=== PATIENT | male | born 1950 | race Caucasian/White ===

== ENCOUNTER 2017-11-19 17:21 | Inpatient (IN) | payer BC, MEDICARE ==
[~2017-11-19] VITALS: Ht 177.8 cm; Wt 129.5 kg
[~2017-11-19 17:21] MED LIST: ALIS150T PO; AMOX500 PO; BUME1 PO; CLIN300 PO; CLOP75 PO; Coreg12.5 MG PO; EDARBI40 MG PO; HYDACE5 PO; LISI20 PO; METF500 PO; PANT40 PO; SPIR25 PO
[2017-11-19 17:45] LABS: BASOPHILS ABSOLUTE AUTO 0.01 K/mm3 (0.00-0.23); BASOPHILS PERCENT AUTO 0 % (0-2); EOSINOPHILS ABSOLUTE AUTO 0.14 K/mm3 (0.00-0.68); EOSINOPHILS PERCENT AUTO 2 % (0-6); Hematocrit 38.7 % (37.0-53.0); Hemoglobin 12.8 g/dL (13.5-17.5); IMMATURE GRAN ABSOLUTE AUTO 0.02 K/mm3 (0.00-0.10); IMMATURE GRAN PERCENT AUTO 0 % (0-1); LYMPHOCYTES PERCENT AUTO 23 % (21-46); MONOCYTES ABSOLUTE AUTO 0.62 K/mm3 (0.16-1.47); MONOCYTES PERCENT AUTO 8 % (4-13); Mean Corpuscular HGB 28.6 pg (26.0-34.0); Mean Corpuscular HGB Conc 33.1 g/dL (31.5-36.5); Mean Corpuscular Volume 86 fL (80-100); Mean Platelet Volume 9.2 fL (9.1-12.4); NEUTROPHILS ABSOLUTE AUTO 5.04 K/mm3 (1.96-9.15); NEUTROPHILS PERCENT AUTO 67 % (41-73); Platelet Count 202 K/mm3 (150-400); RDW Coefficient Variation 14.3 % (11.7-14.2); RDW Standard Deviation 44.5 fL (35.1-46.3); Red Blood Cell Count 4.48 M/mm3 (4.30-5.90); White Blood Cell Count 7.53 K/mm3 (4.00-11.30)
[2017-11-19 18:08] LABS: Alanine Aminotransfer (ALT/SGP 43 U/L (12-78); Albumin, Blood 3.6 g/dL (3.4-5.0); Alk Phos 66 U/L (50-136); Anion Gap 6 mmol/L (6-16); Aspartate Aminotrans (AST/SGOT 29 U/L (12-37); Bilirubin, Total 0.4 mg/dL (0.1-1.0); Blood Urea Nitrogen 23 mg/dL (8-24); Bun/Creatinine Ratio 18.5 (12.0-20.0); CO2, Blood 29 mmol/L (21-32); Calcium, Blood 8.9 mg/dL (8.5-10.1); Chloride, Blood 105 mmol/L (98-108); Creatinine, Blood 1.24 mg/dL (0.60-1.20); Globulin, Blood 3.7 g/dL (2.2-4.0); Glomerular Filtration Rate >60 (60-); Glucose, Blood 89 mg/dL (70-99); Potassium, Blood 3.8 mmol/L (3.5-5.5); Sodium, Blood 140 mmol/L (136-145); Total Protein, Blood 7.3 g/dL (6.4-8.2)
[2017-11-19 18:38] LABS: Troponin I 0.729 ng/mL (0.000-0.040)
[2017-11-19] MEDS ORDERED: BUME1 PO (20:13)
[2017-11-19] MEDS ORDERED: VITAMIN D31000 UNIT PO (20:14)
[2017-11-19 20:30] LABS: Source, Urine Clean Catch
[2017-11-19 20:34] LABS: Appearance, Urine Clear (Clear); Bilirubin, Urine Neg (Neg); Blood, Urine Neg (Neg); Color, Urine Yellow (P-Yellow); Glucose Qualitative, Urine Neg (Neg); Ketones, Urine Neg (Neg); Leukocyte Esterase, Urine Neg (Neg); Nitrite, Urine Neg (Neg); Protein, Urine Neg (Neg); Urobilinogen, Urine NORM (Normal)
[2017-11-20 02:41] LABS: BASOPHILS ABSOLUTE AUTO 0.01 K/mm3 (0.00-0.23); BASOPHILS PERCENT AUTO 0 % (0-2); EOSINOPHILS ABSOLUTE AUTO 0.13 K/mm3 (0.00-0.68); EOSINOPHILS PERCENT AUTO 2 % (0-6); Hematocrit 38.7 % (37.0-53.0); Hemoglobin 12.7 g/dL (13.5-17.5); IMMATURE GRAN ABSOLUTE AUTO 0.01 K/mm3 (0.00-0.10); IMMATURE GRAN PERCENT AUTO 0 % (0-1); LYMPHOCYTES ABSOLUTE AUTO 1.33 K/mm3 (0.84-5.20); LYMPHOCYTES PERCENT AUTO 22 % (21-46); MONOCYTES ABSOLUTE AUTO 0.58 K/mm3 (0.16-1.47); MONOCYTES PERCENT AUTO 10 % (4-13); Mean Corpuscular HGB 28.9 pg (26.0-34.0); Mean Corpuscular HGB Conc 32.8 g/dL (31.5-36.5); Mean Corpuscular Volume 88 fL (80-100); Mean Platelet Volume 9.5 fL (9.1-12.4); NEUTROPHILS ABSOLUTE AUTO 4.04 K/mm3 (1.96-9.15); NEUTROPHILS PERCENT AUTO 66 % (41-73); Platelet Count 185 K/mm3 (150-400); RDW Coefficient Variation 14.4 % (11.7-14.2); RDW Standard Deviation 46.6 fL (35.1-46.3); Red Blood Cell Count 4.39 M/mm3 (4.30-5.90)
[2017-11-20 03:02] LABS: Alanine Aminotransfer (ALT/SGP 41 U/L (12-78); Albumin, Blood 3.5 g/dL (3.4-5.0); Albumin/Globulin Ratio 1.1 (0.8-1.8); Alk Phos 61 U/L (50-136); Anion Gap 8 mmol/L (6-16); Aspartate Aminotrans (AST/SGOT 27 U/L (12-37); Bilirubin, Total 0.4 mg/dL (0.1-1.0); Blood Urea Nitrogen 22 mg/dL (8-24); CO2, Blood 28 mmol/L (21-32); Calcium, Blood 8.8 mg/dL (8.5-10.1); Chloride, Blood 106 mmol/L (98-108); Globulin, Blood 3.3 g/dL (2.2-4.0); Glomerular Filtration Rate >60 (60-); Glucose, Blood 107 mg/dL (70-99); Potassium, Blood 3.9 mmol/L (3.5-5.5); Sodium, Blood 142 mmol/L (136-145); Total Protein, Blood 6.8 g/dL (6.4-8.2)
[2017-11-20 03:09] LABS: Troponin I 0.779 ng/mL (0.000-0.040)
[2017-11-20 11:26] LABS: Troponin I 0.628 ng/mL (0.000-0.040)
[2017-11-20 23:38] LABS: Source, Urine Clean Catch
[2017-11-20 23:41] LABS: Bilirubin, Urine Neg (Neg); Blood, Urine Neg (Neg); Glucose Qualitative, Urine Neg (Neg); Ketones, Urine Neg (Neg); Leukocyte Esterase, Urine Neg (Neg); Nitrite, Urine Neg (Neg); Protein, Urine Neg (Neg); Specific Gravity, Urine 1.015 (1.003-1.022); Urobilinogen, Urine NORM (Normal)
[2017-11-20 23:51] LABS: Appearance, Urine Clear (Clear); Color, Urine Yellow (P-Yellow)
[2017-11-22 03:35] LABS: BASOPHILS ABSOLUTE AUTO 0.01 K/mm3 (0.00-0.23); BASOPHILS PERCENT AUTO 0 % (0-2); EOSINOPHILS ABSOLUTE AUTO 0.12 K/mm3 (0.00-0.68); EOSINOPHILS PERCENT AUTO 2 % (0-6); Hematocrit 37.8 % (37.0-53.0); Hemoglobin 12.2 g/dL (13.5-17.5); IMMATURE GRAN ABSOLUTE AUTO 0.01 K/mm3 (0.00-0.10); IMMATURE GRAN PERCENT AUTO 0 % (0-1); LYMPHOCYTES ABSOLUTE AUTO 0.89 K/mm3 (0.84-5.20); LYMPHOCYTES PERCENT AUTO 14 % (21-46); MONOCYTES PERCENT AUTO 8 % (4-13); Mean Corpuscular HGB 28.4 pg (26.0-34.0); Mean Corpuscular HGB Conc 32.3 g/dL (31.5-36.5); Mean Corpuscular Volume 88 fL (80-100); Mean Platelet Volume 9.6 fL (9.1-12.4); NEUTROPHILS ABSOLUTE AUTO 4.97 K/mm3 (1.96-9.15); NEUTROPHILS PERCENT AUTO 76 % (41-73); Platelet Count 222 K/mm3 (150-400); RDW Coefficient Variation 14.9 % (11.7-14.2); RDW Standard Deviation 47.7 fL (35.1-46.3); Red Blood Cell Count 4.29 M/mm3 (4.30-5.90)
[2017-11-22 04:20] LABS: Anion Gap 8 mmol/L (6-16); Blood Urea Nitrogen 25 mg/dL (8-24); Bun/Creatinine Ratio 20.7 (12.0-20.0); CO2, Blood 24 mmol/L (21-32); Calcium, Blood 8.5 mg/dL (8.5-10.1); Chloride, Blood 108 mmol/L (98-108); Creatinine, Blood 1.21 mg/dL (0.60-1.20); Glomerular Filtration Rate >60 (60-); Glucose, Blood 93 mg/dL (70-99); Potassium, Blood 4.2 mmol/L (3.5-5.5); Sodium, Blood 140 mmol/L (136-145)
[2017-11-22] MEDS ORDERED: CLOP75 PO (09:44)
[2017-11-22] MEDS ORDERED: ASPI81CH PO (09:49)
[2017-11-22] MEDS ORDERED: ATOR80 PO (09:50)
[2017-11-22] MEDS ORDERED: EDARBI40 MG PO (09:51)
[2017-11-22] MEDS ORDERED: ASPI325 PO (10:14)
== END 2017-11-22 10:47 | disposition home or self-care (01) | DRG 246 ==
LOC: ER 17:21 → ERHOLD 17:22 → PCU 11-20 13:14
PROVIDERS: Emergency Medicine; Internal Medicine; Internal Medicine Interventional Cardiology
PROC: 027237Z Dilation of Coronary Artery, Three Arteries with Four or More Drug-eluting Intraluminal Devices, Percutaneous Approach (ICD-10-PCS; principal; 2017-11-21)
PROC: 4A023N7 Measurement of Cardiac Sampling and Pressure, Left Heart, Percutaneous Approach (ICD-10-PCS; 2017-11-21)
PROC: B2101ZZ Fluoroscopy of Single Coronary Artery using Low Osmolar Contrast (ICD-10-PCS; 2017-11-21)
PROC: B2151ZZ Fluoroscopy of Left Heart using Low Osmolar Contrast (ICD-10-PCS; 2017-11-21)
DX: I21.4 Non-ST elevation (NSTEMI) myocardial infarction (principal); E88.81 Metabolic syndrome and other insulin resistance; I13.0 Hypertensive heart and chronic kidney disease with heart failure and stage 1 through stage 4 chronic kidney disease, or unspecified chronic kidney disease; I50.32 Chronic diastolic (congestive) heart failure; E66.9 Obesity, unspecified; N18.1 Chronic kidney disease, stage 1; G47.33 Obstructive sleep apnea (adult) (pediatric); I35.0 Nonrheumatic aortic (valve) stenosis; I25.10 Atherosclerotic heart disease of native coronary artery without angina pectoris; Z88.5 Allergy status to narcotic agent; Z79.02 Long term (current) use of antithrombotics/antiplatelets; Z79.899 Other long term (current) drug therapy; Z86.73 Personal history of transient ischemic attack (TIA), and cerebral infarction without residual deficits; Z87.891 Personal history of nicotine dependence; Z68.36 Body mass index [BMI] 36.0-36.9, adult
CPT/HCPCS: 36415; 37253; 71046; 80048; 80053; 81003; 82550; 84484; 85025; 85347; 85730; 92978; 93005; 93010; 93458; 94660; 94762; 96372; 96374; 96375; 96376; 99152; 99153; 99285; C1725; C1753; C1769; C1874; C1894; C9600; C9601; G0378; J0360; J1644; J2250; J2270; J3010; J3246; J7030; J7060; Q9967

== ENCOUNTER → 2018-02-18 | Outpatient (CLI) | payer BC, OTHER ==
[~2018-02-18] MED LIST changes: +ASPI325 PO; +ASPI81CH PO; +ATOR80 PO; +VITAMIN D31000 UNIT PO
== END ==
LOC: PLD 10:54 → LAB SHORT 10:54
DX: D48.5 Neoplasm of uncertain behavior of skin (principal)
CPT/HCPCS: 88305

== ENCOUNTER 2018-12-17 09:38 | Emergency (ER) | payer OTHER, BC ==
[~2018-12-17] VITALS: Ht 177.8 cm; Wt 136.1 kg
[~2018-12-17 09:38] MED LIST changes: +BUME2 PO
[2018-12-17] MEDS ORDERED: ONDA4ODT MM (14:07)
[2018-12-17] MEDS ORDERED: Crutch1 EACH UD (14:07)
[2018-12-17] MEDS ORDERED: Percocet 10-321 EACH PO (14:07)
[2018-12-17] MEDS ORDERED: CARV25 PO (21:50)
[2018-12-17] MEDS ORDERED: POTA10T PO (21:54)
[2018-12-17] MEDS ORDERED: K-Dur10 MEQ PO (21:55)
[2018-12-17] MEDS ORDERED: LOSA50 PO (21:57)
[2018-12-17] MEDS ORDERED: AMLO5 PO (21:58)
[2018-12-17] MEDS ORDERED: Nystatin15 GM TOP (22:00)
== END 2018-12-17 15:17 | disposition home or self-care (01) ==
LOC: ER 09:38
DX: S83.231A Complex tear of medial meniscus, current injury, right knee, initial encounter (principal); S83.271A Complex tear of lateral meniscus, current injury, right knee, initial encounter; S76.111A Strain of right quadriceps muscle, fascia and tendon, initial encounter; S46.211A Strain of muscle, fascia and tendon of other parts of biceps, right arm, initial encounter; I10 Essential (primary) hypertension; E11.9 Type 2 diabetes mellitus without complications; Z88.5 Allergy status to narcotic agent; Z79.899 Other long term (current) drug therapy; Z79.01 Long term (current) use of anticoagulants; Z79.82 Long term (current) use of aspirin; Z87.891 Personal history of nicotine dependence; W00.0XXA Fall on same level due to ice and snow, initial encounter
CPT/HCPCS: 29505; 73552; 73562-RT; 73721; 99284-25

== ENCOUNTER 2018-12-17 18:09 | Inpatient (IN) | payer OTHER, BC ==
[~2018-12-17] VITALS: Ht 177.8 cm; Wt 62.5 kg
[~2018-12-17 18:09] MED LIST changes: +Crutch1 EACH UD; +ONDA4ODT MM; +Percocet 10-321 EACH PO
[2018-12-17] MEDS ORDERED: CARV25 PO (21:50)
[2018-12-17] MEDS ORDERED: POTA10T PO (21:54)
[2018-12-17] MEDS ORDERED: K-Dur10 MEQ PO (21:55)
[2018-12-17] MEDS ORDERED: LOSA50 PO (21:57)
[2018-12-17] MEDS ORDERED: AMLO5 PO (21:58)
[2018-12-17] MEDS ORDERED: Nystatin15 GM TOP (22:00)
--- NOTE | 2018-12-17 23:30 | NUR ---
PT ADMITTED FROM ED FOR RUPTURE OF R QUAD TENDON. POTENTIAL L QUAD TENDON RUPTURE; MRI SCHED TOMORROW MORNING. IMMOBILIZER PLACED TO BLE. A&0 X4. VS WNL. BEDFAST AND NPO AT THIS TIME. AT BEDSIDE.
[2018-12-17 23:47] LABS: BASOPHILS ABSOLUTE AUTO 0.03 K/mm3 (0.00-0.23); BASOPHILS PERCENT AUTO 0 % (0-2); EOSINOPHILS ABSOLUTE AUTO 0.04 K/mm3 (0.00-0.68); EOSINOPHILS PERCENT AUTO 0 % (0-6); Hematocrit 36.4 % (37.0-53.0); Hemoglobin 11.7 g/dL (13.5-17.5); IMMATURE GRAN ABSOLUTE AUTO 0.02 K/mm3 (0.00-0.10); IMMATURE GRAN PERCENT AUTO 0 % (0-1); LYMPHOCYTES ABSOLUTE AUTO 0.82 K/mm3 (0.84-5.20); LYMPHOCYTES PERCENT AUTO 8 % (21-46); MONOCYTES ABSOLUTE AUTO 0.68 K/mm3 (0.16-1.47); MONOCYTES PERCENT AUTO 7 % (4-13); Mean Corpuscular HGB 29.5 pg (26.0-34.0); Mean Corpuscular HGB Conc 32.1 g/dL (31.5-36.5); Mean Corpuscular Volume 92 fL (80-100); Mean Platelet Volume 9.6 fL (9.1-12.4); NEUTROPHILS ABSOLUTE AUTO 8.66 K/mm3 (1.96-9.15); NEUTROPHILS PERCENT AUTO 85 % (41-73); Platelet Count 236 K/mm3 (150-400); RDW Coefficient Variation 14.3 % (11.7-14.2); RDW Standard Deviation 47.7 fL (35.1-46.3); Red Blood Cell Count 3.97 M/mm3 (4.30-5.90); White Blood Cell Count 10.25 K/mm3 (4.00-11.30)
[2018-12-18 00:08] LABS: Alanine Aminotransfer (ALT/SGP 38 U/L (12-78); Albumin, Blood 3.8 g/dL (3.4-5.0); Albumin/Globulin Ratio 1.1 (0.8-1.8); Alk Phos 64 U/L (50-136); Anion Gap 8 mmol/L (6-16); Aspartate Aminotrans (AST/SGOT 21 U/L (12-37); Bilirubin, Total 0.4 mg/dL (0.1-1.0); Blood Urea Nitrogen 27 mg/dL (8-24); Bun/Creatinine Ratio 18.1 (12.0-20.0); CO2, Blood 33 mmol/L (21-32); Calcium, Blood 8.5 mg/dL (8.5-10.1); Chloride, Blood 102 mmol/L (98-108); Creatinine, Blood 1.49 mg/dL (0.60-1.20); Globulin, Blood 3.5 g/dL (2.2-4.0); Glomerular Filtration Rate 50 (60-); Glucose, Blood 137 mg/dL (70-99); Magnesium, Blood 2.5 mg/dL (1.6-2.4); Potassium, Blood 3.9 mmol/L (3.5-5.5); Sodium, Blood 143 mmol/L (136-145); Total Protein, Blood 7.3 g/dL (6.4-8.2); Troponin I <0.015 ng/mL (0.000-0.040)
[2018-12-18 06:45] LABS: BASOPHILS ABSOLUTE AUTO 0.01 K/mm3 (0.00-0.23); BASOPHILS PERCENT AUTO 0 % (0-2); EOSINOPHILS ABSOLUTE AUTO 0.05 K/mm3 (0.00-0.68); EOSINOPHILS PERCENT AUTO 1 % (0-6); Hemoglobin 10.9 g/dL (13.5-17.5); IMMATURE GRAN ABSOLUTE AUTO 0.02 K/mm3 (0.00-0.10); IMMATURE GRAN PERCENT AUTO 0 % (0-1); LYMPHOCYTES ABSOLUTE AUTO 0.87 K/mm3 (0.84-5.20); LYMPHOCYTES PERCENT AUTO 11 % (21-46); MONOCYTES ABSOLUTE AUTO 0.57 K/mm3 (0.16-1.47); MONOCYTES PERCENT AUTO 7 % (4-13); Mean Corpuscular HGB 29.4 pg (26.0-34.0); Mean Corpuscular HGB Conc 32.1 g/dL (31.5-36.5); Mean Corpuscular Volume 92 fL (80-100); Mean Platelet Volume 9.3 fL (9.1-12.4); NEUTROPHILS ABSOLUTE AUTO 6.19 K/mm3 (1.96-9.15); NEUTROPHILS PERCENT AUTO 80 % (41-73); Platelet Count 219 K/mm3 (150-400); RDW Coefficient Variation 14.4 % (11.7-14.2); RDW Standard Deviation 47.8 fL (35.1-46.3); Red Blood Cell Count 3.71 M/mm3 (4.30-5.90); White Blood Cell Count 7.71 K/mm3 (4.00-11.30)
[2018-12-18 07:05] LABS: Anion Gap 6 mmol/L (6-16); Blood Urea Nitrogen 29 mg/dL (8-24); CO2, Blood 34 mmol/L (21-32); Calcium, Blood 8.5 mg/dL (8.5-10.1); Chloride, Blood 103 mmol/L (98-108); Creatinine, Blood 1.53 mg/dL (0.60-1.20); Glomerular Filtration Rate 48 (60-); Glucose, Blood 116 mg/dL (70-99); Potassium, Blood 3.8 mmol/L (3.5-5.5); Sodium, Blood 143 mmol/L (136-145); Troponin I <0.015 ng/mL (0.000-0.040)
--- NOTE | 2018-12-18 08:10 | NUR ---
PT SENT TO MRI. PLAN FOR SURGERY THIS AFTERNOON. PT HAS BEEN NPO T/O NIGHT.
--- NOTE | 2018-12-18 12:12 | NUR ---
PT INTO SDS VIA GURN FROM 216. History, Chart, Medications and Allergies reviewed before start of procedure.Patient confirms NPO status and agrees with scheduled surgery. PT REPORTS SOME NAUSEA, MEDICATED JUST PROIR TO ARRIVAOL IN DAY SURGERY
--- NOTE | 2018-12-18 12:38 | NUR ---
pt in or.
[2018-12-18 16:32] LABS: PCO2 Arterial 62.6 mmHg (35-45); PO2 Arterial 99.6 mmHg (80-100)
[2018-12-18 16:33] LABS: pH Blood Arterial 7.21 (7.35-7.45)
--- NOTE | 2018-12-18 17:19 | NUR ---
1550- PT ARRIVED IN PACU. UNABLE TO PUT O2 OR MONITORS ON PT DUE TO PT PT AGITATION. KNEE IMMOBILIZERS BILAT. 1605- AGITATION CONTINUES. MED FOR C/O PAIN BY DR. GIPSON. 1610- PT APNEIC,NO PULSE. CPR STARTED AND CODE CALLED. 1620-ROSC.RESP SUPPORT CONTINUED WITH BAG MASK. PT INTUBATED. 1636-TRANSFERRED TO ICU
[2018-12-18 17:35] LABS: Hematocrit 33.1 % (37.0-53.0); Hemoglobin 10.3 g/dL (13.5-17.5); Mean Corpuscular HGB 28.9 pg (26.0-34.0); Mean Corpuscular HGB Conc 31.1 g/dL (31.5-36.5); Mean Corpuscular Volume 93 fL (80-100); Mean Platelet Volume 10.4 fL (9.1-12.4); Platelet Count 274 K/mm3 (150-400); RDW Coefficient Variation 14.5 % (11.7-14.2); RDW Standard Deviation 48.9 fL (35.1-46.3); Red Blood Cell Count 3.56 M/mm3 (4.30-5.90); White Blood Cell Count 16.04 K/mm3 (4.00-11.30)
[2018-12-18 17:48] LABS: PCO2 Arterial 52.2 mmHg (35-45); PO2 Arterial 81.9 mmHg (80-100); pH Blood Arterial 7.36 (7.35-7.45)
[2018-12-18 17:54] LABS: Albumin, Blood 3.3 g/dL (3.4-5.0); Albumin/Globulin Ratio 1.1 (0.8-1.8); Bilirubin, Total 0.4 mg/dL (0.1-1.0); Bun/Creatinine Ratio 17.5 (12.0-20.0); Calcium, Blood 7.8 mg/dL (8.5-10.1); Creatinine, Blood 1.54 mg/dL (0.60-1.20); Globulin, Blood 3.1 g/dL (2.2-4.0); Potassium, Blood 3.9 mmol/L (3.5-5.5); Total Protein, Blood 6.4 g/dL (6.4-8.2)
[2018-12-18 18:00] LABS: Creatine Kinase MB 2.1 ng/mL (0.0-3.6); Creatine Kinase MB Index 0.8 (0.0-4.0)
--- NOTE | 2018-12-18 18:11 | NUR ---
PT ARRIVED TO UNIT AFTER CODE IN PACU. PT IS INTUBATED AND SEDATED, PROPOFOL RUNNING AT 25 MCG/KG/MIN TO START. BLOOD PRESSURE INITIALLY DROPPED AND DR VELEZ ORDERED 500 BOLUS OF LR TO BE ADMINISTERED. DR RABAGO DID A RT FEMORAL NERVE BLOCK AT BEDSIDE. BP INCREASED TO 200'S SYSTOLICALLY.
--- NOTE | 2018-12-18 19:15 | NUR ---
ASSUMING CARE OF PT AT THIS TIME. PT REPORT RECEIVED AT BEDSIDE WITH OFFGOING NURSES, APOORVA RN AND EVELINE RN. PT LAYING IN BED, SEDATED, INTUBATED UPON ENTERING THE ROOM. VS STABLE -SEE VS FS. PT DOES NOT APPEAR TO BE IN DISTRESS AT THIS TIME. WILL REVIEW PLAN OF CARE. PT'S FAMILY AT BEDSIDE. PT'S PLANNING TO SPEND NIGHT IN ICU. MAYI LR FROM [facility] PLACING BILAT POST OP KNEE BRACES AT THIS TIME.
--- NOTE | 2018-12-18 19:30 | NUR ---
ASSESSMENT PT UNRESPONSIVE, DOES NOT OPEN EYES, DOES NOT RESPOND TO PAIN, DOES NOT NOD HEAD Y/N TO QUESTIONS, DOES NOT FOLLOW COMMANDS, NO TRACKING WITH EYES. PROPOFOL 25 MCG/KG/MIN - WILL TITRATE TO EFFECT. DILAN SENSATION. NO MOVEMENT OF EXTREMETIES NOTED. NO S/SX OF PAIN/DISCOMFORT NOTED. JERKING MOVEMENT X1. REPORT REPORT - PT MIGHT BE EXPERIENCING POSSIBLE SEIZURE ACTIVITY. PENDING CT RESULTS. PT IN BILAT WRIST RESTARINTS TO PROTECT VITAL LINES/CORDS/TUBES AND TO PROTECT FROM SELF-EXTUBATION. LUNGS COARSE, DIMINISHED LOWER LOBES. VENT SETTINGS: AC 14, TV 550, PEEP 5, FIO2 70%. OXY SAT >90%. RR 14. SUCTION VIA ETT: NO OUTPUT. AFEBRILE. ST. HR 100'S. BP STABLE - SEE VS FS. STRONG PULSES. EDEMA NOTED. WARM, PALE BUE'S. COOL, PALE BLE'S. HYPOACTIVE BT X4 QUADRANTS. ABD SOFT, NONTENDER, MOD DIST. NO BM. OG IN PLACE TO LIS: GREEN SECRETIONS NOTED. WILL PLACE OG ON STANDBY POST ADMINISTERING PER TUBE MEDICATOINS. F/C - DARK YELLOW URINE. PIV X2. POWERLIGDE MICHAEL. LR AT 75 ML/HR.
--- NOTE | 2018-12-18 19:34 | NUR ---
PT CONTINUES TO BE INTUBATED AND SEDATED AT THIS TIME. PROPOFOL IS RUNNING AT 25 MCG/KG/MIN. VENT SETTINGS ARE AC: 14/550/5/70% O2 SAT IS ABOVE 92%. PT IS RESTRAINED WITH B/L WRIST RESTRAINTS. POWERGLIDE PLACED IN UPPER LEFT ARM. CALDERON CATH IN PLACE DRAINING TO GRAVITY AT THIS TIME. [employer] FROM [facility] IS STILL AT BEDSIDE WORKING TO APPLY B/L KNEE STABALIZERS. GAVE REPORT TO SHERYL AYALA.
--- NOTE | 2018-12-18 20:13 | NUR ---
[facility]: MAYI LR FROM [facility] PLACED BILAT ORTHO BRACES.
--- NOTE | 2018-12-18 20:26 | NUR ---
DR. VELEZ PT HYPERTENSIVE WITH SBP IN 200'S, HR 80'S. CALLED DR. VELEZ REGARDING HYPERTENSION. DR. VELEZ ORDER COREG 6.25 Q12 SCHEDULED TO START NOW (HOLD FOR HR <60 AND SBP <90). DR. VELEZ ALSO ORDERED PRN HYDRALAZINE. WAITING FOR VERIFICATION OF MEDICATIONS FROM PHARMACY AT THIS TIME.
--- NOTE | 2018-12-19 01:30 | NUR ---
DR. HASSAN SBP REMAINS 160'S TO 180'S AFTER ADMINISTERING SCHEDULED COREG, PRN HYDRALAZINE, AND PRN LABETOLOL. DR. HASSAN D/C HYDRALAZINE D/T "REBOUND TACHYCARDIA". HR 100'S TO 120'S. DR. HASSAN ORDERED LABETOLOL 10 MG Q4P FOR SBP >180.
[2018-12-19 01:39] LABS: Creatine Kinase MB 4.8 ng/mL (0.0-3.6); Creatine Kinase MB Index 1.5 (0.0-4.0); Troponin I 0.22 ng/mL (0.000-0.040)
--- NOTE | 2018-12-19 02:19 | NUR ---
DR. HASSAN LABETOLOL 10 MG PRN ADMINSITERED. PT REMAINS HYPERTENSIVE (SEE VS FS). HR REMAINS 110'S. TROPONIN ELEVATED. ST CHANGES NOTED ON TELE. EKG COMPLETED. CALLED DR. HASSAN AT THIS TIME. DR. HASSAN ORDERED ECHO ROUTINE, AM MAGNESIUM, AM PHOS. DR. HASSAN ALSO ORDERED LABETOLOL DRIP TO BE TITRATED TO MAINTAIN SBP 180 AND GREATER.
[2018-12-19 02:20] LABS: Source, Urine Catheter
--- NOTE | 2018-12-19 02:36 | NUR ---
DR. HASSAN PT REMAINS HYPERTENSIVE (SEE VS FS). DAVID, PHARMACIST IS UNABLE TO MAKE LABETOLOL DRIP. CALLED DR. HASSAN D/T INABILITY TO MAKE LABETOLOL DRIP. DR. HASSAN ORDERED NICARDIPINE DRIP TO MAINTAIN SBP 180 AND TYLENOL IV X1. WAITING FOR MEDICATION FROM PHARMACY AT THIS TIME. WAITING FOR NICARDIPINE DRIP FROM PHARMACY AT THIS TIME. DAVID, PHARMICIST VERIFYING TYLENOL IV ORDER WITH DR. HASSAN AT THIS TIME.
[2018-12-19 02:42] LABS: Bilirubin, Urine Neg (Neg); Blood, Urine 2+ (Neg); Glucose Qualitative, Urine 3+ (Neg); Ketones, Urine Neg (Neg); Leukocyte Esterase, Urine Neg (Neg); Nitrite, Urine Neg (Neg); Protein, Urine 2+ (Neg); Urobilinogen, Urine NORM (Normal)
[2018-12-19 02:48] LABS: Appearance, Urine Clear (Clear); Color, Urine Yellow (P-Yellow)
[2018-12-19 02:49] LABS: Bacteria Rare /hpf; Squamous Epithelial Cells Few /hpf (Few); White Blood Cells, Urine Not Seen /hpf (0-5)
--- NOTE | 2018-12-19 02:50 | NUR ---
DAVID, PHARMACIST DAVID CALLED DR. HASSAN REGARDING LABETOLOL DRIP, NICARDIPINE DRIP, AND TYLENOL IV. PER DAVID, "THERE ARE ENOUGH LABETOLOL SYNRINGES TO MAKE A LABETOLOL DRIP". PER DAVID, DR. HASSAN D/C NICARDIPINE DRIP AND ORDERED LABETOLOL DRIP. PER DR. MO HERNANDEZ ORDERED TYLENOL SUPPOSITORY D/T TYLENOL UNAVAILABILITY VIA IV. WAITING FOR VERIFICATION OF MEDICATION FROM PHARMACY. WAITING FOR LABETOLOL DRIP FROM PHARMACYAT THIS TIME.
--- NOTE | 2018-12-19 03:17 | NUR ---
DR. MO HASSAN AT BEDSIDE AT THIS TIME. NO NEW ORDERS AT THIS TIME.
[2018-12-19 03:56] LABS: BASOPHILS ABSOLUTE AUTO 0.01 K/mm3 (0.00-0.23); BASOPHILS PERCENT AUTO 0 % (0-2); EOSINOPHILS PERCENT AUTO 0 % (0-6); Hemoglobin 10.1 g/dL (13.5-17.5); IMMATURE GRAN ABSOLUTE AUTO 0.04 K/mm3 (0.00-0.10); IMMATURE GRAN PERCENT AUTO 0 % (0-1); LYMPHOCYTES ABSOLUTE AUTO 0.66 K/mm3 (0.84-5.20); LYMPHOCYTES PERCENT AUTO 5 % (21-46); MONOCYTES ABSOLUTE AUTO 0.99 K/mm3 (0.16-1.47); MONOCYTES PERCENT AUTO 8 % (4-13); Mean Corpuscular HGB 29.4 pg (26.0-34.0); Mean Corpuscular HGB Conc 32.6 g/dL (31.5-36.5); Mean Platelet Volume 9.7 fL (9.1-12.4); NEUTROPHILS ABSOLUTE AUTO 11.09 K/mm3 (1.96-9.15); NEUTROPHILS PERCENT AUTO 87 % (41-73); Platelet Count 216 K/mm3 (150-400); RDW Coefficient Variation 14.4 % (11.7-14.2); RDW Standard Deviation 46.5 fL (35.1-46.3); Red Blood Cell Count 3.43 M/mm3 (4.30-5.90); White Blood Cell Count 12.79 K/mm3 (4.00-11.30)
[2018-12-19 03:58] LABS: Mean Corpuscular Volume 90 fL (80-100)
[2018-12-19 04:16] LABS: Bun/Creatinine Ratio 16.7 (12.0-20.0); Calcium, Blood 8.3 mg/dL (8.5-10.1); Creatinine, Blood 1.38 mg/dL (0.60-1.20); Phosphorus, Blood 2.3 mg/dL (2.5-4.9); Potassium, Blood 4.1 mmol/L (3.5-5.5)
--- NOTE | 2018-12-19 05:00 | NUR ---
DR. HASSAN CALLED DR. HASSAN AT THIS TIME. UPDATE DR. HASSAN OF PT'S STATUS AND AM LABS. DR. HASSAN DOES NOT WANT PHOS REPLACEMENT THIS AM D/T SODIUM AND POTASSIUM LABS. NO NEW ORDERS AT THIS TIME.
--- NOTE | 2018-12-19 05:15 | NUR ---
SHIFT ASSESSMENT PT RESPONDS TO PAINFUL STIMULI WITH DECREASED PROPOFOL, OPENS EYES SPONTANEOUSLY WITH DECREASED PROPOFOL, OTHERWISE OPENS EYES TO VERBAL & PAINFUL STIMULI, DOES NOT NOD HEAD Y/N TO QUESTIOSN, DOES NOT FOLLOW COMMANDS, NO TRACKIGN WITH EYES. PROPOFOL 10 MCG/KG/MIN - CONT TO TITRATE TO EFFECT. DILAN SENSATION. NO MOVEMENT BLE'S. NORMAL STRENGH BUE'S WITH DECREASED SEDATION. PT PULLING ON BILAT WRIST RESTRAINTS AND ATTEMPTING TO EXTUBATE SELF WITH DECREASED SEDATION. BILAT POST OP KNEE BRACES REMAINED IN PLACE. S/SX OF PAIN/DISCOMFORT NOTED THIS AM WITH DECREASED SEDATION (FACIAL GRIMACING AND BRACING NOTED). DR HASSAN INSTRUCTED TO ADMINSITER TYLENOL INSTEAD OF NARCOTICS D/T ALLERGIES. NO S/SX OF PAIN/DISCOMFORT NOTED POST TYLENOL. NERVE BLOCK ADMINISTERED YESTERDAY. NO JERKING MOVEMENT NOTED SINCE BEGINNING OF THE SHIFT. PT IN BILAT WRIST RESTRAINTS TO PROTECT VITAL LINES/CORDS/TUBES AND TO PROTECT FROM SELF-EXTUBATION. LUNGS COARSE, DIMINISHED LOWER LOBES. VENT SETTINGS: AC 14, TV 550, PEEP5, FIO2 50%. OXY SAT REMAINED >90%. RR 14 TO 20'S. SBT COMPLETED THIS AM: PS 5, PEEP 5, FIO2 50% - SEE GORDO RT NOTE. SUCTION VIA ETT: NO OUTPUT. ORAL CARE: SMALL AMOUNTS OF SEROSANGEOUS FLUID NOTED. TMAX: 99.4 - BLANKETS OFF, ROOM TEMP TURNED DOWN, FAN ON, TYLENOL ADMINISTERED. NSR TO ST. HR 70'S TO 120'S. PT HYPERTENSIVE T/O SHIFT (SEE PREVIOUS NOTES). CURRENTLY, BP STABLE (SEE VS FS). LABETOLOL DRIP ON STANDBY. STRONG PULSES. EDEMA NOTED. WARM, PALE SKIN. DECREASED HR AND BP NOTED WITH INCREASED PROPOFOL. HYPOACTIVE BT X4 QUADRANTS. ABD SOFT, NONTENDER, MOD DIST. NO BM. OG IN PLACE TO LIS: YELLOW/GREEN SECRETIONS NOTED. F/C - DARK YELLOW URINE. PIV X2. POWERLGIDE MICHAEL. LR AT 75 ML/HR. WILL CONT TO MONITOR PT AND WILL PROVIDE BEDSIDE REPORT TO ONCOMING NURSE THIS AM.
--- NOTE | 2018-12-19 08:45 | NUR ---
RECEIVED REPORT AND ASSUMED CARE OF PATIENT. HE IS INTUBATED AND SEDATED AT THIS TIME. PROPOFOL IS RUNNING AT 20 MCG/KG/MIN AT THIS TIME. VENT SETTINGS ARE 14/550/5/50% O2 SAT >90%. CALDERON CAT IS DRAINING TO GRAVITY. B/L KNEE STABILIZERS IN PLACE AND LOCKED AT EXTENDED. WILL CONTINUE TO MONITOR.
[2018-12-19 09:15] LABS: Creatine Kinase MB 51.4 ng/mL (0.0-3.6)
[2018-12-19 09:26] LABS: Troponin I 8.35 ng/mL (0.000-0.040)
--- NOTE | 2018-12-19 11:41 | NUR ---
GIN: PROPOFOL OFF AROUND 1100. PT BEGINS WAKING, BUT IS CONFUSED AT THIS TIME. B/P HAS INCREASED SEE FLOWSHEET. WILL CONTINUE TO MONITOR B/P. FAMILY AT BEDSIDE TALKING TO PATIENT TO TRY TO ORIENT.
--- NOTE | 2018-12-19 11:49 | NUR ---
ECHOCARDIOGRAM COMPLETED
--- NOTE | 2018-12-19 12:31 | NUR ---
Initial Visit: Consult for goals of care and psych/social/moral distress. Pt sustained injury on the job, per family. He injured himself further on his other leg and is bedbound. Pt suffered cardiac arrest post surgical intervention. He remains intubated and failed his wean this morning. He is having a CT scan at this time. Introduced myself to family and described my job in the hospital. is pacing the room and appears anxious and upset. She reports that she doesn't know what's going to happen to him. Sister, brother, and a friend are also present. Instructed that I could assist with develping a plan once we know more information. states that he is compliant with his CPAP machine at home. Provided card, encouraged to call if family has further questions. Advised that Palliative Care will be following patient during his hospital stay. Will remain available.
--- NOTE | 2018-12-19 13:09 | NUR ---
DR VELEZ ORDERED PATIENT TO GO FOR A CT OF THE HEAD FOR ALTERED MENTAL STATUS. PT OFF PROPFOL BETWEEN 1050 AND 1240. STARTED PROPOFOL AND TOOK PT FOR CT SCAN.
--- NOTE | 2018-12-19 14:26 | NUR ---
HEAD CT RESULTS/FAMILY DR. VELEZ TO BEDSIDE TO DISCUSS HEAD CT RESULTS WITH FAMILY. PER RADIOLOGY, HEAD CT DOES SHOW A VERY SMALL INFARCT WITH AGE UNDETERMINED. DR. VELEZ PLANS TO CONSULT [facility] STROKE TEAM FOR FURTHER INTERVENTION RECOMMENDATIONS, IF ANY. ALL FAMILY QUESTIONS ANSWERED AT THIS TIME BY DR. VELEZ.
[2018-12-19 16:55] LABS: Creatine Kinase MB 47.1 ng/mL (0.0-3.6)
[2018-12-19 16:57] LABS: Troponin I 12.8 ng/mL (0.000-0.040)
--- NOTE | 2018-12-19 17:04 | NUR ---
CALLED DR. VELEZ TO REPORT CRITICAL HIGH TROPONIN, SHE IS GOING TO CONSULT CARDIOLOGY.
--- NOTE | 2018-12-19 17:30 | NUR ---
DR FERNÁNDEZ TO SEE PATIENT FOR CONSULT. HE MET WITH FAMILY TO EXPLAIN CONCERN ABOUT INCREASED TROPONIN LEVELS. DR PLANNING TO USE ANTI-COAGULANTS STARTING 2/10 AM. DISCUSSION WITH NEURO AND ORTHO IN REGARDS TO STARTING HEPARIN THERAPY. ORDERS FOR PLAVIX AND ASP. WILL CONTINUE TO FOLLOW CASE.
--- NOTE | 2018-12-19 18:10 | NUR ---
NEURO CONSULT/PROPOFOL OFF: DR GARCIA TO BEDSIDE TO SEE PATIENT. PROPOFOL OFF FOR ASSESSMENT. PT WORK OF BREATHING INCREASED, HR INCREASING UP TO 146, BP INCREASED TO 210'S SYSTOLIC, GAVE MEDICATIONS PER EMAR TO TREAT HYPERTENSION. PT MOVES BOTH ARMS TO PULL AGAINST RESTRAINTS; HOWEVER HE DOES NOT FOLLOW DIRECTIONS AT THIS TIME. POSITIVE BABINSKI TO LEFT FOOT AND NEGATIVE TO RIGHT. DISCUSSED HIS EVALUATION AND ASSESSMENT OF CASE AND STATED HE WILL RETURN TO SEE PATIENT TOMORROW MORNING AROUND 1000, HE WANTS PROPOFOL OFF AT 0800 FOR 2-HOUR PERIOD BEFORE ASSESSMENT.
--- NOTE | 2018-12-19 18:53 | NUR ---
PT CONTINUES TO BE INTUBATED AND SEDATED AT THIS TIME. PROPOFOL RUNNING AT 30 MCG/KG/MIN AND VENT SETTINGS CONTINUE AT AC 14/550/5/50%. O2 SAT >90%. CALDERON DRAINING TO GRAVITY. KNEE BRACES LOCKED IN EXTENSION PER DR. SORTO. POLAR ICE PADS CONTINUOUSLY PROVIDING THERAPY TO B/L KNEES. WILL CONTINUE TO MONITOR AND GIVE REPORT TO DEWAYNE SAUCEDO.
--- NOTE | 2018-12-19 19:15 | NUR ---
ASSUMING CARE OF PT AT THIS TIME. PT REPORT RECEIVED AT BEDSIDE WITH OFFGOING NURSES, EVELINE RN AND APOORVA RN. PT LAYING IN BED, INTUBATED AND SEDATED UPON ENTERING THE ROOM. PT'S FAMILY AT BEDSIDE. VS STABLE - SEE VS FS. PT DOES NOT APPEAR TO BE IN DISTRESS AT THIS TIME. WILL REVIEW PLAN OF CARE.
--- NOTE | 2018-12-19 19:30 | NUR ---
ASSESSMENT PT RESPONDS TO PAINFUL STIMULI, OPENING EYES TO PRESSURE, DOES NOT NOD HEAD Y/N TO QUESTOISN, DOES NOT FOLLOW COMMANDS, NO TRACKING WITH EYES, NORMAL FLEXION TO PAIN. PROPOFOL DRIP 30 MCG/KG/MIN - WILL TITRATE TO EFFECT. DILAN SENSATION. PT MOVES BUE'S. LESS MOVEMENT OF BUE'S NOTED THIS PM. NO MOVEMENT BLE'S. S/SX OF PAIN/DISCOMFORT (FACIAL GRIMACING) NOTED ESPECIALLY WITH PT CARE. MEDICATED WITH PAIN MEDS PER PHYSICIAN'S ORDER / UTILIZED NONPHARM METHODS. NO JERKING MOVEMENT NOTED THIS PM. PT IN BILAT WRIST RESTRAITNS TO PROTECT VITAL LINES/CORDS/TUBES AND TO PROTECT FROM SELF-EXTUBATION. LUNGS CLEAR, DIMINISHED LOWER LOBES. VENT SETTINGS: AC 14, TV 550, PEEP 5, FIO2 50%. OXY SAT >90%. RR 20'S. SUCTION VIA ETT: SCANT AMOUNTS OF THIN CLEAR SECRETIONS. OCC COUGHING AND GAGGING. TEMP 100.6 - FAN ON, BLANKETS OFF, ICE BLE'S, TYLENOL PRN, ROOM TEMP DOWN. ST WITH OCC PVC'S. HR 110'S. BP STABLE - SEE VS FS. STRONG PULSES. LESS EDEMA NOTED THIS PM. WARM, PALE SKIN. HYPOACTIVE BT X4 QUADRANTS. ABD SOFT, NONTENDER, MOD DIST. NO BM. OG IN PLACE TO LIS: LIGHT BROWN SECRETIONS NOTED. WILL PLACE OG ON STANDBY POST ADMINISTERING PER TUBE MEDICATIONS. F/C - CLEAR YELLOW URINE NOTED. PER REPORT - DIURESED THIS AM. PIV X1. POWERGLIDE MICHAEL. LR AT 75 ML/HR. NS TKO AT 10 ML/HR.
--- NOTE | 2018-12-19 20:30 | NUR ---
DR. VELEZ CALLED DR. VELEZ. DR. VELEZ ORDERED MAG AND PHOS FOR AM LABS.
[2018-12-20 03:08] LABS: BASOPHILS ABSOLUTE AUTO 0.02 K/mm3 (0.00-0.23); BASOPHILS PERCENT AUTO 0 % (0-2); EOSINOPHILS ABSOLUTE AUTO 0.02 K/mm3 (0.00-0.68); EOSINOPHILS PERCENT AUTO 0 % (0-6); Hemoglobin 8.4 g/dL (13.5-17.5); IMMATURE GRAN ABSOLUTE AUTO 0.02 K/mm3 (0.00-0.10); IMMATURE GRAN PERCENT AUTO 0 % (0-1); LYMPHOCYTES ABSOLUTE AUTO 0.96 K/mm3 (0.84-5.20); LYMPHOCYTES PERCENT AUTO 10 % (21-46); MONOCYTES ABSOLUTE AUTO 0.79 K/mm3 (0.16-1.47); MONOCYTES PERCENT AUTO 8 % (4-13); Mean Corpuscular HGB 29.6 pg (26.0-34.0); Mean Corpuscular HGB Conc 32.3 g/dL (31.5-36.5); Mean Corpuscular Volume 92 fL (80-100); Mean Platelet Volume 9.7 fL (9.1-12.4); NEUTROPHILS ABSOLUTE AUTO 7.81 K/mm3 (1.96-9.15); NEUTROPHILS PERCENT AUTO 81 % (41-73); Platelet Count 195 K/mm3 (150-400); RDW Coefficient Variation 14.9 % (11.7-14.2); RDW Standard Deviation 49.7 fL (35.1-46.3); Red Blood Cell Count 2.84 M/mm3 (4.30-5.90); White Blood Cell Count 9.62 K/mm3 (4.00-11.30)
[2018-12-20 03:23] LABS: Bun/Creatinine Ratio 17.2 (12.0-20.0); Calcium, Blood 7.8 mg/dL (8.5-10.1); Creatinine, Blood 1.34 mg/dL (0.60-1.20); Phosphorus, Blood 2.2 mg/dL (2.5-4.9); Potassium, Blood 3.4 mmol/L (3.5-5.5)
--- NOTE | 2018-12-20 04:50 | NUR ---
DR. HASSAN INFORMED DR. HASSAN OF AM LABS. DR. HASSAN ORDERED POTASSIUM PHOS 20 MM IVPB. WAITING FOR MEDICATION FROM PHARMACY AT THIS TIME.
[2018-12-20 05:07] LABS: PCO2 Arterial 36.8 mmHg (35-45); PO2 Arterial 58.1 mmHg (80-100); pH Blood Arterial 7.54 (7.35-7.45)
--- NOTE | 2018-12-20 06:25 | NUR ---
SHIFT ASSESSMENT NO ACUTE CHANGES NOTED T/O SHIFT. PT RESPONDS TO PAINFUL STIMULI, NORMAL FLEXION TO PAIN, OPENING EYES TO PRESSURE WHILE ON PROPOFOL, SPONT OPENED EYES DURING SEDATION VACATION, DOES NOT NOD HEAD Y/N TO QUESTIONS, DOES NOT FOLLOW COMMANDS, NO TRACKING WITH EYES. PROPOFOL DRIP CURRENTLY AT 25 MCG/KG/MIN - CONT TO TITRATE TO EFFECT. DURING SEDATION VACATION, R PUPIL 5 MM WITH SLUGGISH RESPONSE TO LIGHT AND L PUPIL 3 MM WITH BRISK RESPONSE TO LIGHT . EARLIER IN SHIFT, BILAT PUPILS 3 MM AND BRISK REPONSE TO LIGHT. DILAN SENSATION. PT MOVES BUE'S. INCREASED MOVEMENT NOTED THIS AM AND DURING SEDATION VACATION. NO MOVEMENT BLE'S. OCC S/SX OF PAIN/DISCOMFORT NOTED T/O SHIFT (FACIAL GRIMACING, BRACING, AND RESTLNESSNESS), ESPECIALLY WITH PT CARE AND DECREASED SEDATION. CONT TO ASSESS FOR PAIN/DISCOMFORT AND MEDICATED WITH PAIN MEDS PER PHYSICIAN'S ORDER / UTILIZED NONPHARM METHODS. NO JERKING MOVEMENT NOTED T/O SHIFT. PT IN BILAT WRIST RESTRAINTS TO PROTECT VITAL LINES/CORDS/TUBES AND TO PROTECT FROM SELF-EXTUBATION. PT OCC PULLING ON RESTRAINTS, ESPEICALLY WITH DECREASED SEDATION AND PT CARE. LUNGS CURRENTLY COARSE, DIMINISHED IN LOWER LOBES. VENT SETTINGS: AC 14, TV 550, PEEP 5, FIO2 35%. CONT TO TITRATE FIO2 TO MAINTAIN SPO2 90% AND GREATER. RR 14 TO 20'S. SUCTION VIA ETT: SCANT AMOUNTS OF THIN CLEAR SECRETIONS. OCC COUGHING AND GAGGING. SBT COMPLETED THIS AM ON PS 5, PEEP 5, FIO2 40% - SEE GORDO, RT NOTE. PER GORDO, RT - PT REQUIRED INCREASED FIO2 TO MAINTAIN SPO2 DURING SBT. TMAX 100.3 - FAN ON, BLANKETS OFF, ICE BLE'S. TYLENOL PRN, AND ROOM TEMP DOWN. NSR TO ST WITH OCC PVC'S. HR 80'S TO 120'S. DECREASED HR AND BP NOTED AFTER ADMINISTERING PAIN MEDS AND INCREASED PROPOFOL. INCREASED HR, BP, AND RR NOTED DURING SEDATION VACATION AND SBT. STRONG PULSES. LESS EDEMA NOTED THIS PM. WARM, PALE SKIN. HYPOACTIVE BT X4 QUADRANTS. ABD SOFT, NONTENDER, MOD DIST. NO BM. OG IN PLACE TO LIS: LIGHT BROWN SECRETIONS NOTED. F/C - DARK YELLOW URINE NOTED. PIV X1. POWERLGIDE MICHAEL. LR AT 75 ML/HR. NS TKO ON STANDBY. POTASSIUM PHOS IVPB INFUSING. WILL CONT TO MONITOR PT AND WILL PROVIDE BEDSIDE REPORT TO ONCOMING NURSE THIS AM.
--- NOTE | 2018-12-20 08:08 | NUR ---
RECEIVED REPORT AND ASSUMED CARE OF PATIENT. HE IS INTUBATED AND SEDATED AT THE TIME OF REPORT. DURING CARE AND MORNING ASSESSMENT BEGAN TITRATING PROPFOL TO OFF AT 0805, TITRATION COMPLETE TO 0. PT IS BEGINNING TO AWAKE BY MOVING HIS HEAD AND SLIGHTLY PULLING AGAINST RESTRAINTS. PUPILS BRISK CONSTRICTION B/L, RT PUPIL IS 5MM, LFT IS 4MM. PT EYES OPEN SPONTANEOUSLY HOWEVER NO TRACKING OR PURPOSFUL MOVEMENT AT THIS TIME. WILL CONTINUE TO ASSESS. CALDERON IS DRAINING TO GRAVITY. VENT SETTINGS AC: 14/550/5/35%, O2 SAT 90%.
--- NOTE | 2018-12-20 09:33 | NUR ---
ROUNDED ON PT. PT CURRENTLY OFF OF SEDATION PER DR. GARCIA PENDING NEURO RE-EXAM THIS MORNING. PT VERY AGITATED AND SQUIRMY IN BED AT THIS TIME, THEREFORE NOT APPROPRIATE FOR DRESSING CHANGES. DR PLANS TO SEE PT AGAIN THIS AFTERNOON WHEN RE-SEDATED TO RE-EVAL FOR APPROPRIATENESS OF DRESSING CHANGES.
--- NOTE | 2018-12-20 16:13 | NUR ---
UNABLE TO ADD TRANSFER OF CARE INTERVENTION. CORONARY ANGIOGRAM PERFORMED. PCI AND BALLOONED PROXIMAL LAD. TR BAND INTACT RIGHT RADIAL WITH 10 CC AIR. CIRCULATION, MOTION,SENSATION, NORMAL.PATIENT RETURNED VIA BED TO ICU 7. REPORT GIVEN TO AMPARO LOPEZ RN WHO WAS PRESENT FOR PROCEDURE.
--- NOTE | 2018-12-20 18:22 | NUR ---
[facility] PROCEDURE. PT TO [facility] FOR PROCEDURE WITH DR. FERNÁNDEZ. PT TRANSPORTED WITH RT AND THIS RN AND [facility] RN'S. RN APOORVA AND THIS RN ACCOMPANIED PATIENT TO MONITOR VS AND SEDATION DURING PROCEDURE. PT DID HAVE LOW B/P DURING PROCEDURE. NEOSYNEPHRINE ADMINISTERED DURING PROCEDURE AND TITRATED TO OFF AFTER PROCEDURE COMPLETE. PT B/P STABLIZED SYST 110-130'S, HR 80'S. 1615 RETURNED TO ROOM FROM PROCEDURE. EVALUATING TR BAND SITE. SITE IS NON-TENDER, SOFT, NO HEMATOMA NOTED AT THIS TIME. PT CONTINUES TO BE SEDATED AND INTUBATED. PROPOFOL RUNNING AT 30 MCG/KG/MIN AND VENT SETTINGS AT AC 14/550/5/50% SPO2 >90%. PT COMFORTABLE AND RESTING WELL. RESTRAINTS IN PLACE FOR SAFETY AND PROTECTION OF TUBE AND RADIAL SITE. REPOSITIONED, CARE PROVIDED, POLAR ICE UNITS REFRESHED AND RESTARTED. TUBE FEEDINGS STARTED. WILL CONTINUE TO MONITOR RADIAL ACCESS SITE.
--- NOTE | 2018-12-20 18:32 | NUR ---
PT CONTINUES TO BE INTUBATED AND SEDATED. PROPOFOL RUNNING AT 30 MCG/KG/MIN AND VENT SETTINGS CONTINUE AT 14/550/5/50%. NO SIGNS OF SYMPTOMS OF PAIN OR DISCOMFORT. CALDERON CATH DRAINING TO GRAVITY. POLAR ICE PADS TO KNEES B/L. FAMILY CONTINUES TO BE AT BEDSIDE THROUGHOUT THIS SHIFT. WILL CONTINUE TO MONITOR AND GIVE REPORT TO DEWAYNE SAUCEDO.
--- NOTE | 2018-12-20 19:15 | NUR ---
ASSUMING CARE OF PT AT THIS TIME. PT REPORT RECIEVED AT BEDSIDE WITH OFFGOING NURSES, APOORVA RN AND EVELINE RN. PT LAYING IN BED, INTUBATED AND SEDATED. PT'S FAMILY AT BEDSIDE. VS STABLE - SEE VS FS. PT DOES NOT APPEAR TO BE IN DISTRESS AT THIS TIME. WILL REVIEW PLAN OF CARE.
--- NOTE | 2018-12-20 19:30 | NUR ---
ASSESSMENT PT RESPONDS TO PAINFUL STIMULI, DOES NOT OPEN EYES, DOES NOT HEAD Y/N TO QUESTIONS, DOES NOT FOLLOW COMMNADS, NO TRACKING WITH EYES, NORMAL FLEXION TO PAIN. BILAT PUPILS 3 MM, BRISK. PROPOFOL DRIP 30 MCG/KG/MIN - WILL TITRATE TO EFFECT. DILAN SENSATION. PT MOVE BUE'S. LESS MOVEMENT OF BUE'S NOTED AT THIS TIME. NO MOVEMENT BLE'S. S/SX OF PAIN/DISCOMFORT (FACIAL GRIMACING) NOTED WITH PT CARE. MEDICATIONED WITH PAIN MEDS PER PHYSICIAN'S ORDER / UTILIZED NONPHARM METHODS. NO JERKING MOVEMENT NOTED. PT IN BILAT WRIST RESTRAINTS TO PROTECT VITAL LINES/CORDS/TUBES AND TO PROTECT FROM SELF-EXTUBATON. + BABINSKI L FOOT. LUNGS COARSE, DIMINISHED LOWER LOBES. VENT SETTINGS: AC 14, TV 550, PEEP 5, FIO2 40%. OXY SAT >90%. RR 18. SUCTION VIA ETT: SCANT AMOUNTS OF THIN CLEAR SECRETIONS. OCC COUGHING AND GAGGING. TEMP 100.8 - FAN ON, BLANKETS OFF, ICE BLE'S, TYLENOL PRN, ROOM TEMP DOWN. NSR. HR 80'S. BP STABLE - SEE VS FS. STRONG PULSES. WARM, PALE SKIN. EDEMA NOTED. HYPOACTIVE BT X4 QUADRANTS. ABD SOFT, NONTENDER, MOD DIST. NO BM. OG IN PLACE. TF: PIVOT 1.5 AT 15 ML/HR AND 30 ML FLUSH Q4 HR. PER REPORT - MAY TITRATE TF TO 30 ML/HR AT 0000. RESIDUAL 0. F/C - CLEAR, YELLOW URINE NOTED. PICC MICHAEL. LR AT 75 ML/HR. NS TKO AT 10 ML/HR.
--- NOTE | 2018-12-20 19:39 | NUR ---
TR BAND 1ML AIR REMOVED FROM TR BAND AT THIS TIME. R RADIAL SITE - NO HEMATOMA, NO REDNESS, NO TENDERNESS, NO BLEEDING, NO BRUISING NOTED.
--- NOTE | 2018-12-20 21:46 | NUR ---
TR BAND 2ML AIR REMOVED FROM TR BAND AT THIS TIME. R RADIAL SITE - NO HEMATOMA, NO REDNESS, NO TENDERNESS, NO BLEEDING, NO BRUISING NOTED.
--- NOTE | 2018-12-20 22:45 | NUR ---
TR BAND 1ML AIR REMOVED FROM TR BAND AT THIS TIME. R RADIAL SITE - NO HEMATOMA, NO REDNESS, NO TENDERNESS, NO BLEEDING, NO BRUISING NOTED.
--- NOTE | 2018-12-20 22:45 | NUR ---
TR BAND 2ML AIR REMOVED FROM TR BAND AT THIS TIME. R RADIAL SITE - NO HEMATOMA, NO REDNESS, NO TENDERNESS, NO BLEEDING, NO BRUISING NOTED.
--- NOTE | 2018-12-21 | NUR ---
TR BAND 2ML AIR REMOVED FROM TR BAND AT THIS TIME. R RADIAL SITE - NO HEMATOMA, NO REDNESS, NO TENDERNESS, NO BLEEDING, NO BRUISING NOTED.
--- NOTE | 2018-12-21 | NUR ---
TR BAND 1ML AIR REMOVED FROM TR BAND AT THIS TIME. R RADIAL SITE - NO HEMATOMA, NO REDNESS, NO TENDERNESS, NO BLEEDING, NO BRUISING NOTED.
--- NOTE | 2018-12-21 00:59 | NUR ---
DR. FERNÁNDEZ CALLED DR. FERNÁNDEZ AT THIS TIME. INFORMED DR. FERNÁNDEZ OF TROPONIN 41.2. NO NEW ORDERS AT THIS TIME. DR. FERNÁNDEZ DOES NOT WANT TO BE NOTIFIED OF 0830 TROPONIN, BECAUSE THE TROPONIN IS EXPECTED TO ELEVATED.
--- NOTE | 2018-12-21 01:04 | NUR ---
TR BAND 2ML AIR REMOVED FROM TR BAND AT THIS TIME. R RADIAL SITE - NO HEMATOMA, NO REDNESS, NO TENDERNESS, NO BLEEDING, NO BRUISING NOTED.
--- NOTE | 2018-12-21 01:04 | NUR ---
TR BAND 1ML AIR REMOVED FROM TR BAND AT THIS TIME. R RADIAL SITE - NO HEMATOMA, NO REDNESS, NO TENDERNESS, NO BLEEDING, NO BRUISING NOTED.
--- NOTE | 2018-12-21 02:10 | NUR ---
TR BAND 1ML AIR REMOVED FROM TR BAND AT THIS TIME. R RADIAL SITE - NO HEMATOMA, NO REDNESS, NO TENDERNESS, NO BLEEDING, NO BRUISING NOTED.
[2018-12-21 04:49] LABS: PCO2 Arterial 49.6 mmHg (35-45); PO2 Arterial 67.1 mmHg (80-100); pH Blood Arterial 7.42 (7.35-7.45)
[2018-12-21 05:27] LABS: BASOPHILS ABSOLUTE AUTO 0.01 K/mm3 (0.00-0.23); BASOPHILS PERCENT AUTO 0 % (0-2); EOSINOPHILS ABSOLUTE AUTO 0.04 K/mm3 (0.00-0.68); EOSINOPHILS PERCENT AUTO 1 % (0-6); Hematocrit 32.4 % (37.0-53.0); Hemoglobin 10.3 g/dL (13.5-17.5); IMMATURE GRAN ABSOLUTE AUTO 0.02 K/mm3 (0.00-0.10); IMMATURE GRAN PERCENT AUTO 0 % (0-1); LYMPHOCYTES ABSOLUTE AUTO 0.72 K/mm3 (0.84-5.20); LYMPHOCYTES PERCENT AUTO 9 % (21-46); MONOCYTES ABSOLUTE AUTO 0.62 K/mm3 (0.16-1.47); MONOCYTES PERCENT AUTO 8 % (4-13); Mean Corpuscular HGB 29.5 pg (26.0-34.0); Mean Corpuscular HGB Conc 31.8 g/dL (31.5-36.5); Mean Corpuscular Volume 93 fL (80-100); Mean Platelet Volume 10.3 fL (9.1-12.4); NEUTROPHILS ABSOLUTE AUTO 6.43 K/mm3 (1.96-9.15); NEUTROPHILS PERCENT AUTO 82 % (41-73); Platelet Count 166 K/mm3 (150-400); RDW Coefficient Variation 14.9 % (11.7-14.2); RDW Standard Deviation 50.4 fL (35.1-46.3); Red Blood Cell Count 3.49 M/mm3 (4.30-5.90); White Blood Cell Count 7.84 K/mm3 (4.00-11.30)
[2018-12-21 05:45] LABS: Albumin, Blood 2.5 g/dL (3.4-5.0); Albumin/Globulin Ratio 0.8 (0.8-1.8); Bilirubin, Total 0.8 mg/dL (0.1-1.0); Bun/Creatinine Ratio 18.1 (12.0-20.0); Calcium, Blood 7.7 mg/dL (8.5-10.1); Creatinine, Blood 1.44 mg/dL (0.60-1.20); Globulin, Blood 3.3 g/dL (2.2-4.0); Magnesium, Blood 2.2 mg/dL (1.6-2.4); Phosphorus, Blood 2.5 mg/dL (2.5-4.9); Potassium, Blood 3.3 mmol/L (3.5-5.5); Total Protein, Blood 5.8 g/dL (6.4-8.2)
--- NOTE | 2018-12-21 06:04 | NUR ---
DR. HASSAN INFORMED DR. HASSAN OF AM LABS. DR. HASSAN ORDERED POTASSIUM PHOS 30 MM. WAITING FOR MEDICATION FROM PHARMACY AT THIS TIME.
--- NOTE | 2018-12-21 07:30 | NUR ---
ASSUMED CARE OF PATIENT; SEE ASSESSMENT CHARTING FOR DETAILS. PATIENT REMAINS INTUBATED AND ON VENTILATOR WITH SETTINGS: A/C 14, TV 550, PEEP 5 AND FIO2 45%. SEDATED WITH PROPOFOL GTT AT 25MCG/KG/MIN.; RIKERS' SCALE 3. LUNGS COARSE T/O; SUCTIONED FOR MODERATE AMOUNTS OF FERNANDEZ TO BROWN SECRETIONS; SUCTIONED A BLOOD CLOT (OLD BLOOD) WITH LAVAGING. MONITOR WITH NSR TO ST WITH FREQ ECTOPY; 5 BEAT RUN V-TACH NOTED; SEE CHART. CALDERON DRAINING FAIR AMOUNTS OF ARISTEO COLORED URINE. OGT INFUSING WITH PIVOT 1.5 AT 20ML/HR; INCREASED TO GOAL RATE OF 45ML/HR. RESIDUAL < 25ML. LR INFUSING AT 75ML/HR. TO START KPHOS 30MMOL TO RUN AT 100ML/HR. R TR BAND SITE INTACT; WRIST SECURED WITH 2 ARMBOARDS TO PREVENT MOVEMENT. BRACES TO BILAT. LE'S ALONG WITH ICE THERAPY. REMAINS WITH BILAT. WRIST RESTRAINTS TO PREVENT ACCIDENTAL SELF EXTUBATION.
--- NOTE | 2018-12-21 07:39 | NUR ---
SHIFT ASSESSMENT PT RESPONDS TO PAINFUL STIMULI, OPENED EYES TO PRESSURE DURING SEDATION VACATION, DOES NOT NOD HEAD Y/N TO QUESTIONS, DOES NOT FOLLOW COMMANDS, NO TRACKING WITH EYES, NORMAL FLEXION TO PAIN. INCREASED AGITATION & RESTLESSNESS NOTED THIS PM WITH DECREASED SEDATION AND DURING SEDATION VACATION. BILAT PUPILS 3 MM, BRISK. PROPOFOL DRIP CURRENTLY AT 25 MCG/KG/MIN - CONT TO TITRATE TO EFFECT. DECREASED BP, HR, AND RR NOTED WITH INCREASED PROPOFOL. DILAN SENSATION. PT MOVE BUE'S T/O SHIFT. PT MOVED BUE'S AND BLE'S DURING SEDATION VACATION. S/SX OF PAIN/DISCOMFORT (FRACIAL GRIMACING, BRACING, AND RESTLESSNESS) NOTED T/O SHIFT, ESPECIALLY WITH PT CARE AND DECREASED SEDATION. CONT TO ASSESS FOR PAIN/DISCOMFORT AND MEDICATED WITH PAIN MEDS PER PHYSICIAN'S ORDER / UTILIZED NONPHARM METHODS. NO JERKING MOVEMENT NOTED T/O SHIFT. PT IN BILAT WRIST RESTRAINTS TO PROTECT VITAL LINES/CORDS/TUBES AND TO PROTECT FROM SELF-EXTUBATION. PT PULLING ON RESTRAINTS WITH DECREASED SEDATION. + BABINSKI L FOOT. LUNGS COARSE, DIMINISHED LOWER LOBES. VENT SETTINGS: AC 14, TV 550, PEEP 5, FIO2 50%. CONT TO TITRATE FIO2 TO MAINTAIN SPO2 90% AND GRATER. RR 14 TO 30'S. SBT COMPLETED THIS AM ON PS 5, PEEP 5, FIO2 INCREASED FROM 40% TO 50% TO MAINTAIN SPO2 90% AND GREATER. SEE RT GORDO NOTE FOR SBT. SBT COMPLETED WITH PROPOFOL ON STANDBY AND CONT TO TITRATE PRECEDEX TO 0.7 MCG/KG/HR D/T AGITATION AND RESTLESSNESS. SUCTION VIA ETT: SCANT TO SMALL AMOUNTS OF THICK BROWN TO BLOODY SECRETIONS NOTED THIS AM. BED CPT COMPLETED. OCC COUGHING AND GAGGING. TMAX 100.8 - FAN ON, BLANKETS OFF, ICE BLE'S, TYLENOL PRN, ROOM TEMP DOWN. NSR TO ST. PVC'S NOTED THIS AM. HR 70'S TO 110'S. INCREASED BP, HR, AND RR NOTED DURING SEDATION VACATION AND SBT. STRONG PULSES. WARM, PALE SKIN. EDEMA NOTED. TR BAND REMOVED AT 0600 THIS, CLEANED SITE WITH CHLORHEXIDINE, AND TRANSPARENT DRESSING PLACED. R RADIAL SITE - NO HEMATOMA, NO BRUISING, NO REDNESS, NO TENDERNESS, NO BLEED NOTED. R ARMBOARD REMAINED IN PLACE T/O SHIFT. HYPOACTIVE BT X4 QUADRANTS. ABD SOFT, NONTENDER, MOD DIST. NO BM. OG IN PLACE. TF: PIVOT 1.5 AT 30 ML/HR AND 30 ML FLUSH Q4 HR. RESIDUAL 0. ONCOMING NURSE MAY TITRATE PIVOT 1.5 TO GOAL RATE 45 ML/HR AND 30 ML FLUSH Q4 HR PER ORDER AT 0800. F/C - CLEAR, YELLOW URINE. PICC MICHAEL. LR AT 75 ML/HR. NS TKO AT 10 ML/HR. ONCOMING REPORT PROIVDED TO SHERYL SUMMERS.
--- NOTE | 2018-12-21 08:00 | NUR ---
TO CT SCAN, VIA BED; WITH KILN DOOR BUILDER AND PORTABLE VENTILATOR; RNLan AND RADILOGY RUNNER ESCORTED PATIENT FOR TEST. TOLERATED WELL AND RETURNED AROUND 0820.
--- NOTE | 2018-12-21 09:00 | NUR ---
DR. FERNÁNDEZ (CARDIOLOGY) HERE TO SEE PATIENT; NO NEW ORDERS; SPOKE BRIEFLY WITH FAMILY. PATIENT REMAINS OFF PRESSORS; OCCASIONAL EPISODES OF ECTOPY BUT SBP ADEQUATE.
--- NOTE | 2018-12-21 11:30 | NUR ---
DR. VELEZ IN TO SEE PATIENT; SEE ORDERS. SEISMOGRAPH OPERATOR HELPER ALSO HERE; TO PREP PATIENTS HEAD WITH WIRING AND THEN RN TO TURN OFF SEDATION FOR PROCEDURE/EEG MONITORING. DR. VELEZ WANTS RN TO INFUSE NITROPRUSSIDE IV IF PATIENT BECOMES VERY AGITATED AND SBP BECOMES REALLY HIGH AND NOT CONTROLLED WITH APRESOLINE IVT, ETC.
--- NOTE | 2018-12-21 13:15 | NUR ---
SEDATION (PROPOFOL GTT) OFF AT THIS TIME AND PLACED ON STANDBY. FREIGHT CAR BUILDER. ALMOST HAS PATIENT PREPPED AND THEN WILL START READING.
[2018-12-21 13:21] LABS: Vancomycin, Trough 15.7 ug/mL (5.0-10.0)
--- NOTE | 2018-12-21 13:30 | NUR ---
READING STARTED; PATIENT SWEATING A LOT AND A FEW OF THE EEG WIRES KEEP SLIDING OFF OF PATIENT; TECH. RE-TAPING PRN.
--- NOTE | 2018-12-21 13:35 | NUR ---
T/C FROM DR. GARCIA (NEURO) TO SEE IF EEG HAS STARTED; RN INFORMED HIM THAT TECH. SHOULD COMPLETE BY 1400. PHYSICIAN STATES HE WILL COME BY AT THIS TIME AND WANTS RN TO KEEP PROPOFOL OFF (SEDATION) TIL HE CAN EVAL. PATIENT MORE ACCURATELY; RN ACKNOWLEDGED.
--- NOTE | 2018-12-21 14:10 | NUR ---
PROPOFOL OFF; PATIENT REMAINS VERY AGITATED AND SBP 160-180'S; BIOX STAYING 70'S TO LOW 80'S; FIO2 INCREASED TO 100% AND RN SUCTIONED ETT WELL ORAL CAVITY. UNABLE TO KEEP FIO2 ABOVE LOW 80'S. R.T. CONTACTED AND ATTEMPTED [place]AVAGE, ETC WITHOUT IMPROVEMENT. RN HAD DR. VELEZ COME IN ROOM; SHE HAD RN RESTART PROPOFOL DRIP AT 25MCG/KG/MIN. OXYGEN ISSUE RESOLVED ONCE PATIENT CALMER.
[2018-12-21 14:26] LABS: PCO2 Arterial 54.3 mmHg (35-45); PO2 Arterial 61.2 mmHg (80-100); pH Blood Arterial 7.38 (7.35-7.45)
--- NOTE | 2018-12-21 14:30 | NUR ---
DR. GARCIA ARRIVED; WANTED PROPFOL TURNED BACK OFF BUT DR. VELEZ ADVISED THAT PATIENT STILL ON 100% FIO2 WITH BIOX LOW 90'S. EVAL. DONE WITH PROPOFOL AT 25MCG/KG/MIN. PHYSICIAN SPOKE TO FAMILY AND DISCUSSED POC/PROGNOSIS ETC.
--- NOTE | 2018-12-21 15:00 | NUR ---
FFIO2 REDUCED TO 95% BY PRAFUL, R.T.
--- NOTE | 2018-12-21 16:00 | NUR ---
FEBRILE; TEMP. 99.5; BLANKETS KEPT OFF AND FAN BLOWING ON PATIENT (GENTLY).
--- NOTE | 2018-12-21 16:09 | NUR ---
Large, tearful family presence at bedside. Afirmed obvious love, provided assurance of care, facilitated prayer with family at bedside. They are trying to remain hopeful. We has an easy rapport and they expressed appreciation for spiritual support. I will remain available.
--- NOTE | 2018-12-21 17:53 | NUR ---
SUMMARY: DR. COPELAND VISITED AROUND 1645 AND CHANGED BILAT. KNEE DRESSINGS; ON JASVIR WRAP OR GAUZE WRAP NECESSARY; APPLIED NEW SILVER AQUACEL DRESSINGS OVER INCISION OF CHIID; NO REDNESS OR DRAINAGE NOTED; INFORMED RN THAT DRESSING WILL BE CHANGED MINIMUM OF EVERY 5 DAYS AND OTHERWISE ONLY IF DRESSING SATURATES WITH FLUID; THEN NURSING CAN CHANGE PRN. PROPOFOL DRIP AT 40MCG/KG/MIN.; WILL REDUCE TO 35MCG/KG/MIN AT THIS TIME. HAD PROPOFOL HIGH 60MCG/KG/MIN DURING R.T. RE-SECURING ETT AND THEN DURING CHEST/VEST CPT.; REDUCED TO 40MCG/KG/MIN AFTER CHEST CPT; DR. COPELAND CAME AND WANTED MED. LEFT AT CURRENT RATE WHILE HE CHANGED DRESSINGS, ETC. GOAL IS TO TITRATE DOWN LOW POSSIBLE WHILE KEEPING PATIENT CALM; WAS AT 25MCG/KG/MIN EARLIER TODAY. FIO2 WILL SLOWLY BE REDUCED; WAS HIGH 100% WHEN PATIENT OFF SEDATION FOR EEG AND NEURO EVAL.; PATIENT BECAME UNDULY AGITATED; PROPFOL STARTED BACK AT 25MCG/KG/MIN AT 1415. DR. GARCIA SHOWED UP AROUND 1430 AND DID EVAL. OF PATIENT WITH PROPOFOL AT 25. IVF OF 75ML/HR DC'D AND CHANGED TO TKO FOR IVAB TX. NO S/SX'S OF SEIZURE ACTIVITY; RECEIVED DOSE OF KEPPRA EARLY AM. FAMILY VERY ATTENTIVE AND HAVE LOTS OF QUESTIONS/CONCERNS; SPOUSE TEARFUL OFF/ON T/O DAY.
--- NOTE | 2018-12-21 18:30 | NUR ---
FIO2 REDUCED TO 80% AT THIS TIME; BIOX. 97%.
--- NOTE | 2018-12-21 19:15 | NUR ---
ASSUMED CARE PT INTUBATED-SETTINGS AT AC14/550/50%/5 AND SEDATED VIA PROPOFOL AT 35MCG/KG/MIN. PT RESPONDS TO PAIN BUT DOES NOT FOLLOW COMMANDS. LIGIA IN ROOM AND VERY ANXIOUS ABOUT CARE BEING PROVIDED. PLAN TO UPDATE HER WITH ALL INTERVENTIONS TO DECREASE ANXIETY. TF AT GOAL, NO RESIDUAL. DR VELEZ HERE-REPORTS CONCERS THAT PT WENT INTO PULMONARY EDEMA WITH LAST SBT AND WAS HYPERTENSIVE AND ORDERED NITROPRUSSIDE FOR SBT IN AM IN ADDITION WITH PRECEDEX. BP LOW IF PROPOFOL TITRATED UP, PLAN TO PROVIDE ADJUNCT WITH PAIN CONTROL.
--- NOTE | 2018-12-22 03:23 | NUR ---
SBT PROPOFOL TITRATED DOWN TO 15MCG/KG/MIN AND PRECEDEX STARTED AT 0.2. BILATERAL HEARING AIDS PLACED FOR SBT. DISCUSSED WITH GORDO CASTILLO, AND PLAN TO START AT 0400.
[2018-12-22 03:47] LABS: BASOPHILS ABSOLUTE AUTO 0.01 K/mm3 (0.00-0.23); BASOPHILS PERCENT AUTO 0 % (0-2); EOSINOPHILS ABSOLUTE AUTO 0.13 K/mm3 (0.00-0.68); EOSINOPHILS PERCENT AUTO 2 % (0-6); Hematocrit 23.1 % (37.0-53.0); Hemoglobin 7.1 g/dL (13.5-17.5); IMMATURE GRAN ABSOLUTE AUTO 0.03 K/mm3 (0.00-0.10); IMMATURE GRAN PERCENT AUTO 1 % (0-1); LYMPHOCYTES ABSOLUTE AUTO 0.74 K/mm3 (0.84-5.20); LYMPHOCYTES PERCENT AUTO 13 % (21-46); MONOCYTES ABSOLUTE AUTO 0.55 K/mm3 (0.16-1.47); MONOCYTES PERCENT AUTO 9 % (4-13); Mean Corpuscular HGB 29.1 pg (26.0-34.0); Mean Corpuscular HGB Conc 30.7 g/dL (31.5-36.5); Mean Corpuscular Volume 95 fL (80-100); NEUTROPHILS ABSOLUTE AUTO 4.48 K/mm3 (1.96-9.15); NEUTROPHILS PERCENT AUTO 75 % (41-73); Platelet Count 177 K/mm3 (150-400); RDW Coefficient Variation 14.8 % (11.7-14.2); RDW Standard Deviation 50.9 fL (35.1-46.3); Red Blood Cell Count 2.44 M/mm3 (4.30-5.90); White Blood Cell Count 5.94 K/mm3 (4.00-11.30)
[2018-12-22 04:06] LABS: Albumin, Blood 2.2 g/dL (3.4-5.0); Albumin/Globulin Ratio 0.7 (0.8-1.8); Bilirubin, Total 0.5 mg/dL (0.1-1.0); Bun/Creatinine Ratio 18.5 (12.0-20.0); Calcium, Blood 7.4 mg/dL (8.5-10.1); Creatinine, Blood 1.57 mg/dL (0.60-1.20); Globulin, Blood 3.2 g/dL (2.2-4.0); Magnesium, Blood 2.3 mg/dL (1.6-2.4); Phosphorus, Blood 2.9 mg/dL (2.5-4.9); Potassium, Blood 3.4 mmol/L (3.5-5.5); Total Protein, Blood 5.4 g/dL (6.4-8.2)
--- NOTE | 2018-12-22 04:12 | NUR ---
SBT RT ENROUTE FOR SBT, STEP-DAUGHTER IN ROOM. PT RELAXING UNTIL CXR AND IS NOW MOVING BLE L>R, OPENS EYES WHEN NAME YELLED LOUDING ONCE BUT DOES NOT FOLLOW COMMANDS. NITROPRUSSIDE STARTED WITH SBP 160 AT 0.1MCG/KG/MIN AND TITRATED UP TO 0.2 NOW. PER STEP-DAUGHTER, PT IS MUCH LESS AGITATED THEN YESTER AND "SEEMS MORE COMFORTABLE." PT'S ENROUTE.
[2018-12-22 04:51] LABS: PCO2 Arterial 47.6 mmHg (35-45); PO2 Arterial 55.8 mmHg (80-100); pH Blood Arterial 7.45 (7.35-7.45)
--- NOTE | 2018-12-22 05:55 | NUR ---
SBT COMPLETED SBT COMPLETED WITH 5MCG/KG/MIN OF PROPOFOL AND 0.7MCG/KG/HR OF PRECEDEX. NITROPRUSSIDE STARTED BEFORE SBT POST CXR WHEN SBP >160 AND TITRATED UP TO 0.3MCG.KG.MIN MAX FOR APPROX 30 MINUTES TO MAINTAIN SBP <160. PT HAD TV'S 400-1000, RR <30 BUT O2 SATS WOULD DROP TO 88% ON OCCASION BUT RETURN TO 90% WITH FIO2 OF 50%.
--- NOTE | 2018-12-22 06:11 | NUR ---
SHIFT SUMMARY SEE PREVIOUS NOTES FOR SHIFT. PT REMAINS INTUBATED AT AC14/550/50%/5 WITH SEDATION VIA PROPOFOL AT 25MCG/KG/MIN. PT PULLS AWAY FROM PAIN, NO GAG AND DOES NOT FOLLOW COMMANDS WHEN SEDATION DECREASED. HEARING AIDS REMAIN IN AT 'S REQUEST AND BATTERIES CHANGED. , DAUGHTERS AND STEP-DAUGHTER IN ROOM WITH PT AT THIS TIME. PT HAS BEEN MEDICATED FOR PAIN WITH BOTH MORPHINE X 2 AND PERCOCET X 2 THIS SHIFT. BLE IMMOBILIZERS REMAIN IN PLACE WITH ICE WRAPS OVER IMMOBILZERS. TF REMAINS AT GOAL 45ML/HR WITH NO RESIDUALS. UOP AT 800ML FOR SHIFT. PLAN TO UPDATE AM RN ON MORNING LABS. VSS, EKG SHOWS SR AND O2 SATS LOW 90'S.
--- NOTE | 2018-12-22 07:00 | NUR ---
ASSUMED CARE PT. REMAINS INTUBATED WITH PROPOFOL FOR SEDATION INFUSING AT 25MCG/KG/MIN. PT. FAMILY AT BEDSIDE. PT. OPENS EYES TO PAINFUL STIMULI HOWEVER HAS UPWARD GAZE AND DOES NOT FOLLOW COMMANDS. PUPILS ARE EQUAL AND REACTIVE TO LIGHT. PT. KNIGHT. PT. HAS OG IN PLACE WITH PIVOT 1.5 INFUSING AT 45ML/HR, AND 30ML Q4 FLUSH. NO RESIDUALS THIS AM. ABD SOFT. PT. HAS CALDERON IN PLACE, DRAINING TO GRAVITY. PT. HAS BILAT LE BRACES IN PLACE ALONG WITH COOLING WRAP AND DRESSINGS CDI. NADN AT THIS TIME. VSS.
--- NOTE | 2018-12-22 12:11 | NUR ---
FAMILY MEETING MEETING AT THIS TIME BETWEEN PT DAUGHTERS AND ALONG WITH ENEDINA AND DR. HUTSON TO UPDATE FAMILY ON PT CONDITION WELL ESTABLISH A PLAN FOR COMMUNICATION. PT. TEARFUL AND VOICED CONCERNS OF BEING OVERWHELMED DUE TO COMMUNICATIONS BETWEEN LARGE AMOUNTS OF PEOPLE AND VISITORS. AT THIS TIME NOTE PLACED ON DOORS FOR ONLY 2-3 VISITORS AT A TIME.
[2018-12-22 13:16] LABS: Hematocrit 22.8 % (37.0-53.0)
--- NOTE | 2018-12-22 14:38 | NUR ---
DR. HUTSON NOTIFIED OF DECREASE IN H&H PLANS FOR CT SCAN FOR PATIENT THIS AFTERNOON OR TOMORROW
--- NOTE | 2018-12-22 15:27 | NUR ---
PAIN MEDS ORAL PAIN MEDICATION DC'D PER DR. HUTSON DUE TO DECREASED NEURO FUNCTION; MORPHINE DOSING INCREASED TO 1-4MG Q3H FOR PAIN. PT. FAMILY HAS REMAINED AT BEDSIDE T/O DAY
--- NOTE | 2018-12-22 17:04 | NUR ---
Several visits with this family today. Angélica, pt's spouse, is concerned about the tension between herself and Guido's three adult dtrs. I was asked to facilitate family meeting to improve communication and reconciliation. This went very well. Angélica and Guido's dtrs hugged and cried at conclusion of meeting. At family request, we prayed together for pt and continued peace/understanding. I will remain available.
--- NOTE | 2018-12-22 17:34 | NUR ---
SHIFT SUMMARY PT. REMAINS SEDATED AND INTUBATED. PT. REMAINS NON RESPONSIVE T/O SHIFT. PT WOULD OCCASIONALLY OPEN EYES WITH REPOSITIONING AND BECOME RESTLESS IN BED HOWEVER NON PURPOSEFUL MOVEMENTS AND HAD AN UPWARD GAZE. PT. FAMILY AT BEDSIDE T/O SHIFT, LIMITING VISITORS TO 2-3 PEOPLE AT A TIME PER FAMILY REQUEST. PT FAMILY HAD A MEETING TODAY TO ASSIST WITH COMMUNICATION AND ALSO WITH DR. HUTSON. PT. HAD MINIMAL RESIDUALS T/O SHIFT. CALDERON CONTINUES DRAINING TO GRAVITY. PT. VSS T/O SHIFT SEE FLOWSHEET. REPORT TO ONCOMING RN.
--- NOTE | 2018-12-22 19:15 | NUR ---
ASSUMED CARE ASSUMED CARE OF PATIENT. REMAINS INTUBATED- AC 14, TV 550, PEEP 5, FIO2 45%. RESP RATE 16. SEDATED WITH PROPOFOL @ 35MCG/KG/MIN. OPENS EYES MINIMALLY TO NOXIOUS STIMULI. CHIQUITA, 2MM, SLUGGISH. GROSS MOTOR MOVEMENT NOTED IN ALL EXTREMITIES AND WITHDRAWS UPPER EXTREMITITES TO NOXIOUS STIMULI. NOT FOLLOWING ANY COMMANDS. BILATERAL SOFT WRIST RESTRAINTS IN PLACE. MONITOR SHOWS NSR, RATE 80s. SBP 150-160s. OG WITH PIVOT 1.5 AT GOAL RATE OF 35CC/HR WITH 30CC H20 Q4H. CALDERON PATENT AND DRAINING CLEAR YELLOW URINE. ERLINDA HOSE, LEG BRACES, AND POLAR PACKS IN PLACE TO BILATERAL LEGS PER ORDER. FAMILY AT BEDSIDE. SEE SHIFT ASSESSMENT FOR FULL ASSESSMENT.
--- NOTE | 2018-12-22 22:45 | NUR ---
REPORT GIVEN TO SHERYL PRUETT WHO IS TO ASSUME CARE.
--- NOTE | 2018-12-22 22:45 | NUR ---
ASSUMED PT CARE FROM RNANDRIY. PT INTUBATED WITH VENT SETTINGS: AC 14; TV 550; PEEP 5; FIO2 45% WITH OXYGEN SATURATIONS 97%. SEDATED WITH PROPOFOL AT 45MCG/KG/MIN. NS INFUSING TKO, AND D5W AT 75MLS/HR. PICC NOTED TO LEFT UPPER EXTREMITIY WITH DRESSING CDI. TUBE FEEDING: PIVOT 1.5 AT GOAL OF 35CC/HR WITH WATER FLUSHES 30CC Q4HRS. CALDERON CATHETER IS PATENT AND DRAINING TO GRAVITY CLEAR, YELLOW URINE. BILATERAL LEGS ARE ELEVATED ON PILLOWS WITH DRESSINGS, BRACES, AND ICE ALL IN PLACE APPROPRIATELY. FAMILY AT BEDSIDE. PT APPEARS COMFORTABLE AT THIS TIME AND IN NO DISTRESS. BP 118/58. HR 69. RR 14.
[2018-12-23 03:46] LABS: BASOPHILS ABSOLUTE AUTO 0.02 K/mm3 (0.00-0.23); BASOPHILS PERCENT AUTO 0 % (0-2); EOSINOPHILS ABSOLUTE AUTO 0.25 K/mm3 (0.00-0.68); EOSINOPHILS PERCENT AUTO 4 % (0-6); Hematocrit 23.8 % (37.0-53.0); Hemoglobin 7.4 g/dL (13.5-17.5); IMMATURE GRAN ABSOLUTE AUTO 0.03 K/mm3 (0.00-0.10); IMMATURE GRAN PERCENT AUTO 1 % (0-1); LYMPHOCYTES ABSOLUTE AUTO 0.66 K/mm3 (0.84-5.20); LYMPHOCYTES PERCENT AUTO 11 % (21-46); MONOCYTES ABSOLUTE AUTO 0.47 K/mm3 (0.16-1.47); MONOCYTES PERCENT AUTO 8 % (4-13); Mean Corpuscular HGB 29.8 pg (26.0-34.0); Mean Corpuscular HGB Conc 31.1 g/dL (31.5-36.5); Mean Corpuscular Volume 96 fL (80-100); Mean Platelet Volume 9.8 fL (9.1-12.4); NEUTROPHILS ABSOLUTE AUTO 4.72 K/mm3 (1.96-9.15); NEUTROPHILS PERCENT AUTO 77 % (41-73); Platelet Count 206 K/mm3 (150-400); RDW Coefficient Variation 14.7 % (11.7-14.2); RDW Standard Deviation 51.8 fL (35.1-46.3); Red Blood Cell Count 2.48 M/mm3 (4.30-5.90); White Blood Cell Count 6.15 K/mm3 (4.00-11.30)
[2018-12-23 04:03] LABS: Albumin, Blood 2.2 g/dL (3.4-5.0); Anion Gap 4 mmol/L (6-16); Blood Urea Nitrogen 33 mg/dL (8-24); Bun/Creatinine Ratio 24.6 (12.0-20.0); CO2, Blood 32 mmol/L (21-32); Calcium, Blood 7.6 mg/dL (8.5-10.1); Chloride, Blood 110 mmol/L (98-108); Creatinine, Blood 1.34 mg/dL (0.60-1.20); Glomerular Filtration Rate 56 (60-); Glucose, Blood 122 mg/dL (70-99); Magnesium, Blood 2.3 mg/dL (1.6-2.4); Phosphorus, Blood 2.9 mg/dL (2.5-4.9); Potassium, Blood 3.8 mmol/L (3.5-5.5); Sodium, Blood 146 mmol/L (136-145)
--- NOTE | 2018-12-23 04:27 | NUR ---
SBT STARTED FAMILY AT BEDSIDE. SPONTANEOUS WITH PRESSURE SUPPORT 5/5 WITH FIO2 40%; OXYGEN SATURATIONS 94%. RR 19 WITH TV GREATER THAN 600. BP 146/76. HR 87. WITHDRAWALING FROM VERBAL AND PAINFUL STIMULI; NOT OPENING EYES.
--- NOTE | 2018-12-23 06:04 | NUR ---
SBT/SEDATION VACATION PT WAS STARTED ON PRECEDEX 0.7MCG/KG/HR AT APPROXIMATELY 0300 WITH A DOSE OF MORPHINE SULFATE 4MG. PROPOFOL STILL AT 45MCG/KG/MIN AT FIRST, BUT SLOWLY TITRATED DOWN TO 5MCG/KG/MIN OVER AN HOUR. SBT STARTED AT 0430 WITH PRESSURE SUPPORT 7/5 WITH FIO2 OF 40%. PT ABLE TO WITHDRAWAL FROM PAINFUL STIMULI; DID NOT OPEN EYES OR FOLLOW ANY COMMANDS; BILATERAL HEARING AIDES IN PLACE. PT ATTEMPTED TO SQUEEZE WITH RIGHT HAND, BUT WAS NOT ABLE TO DO THE SAME WITH THE LEFT SIDE; UNSURE WHICH SIDE WAS THE AFFECTED SIDE FROM PREVIOS STROKE, BUT IN GENERAL PT DIDN'T SQUEEZE HAND REPEATEDLY IN ORDER TO CONFIRM HE WAS ABLE TO FOLLOW COMMANDS. PT DISPLAYED GROSS MOTOR MOVEMENT WITH ALL EXTREMITIES. BLOOD PRESSURES MAINTAINED WITH EDUCATION TO FAMILY REGARDING DECREASING STIMULI. PRN HYDRALAZINE WAS ADMINISTERED AT 0450 D/T SBP >170. HR GOT HIGH 92. RR MAINTAINED 15-20 WITH TV GREATER THAN 600. SLIGHT GAG REFLEX NOTED. PT PLACED BACK ON AC MODE AT 0500 WHERE PROPOFOL WAS THEN TITRATED TO EFFECT AND PRECEDEX WAS TURNED OFF.
--- NOTE | 2018-12-23 06:19 | NUR ---
END OF SHIFT SUMMARY PT HAS REMAINED INTUBATED AND SEDATED. PROPOFOL AT 45MCG/KG/MIN. VENT SETTINGS: AC 14; TV 550; PEEP 5; FIO2 40% WITH OXYGEN SATURATIONS GREATER THAN 92%. FAMILY HAS BEEN AT BEDSIDE ALL NIGHT; VERY COOPERATIVE AND INVOLVED IN CARE. SEE NOTES REGARDING SEDATION VACATION AND SBT. PT MADE PURPOSEFUL MOVEMENT TOWARD TUBE ONCE DURING REPOSITIONING; HOWEVER, PT CONTINUES NOT TO BE ABLE TO FOLLOW ANY COMMANDS. PT HAS BEEN MEDICATED AROUND THE CLOCK WITH PRN MORPHINE SULFATE PER ORDERS D/T RESTLESSNESS/AGITATION AND ELEVATED BLOOD PRESSURE AND PULSE; WHICH APPEARS TO BE EFFECTIVE. PT CONTINUES WITH WRAPS AND ICE PACKS TO BILATERAL LEGS. REPOSITIONED FOR COMFORT. EXTREMITIES REMAINED ELEVATED ON PILLOWS D/T SWELLING. ABDOMEN REMAINS FIRM AND DISTENDED WITH HYPOACTIVE BTX4. PIVOT 1.5 TF INFUSING CONTINUOUSLY AT GOAL OF 35MLS/HR WITH H20 FLUSHES 30CC Q4HRS WITH MINIMAL TO NO RESIDUALS. LUNGS SOUNDS DIMINISHED WITH PT PRODUCING MODERATE AMOUNTS OF THICK, FERNANDEZ SECRETIONS. COUGH REFLEX INTACT. MINIMAL GAG REFLEX NOTED WITH SEDATION OFF. PT HAS REMAINED IN NSR T/O NIGHT WITH HR 70-80'S. PT APPEARS COMFORTABLE AT THIS TIME. AT BEDSIDE.
--- NOTE | 2018-12-23 08:10 | NUR ---
ASSUMED CARE: REPORT RECEIVED FROM FLYNN Petersen RN. ASSUMED CARE OF THIS PT AT APPROX 0700. ON ASSESSMENT, THE PT IS RESTING QUIETLY. VENT SETTINGS: AC 14, TV 550, PEEP 5 & FiO2 40%. BILAT SOFT WRIST RESTRAINTS IN PLACE. FAMILY HAS BEEN AT BEDSIDE THIS AM, PT's DAUGHTERS WILL BE LEAVING THE STATE AGAIN TODAY. WILL CONTINUE TO MONITOR & UPDATE NEEDED.
--- NOTE | 2018-12-23 08:30 | NUR ---
DR. HUTSON: PROVIDER AT BEDSIDE TO SEE PT. UPDATED ON POC & HE HAS DISCUSSED THIS W/ PT's . PLAN TO USE PRECEDEX & TURN SEDATION OFF FOR SBT THIS AM. WILL CONTINUE TO MONITOR & UPDATE NEEDED.
--- NOTE | 2018-12-23 10:33 | NUR ---
SBT / UPDATE: SBT INITIATED AT 0950 & ENDED AT 1030. PT TOLERATED WELL W/ 15-20 RR & TV > 600. HE DID BECOME HYPERTENSIVE AT THIS TIME DESPITE PRECEDEX ADMIN DURING SBT. DURING THIS SEDATION VACATION, THE PT WAS NOT ABLE TO FOLLOW COMMANDS OR FULLY OPEN EYES. R SIDE OF PT's BODY MOVED FREQUENTLY DURING THIS TIME, WHILE L SIDE DID NOT. LLE DID NOT RESPOND TO PAINFUL STIMULI, WHILE PT WITHDREW LUE TO STIMULI BUT OTHERWISE DID NOT MOVE. SEDATION HAS NOW BEEN RESUMED W/ IMPROVEMENT NOTED TO BP. PT IS NOW RESTING QUIETLY, REMAINS AT BEDSIDE. WILL CONTINUE TO MONITOR & UPDATE NEEDED.
[2018-12-23 14:24] LABS: Vancomycin, Trough 22.6 ug/mL (5.0-10.0)
--- NOTE | 2018-12-23 15:27 | NUR ---
PRESSURE SUPPORT PT. NOTED TO BE STACKING BREATHS ON VENT; DR. HUTSON NOTIFIED. PT. PLACED BACK ON SPONT MODE PS 7, PEEP 5, 40% PT TOLERATING WELL; TV 600S, RR 14-18, SPO2 96%. VSS AT THIS TIME. WILL CONTINUE IN PS PT TOLERATES.
--- NOTE | 2018-12-23 18:12 | NUR ---
SHIFT SUMMARY: PT REMAINS SEDATED/INTUBATED. R SIDE MVMT CONTINUES TO BE STRONGER & MORE FREQUENT THAN L SIDE MVMT. L SIDE WITHDRAWS TO PAINFUL STIMULI AT TIMES, BUT IS OTHERWISE FLACID. PT IS TOLERATING PRESSURE SUPPORT ON VENT WELL, SETTINGS: 7/5 & 40% FiO2. O2 SATS CONSISTENTLY > 92%. BP STABLE W/ SEDATION, PT HYPERTENSIVE ON SEDATION VACATION THIS AM, BUT RECOVERED QUICKLY. SR NOTED ON MONITOR, HR 80s. HYPOACTIVE BT x4, PT HAS HAD NO BM THIS SHIFT. TF RATE REDUCED PER DIETARY THIS AFTERNOON, NOW INFUSING AT GOAL RATE OF 20 ML/HR W/ 30 ML H2O FLUSH Q4H. CALDERON PATENT/DRAINING DARK YELLOW URINE. BRUISING TO BILAT THIGHS IS PRESENT, LEG BRACES & POLAR PACKS REMAIN IN PLACE TO BLE. R RADIAL PUNCTURE SITE W/ NO BLEEDING, BRUISING OR HEMATOMA FORMATION NOTED, OPSITE IS CDI. PICC LINE DRESSING CHANGED TODAY. FAMILY HAS BEEN IN ROOM INTERMITTENTLY FOR MOST OF DAY. THEY ARE SUPPORTIVE W/ CARE. PT DOES NOT TOLERATE INCREASED STIMULUS WELL AT TIMES & FAMILY/VISITORS NEED REMINDERS TO KEEP VISITS SHORT W/ ONLY A FEW PEOPLE IN THE ROOM AT A TIME. THEY ARE RESPONSIVE TO THIS & HAVE BEEN ROTATING VISITS T/O SHIFT. WILL CONTINUE TO MONITOR & REPORT OFF TO ONCOMING RN.
--- NOTE | 2018-12-23 19:00 | NUR ---
ASSUMING CARE OF PT AT THIS TIME. PT REPORT RECEIVED AT BEDSIDE WITH OFFGOING NURSES, JAYDEN RN AND JENNY RN. PT LAYING IN BED, INTUBATED, AND SEDATED. VS STABLE - SEE VS FS. PT DOES NOT APPEAR TO BE IN DISTRESS AT THIS TIME. WILL REVIEW PLAN OF CARE. PT'S FAMILY AT BEDSIDE.
--- NOTE | 2018-12-23 19:15 | NUR ---
ASSESSMENT PT RESPONDS TO PAINFUL STIMULI, OPENING EYES TO PRESSURE, DOES NOT NOD HEAD Y/N TO QUESTIONS, DOES NOT FOLLOW COMMANDS, NO TRACKING WITH EYES, NORMAL FLEXION TO PAIN. BILAT PUPILS 3 MM, BRISK. PROPOFOL DRIP 50 MCG/KG/MIN - WILL TITRATE TO EFFECT. PRECEDEX DRIP ON STANDBY - WILL TITRATE TO EFFECT. DILAN SENSATION. PT KNIGHT. GROSS, WEAK MOVEMENT NOTED. NO S/SX OF PAIN/DISCOMFORT NOTED AT THIS TIME. NO JERKING MOVEMENT NOTED. PT IN BILAT WRIST RESTRAINTS TO PROTECT VITAL LINES/CORDS/TUBES AND TO PROTECT FROM SELF-EXTUBATION. LUNGS COARSE, DIMINISHED MIDDLE AND LOWER LOBES. VENT SETTINGS: PS 7, PEEP 5, FIO2 40%. OXY SAT >90% RR 10'. SUCTION VIA ETT: SCANT AMOUNTS OF THIN CLEAR SECRETIONS. VEST CPT AT THIS TIME. OCC COUGING AND GAGGING. AFEBRILE. NSR. HR 80'S. CURRENT BP 169/77 (MAP 114). WILL ADMINISTER PRN COREG. STRONG PULSES. WARM, PALE SKIN. EDEMA NOTED. R RADIAL SITE - NO HEMATOMA, NO BRUSIING, NO REDNESS, NO TENDERNESS, NO BLEEDING. HYPOACTIVE BT X4 QUADRANTS. ABD SOFT, NONTENDER, MOD DIST. NO BM. OG IN PLACE. TF: PIVOT 1.5 @ GOAL RATE 20 ML/HR AND 30 ML FLUSH Q4 HR. RESIDUAL 0. F/C - DARK, YELLOW URINE NOTED. PICC MICHAEL. D5 @ 75 ML/HR. NS TKO AT 10 ML/HR. BILAT LEG BRACES, ERLINDA HOSE, AND LEG COOLING WRAPS REMAIN IN PLACE.
--- NOTE | 2018-12-23 23:49 | NUR ---
PT CARE / SEDATION VACATION SEDATION VACATION COMPLETED WITH PROPFOL ON STANDBY AND PRECEDEX TITRATED TO 0.7 MCG/KG/HR. DURING SEDATION VACATION: PT RESPONDED TO PAINFUL STIMULI, OPENED EYES TO PRESSURE, DID NOT NOD HEAD Y/N TO QUESTIONS, DID NOT FOLLOW COMMANDS, NO TRACKING WITH EYES, WITHDRAWL FROM PAINFUL STIMULI ESPECIALLY ON RIGHT SIDE, L PUPIL 3 MM AND BRISK, R PUPIL 5 MM AND SLUGGISH. INCREASED AGITAITON AND RESTLESSNESS NOTED WITH DECREASED SEDATION. WILL CONT TO TITRATE PROPOFOL DRIP AND PRECEDEX DRIP TO EFFECT. DILAN SENSATION. PT KNIGHT. GROSS, WEAK MOVEMENT NOTED. LESS MOVEMENT NOTED THIS PM. PT MOVES RUE AND RLE MORE THAN LLE AND LUE. MINIMAL MOVEMENT OF LLE AND LUE. PAIN/DISCOMFORT NOTED WITH DECREASED SEDATION (FACIAL GRIMACING, RESTLENSSESS, AND BRACING). MEDICATED WITH PAIN MEDS PER PHYSICIAN'S ORDER / UTILIZED NONPHARM METHODS. LUNGS CLEAR, DIMINISHED MIDDLE AND LOWER LOBES, COARSE LOWER LOBES. VENT SETTINGS: PS 7, PEEP 5, FIO2 40%. OXY SAT >90%. RR 20'S DURING SEDATION VACATION. SX: SCANT AMOUNTS OF THIN CLEAR SECRETIONS. AFEBRILE. ST. HR 100'S. HYPERTENSIVE (SEE VS FS). HYDRALAZINE ADMNSITERED. INCREASED RR, HR, AND BP NOTED DURING SEDATION VACATION.
[2018-12-24 03:57] LABS: BASOPHILS ABSOLUTE AUTO 0.02 K/mm3 (0.00-0.23); BASOPHILS PERCENT AUTO 0 % (0-2); EOSINOPHILS ABSOLUTE AUTO 0.32 K/mm3 (0.00-0.68); EOSINOPHILS PERCENT AUTO 4 % (0-6); Hematocrit 24.8 % (37.0-53.0); Hemoglobin 7.7 g/dL (13.5-17.5); IMMATURE GRAN ABSOLUTE AUTO 0.05 K/mm3 (0.00-0.10); IMMATURE GRAN PERCENT AUTO 1 % (0-1); LYMPHOCYTES ABSOLUTE AUTO 0.79 K/mm3 (0.84-5.20); LYMPHOCYTES PERCENT AUTO 9 % (21-46); MONOCYTES ABSOLUTE AUTO 0.72 K/mm3 (0.16-1.47); MONOCYTES PERCENT AUTO 8 % (4-13); Mean Corpuscular HGB 29.2 pg (26.0-34.0); Mean Corpuscular Volume 94 fL (80-100); Mean Platelet Volume 10.1 fL (9.1-12.4); NEUTROPHILS ABSOLUTE AUTO 7.03 K/mm3 (1.96-9.15); NEUTROPHILS PERCENT AUTO 79 % (41-73); Platelet Count 259 K/mm3 (150-400); RDW Coefficient Variation 14.6 % (11.7-14.2); Red Blood Cell Count 2.64 M/mm3 (4.30-5.90); White Blood Cell Count 8.93 K/mm3 (4.00-11.30)
[2018-12-24 04:14] LABS: Albumin, Blood 2.3 g/dL (3.4-5.0); Anion Gap 7 mmol/L (6-16); Blood Urea Nitrogen 31 mg/dL (8-24); CO2, Blood 29 mmol/L (21-32); Calcium, Blood 7.9 mg/dL (8.5-10.1); Chloride, Blood 110 mmol/L (98-108); Creatinine, Blood 1.24 mg/dL (0.60-1.20); Glomerular Filtration Rate >60 (60-); Glucose, Blood 121 mg/dL (70-99); Phosphorus, Blood 2.2 mg/dL (2.5-4.9); Potassium, Blood 3.9 mmol/L (3.5-5.5); Sodium, Blood 146 mmol/L (136-145)
--- NOTE | 2018-12-24 05:00 | NUR ---
DR. MEYER INFORMED DR. MEYER OF AM LABS. DR. MEYER DOES NOT WANT TO REPLACE ANDRADE THIS AM.
--- NOTE | 2018-12-24 07:00 | NUR ---
SHIFT ASSESSMENT NO ACUTE CHANGES NOTED T/O SHIFT. PT RESPONS TO PAINFUL STIMULI, OPENED EYES TO PRESSURE, DOES NOT NOD HEAD Y/N TO QUESTOINS, DOES NOT FOLLOW COMMANDS, NO TRACKING WITH EYES, WITHDRAWLS FROM PAINFUL STIMULI ESPEICLLY ON RIGHT SIDE. PUPILS CURRENTLY 3 MM AND BRISK RESPONSES. INCREASED AGTIATION AND RESTLESSNESS NOTED WITH DECREASED SEDATION. PRECEDEX ON STANBDY. PROPOFOL AT 30 MCG/KG/MIN - CONT TO TITRATE TO EFFECT. DILAN SENSATION. PT KNIGHT. GROSS, WEAK MOVEMENT NTOED. LESS MOVEMENT NOTED THIS PM. PT MOVES RUE AND RLE MORE THAN LLE AND LUE. MINIMAL MOVEMENT OF MERRICK AND LUE. OCC S/SX OF PAIN/DISCOMFORT NOTED (FACIAL GRIMACING, RESTLESSNESS, AND BRACING) NOTED. CONT TO ASSESS FOR PAIN/DISCOMFORT AND MEDICATED WITH PAIN/MEDS PER PHYSICIAN'S ORDER / UTILIZED NONPHARM METHODS. PT IN BILAT WRIST RESTRAINTS TO PROTECT VITAL LINES/CORDS/TUBES. UPPER LOBES CLEAR, MIDDLE AND LOWER LOBES DIMINISHED, COARSE LOWER LOBES. VENT SETTINGS: PS 7, PEEP 5, FIO2 40%. OXY SAT >90%. RR 10 TO 20'S. SX: SCANT AMOUNTS OF THIN CLEAR SECRETIONS. TMAX 99.1 - TYLENOL PRN, BLANKETS OFF, FAN ON. SR TO ST WITH OCC PAC'S AND PVC'S. HR 70'S TO 100'S. OCC HYPERTENSIVE - SCHEDULED COREG AND PRN HYDRALAZINE ADMINISTERED. INCREASED HR, BP, AND RR NOTED WITH AGTIATION AND DECREASED SEDATION. WARM, PALE SKIN. EDEMA NOTED. R RADIAL SITE - NO HEMATOMA, NO BRUISING, NO REDNESS, NO TENDERNESS, NO BLEEDING. HYPOACTIVE BT X4 QUARANTS. ABD SOFT, NONTENDER, MOD DIST. NO BM. OG IN PLACE. TF: PIVOT 1.5 @ GOAL RATE 20 ML/HR AND 30 ML FLUSH Q4 HR. RESIDUAL WNL. F/C - DARK, YELLOW URINE NOTED. PICC MICHAEL. D5 @ 75 ML/HR. NS TKO AT 10 ML/HR. BILAT LEG BRACES, TEG HOSE, AND LEG COOLING WRAPS REMAIN IN PLACE. PT REPORT PROVIDED TO JENNY RN AND LYNN RN AT THIS TIME. PT REPORT PROVIDED AT BEDSIDE WITH ONCOMING NURSES.
--- NOTE | 2018-12-24 08:00 | NUR ---
ASSUMED CARE: REPORT RECEIVED FROM JAMIE Gaona RN. ASSUMED CARE OF THIS PT AT APPROX 0700. ON ASSESSMENT, PT IS HYPERTENSIVE & RESTLESS, SEDATION TITRATION ON FLOWSHEET. R SIDE MVMT IS MORE THAN L SIDE; LUE WITHDRAWS TO PAINFUL STIMULI, LLE MOVES SLIGHTLY W/ RLE MVMT. LEG BRACES REMAIN ON, WELL POLAR PACKS. ICE REFILLED THIS AM. PT's & DAUGHTER ARE AT BEDSIDE & SUPPORTIVE W/ CARE. WILL CONTINUE TO MONITOR & UPDATE NEEDED.
--- NOTE | 2018-12-24 10:00 | NUR ---
UPDATE: PER DR. KIM ORDERS, FLUSH FOR TF HAS BEEN INCREASED FROM 30ML TO 60 ML Q4H R/T HYPERNATREMIA. WILL NOTIFY DIETARY OF THIS CHANGE. WILL CONTINUE TO MONITOR & UPDATE NEEDED.
--- NOTE | 2018-12-24 10:36 | NUR ---
DR. HUTSON: PROVIDER IN ROOM TO SEE PT, DISCUSSED POC W/ PT's . HE STS THAT WE WILL CONTINUE TO WAIT TO SEE IF PT "COMES AROUND" NEUROLOGICALLY & ASKS THAT ANOTHER SEDATION VACATION BE PERFORMED TODAY TO CHECK PT's NEURO STATUS. ISSUE OF CONTINUED HTN IS DISCUSSED W/ PROVIDER PT HAS DRASTICALLY INCREASED BP WHEN SEDATION IS TURNED OFF. HE STS HE WILL LOOK INTO THIS & PLACE ORDERS PRN. WILL CONTINUE TO MONITOR & UPDATE NEEDED.
--- NOTE | 2018-12-24 14:00 | NUR ---
SEDATION VACATION: PER DR. HUTSON, SEDATION VACATION PERFORMED AT 1145. PROPOFOL TITRATED OFF & PRECEDEX STARTED, DOCUMENTED IN FLOWSHEET. PT HAS TOLERATED THIS SEDATION VACATION WELL & SEDATION WAS RESUMED AT 1400, GIVING THE PT APPROX 2 HRS TO WAKE MORE. DURING THIS TIME, HE WAS MOVING HIS R SIDE SPONTANEOUSLY, BUT NOT PURPOSEFULLY. WHEN UNRESTRAINED, HE MOVED HAND UPWARD ON CHEST AT TIMES, BUT MADE NO ATTEMPT TO TOUCH OR PULL ETT. L SIDE IS NOTED TO WITHDRAW ONLY SLIGHTLY TO PAINFUL STIMULI. FOR THIS SEDATION VACATION, THE PT WAS PREMEDICATED FOR PAIN & THEN MEDICATED ONCE AGAIN FOR PAIN DURING THAT TIME. HE BECAME SLIGHTLY HYPERTENSIVE, LABETALOL PRN PER EMAR. RR 12-20 W/ SEDATION OFF. SEDATION HAS BEEN RESUMED & PT IS RESTING QUIETLY W/ FAMILY AT BEDSIDE. WILL CONTINUE TO MONITOR & UPDATE NEEDED.
--- NOTE | 2018-12-24 14:19 | NUR ---
Pt remains on vent. is bedside. She reports that they will likely have trach placed next week. She states that she has no further questions, she feels very comfortable with nursing. Doctors have answered questions adequately. Spoke to nursing staff. Nurses Nathan and Daylin are taking care of the patient today. They report that they have instructed the family in passive range of motion exercises. They are performing this for the patient. Nathan states that he has discussed with the family designating a decision maker. Pt appears comfortable. Has sedation. No questions from family, they remain very guarded. Will remain available.
--- NOTE | 2018-12-24 17:29 | NUR ---
Provided prayer and encouragement Guido's at bedside. She remains hopeful he will return to baseline. She is appreciaitve of prayer and spiritual support. Both provided. [facility] services will remain available.
[2018-12-24 17:52] LABS: Vancomycin, Trough 15.2 ug/mL (5.0-10.0)
--- NOTE | 2018-12-24 18:45 | NUR ---
SHIFT SUMMARY: PT REMAINS SEDATED/INTUBATED. HE IS RESTING QUIETLY AT THIS TIME. PT WAS PLACED BACK ON AC SETTING FOR VENT THIS AFTERNOON R/T DECREASED O2 SATS TO 88%. SETTINGS: AC 14, TV 550, PEEP 5 & FiO2 50%. MONITOR SHOWS SR, HR 70-90s. HYPOACTIVE BT, TF AT GOAL OF 20 ML/HR W/ 60 ML H2O FLUSH Q4H. CALDERON PATENT/DRAINING DARK YELLOW URINE. BRACES & POLAR PACKS IN PLACE TO BLE, ICE REFILLED TO POLAR PACKS PRIOR TO SHIFT CHANGE. PT HAS BEEN AT BEDSIDE T/O SHIFT & IS SUPPORTIVE W/ CARE. WILL CONTINUE TO MONITOR & REPORT OFF TO ONCOMING RN.
--- NOTE | 2018-12-24 19:15 | NUR ---
ASSUMING CARE OF PT AT THIS TIME. PT REPORT RECEIVED AT BEDSIDE WITH OFFGOING NURSE, JENNY SAUCEDO. PT LAYING IN BED, INTUBATED AND SEDATED UPON ENTERING THE ROOM. VS STABLE - SEE VS FS. PT DOES NOT APPEAR TO BE IN DISTRESS AT THIS TIME. WILL REVIEW PLAN OF CARE.
--- NOTE | 2018-12-24 19:30 | NUR ---
ASSESSMENT PT RESPONDS TO PAINFUL STIMULI, OPENING EYES TO PRESSURE, DOES NOT NOD HEAD Y/N TO QUESTIONS, DOES NOT FOLLOW COMMANDS, NO TRACKING WITH EYES, NORMAL FLEXION TO PAIN. BILAT PUPILS 3 MM, BRISK. PROPOFOL DRIP 30 MCG/KG/MIN - WILL TITRATE TO EFFECT. PRECEDEX DRIP ON STANDBY - WILL TITRATE TO EFFECT. DILAN SENSATION. PT KNIGHT. GROSS, WEAK MOVEMENT. PT MOVES RUE AND RLE MORE THAN LUE AND LLE. OCC S/SX OF PAIN/DISCOMFORT (FACIAL GRIMACING) NOTED, ESPEICIALLY WITH PT CARE. MEDICATED WITH PAIN MEDS PER PHYSICIAN'S ORDER / UTILIZED NONPHARM METHODS. NO JERKING MOVEMENT NOTED. PT IN BILAT WRIST RESTRIANTS TO PROTECT VITAL LINES/CORDS/TUBES AND TO PROTECT FROM SELF-EXTUBATION. LUNGS COARSE, DIMINISHED MIDDLE AND LWOER LOBES. VENT SETTINGS: PS 7, PEEP 5, FIO2 50%. OXY SAT >90%. RR 16. SUCTION VIA ETT: SCANT AMOUNTS OF THICK BLOODY SECRETIONS. OCC COUGHING AND GAGGING. TEMP 99.7 - TYLENOL PRN, FAN ON, BLANKETS OFF. NSR. HR 90'S. BP STABLE - SEE VS FS. EDEMA NOTED. WARM, PALE SKIN. R RADIAL SITE - NO HEMATOMA, NO BRUISING, NO REDNESS, NO TENDERNESS, NO BLEEDING, DRESSING C/D/I. HYPOACTIVE BT X4 QUADRANTS. ABD SOFT, NONTENDER, MOD DIST. NO BM. OG IN PLACE. TF: PIVOT 1.5 @ GOAL RATE 20 ML/HR AND 60 ML FLUSH Q4 HR. RESIDUAL 10. F/C - DARK YELLOW URINE NOTED. PICC MICHAEL. D5 @ 75 ML/HR. NS TKO AT 10 ML/HR. BILAT LEG BRACES, ERLINDA HOSE, AND LEG COOLING WRAPS REMAIN IN PLACE.
[2018-12-25 03:47] LABS: BASOPHILS ABSOLUTE AUTO 0.02 K/mm3 (0.00-0.23); BASOPHILS PERCENT AUTO 0 % (0-2); EOSINOPHILS PERCENT AUTO 3 % (0-6); Hematocrit 27.1 % (37.0-53.0); Hemoglobin 8.3 g/dL (13.5-17.5); IMMATURE GRAN ABSOLUTE AUTO 0.08 K/mm3 (0.00-0.10); IMMATURE GRAN PERCENT AUTO 1 % (0-1); LYMPHOCYTES ABSOLUTE AUTO 0.65 K/mm3 (0.84-5.20); LYMPHOCYTES PERCENT AUTO 6 % (21-46); MONOCYTES ABSOLUTE AUTO 0.74 K/mm3 (0.16-1.47); MONOCYTES PERCENT AUTO 7 % (4-13); Mean Corpuscular HGB 28.5 pg (26.0-34.0); Mean Corpuscular HGB Conc 30.6 g/dL (31.5-36.5); Mean Corpuscular Volume 93 fL (80-100); Mean Platelet Volume 9.9 fL (9.1-12.4); NEUTROPHILS ABSOLUTE AUTO 9.27 K/mm3 (1.96-9.15); NEUTROPHILS PERCENT AUTO 84 % (41-73); NRBC ABSOLUTE 0.02 K/mm3 (0.00-0.02); NRBC Auto 0.2 /100 WBC (0.0-0.2); Platelet Count 278 K/mm3 (150-400); RDW Coefficient Variation 14.2 % (11.7-14.2); RDW Standard Deviation 48.9 fL (35.1-46.3); Red Blood Cell Count 2.91 M/mm3 (4.30-5.90); White Blood Cell Count 11.06 K/mm3 (4.00-11.30)
[2018-12-25 04:15] LABS: Albumin, Blood 2.3 g/dL (3.4-5.0); Anion Gap 6 mmol/L (6-16); Blood Urea Nitrogen 31 mg/dL (8-24); Bun/Creatinine Ratio 24.8 (12.0-20.0); CO2, Blood 29 mmol/L (21-32); Chloride, Blood 109 mmol/L (98-108); Creatinine, Blood 1.25 mg/dL (0.60-1.20); Glomerular Filtration Rate >60 (60-); Glucose, Blood 133 mg/dL (70-99); Phosphorus, Blood 2.7 mg/dL (2.5-4.9); Potassium, Blood 4.2 mmol/L (3.5-5.5); Sodium, Blood 144 mmol/L (136-145)
--- NOTE | 2018-12-25 05:50 | NUR ---
SHIFT ASSESSMENT PT RESPONDS TO PAINFUL STIMULI, OPENED EYES TO PRESSURE AT BEGINNING OF THE SHIFT, NOT OPENING EYES THIS AM, DOES NOT HOD HEAD Y/NT OQ UESTIONS, DOES NOT FOLLOW COMMANDS, NO TRACKING WITH EYES, NORMAL FLEXION TO PAIN, LESS AGITATION AND RESTLESSNESS NOTED WITH DECREASED SEDATION THIS PM. R PUPIL 5 MM, SLUGGISH DURING SEDATION VACATION. L PUPIL 2-3 MM, BRISK DURING SEDATION VACATION. PROPOFOL DRIP 20 MCG/KG/MIN - CONT TO TITRATE TO EFFECT. PRECEDEX DRIP DRIP ON STANDBY. SEDATION VACATION COMPLETED THIS AM WITH PROPOFOL ON STANBDY AND TITRATED PRECEDEX DRIP TO EFFECT (SEE ICU FLOWSHEET). DILAN SENSATOIN. PT KNIGHT. GROSS, WEAK MOVEMENT. PT MOVES RUE AND RLE MORE THAN LUE AND LLE. OCC S/SX OF PAIN/DISCOMFORT (FACIAL GRIMAING, RESTLESSNESS, AND BRACING) NOTED, ESPECIALLY WITH PT CARE AND DECREASED SEDATION. CONT TO ASSESS FOR PAIN/DISCOMFORT AND MEDICATED WITH PAIN MEDS PER PHYSICIAN'S ORDER / UTILIZED NONPHARM METHODS. NO JERKING MOVEMENT NOTED. PT IN BILAT WRIST RESTRAINTS TO PROTECT VITAL LINES/CORDS/TUBES AND TO PROTECT FROM SELF-EXTUBATION. LUNGS COARSE, DIMINISHED MIDDLE AND LOWER LOBES. LUNGS CLEAR WITH SUCTION. VENT SETTINGS: PS 7, PEEP 5, FIO2 60%. PT REQUIRED INCREASED FIO2 TO 70% DURING SEDATION VACATION TO MAINTAIN SPO2 90%. ANDGREATER. RR 11 TO 20'S. SUCTION VIA ETT: SCANT AMOUNTS OF THICK BLOODY SECRETIONS. OCC COUGHING AND GAGGING. TMAX 99.7 - ADMINISTERED TYLENOL PRN, FAN ON, BLANKETS OFF. CURRENTLY AFEBRILE. NSR TO ST. HR 70'S TO 100'S. PT HYPERTENSIVE T/O SHIFT - ADMINISTERED PRN HYDRALAZINE, PRN LABETOLOL, AND SCHEDULED ANTIHYPERTENSIVES. INCREASED RR, HR, AND BP NOTED WITH AGITATION AND DECREASED SEDATION. EDEMA NOTED. WARM, PALE SKIN. R RADIAL SITE - NO HEMATOMA, NO BRUISING, NO REDNESS, NO TENDERNESS, NO BLEEDING, DRESSING C/D/I. HYPOACTIVE BT X4 QUADRANTS. ABD SOFT, NONTENDER, MOD DIST. NO BM. OG IN PLACE. TF: PIVOT 1.5 AT GOAL RATE 20 ML/HR AND 60 ML FLUSH Q4 HR. RESIDUAL WNL. F/C - DARK YELLOW URINE NOTED. PICC MICHAEL. D5 @ 75 ML/HR. NS TKO AT 10 ML/HR. BILAT LEG BRACES, ERLINDA HOSE, AND LEG COOLING WRAPS REMAINED IN PLACE. WILL CONT TO MONITOR PT AND WILL PROVIDE BEDSIDE REPORT TO ONCOMING NURSE THIS AM.
--- NOTE | 2018-12-25 07:30 | NUR ---
START OF SHIFT NOTE: PATIENT CONTINUES TO BE VENTED, PATIENT IS ON PRESSURE SUPPORT 7/5 WITH FiO2 AT 50 %, PATIENT HAS BILATERAL LEs IN BRACES TO KEEP EXTENDED, TEDs HOSE UNDERNEATH BRACES, COOLING IN PLACE ON BILATERAL LEs,PROPOFOL INFUSING AT 20 MCG, PATIENT IS NOT FOLLOWING COMMANDS BUT REACTS TO PAINFUL STIMULI, FAMILY AT BEDSIDE, CALL LIGHT IN REACH, WILL CONTINUE TO MONITOR.
--- NOTE | 2018-12-25 08:10 | NUR ---
DR. HUTSON UPDATED DR. HUTSON OF PT'S STATUS T/O SHIFT - SEE PREVIOUS NN. DR. HUTSON D/C MORHPHINE IV PUSHES AND ORDERED MORPHINE FRESH WORK WRAPPER LAYER FOR CONTIOUS MORHPINE TO BE TITRATED 0.5 MG TO 5 MG Q1 HR FOR SEDATION AND PAIN. DR. HUTSON ALSO PLANNING TO INCREASED CLONIDINE TO 0.2 MG Q6 HR D/T INCREASED BP WITH DECREASED SEDATION. DR. HUTSON D/C D5W, ORDERED OG FLUSH 120 ML Q4 HR, AND D/C LABETOLOL DRIP. D5W STOPPED AT THIS TIME. OG FLUSH INCREASED TO 120 ML Q4 HR AT THIS TIME. WAITING FOR MORPHINE FRESH WORK WRAPPER LAYER FROM PHARMACY AT THIS TIME. DR. HUTSON AT BEDSIDE AT THIS TIME. PT REPORT PROVIDED TO QUE AT 0715 THIS AM. PT REPORT PROVIDED AT BEDSIDE.
--- NOTE | 2018-12-25 09:30 | NUR ---
DR. HUTSON AND DR. KIM IN TO SEE PATIENT, NEW ORDERS RECEIVED, MORPHINE STAFF SUBMARINE WARFARE OFFICER APPLIED IS NOW INFUSING AT 2 MG, CONTINUOUS RATE, PATIENT APPEARS SLIGHTLY LESS RESTLESS AFTER STAFF SUBMARINE WARFARE OFFICER WAS APPLIED, CALDERON CATHETER IN PLACE, PICC IN MICHAEL, ANTIBIOTICS INFUSING, CALL LIGHT IN REACH, WILL CONTINUE TO MONITOR.
--- NOTE | 2018-12-25 12:32 | NUR ---
UPDATE GIVEN TO DR. HUTSON, PATIENT RECEIVED NEW BP MEDICATIONS THIS AM AND SBPs WERE 12Os, PROPOFOL WAS DECREASED TO 10 MCG, SBP AT THIS TIME IN 140s, PATIENT RECEIVED SCHEDULED CATAPRES O.2 MG, WILL RECHECK SBP, PATIENT CONTINUES TO MOVE SPONTANEOUSLY BUT UNABLE TO FOLLOW COMMANDS, ABLE TO RAISE RIGHT ARM, PATIENT CONTINUES TO BE IN RESTRAINTS, APPEARS LESS RESTLESS AFTER MORPHINE GROOMING ASSISTANT WAS STARTED, CALL LIGHT IN REACH, WILL CONTINUE TO MONITOR.
--- NOTE | 2018-12-25 14:42 | NUR ---
PER DIETARY TUBE FEED REMAINS PIVOT 1.5, BUT GOAL IS NOW 45 CC/HR, TUBE FEED WAS INCREASED BY 10 CC/HR AT 1400 HOURS, WATER FLUSHES ARE 120 CC/HR EVERY 4 HOURS, NEXT INCREASE OF RATE IS AT 2200 HOURS ON .
--- NOTE | 2018-12-25 15:01 | NUR ---
ICE ON CONTAINERS REFILLED WITH EYES AFTER PATIENT WAS REPOSITIONED, FAMILY AT BEDSIDE, CALL LIGHT IN REACH, WILL CONTINUE TO MONITOR.
--- NOTE | 2018-12-25 15:56 | NUR ---
RT IN TO PERFORM CPT, VEST PLACED ON PATIENT, 10 MINUTES OF CPT AT THIS TIME.
--- NOTE | 2018-12-25 16:44 | NUR ---
PROPOFOL TURNED OFF, DR. HUTSON AWARE, ON STANDBY, WILL TURN BACK ON IF PATIENT BECOMES INCREASINGLY AGITATED.
--- NOTE | 2018-12-25 17:37 | NUR ---
DR. GARCIA CALLED TO ORDER ALL SEDATIVES BE HELD UNTIL AFTER HIS ASSESSMENT ERIK
[2018-12-25 17:41] LABS: Vancomycin, Trough 15.6 ug/mL (5.0-10.0)
--- NOTE | 2018-12-25 18:38 | NUR ---
SHIFT SUMMAR NOTE: PATIENT CONTINUES TO BE ON MECHANICAL VENTILATION, PROPOFOL WAS TURNED OFF, PATIENT IS ON MORPHINE RAILROAD MAINTENANCE CLERK, TITRATABLE 0.5 TO 5 MG/HR, PATIENT IS TOLERATING WELL, PATIENT APPEARS RESTLESS AT TIMES, THEN CALMES AGAIN, MOVES RIGHT UPPER AND LOWER EXTREMITY NON PURPOSEFUL, BUT UNABLE TO FOLLOW COMMANDS, EYES ARE PARTIALLY OPEN BUT PATIENT IS NOT TRACKING, PUPILS ARE ABOUT 2 MM IN SIZE, CALDERON CATHETER IN PLACE, LEG BRACES IN PLACE WITH ERLINDA HOSE UNDERNEATH, ICE IN PLACE, PICC IN MICHAEL FLUSHES AND DRAWS WELL, ADDITIONAL PIV IN R AC, FAMILY AT BEDSIDE, CALL LIGHT IN REACH, WILL CONTINUE TO MONITOR AND GIVE REPORT TO ONCOMING DOG RACES MANAGER. FOR DETAILS SEE SHIFT ASSESSMENT DOCUMENTATION AND NURSES NOTES.
--- NOTE | 2018-12-25 19:15 | NUR ---
ASSUMED CARE PT REMAINS INTUBATED, CURRENTLY OFF SEDATION SINCE 1400 AND ON PS 7/5 W/ FIO2 50%. PT IS MOVING HEAD BACK AND FORTH IN BED, HEARING AIDS IN PLACE & WORKING, PT SPONTANEOUSLY OPENS EYES BUT DOES NOT TRACK OR FOLLOW COMMANDS AND IS LIFTING RT ARM UP AND MOVING RIGHT LEG MORE THAN LEFT. PER AND STEP-DAUGHTER, DR GARCIA IN TODAY AND DISCUSSED PT NOT IMPROVING NEUROLOGICALLY AND TALKED ABOUT COMFORT CARE. FAMILY OBVIOUSLY UPSET AND PROCESSING INFORMATION. LIGIA TO GO HOME AND PT'S STEP-DAUGHTER WILL SPEND THE NIGHT. MORPHINE EDUCATION ASSISTANT IN PLACE AT 3MG/HR, NS TKO, TF AT 35 WITH PLAN TO INCREASE TONIGHT. BP HYPERTENSIVE, LABETALOL GIVEN-HYDRALAZINE NO AVAIL UNTIL 2100.
--- NOTE | 2018-12-25 21:33 | NUR ---
UPDATE PROPOFOL RESUMED AT FAMILY REQUEST. PLAN TO TITRATE TO PT COMFORT/RESTLESSNESS. CURRENTLY AT 10MCG/KG/MIN AND REMAINS ON PS 7/5 FIO2 45% WITH VT'S IN THE 700'S.
--- NOTE | 2018-12-25 22:09 | NUR ---
AC RESUMED PT RR <10, RT CALLED AT CHANGED BACK TO AC15/550/45%/5
[2018-12-26 04:16] LABS: BASOPHILS ABSOLUTE AUTO 0.03 K/mm3 (0.00-0.23); BASOPHILS PERCENT AUTO 0 % (0-2); EOSINOPHILS ABSOLUTE AUTO 0.28 K/mm3 (0.00-0.68); EOSINOPHILS PERCENT AUTO 3 % (0-6); Hematocrit 23.1 % (37.0-53.0); Hemoglobin 7.2 g/dL (13.5-17.5); IMMATURE GRAN ABSOLUTE AUTO 0.08 K/mm3 (0.00-0.10); IMMATURE GRAN PERCENT AUTO 1 % (0-1); LYMPHOCYTES ABSOLUTE AUTO 0.66 K/mm3 (0.84-5.20); LYMPHOCYTES PERCENT AUTO 8 % (21-46); MONOCYTES ABSOLUTE AUTO 0.68 K/mm3 (0.16-1.47); MONOCYTES PERCENT AUTO 8 % (4-13); Mean Corpuscular HGB 28.8 pg (26.0-34.0); Mean Corpuscular HGB Conc 31.2 g/dL (31.5-36.5); Mean Corpuscular Volume 92 fL (80-100); NEUTROPHILS ABSOLUTE AUTO 6.51 K/mm3 (1.96-9.15); NEUTROPHILS PERCENT AUTO 79 % (41-73); Platelet Count 285 K/mm3 (150-400); RDW Coefficient Variation 14.6 % (11.7-14.2); RDW Standard Deviation 49.1 fL (35.1-46.3); White Blood Cell Count 8.24 K/mm3 (4.00-11.30)
[2018-12-26 04:41] LABS: Albumin, Blood 2.1 g/dL (3.4-5.0); Anion Gap 6 mmol/L (6-16); Blood Urea Nitrogen 40 mg/dL (8-24); Bun/Creatinine Ratio 29.4 (12.0-20.0); CO2, Blood 29 mmol/L (21-32); Calcium, Blood 7.9 mg/dL (8.5-10.1); Chloride, Blood 110 mmol/L (98-108); Creatinine, Blood 1.36 mg/dL (0.60-1.20); Glomerular Filtration Rate 55 (60-); Glucose, Blood 131 mg/dL (70-99); Phosphorus, Blood 3.1 mg/dL (2.5-4.9); Potassium, Blood 4.5 mmol/L (3.5-5.5); Sodium, Blood 145 mmol/L (136-145)
[2018-12-26 04:42] LABS: Percent Saturation 19.7 % (20.0-50.0)
--- NOTE | 2018-12-26 06:23 | NUR ---
SHIFT SUMMARY PT REMAINS INTUBATED, CHANGED TO AC15/550/45%/5 AT 2130 LAST NIGHT D/T RESTLESSNESS AND DIAPHORESIS. PROPOFOL RESUMED INITIALLY AT 10 BUT DROPPED TO 5MCG/KG/MIN ALONG WITH MORPHINE DIRECTOR CORPORATE SALES AT 2MG/HR. PT TOLERATED WELL, PROPOFOL OFF JUST BEFORE 0500 AND HAS STARTED MOVING AROUND IN BED AGAIN. LIGIA HERE AND ASKING QUESTIONS ABOUT MAKING PT DNR STATUS, SHE PLANS TO DISCUSS WITH THE REST OF FAMILY LATER TODAY. TF INCREASED TO GOAL, NO RESIDUALS, NO BM BUT PT PASSING LOTS OF FLATUS. VSS WHILE ON PROPOFOL BUT HYPERTENSIVE WHEN OFF. LIGIA AND STEP-DAUGHTER SHERON IN ROOM.
--- NOTE | 2018-12-26 07:30 | NUR ---
START OF SHIFT NOTE: PATIENT CONTINUOUS TO BE ON MECHANICAL VENTILATION A/C DURING FACULTY SUPPORT COORDINATOR SETTINGS: 15/5 VT 450 FiO2 45 %, SWITCHED TO PRESSURE SUPPORT BY RT THIS AM, LEG BRACES ARE IN PLACE WITH ERLINDA HOSE UNDERNEATH, AND ICE ON BOTH LEs, CALDERON CATHETER IN PLACE, PROPOFOL IS OFF AT THIS TIME, PATIENT CONTINUOUS TO BE ON KEPPRA, ZOSYN AND VANCOMYCIN, WELL LEVAQUIN, DR. HUTSON IN TO SEE PATIENT, PLACED ON CARDENE DRIP TO CONTOL ELEVATED BLOOD PRESSURES, RT IN TO APPLY CPT VEST, PATIENT TOLERATING FAIR, PATIENT IS NOW A DNR PER DISCUSSION BETWEEN DR. HUTSON AND PATIENT'S LIGIA, PATIENT ALSO CONTINUES TO BE ON MORPHINE DEMURRAGE AGENT, SET AT 2 MG/HR AT THIS TIME FOR PAIN CONTROL, TUBE FEED IS INFUSING AT 45 CC/HR WHICH IS GOAL RATE, WITH 120 CC WATER FLUSHES EVERY 4 HOURS, PATIENT IS TOLERATING WELL AND NO RESIDUAL NOTED THIS AM, FAMILY AT BEDSIDE, CALL LIGHT IN REACH, WILL CONTINUE TO MONITOR.
[2018-12-26 11:23] LABS: Hematocrit 25.5 % (37.0-53.0); Hemoglobin 7.9 g/dL (13.5-17.5)
--- NOTE | 2018-12-26 13:44 | NUR ---
PATIENT BECAME EXTREMELY AGITATED AND RESTLESS, PER DR. HUTSON, PROPOFOL WAS RESTARTED AT 10 MCG, EXPLAINED TO FAMILY MEMBER AT BEDSIDE, CALL LIGHT IN REACH, WILL CONTINUE TO MONITOR.
--- NOTE | 2018-12-26 14:48 | NUR ---
PATIENT WAS REPOSITIONED, CLEANED, NEW SHEETS APPLIED, NEW ICE PLACED IN ICE ON CONTAINERS, NEW TUBE FEED HUNG, PATIENT HAS VITAL 1.5 AT 45 CC/HR, WHICH IS AT GOAL WITH WATER FLUSHES 120 CC EVERY 4 HOURS, PATIENT IS RESTING WELL ON PROPOFOL AT 10 MCG, SISTER AT BEDSIDE, CALL LIGHT IN REACH, WILL CONTINUE TO MONITOR.
--- NOTE | 2018-12-26 16:45 | NUR ---
CALLED DR. HUTSON AND GAVE UPDATE ON PATIENT, SBP NOW IN LOW 100s, PER DR. HARESH JERNIGAN AT THIS TIME.
--- NOTE | 2018-12-26 17:55 | NUR ---
SHIFT SUMMARY NOTE: PATIENT CONTINUES TO BE MECHANICALLY VENTED ON PRESSURE SUPPORT, PEEP OF 5, FiO2 45 %, PATIENT WAS ON SEDATION VACATION, PROPOFOL OFF SINCE 0500 THIS AM, PATIENT OPENED EYES SPONTANEOUSLY, AND HAD NON-PURPOSEFUL GROSS MOVEMENTS, UNABLE TO FOLLOW COMMANDS, PATIENT BECAME INCREASINGLY AGITATED AND RESTLESS, WAS PLACED BACK ON PROPOFOL AT 10 MCG, AND THEN REDUCED TO 5 MCG, PATIENT IS NOW RESTING COMFORTABLY, CARDENE DRIP WAS STARTED D/T HIGH SBPs, IN 190s, CARDENE DRIP REMAINED AT 5 MG/HR, THEN WAS DECREASED TO 2.5 MG/HR, DR. HUTSON AWAREL, PATIENT'S SBP'S INTO LOW 110'S, CARDENE DRIP TURNED OFF PER DR. HUTSON, PATIENT CONTINUES TO BE ON MORPHINE PRODUCT EXPERT AT 2 MG/HR, LEG BRACES IN PLACE WITH ERLINDA HOSE UNDERNEATH, ICE ON IN PLACE, NO BM DURING DAY SHIFT, FREQUENTLY REPOSITIONED, FAMILY AT BEDSIDE, CALL LIGHT IN REACH, FOR DETAILS SEE SHIFT ASSESSMENT DOCUMENTATION AND NURSES NOTES, WILL CONTINUE TO MONITOR AND GIVE REPORT TO ONCOMING COMMANDING OFFICER HOMICIDE SQUAD.
[2018-12-26 18:29] LABS: Bun/Creatinine Ratio 30.7 (12.0-20.0); Calcium, Blood 7.8 mg/dL (8.5-10.1); Creatinine, Blood 1.27 mg/dL (0.60-1.20); Potassium, Blood 4.7 mmol/L (3.5-5.5)
--- NOTE | 2018-12-26 19:30 | NUR ---
ASSUMED CARE PT REMAINS INTUBATED, CURRENTLY ON PS 7/5 FIO2 45% WIT RR OF 6. PROPOFOL AT 5MCG/KG/MIN. CALL TO RT TO RESUME PREVIOUS AC SETTINGS SO PT CAN REST T/O NIGHT. DISCUSSED WITH PT'S LIGIA. NS TKO X2 AND MORPHINE OFFSET LABEL REWINDER AT 2MG/HR. TF AT GOAL OF 45ML/HR WITH NO RESIDUAL. DISCUSSED PLAN FOR SHIFT WITH PT'S , PLAN TO BATHE EARLY SINCE SHE WILL BE SPENDING THE NIGHT. PER , THEY PLAN TO TRACH PT SOMETIME NEXT WEEK-PLAN TO CARE FOR PT AT HOME WITH OR WITHOUT NEUROLOGIC RECOVERY.
--- NOTE | 2018-12-26 20:00 | NUR ---
UPDATE/CPT INTOLERANCE RT INITIATED BED CPT. PT IMMEDIATELY BECOMES AGITATED AND RESTLESS AND HYPERTENSIVE WITH SBP >200. CPT STOPPED, PROPOFOL INCREASED TO 7 THEN 10MCG/KG/MIN. UPDATED RT ON EVENTS-NO FURTHER PLAN FOR CPT OVERNIGHT.
[2018-12-27 04:03] LABS: BASOPHILS ABSOLUTE AUTO 0.02 K/mm3 (0.00-0.23); BASOPHILS PERCENT AUTO 0 % (0-2); EOSINOPHILS ABSOLUTE AUTO 0.25 K/mm3 (0.00-0.68); EOSINOPHILS PERCENT AUTO 3 % (0-6); Hematocrit 23.6 % (37.0-53.0); Hemoglobin 7.1 g/dL (13.5-17.5); IMMATURE GRAN ABSOLUTE AUTO 0.11 K/mm3 (0.00-0.10); IMMATURE GRAN PERCENT AUTO 1 % (0-1); LYMPHOCYTES PERCENT AUTO 10 % (21-46); MONOCYTES ABSOLUTE AUTO 0.67 K/mm3 (0.16-1.47); MONOCYTES PERCENT AUTO 9 % (4-13); Mean Corpuscular HGB 28.9 pg (26.0-34.0); Mean Corpuscular HGB Conc 30.1 g/dL (31.5-36.5); Mean Platelet Volume 10.1 fL (9.1-12.4); NEUTROPHILS ABSOLUTE AUTO 6.05 K/mm3 (1.96-9.15); NEUTROPHILS PERCENT AUTO 77 % (41-73); NRBC ABSOLUTE 0.02 K/mm3 (0.00-0.02); NRBC Auto 0.3 /100 WBC (0.0-0.2); Platelet Count 314 K/mm3 (150-400); RDW Coefficient Variation 14.6 % (11.7-14.2); RDW Standard Deviation 50.8 fL (35.1-46.3); Red Blood Cell Count 2.46 M/mm3 (4.30-5.90)
[2018-12-27 04:11] LABS: Mean Corpuscular Volume 96 fL (80-100)
[2018-12-27 04:18] LABS: Albumin, Blood 2.1 g/dL (3.4-5.0); Anion Gap 5 mmol/L (6-16); Blood Urea Nitrogen 47 mg/dL (8-24); Bun/Creatinine Ratio 34.3 (12.0-20.0); CO2, Blood 30 mmol/L (21-32); Chloride, Blood 112 mmol/L (98-108); Creatinine, Blood 1.37 mg/dL (0.60-1.20); Glomerular Filtration Rate 55 (60-); Glucose, Blood 134 mg/dL (70-99); Phosphorus, Blood 3.1 mg/dL (2.5-4.9); Potassium, Blood 4.4 mmol/L (3.5-5.5); Sodium, Blood 147 mmol/L (136-145)
--- NOTE | 2018-12-27 06:33 | NUR ---
SHIFT SUMMARY NO CHANGE TO NEURO STATUS-PT DOES NOT FOLLOW COMMANDS OR TRACK WITH EYES. PT REMAINED ON PROPOFOL AT 10MCG/KG/MIN THROUGHOUT NIGHT AND ON AC15/550/45/5 AND PT'S LIGIA REMAINED IN ROOM AND REPORTED "I CAN'T BEILIEVE I ACTUALLY SLEPT!" THIS AM PROPOFOL OFF AT 0530, PT BEGINS TO MOVE RT SIDE AND IS RESTLESS. NICARDIPINE GTT STARTED @ 3MG/HR SOON SBP HIT 175 AND HAS BEEN TITRATED UP TO 4MG/HR SO FAR TO MAINTAINS SBP <180. MORPHINE PASTEURISER OPERATOR HAS REMAINED AT 2MG/HR AND NS TKO X 2. TF AT GOAL WITH MINIMAL RESIDUALS. THIS AM WHEN SEDATION OFF, HR INCREASED TO 100'S AND O2 SAT DROPPED WITH RESTLESSNESS. AWAITING AM RT TO RESUME PS SETTING THIS AM.
--- NOTE | 2018-12-27 07:15 | NUR ---
START OF SHIFT NOTE: PATIENT CONTINUES ON CARDENE DRIP AT 4, PROPOFOL IS OFF, PATIENT APPEARS SLIGHTLY RESTLESS, CONTINUES ON MECHANICAL VENTILATION AC WITH FiO2 AT 55 %, RT IN TO PLACE PATIENT BACK ON PRESSURE SUPPORT WITH PEEP OF 5 AND FiO2 55 %, PATIENT CONTINUES TO MAKE GROSS SPONTANEOUS MOVEMENTS WITH RIGHT UPPER AND LOWER EXTREMITIES, OPEN EYES SPONTANEOUSLY, BUT IS OBSERVED TO NOT BE ABLE TO TRACK OR MOVE EYES, UNALE TO FOLLOW COMMANDS, REACTS TO PAINFUL STIMULY ON LEFT LOWER EXTREMITY, HOWEVER, LEFT UPPER EXTREMITY CONTINUES TO BE FLACCID, MORPHINE MEAT STUFFER CONTINUES TO INFUSE AT 2 MG/HR, BILATERAL LOWER EXTREMITIES IN BRACES WITH ERLINDA HOSE UNDERNEATH, ICE ON APPLIED, PICC IN MICHAEL FLUSHES WELL AND HAS GOOD BLOOD RETURN, AT BEDSIDE, CALL LIGHT IN REACH, WILL CONTINUE TO MONITOR.
--- NOTE | 2018-12-27 10:22 | NUR ---
DAUGHTER SULEIMAN CALLED THIS AM AND UPDATE VIA PHONE GIVEN, DR. HUTSON IN TO SEE PATIENT AND UPDATED , AT BEDSIDE, VISITORS ARE ALSO IN TO SEE PATIENT, CALL LIGHT IN REACH, WILL CONTINUE TO MONITOR.
--- NOTE | 2018-12-27 11:15 | NUR ---
DR. KIM CALLED AND TOLD THIS RN THAT SHE HAD ORDERED ONE UNIT OF PRBC'S FOR H/H OF 7.1/23.6, DR. HUTSON WAS NOTIFIED AND HE THINKS THAT ADMINISTRATION "WOULD DO MORE HARM THAN GOOD", ORDER FOR PRBC'S WAS STOPPED/CANCELLED.
--- NOTE | 2018-12-27 16:09 | NUR ---
PATIENT IS SHOWING TEMP OF 101.8, DR. HUTSON NOTIFIED, WILL GIVE TYLENOL ELIXIR AND RECHECK TEMP.
[2018-12-27 17:25] LABS: Vancomycin, Trough 17.2 ug/mL (5.0-10.0)
--- NOTE | 2018-12-27 18:28 | NUR ---
SHIFT SUMMARY NOTE: PATIENT CONTINUOUS ON MECHANICAL VENTILATION, PRESSURE SUPPORT, PEEP OF 5, FiO2 55 %, ALSO RECEIVED CPT TODAY, TOLERATING WELL, LS COARSE, CRACKLES AND DIMINISHED, NSR, HR IN 90S, PATIENT IS ON CARDENE DRIP FOR ELEVATED SBPs, CARDENE DRIP AT 7 AT THIS TIME TO KEEP SBPs LESS THAN 180, PATIENT ALSO RECEIVED NORVASC AND CATAPRES PER OG TUBE, TEMP ELEVATED THIS AFTERNOON TO 101.8, PATIENT RECEIVED 650 MG TYLENOL SUSPENSION VIA OG TUBE, TEMP NOW AT 98.0, PROPOFOL OFF ENTIRE DAY, PATIENT SLIGHTLY RESTLESS, MOVEMENT ONLY ON RIGHT UPPER AND LOWER EXTREMITIES, LEFT FOOT SHOWS SLIGHT MOVEMENT WITH PAINFUL STIMULI, LEFT UPPER EXTREMITY REMAINS FLACCID, PATIENT OPENS EYES SPONTANEOUSLY, BUT UNABLE TO FOLLOW ANY COMMANDS, EYES ARE FIXED AND NO MOVEMENT NOTED, MORPHINE DIRECTOR ADVANCED STILL INFUSING AT 2 MG/HR, FAMILY AT BEDSIDE, FOR DETAILS SEE SHIFT ASSESSMENT DOCUMENTATION AND NURSES NOTES, CALL LIGHT IN REACH, WILL CONTINUE TO MONITOR. PICC IN [facility] FLUSHES WELL AND HAS GOOD BLOOD RETURN,
--- NOTE | 2018-12-27 20:00 | NUR ---
ASSUMED CARE BEDSIDE REPORT RECIEVED AT 1900. UPON ENTERING THE ROOM, PT APPEARS RESTLESS AND AGITATED. PT NOT SEDATED AT THIS TIME. PT IS MOVING HEAD AND NECK AND RIGHT ARM FREQUENTLY, NO OTHER EXTREMITY MOVEMENT NOTED. PT ON PRESSURE SUPPORT 7/5, FIO2 55%. PROPOFOL STARTED AT 10 MCG/KG/MIN INITIALLY, THEN TITRATED DOWN TO 5 MCG/KG/MIN. PT APPEARS MORE RESTFUL AT THIS TIME. PT HYPERTENSIVE, NICARDIPINE GTT INFUSING AT 7 MG/HR. PICC TO MICHAEL C/D/I. MORPHINE YOUTH PROGRAM DIRECTOR INFUSING AT CONTINUOUS RATE OF 2 MG/HR, VERIFIED WITH DAY SHIFT RN. NS TKO. PT WITH OGT IN PLACE WITH TF AT 45 ML/HR GOAL RATE. CALDERON IN PLACE WITH YELLOW OUTPUT NOTED. PT WITH BILAT KNEE IMOBILIZERS IN PLACE WITH COOLING PADS TO BILAT LEGS. DRESSINGS TO SURGICAL SITES ON KNEES TO BE CHANGED BY DR. ORTIZ. NO DRAINAGE NOTED. PT WITH NO RESPONSE TO TACTILE STIMULATION TO BILAT FEET. PT UNRESPONSIVE TO VERBAL COMMANDS, GAG PRESENT WITH ORAL CARE. MULTIPLE FAMILY MEMEBERS PRESENT AT BEDSIDE AT THIS TIME. WILL CONTINUE TO MONITOR.
--- NOTE | 2018-12-27 21:13 | NUR ---
ASSIST CONTROL PT WITH DECREASED RR AND TV'S, PT SWITCHED FROM PRESSURE SUPPORT TO AC 15, TV 550, PEEP 5, FIO2 55%. PROPOFOL REMAINS ON STANDBY. WILL CONTINUE TO MONITOR.
[2018-12-28 03:38] LABS: BASOPHILS ABSOLUTE AUTO 0.03 K/mm3 (0.00-0.23); BASOPHILS PERCENT AUTO 0 % (0-2); EOSINOPHILS ABSOLUTE AUTO 0.25 K/mm3 (0.00-0.68); EOSINOPHILS PERCENT AUTO 3 % (0-6); Hematocrit 25.7 % (37.0-53.0); Hemoglobin 7.8 g/dL (13.5-17.5); IMMATURE GRAN ABSOLUTE AUTO 0.12 K/mm3 (0.00-0.10); IMMATURE GRAN PERCENT AUTO 2 % (0-1); LYMPHOCYTES ABSOLUTE AUTO 0.91 K/mm3 (0.84-5.20); LYMPHOCYTES PERCENT AUTO 11 % (21-46); MONOCYTES ABSOLUTE AUTO 0.72 K/mm3 (0.16-1.47); MONOCYTES PERCENT AUTO 9 % (4-13); Mean Corpuscular HGB Conc 30.4 g/dL (31.5-36.5); Mean Corpuscular Volume 96 fL (80-100); Mean Platelet Volume 9.7 fL (9.1-12.4); NEUTROPHILS PERCENT AUTO 75 % (41-73); NRBC ABSOLUTE 0.03 K/mm3 (0.00-0.02); NRBC Auto 0.4 /100 WBC (0.0-0.2); Platelet Count 329 K/mm3 (150-400); RDW Coefficient Variation 14.5 % (11.7-14.2); RDW Standard Deviation 49.5 fL (35.1-46.3); Red Blood Cell Count 2.69 M/mm3 (4.30-5.90); White Blood Cell Count 8.23 K/mm3 (4.00-11.30)
[2018-12-28 03:52] LABS: Albumin, Blood 2.3 g/dL (3.4-5.0); Anion Gap 3 mmol/L (6-16); Blood Urea Nitrogen 44 mg/dL (8-24); Bun/Creatinine Ratio 31.9 (12.0-20.0); CO2, Blood 32 mmol/L (21-32); Calcium, Blood 8.3 mg/dL (8.5-10.1); Chloride, Blood 114 mmol/L (98-108); Creatinine, Blood 1.38 mg/dL (0.60-1.20); Glomerular Filtration Rate 54 (60-); Glucose, Blood 133 mg/dL (70-99); Phosphorus, Blood 2.5 mg/dL (2.5-4.9); Potassium, Blood 4.7 mmol/L (3.5-5.5); Sodium, Blood 149 mmol/L (136-145)
--- NOTE | 2018-12-28 05:50 | NUR ---
SHIFT SUMMARY NO ACUTE CHANGES THIS SHIFT. PT HAS REMAINED ON AC 15, TV 550, PEEP 5, FIO2 50%. PT HAS REMAINED ON PROPOFOL TITRATED BETWEEN 5 AND 10 MCG/KG/MIN THROUGHOUT THE NIGHT. PT HAS BEEN LESS RESTLESS WITH PROPOFOL FOR SEDATION. PT CONTINUES TO HAVE PERIODS OF RESTLESSNESS WITH MOVEMENT OF RIGHT ARM AND HEAD/NECK ONLY. PT REMAINS UNCHANGED NEUROLOGICALLY. PICC TO MICHAEL C/D/I WITH NICARDIPINE INFUSING AT 5 MG/HR, NS TKO, AND MORPHINE RELATIONSHIP MANAGER AT CONTINUOUS RATE OF 2 MG/HR. OGT REMAINS IN PLACE WITH TF AT 45 ML/HR GOAL RATE. CALDERON IN PLACE WITH GOOD URINE OUTPUT. BILAT KNEE IMOBILIZERS REMAIN IN PLACE WITH COOLING. FAMILY HAS REMAINED AT BEDSIDE THROUGHOUT THE NIGHT. VITAL SIGNS HAVE REMAINED STABLE. WILL CONTINUE TO MONITOR AND REPORT OFF TO ONCOMING RN.
--- NOTE | 2018-12-28 07:12 | NUR ---
ASSUMED CARE REPORT FROM SHERYL LIZARRAGA. DAUGHTER AT BEDSIDE. PT LIGHTLY SEDATED ON MORPHINE CONTINUOUS AND PROPOFOL AT 10 MCG/KG/MIN. INTUBATED, RESTRAINED AND VENTILATED. TF AT GOAL. BOWEL TONES HYPO ACTIVE. BILATERAL LEG BRACES AND ICE PADS. FEET ARE WARM.
--- NOTE | 2018-12-28 09:39 | NUR ---
MD VISITS DR. KIM AND DR. VELEZ IN. PROPOFOL STOPPED PER DR. VELEZ FOR SBT
--- NOTE | 2018-12-28 12:20 | NUR ---
PATIENT TURNED TO LEFT SIDE WITH ASSISTANCE OF RN X3 TO PLACE CPT VEST BY RT AND TO CHECK SKIN ON BACKSIDE. DIGITAL RECTAL EXAM PERFORMED WITH NO STOOL FOUND. NO RESULTS YET FROM STOOL SOFTENER AND MOM GIVEN THIS AM. DR. VELEZ IS TITRATING MORPHINE DOWN SLOWLY AND PROPOFOL REMAINS OFF TO DETERMINE NEURO STATUS.
--- NOTE | 2018-12-28 13:16 | NUR ---
MD VISIT DR. COPELAND IN. BILAT KNEE DRESSINGS CHANGED. ORDERS TO REMOVE CHIDI AFTER RIDAY. ICE CAN BE CHANGED TO 2 HOURS PER SHIFT.
--- NOTE | 2018-12-28 17:24 | NUR ---
Comforted and encouraged spouse at bedside. Noel is restless and this clearly upsets Angélica. She is tearful and admits emotional exhaustion. She remains hopeful Noel will acheive some quality of life. She plans on "giving it 30 more days. If he's not better than this, I will think about changing paths." His children have been supportive and kind, and they will be returning from out of state in next few days. I encouraged self-care and provided prayer at bedside. I will remain available.
[2018-12-28 18:04] LABS: Source, Urine Catheter
[2018-12-28 18:22] LABS: Appearance, Urine Clear (Clear); Bilirubin, Urine Neg (Neg); Blood, Urine Neg (Neg); Color, Urine Yellow (P-Yellow); Glucose Qualitative, Urine Neg (Neg); Ketones, Urine Neg (Neg); Leukocyte Esterase, Urine Neg (Neg); Nitrite, Urine Neg (Neg); Protein, Urine 1+ (Neg); Urobilinogen, Urine NORM (Normal); pH, Urine 6.5 (5.0-8.0)
--- NOTE | 2018-12-28 19:15 | NUR ---
ASSUMING CARE OF PT AT THIS TIME. PT REPORT RECEIVED AT BEDSIDE WITH OFFGOING NURSE, ANGEL SAUCEDO. PT LAYING IN BED, INTUBATED UPON ENTERING THE ROOM. VS STABLE - SEE VS FS. PT DOES NOT APPEAR TO BE IN DISTRESS AT THIS TIME. WILL REVIEW PLAN OF CARE. PT'S FAMILY AT BEDSIDE.
--- NOTE | 2018-12-28 19:30 | NUR ---
ASSESSMENT PT RESPONDS TO PAINFUL STIMULI, DOES NOT OPEN EYES, DOES NOT NOD HEAD Y/N TO QUESTIONS, DOES NOT FOLLOW COMMANDS, NO TRACKING WITH EYES, NORMAL FLEXION TO PAIN. BILAT PUPILS 2 MM, SLUGGISH. PROPOFOL ON STANDBY - WILL TITRATE TO EFFECT. DILAN SENSATION. PT KNIGHT. GROSS, WEAK MOVEMENT RUE AND RLE. NO MOVEMENT LLE AND LUE. OCC S/SX OF PAIN/DISCOMFORT (FACIAL GRIMACING, RESTLESSNESS, AND BRACING) NOTED, ESPECIALLY WITH PT CARE. MORPHINE CONT DRIP 1.75 MG/HR AND NONPHARM METHODS. PT NOT IN BILAT WRIST RESTRAINTS. UPPER LOBES COARSE, CELAR AND DIMINIHSED MIDDLE AND LOWER LOBES. VENT SETTINGS: PS 7, PEEP 5,FIO2 45%. OXY SAT >90%. RR 13. SUCTION VIA ETT: SCANT AMOUNTS OF THICK BLOODY SECRETIONS. GAGGING WITH ORAL CARE. RT JHONATAN ADVANCED ETT TO 26 CM. TEMP 100.8 - TYLENOL PRN, FAN ON, BLANKETS OFF, TURNED DOWN TEMP IN ROOM, ICE BAG, ICE WRAPS TO BILAT LEGS. NSR WITH OCC PVC'S. HR 90'S. BP STABLE - SEE VS FS. CARDENE DRIP 6 MG/HR. EDEMA NOTED. WARM, PALE, DIAPHORETIC. R RADIAL SITE - NO HEMATOMA, NO BRUSIING, NO REDNESS, NO TENDERNESS, NO BLEEDING. HYPOACTIVE BT X4 QUADRANTS. ABD SOFT, NONTENDER, SEVERE DIST. NO BM. OG IN PLACE. TF: PIVOT 1.5 @ GOAL RATE 45 ML/HR AND 120 ML FLUSH Q4 HR. RESIDUAL 50. F/C - DARK YELLOW URINE NOTED. PICC MICHAEL. NS TKO AT 10 ML/HR X2. BILAT LEG BRACES, ERLINDA HOSE, AND LEG COOLING WRAPS IN PLACE.
--- NOTE | 2018-12-28 20:30 | NUR ---
CT SCAN PT TRANSFERRED TO CT SCAN AT 1999 VIA BED WITH BOILER WATER TESTER, HECTOR RN, AND JHONATAN CASTILLO. PT REMAINED ON CARDENE DRIP 6 MG/HR AND MORPHINE DRIP 1.75 MG/HR. PT REMAINED ON VENT SETTINGS: PS 7, PEEP 5, FIO2 45%. PT BACK TO ICU ROOM 7 AT 2029. PT HYPERTENSIVE UPON TRANSFERRED PT - WILL ADMINSITERED SCHEDUELD ANTI-HYPERTENSIVES. OTHERWISE, VS STABLE - SEE VS FS.
--- NOTE | 2018-12-28 22:00 | NUR ---
VENT SETTINGS RR 9. JHONATAN RT NOTED OF RR 9. JHONATAN CHANGED VENT SETTINGS TO AC 15, TV 550, PEEP 5, FIO2 45%. OXY SAT >90%. RR 15.
[2018-12-29 04:20] LABS: BASOPHILS ABSOLUTE AUTO 0.04 K/mm3 (0.00-0.23); BASOPHILS PERCENT AUTO 0 % (0-2); EOSINOPHILS ABSOLUTE AUTO 0.28 K/mm3 (0.00-0.68); EOSINOPHILS PERCENT AUTO 3 % (0-6); Hematocrit 26.5 % (37.0-53.0); Hemoglobin 7.8 g/dL (13.5-17.5); IMMATURE GRAN ABSOLUTE AUTO 0.11 K/mm3 (0.00-0.10); IMMATURE GRAN PERCENT AUTO 1 % (0-1); LYMPHOCYTES ABSOLUTE AUTO 1.08 K/mm3 (0.84-5.20); LYMPHOCYTES PERCENT AUTO 10 % (21-46); MONOCYTES ABSOLUTE AUTO 0.76 K/mm3 (0.16-1.47); MONOCYTES PERCENT AUTO 7 % (4-13); Mean Corpuscular HGB 28.2 pg (26.0-34.0); Mean Corpuscular HGB Conc 29.4 g/dL (31.5-36.5); Mean Corpuscular Volume 96 fL (80-100); Mean Platelet Volume 9.9 fL (9.1-12.4); NEUTROPHILS ABSOLUTE AUTO 8.95 K/mm3 (1.96-9.15); NEUTROPHILS PERCENT AUTO 80 % (41-73); NRBC ABSOLUTE 0.02 K/mm3 (0.00-0.02); NRBC Auto 0.2 /100 WBC (0.0-0.2); Platelet Count 383 K/mm3 (150-400); RDW Coefficient Variation 14.6 % (11.7-14.2); RDW Standard Deviation 51.1 fL (35.1-46.3); Red Blood Cell Count 2.77 M/mm3 (4.30-5.90); White Blood Cell Count 11.22 K/mm3 (4.00-11.30)
[2018-12-29 04:43] LABS: Bun/Creatinine Ratio 27.8 (12.0-20.0); Calcium, Blood 8.5 mg/dL (8.5-10.1); Creatinine, Blood 1.44 mg/dL (0.60-1.20); Potassium, Blood 4.4 mmol/L (3.5-5.5)
--- NOTE | 2018-12-29 05:11 | NUR ---
SHIFT ASSESSMENT NO ACUTE CHANGES NOTED T/O SHIFT. PT RESPONDS TO PAINFUL STIMULI, OCC OPENED EYES SPONTANEOUSLY THIS AM, DOES NOT NOD HEAD Y/N TO QUESTIONS, DOES NOT FOLLOW COMMANDS, NO TRACKING WITH EYES. BILAT PUPILS 2 MM, SLUGGISH. PROPOFOL CURRENTLY ON STANDBY - CONT TO TITRATE TO EFFECT. PROPOFOL TITRATED TO 20 MCG/KG/MIN WHILE CHANGING BITE BLOCK D/T RESTLESSNESS IN BED. DILAN SENSATION. GROSS MOVEMENT RUE AND RLE. STRONG MOVEMENT RUE, BUT WEAKER THIS AM. INCREASED MOVEMENT OF RUE NOTED THIS AM. NO MOVEMENT LLE AND LUE. OCC S/SX OF PAIN/DISCOMFORT (FACIAL GRIMACING, RESTLESSNESS, AND BRACING) NOTED, ESPEICALLY WITH PT CARE. MORPHINE CONT DIRP 1.75 MG/HR AND NONPHARM METHODS. PT IN SOFT WRIST RESTRAINT TO RUE TO PROTECT VITAL LINES/CORDS/TUBES AND TO PROTECT FROM SELF-EXTUBATION. PT CONTIOUSLY PULLING ON RUE SOFT WRIST RESTRAINTS. UPPER LOBES COARSE, CLEAR AND DIMINISHED IN MIDDLE AND LOWER LOBES. VENT SETTINGS: PS 7, PEEP 5, FIO2 40%. CONT TO TITRATE FIO2 TO MAINTAIN SPO2. RR 9 TO 20'S. PT PLACED ON AC 15, TV 550, PEEP 5 FOR SEVERAL HOURS T/O SHIFT D/T RR 9. SUCTION VIA ETT: SCANT AMOUNTS OF THICK BLOODY SECRETIONS. GAGGING AND COUGHING WITH ORAL CARE. TMAX 100.8 - TYLENOL PRN, FAN ON, BLAKETS OFF, TURNED DOWN TEMP IN ROOM, ICE BAGS. NSR TO ST WITH OCC PVC'S. HR 70'S TO 100'S. CONT TO TITRATE CARDENE DRIP TO MAINTAIN BP. CARDENE DRIP ON STANDBY. EDEMA NOTED. WARM, PALE, DIAPHOERTIC. R RADIAL SITE - NO HEMAOMA, NO BRUISING, NO REDNESS, NO TENDERNESS, NO BLEEDING. HYPOACTIVE BT X4 QUADRANTS. ABD SOFT, NONTENDER, SEVERE DIST. NO BM. BOWEL PROTOCOL. OG IN PLACE. TF: PIVOT 1.5 @ GOAL RATE 45 MLHR AND 120 ML FLUSH Q4 HR. RESIDUAL WNL. F/C - DARK YELLOW URINE NOTED. PICC MICHAEL. NS TKO AT 10 ML/HR X2. BILAT LEG BRACES AND ERLINDA HOSE REMAINED IN PLACE. LEG COOLING WRAPS IN PER PHYSICIAN'S ORDER. WILL CONT TO MONITOR PT AND WILL PROVIDE BEDSIDE REPORT TO ONCOMING NURSE THIS AM.
--- NOTE | 2018-12-29 11:30 | NUR ---
0800... PT NOT FOLLOWING ANY COMMANDS, RANDOM SPONT. MOVEMENT OF R SIDE, NO DEFINITIVE RESPONSE TO NOXIOUS STIMULI, NO CORNIAL RESPONSE, NO BLINK RESPONSE, OCC THRUSTING OF TONGUE, NO RESPONSE TO ANY VERBAL STIMULATION. PT BP IS ELEVATED, AM MEDS AND PRN TO FOLLOW, SEE EMAR. LEG BRACES ON BILAT. WITH ERLINDA ROSS. IVF NOTED OF NS TKO X2, MORPHINE SOFTWARE REVERSE ENGINEER AT 1.7MG CONT.
--- NOTE | 2018-12-29 11:45 | NUR ---
TO RECOVERY ROOM VIA RECLINER. RIGHT VASCULAR ACCESS SITE OOZING. HEPARIN 10,000 UNITS ADMINISTERED EACH PORT BY Mark BENTLEY RN.
--- NOTE | 2018-12-29 12:00 | NUR ---
SITE REDRESSED BY Maryjane PEREZ RT. SITE DRY AND INTACT POST.
--- NOTE | 2018-12-29 12:05 | NUR ---
DRESSED FOR DISCHARGE. DISCHARGE INSTRUCTIONS GIVEN WITH VERBAL AND WRITTEN UNDERSTANDING.
--- NOTE | 2018-12-29 12:15 | NUR ---
DISCHARGED HOME VIA WHEELCHAIR.
--- NOTE | 2018-12-29 13:08 | NUR ---
COOLING PADS PLACED ON BLE. NERUO STATUS CONTINUES UNCHANGED. BP SOMEWHAT LOWER NOTED.
[2018-12-29 17:56] LABS: Vancomycin, Trough 19.5 ug/mL (5.0-10.0)
--- NOTE | 2018-12-29 18:59 | NUR ---
PT ENEMA WAS GIVEN WITH MAINLY ONLY WATER RETURNED AT THIS POINT. PT HAS REMAINED RESTLESS WITH R ARM THAT IS RESTRAINED. I/O NOTED. PT IS SOMEWHAT ELEVATED AND PRN TRANDATE GIVEN NOTED. PT REMAINS ON PS SETTINGS AND TOLERATING, SECREATIONS ARE MODERATE AMOUNT OF YELLOW AND SOME BLOOD TINGED. WILL REPORT OFF TO NOC SHIFT.
--- NOTE | 2018-12-29 19:15 | NUR ---
ASSUMED CARE PT REMIANS INTUBATED, CURRENTLY ON PS 7/5 FIO2 35%. PT IS UNRESPONSIVE, NO GAG, NO CORNEAL REFLEX AND DOES NOT FOLLOW COMMANDS. LEFT SIDE DOES NOT MOVE BUT LEFT SIDE HAS GROSS MOVEMENT. RT ARM UNRESTRAINED DURING ASSESSMENT AND PT IS ABLE TO GET HAND UP TO FACE. MORPHINE GLOBAL SUPPLY CHAIN DIRECTOR ON CONTINUOUS AT 1.7MG/HR, NS TKO X 2, TF AT GOAL-20ML RESIDUAL AND PT HAS NOT HAD A BM SINCE ARRIVAL. ENEMA GIVEN PER AM RN WAS NOT EFFECTIVE. PLAN ON MOM TONIGHT. PT'S BROTHER IS IN ROOM AND PLANS TO SPEND THE NIGHT. VSS, ECG SHOWS SR, O2 SATS MID 90'S. BLE IMMOBILIZERS REMAIN IN PLACE WITH PLAN TO APPLY ICE/COOLING WRAPS X 2 HOURS TONIGHT.
--- NOTE | 2018-12-30 02:13 | NUR ---
DR AGUSTIN HURLEY. INCREASED FREE WATER VIA OG TUBE FEEDS, REDUCED AMOUNT OF MORPHINE WIND FARM OPERATIONS MANAGER CONTINUOUS INFUSION AND ADDDED IV PUSH MORPHINE. SEE EMAR FOR DETAILS.
[2018-12-30 03:58] LABS: BASOPHILS ABSOLUTE AUTO 0.05 K/mm3 (0.00-0.23); BASOPHILS PERCENT AUTO 0 % (0-2); EOSINOPHILS ABSOLUTE AUTO 0.31 K/mm3 (0.00-0.68); EOSINOPHILS PERCENT AUTO 3 % (0-6); Hematocrit 26.4 % (37.0-53.0); IMMATURE GRAN ABSOLUTE AUTO 0.13 K/mm3 (0.00-0.10); IMMATURE GRAN PERCENT AUTO 1 % (0-1); LYMPHOCYTES ABSOLUTE AUTO 0.99 K/mm3 (0.84-5.20); LYMPHOCYTES PERCENT AUTO 8 % (21-46); MONOCYTES ABSOLUTE AUTO 0.77 K/mm3 (0.16-1.47); MONOCYTES PERCENT AUTO 6 % (4-13); Mean Corpuscular HGB 28.8 pg (26.0-34.0); Mean Corpuscular HGB Conc 30.3 g/dL (31.5-36.5); Mean Corpuscular Volume 95 fL (80-100); Mean Platelet Volume 9.6 fL (9.1-12.4); NEUTROPHILS ABSOLUTE AUTO 10.28 K/mm3 (1.96-9.15); NEUTROPHILS PERCENT AUTO 82 % (41-73); NRBC ABSOLUTE 0.02 K/mm3 (0.00-0.02); NRBC Auto 0.2 /100 WBC (0.0-0.2); Platelet Count 424 K/mm3 (150-400); RDW Coefficient Variation 14.6 % (11.7-14.2); RDW Standard Deviation 49.9 fL (35.1-46.3); Red Blood Cell Count 2.78 M/mm3 (4.30-5.90); White Blood Cell Count 12.53 K/mm3 (4.00-11.30)
[2018-12-30 04:12] LABS: Bun/Creatinine Ratio 26.9 (12.0-20.0); Calcium, Blood 8.5 mg/dL (8.5-10.1); Creatinine, Blood 1.45 mg/dL (0.60-1.20); Phosphorus, Blood 3.1 mg/dL (2.5-4.9); Potassium, Blood 4.4 mmol/L (3.5-5.5)
[2018-12-30 05:55] LABS: PCO2 Arterial 49.6 mmHg (35-45); PO2 Arterial 66.6 mmHg (80-100); pH Blood Arterial 7.43 (7.35-7.45)
--- NOTE | 2018-12-30 06:22 | NUR ---
SHIFT SUMMARY NO ACUTE EVENTS OVERNIGHT. NO CHANGE TO PREVIOUSLY NOTED VENT SETTINGS. PT REMAINS UNRESPONSIVE TO ALL BUT PAIN, DOES NOT FOLLOW COMMANDS, NO GAG, DOES NOT TRACK WITH EYES AND NO CORNEAL REFLEX. PT HAS BEEN RESTLESS POST BATH AND WHEN RESTLESS BP GREATLY INCREASED. PT MEDICATED X 2 WITH LABETALOL WITH MINIMAL CHANGE IN SBP. MORPHINE CARDIOLOGY TECH AT 1MG/HR AND NS TKO X 2. LIGIA HERE THIS AM AND UPDATED ON CHANGES TO MORPHINE. HEARING AIDS IN AND FAMILY IN ROOM.
--- NOTE | 2018-12-30 08:30 | NUR ---
INITIAL ASSESSMENT PATIENT INTUBATED, LYING IN BED. NO SIGNS OF PAIN. PATIENT HAS TEMP OF 99.9 DEGREES FAHRENHEIT. PATIENT RANGES BETWEEN CALM AND AGITATED/ RESTLESS. PATIENT RESPONDS TO PAIN. PATIENT ONLY MOVING EXTREMITIES ON RIGHT SIDE- NORMAL FLEXION. PATIENT HAS NO PURPOSEFUL MOVEMENTS NOTED. PATIENT DOES NOT TRACK OR FOLLOW ANY SIMPLE COMMANDS. R WRIST RESTRAINT IN PLACE PATIENT DOES HAVE GOOD STRENGTH IN RIGHT ARM AND DOES GET CLOSE TO ETT. PATIENT SATTING WELL ON PRESSURE SUPPORT OF 1/5, 35% FI02. LUNG SOUNDS ARE COARSE THROUGHOUT. SMALL AMOUNT OF THIN, PINK SPUTUM SUCTIONED FROM ETT. PATIENT IN SR TO ST, HR 90S TO LOW 100S. PATIENT HYPERTENSIVE. ABDOMEN MODERATELY DISTENDED, SOFT, WITH NORMOACTIVE BS. PATIENT HAS NOT HAD BM SINCE BEING ADMITTED. TF INFUSING AT GOAL RATE WITH 200 MLS/ FLUSH Q4H. CALDERON DRAINING DARK YELLOW, GREEN URINE. PATIENT HAS SCATTERED BRUISES. SURGICAL INCISIONS TO BILAT KNEES- DRESSINGS CLEAN, DRY, INTACT. R RADIAL ACCESS SITE WNL. MORPHINE REFRIGERATION MECHANIC HELPER PUMP INFUSING AT 1 MG/ HOUR, NS TKO. AT BEDSIDE. BED LOW, CALL LIGHT IN REACH. WILL CONTINUE TO MONITOR PATIENT FREQUENTLY THROUGHOUT SHIFT.
--- NOTE | 2018-12-30 10:58 | NUR ---
PALLIATIVE CARE, GEAR KEEPER, DR. JAMES ALL IN TO SEE PATIENT IN ROOM THIS MORNING.
--- NOTE | 2018-12-30 12:15 | NUR ---
PATIENT RESTING QUIETLY IN BED. PATIENT INTUBATED AND ON 10 MCG/ KG/ MINUTE OF PROPOFOL TO KEEP FROM BEING RESTLESS. PATIENT HAS NO SIGNS OF PAIN OR DISCOMFORT AT THIS TIME. PATIENT AFEBRILE. PATIENT REMAINS SATTING WELL ON SAME VENT SETTINGS. UPPER LOBES CLEAR, LOWER LOBES COARSE TO AUSCULTATION. PATIENT IN NSR, HR IN THE 80S. BP STABLE. CALDERON DRAINING YELLOW/ GREEN URINE. PATIENT REMAINS TOLERATING TF WELL. RESIDUAL OF ZERO. ICE APPLIED TO BILAT KNEES. NO OTHER ACUTE CHANGES TO NOTE ON AT THIS TIME. WILL CONTINUE TO MONITOR.
--- NOTE | 2018-12-30 17:35 | NUR ---
Angélica, pt's , tells me she is confused by conflicting physician recommendations. "One doctor says to give Noel three months to see if he improves. Another tells me there is no hope." Angélica is tearful. She is also feeling pressure from Noel's adult children who are stating "Dad would never want to live this way." Angélica is trying to hold on to hope. I suspect this family may benefit from a physician/family meeting to clearly discuss pt's clinical status and POC. Angélica is appreciaitive to theraputic listening and prayer. I will continue to provide these as schedule permits.
--- NOTE | 2018-12-30 17:46 | NUR ---
DR. GARCIA CALLED AND STATED THAT HE WOULD BE IN AT 1830 TO UPDATE FAMILY THAT IS IN ROOM. PATIENT'S INFORMED.
--- NOTE | 2018-12-30 18:28 | NUR ---
DR. MESSER IN ROOM TO SEE PATIENT AND SPEAK WITH FAMILY.
--- NOTE | 2018-12-30 18:30 | NUR ---
SHIFT SUMMARY PATIENT HAD NO SIGNIFICANT CHANGES THROUGHOUT SHIFT. PATIENT RESTLESS ON AND OFF, SWINGING RIGHT ARM IN RHYTHMIC MOTION. PATIENT RESPONDS TO PAIN AND ORAL CARE WITH INCREASED MOVEMENTS OF HEAD BACK AND FORTH AND ARM SWINGING. PATIENT DISPLAYED NO PURPOSEFUL MOVEMENTS. PATIENT HAD EYES CLOSED MOST OF THE DAY BUT DID HAVE THEM OPEN A COUPLE OF TIMES. PATIENT DID NOT HAVE ANY MOVEMENT OF EYES- NO TRACKING NOTED. PATIENT GIVEN PRN MORPHINE FOR CNVI ABOVE ZERO T/O SHIFT. PATIENT HAD TMAX OF 100.1 DEGREES FAHRENHEIT. PATIENT HAS BEEN SATTING WELL ON PRESSURE SUPPORT OF 7/5, 35% FIO2. LUNGS CLEAR TO COARSE T/O SHIFT. PATIENT REMAINED IN SR TO ST, HR 80S TO LOW 100S. BP STABLE TO HYPERTENSIVE T/O SHIFT. BP DECREASED WITH USE OF PROPOFOL AND PRN PAIN MEDICATIONS. PRN HTN MEDS T/O SHIFT. PATIENT DID NOT HAVE BM THIS SHIFT. PATIENT REMAINED TOLERATING TF WELL- RESIDUALS 0-5 ML. ADEQUATE AMOUNT OF GREEN/ YELLOW URINE DRAINING FROM CALDERON. NO CHANGE IN SKIN. PATIENT HAD ICE TO BILAT KNEES DURING SHIFT. PROP SB TO 10 MCG/ KG/ MINUTES AFTER MORPHINE WORKERS COMPENSATION CLAIMS ADJUSTER DC'D. PROPOFOL DID HELP TO KEEP PATIENT FROM LOOKING SO RESTLESS IN BED. NS TKO X 2. FAMILY IN ROOM MOST OF DAY. FAMILY WOULD LIKE TO HAVE PATIENT TRACHED, PEG PLACED AND TO TAKE PATIENT HOME. FAMILY WOULD LIKE TO SET UP MEETING IN PATIENT ROOM WITH DR. GARCIA, DR. HUTSON, PALLIATIVE CARE AND IDENTITY MANAGEMENT CONSULTANT ON FRIDAY. BED LOW, CALL LIGHT IN REACH. FAMILY WAITING FOR DR. GARCIA IN ROOM. WILL CONTINUE TO MONITOR PATIENT FREQUENTLY UNTIL REPORT GIVEN TO ONCOMING GLASS BEVELLER NURSE SHORTLY.
--- NOTE | 2018-12-30 19:30 | NUR ---
ASSUMED CARE PATIENT REMAINS RESTLESS AND HYPERTENSIVE; PROPOFOL BACK ON AT 5MCG/KG/MIN. PATIENT REMAINS INTUBATED; CURRENTLY PS 7/5 FIO2 35% VT 500-900ML. GTTS VERIFIED WITH OFFGOING RN. PATIENT'S SISTER IN LAW IN ROOM WITH HIM. GOALS FOR TONIGHT: MANAGE BLOOD PRESSURE, SEDATION VACATION IN AM, ENCOURAGE BM, AND BATH.
[2018-12-31 03:55] LABS: BASOPHILS ABSOLUTE AUTO 0.06 K/mm3 (0.00-0.23); BASOPHILS PERCENT AUTO 1 % (0-2); EOSINOPHILS ABSOLUTE AUTO 0.17 K/mm3 (0.00-0.68); EOSINOPHILS PERCENT AUTO 1 % (0-6); Hematocrit 27.3 % (37.0-53.0); Hemoglobin 8.1 g/dL (13.5-17.5); IMMATURE GRAN ABSOLUTE AUTO 0.13 K/mm3 (0.00-0.10); IMMATURE GRAN PERCENT AUTO 1 % (0-1); LYMPHOCYTES ABSOLUTE AUTO 1.17 K/mm3 (0.84-5.20); LYMPHOCYTES PERCENT AUTO 10 % (21-46); MONOCYTES ABSOLUTE AUTO 0.83 K/mm3 (0.16-1.47); MONOCYTES PERCENT AUTO 7 % (4-13); Mean Corpuscular HGB 28.4 pg (26.0-34.0); Mean Corpuscular HGB Conc 29.7 g/dL (31.5-36.5); Mean Corpuscular Volume 96 fL (80-100); Mean Platelet Volume 9.7 fL (9.1-12.4); NEUTROPHILS ABSOLUTE AUTO 9.72 K/mm3 (1.96-9.15); NEUTROPHILS PERCENT AUTO 80 % (41-73); NRBC ABSOLUTE 0.02 K/mm3 (0.00-0.02); NRBC Auto 0.2 /100 WBC (0.0-0.2); Platelet Count 493 K/mm3 (150-400); RDW Coefficient Variation 14.9 % (11.7-14.2); RDW Standard Deviation 51.8 fL (35.1-46.3); Red Blood Cell Count 2.85 M/mm3 (4.30-5.90); White Blood Cell Count 12.08 K/mm3 (4.00-11.30)
[2018-12-31 04:22] LABS: Albumin, Blood 2.5 g/dL (3.4-5.0); Albumin/Globulin Ratio 0.6 (0.8-1.8); Bilirubin, Total 0.6 mg/dL (0.1-1.0); Bun/Creatinine Ratio 29.9 (12.0-20.0); Calcium, Blood 8.3 mg/dL (8.5-10.1); Creatinine, Blood 1.47 mg/dL (0.60-1.20); Globulin, Blood 4.4 g/dL (2.2-4.0); Magnesium, Blood 2.9 mg/dL (1.6-2.4); Phosphorus, Blood 3.4 mg/dL (2.5-4.9); Potassium, Blood 4.5 mmol/L (3.5-5.5); Total Protein, Blood 6.9 g/dL (6.4-8.2)
[2018-12-31 04:43] LABS: PCO2 Arterial 45.6 mmHg (35-45); PO2 Arterial 63.1 mmHg (80-100); pH Blood Arterial 7.44 (7.35-7.45)
--- NOTE | 2018-12-31 06:30 | NUR ---
SHIFT SUMMARY NO CHANGE IN NEURO STATUS OVERNIGHT. PROPOFOL TURNED BACK ON AND TITRATED BETWEEN 15 AND 5 MCG/KG/MIN BASED ON RESTLESSNESS, AGITATION, AND BLOOD PRESSURE. PATIENT IS IN NSR AND HR HAS BEEN IN 90S ALL NIGHT. SISTER IN LAW SPENT THE NIGHT; AND BROTHER ARRIVED IN AM AND HAS BEEN UPDATED. NO CHANGE IN VENTILATOR SETTINGS.
--- NOTE | 2018-12-31 08:00 | NUR ---
INITIAL ASSESSMENT PATIENT LYING IN BED, RESTLESS AT TIMES. PATIENT INTUBATED. SEDATION TAKEN OFF BEFORE SHIFT STARTED. PATIENT HAS NO PURPOSEFUL MOVEMENT. CONTINUES TO ONLY MOVE RIGHT SIDE AND R LEG DOES NOT MOVE MUCH. PATIENT EYES CLOSED AND HAS NO MOVEMENT OR TRACKING NOTED. PATIENT HAS TEMP OF 101.7 DEGREES FAHRENHEIT. PATIENT SATTING WELL ON PRESSURE SUPPORT 7/5 AND 35% FIO2. LUNG SOUNDS COARSE THROUGHOUT. SMALL AMOUNT OF THIN, FERNANDEZ SECRETIONS BEING SUCTIONED FROM ETT. PATIENT IN SR TO ST, HR 90S TO LOW 100S. PATIENT HYPERTENSIVE. PULSES STRONG. ABDOMEN MODERATELY DISTENDED, SOFT, WITH NORMOACTIVE BS. PATIENT TOLERATING TF AT GOAL RATE. PATIENT HAS NOT HAD BM SINCE ADMITTED. CALDERON DRAINING CLEAR/ YELLOW URINE. PATIENT HAS SCATTERED BRUISES NOTED. SURGICAL INCISIONS AND IMMOBILIZERS TO BILAT KNEES. NS INFUSING TKO X 2. BED LOW, CALL LIGHT IN REACH. AT BEDSIDE. WILL CONTINUE TO MONITOR PATIENT FREQUENTLY THROUGHTOUT SHIFT.
--- NOTE | 2018-12-31 12:27 | NUR ---
PATIENT LYING IN BED, REMAINS INTUBATED. PATIENT ON 5 MCG/ KG/ MINUTE OF PROPOFOL AND ITS HELPING WITH RESTLESSNESS AND HTN. NO CHANGES IN NEURO STATUS. PATIENT REMAINS FEBRILE- TEMP OF 100.3 DEGREES FAHRENHEIT. PATIENT REMAINS FLUSHED AND SLIGHTLY DIAPHORETIC. PATIENT REMAINS SATTING WELL ON SAME VENT SETTINGS. UPPER LOBES CLEAR, LOWER LOBES COARSE WITH AUSCULTATION. PATIENT IN SR, HR 80S TO 90S. BP STABLE AT THIS TIME. HYPERACTIVE BS NOTED. PATIENT HAD XL BROWN, LIQUID BM THIS SHIFT AFTER RECEIVING SUPPOSITORY THIS AM. PATIENT REMAINS TOLERATING TF AT GOAL. RESIDUAL OF 5 MLS REINSTILLED. NO OTHER ACUTE CHANGES TO NOTE ON AT THIS TIME. AND FRIEND AT BEDSIDE. WILL CONTINUE TO MONITOR.
--- NOTE | 2018-12-31 16:34 | NUR ---
PATIENT REMAINS INTUBATED AND RESTLESS IN BED. AGREES TO TURN PROPOFOL BACK ON AT LOW RATE OF 5 MCG/ KG/ MINUTE TO HELP WITH RESTLESSNESS. PATIENT HAS TEMPERATURE OF 101.[address] JAMES AWARE. ICE PLACED TO BILAT KNEES FOR SECOND TIME THIS SHIFT. ICE PACKS ALSO PLACED TO AXILLI, GROIN AND BEHIND NECK. FAN REMAINS ON PATIENT. PATIENT REMAINS SATTING WELL ON SAME VENT SETTINGS. PATIENT IN SR, HR IN THE 90S. PATIENT HYPERTENSIVE. PATIENT CONTINUES TO BE GIVEN IV HTN MEDICATIONS IN ADDITION TO SCHEDULED HTN MEDS. PATIENT REMAINS TOLERATING TF AT GOAL. RESIDUAL OF 5 MLS OBTAINED AND REINSTILLED. FAMILY AT BEDSIDE. NO OTHER ACUTE CHANGES TO NOTE ON AT THIS TIME. WILL CONTINUE TO MONITOR.
--- NOTE | 2018-12-31 19:18 | NUR ---
SHIFT SUMMARY NO NEURO CHANGES THROUGHOUT SHIFT. PATIENT CONTINUED TO BE FEBRILE- DOCTOR AWARE. PRN TYLENOL GIVEN AND ICE PACKS REMAIN PLACED. PATIENT GIVEN PRN MORPHINE 1 X AND PROPOFOL 5 MCG/ KG/ MINUTE FOR RESTLESSNESS. PATIENT REMAINED SATTING WELL ON SAME VENT SETTINGS. PATIENT REMAINED IN SR TO ST, HR 80S TO LOW 100S. BP MOSTLY HYPERTENSIVE. PRN HTN MEDS GIVEN THROUGHOUT SHIFT. PROPOFOL HELPING THE MOST WITH HTN. DR. JAMES AWARE OF BLOOD PRESSURES. PATIENT REMAINS TOLERATING TF AT GOAL RATE- RESIDUALS 10 MLS AND LESS. PATIENT GIVEN PRN SUPPOSITORY THIS AM AND CONTINUES TO HAVE LIQUID TO SOFT STOOLING. CALDERON REMAINS DRAINING ADEQUATE AMOUNT OF CLEAR/ YELLOW URINE. NO CHANGES IN SKIN. PILLOW HAS BEEN PLACED BETWEEN PATIENT'S RIGHT HAND/ ARM AND THE BED RAIL TO TRY AND PROTECT FROM HITTING BED WHEN PATIENT THRASHING ARM AROUND. PROPOFOL CURRENTLY INFUSING AT 5 MCG/ KG/ MINUTE, NS TKO X 2. FAMILY IN ROOM WITH PATIENT WHILE WENT HOME TO GET SOME REST. BED LOW, CALL LIGHT IN REACH. REPORT HAS BEEN GIVEN TO ASSUMING NURSES.
--- NOTE | 2018-12-31 19:30 | NUR ---
ASSUMED CARE PATIENT IS ON VENT PC 7/5, 35% AND PULLING ADEQUATE TIDAL VOLUMES 500-900ML; VERIFIED. PATIENT IS RESTLESS EVIDENT BY THRASHING ARM UP AND DOWN. PROPOFOL ON AT 15MCG/KG/MIN. PATIENT HAS CORNEAL REFLEX, BRISK REACTION TO LIGHT, BUT WILL NOT TRACK. RESPONDS TO PAIN ON RIGHT SIDE; NO RESPONSE ON LEFT. PATIENT HAS LIQUID STOOL AND EXTERNAL FECAL/CONTINENT BAG IN PLACE AND SEALED WELL; DRAINING TO CALDERON BAG. TKOX2 RUNNING. GOAL IS TO MANAGE HYPERTENSION AND RESTLESSNESS WHILE LIMITING PROPOFOL TOLERATED BY PATIENT.
--- NOTE | 2019-01-01 06:10 | NUR ---
SHIFT SUMMARY PT REMAINS INTUBATED ON PS 7/5 FIO2 35% AND SEDATION VIA PROPOFOL THAT WAS TITRATED BETWEEN OFF AND 15MCG/KG/MIN FOR SHIFT. FAMILY HAS BEEN REPORTING THAT PT WILL SPONTANEOUSLY OPEN EYES WHEN NAME CALLED. THIS AM, PROPOFOL WAS TURNED OFF, HEARING AIDS IN AND PT OPENED EYES TO CALLING NAME. + CORNEAL REFLEX, NO GAG OR FOLLOWING COMMANDS NOTED. TEMP REMAINS ELEVATED, COOLING LEG WRAPS IN PLACE THIS AM. BP STABLE THIS AM BUT HAS BEEN HYPERTENSIVE WITH ANY STIMULATION. MORPINE IV PUSH GIVEN X 1 D/T RESTLESSNESS. TF AT GOAL, NO RESIDUALS RECTAL BAG REMAINS IN PLACE.
--- NOTE | 2019-01-01 07:30 | NUR ---
Received report from Gisela SAUCEDO. Patient on right side with HOB at 30 degrees. He has right sided gross movement and none on left. He opens eyes to wifes voice.he is intubated with 8.0 et and 26cm at lips, vent settings spontaneous mode 7/5 at 45% and sats upper 90%'s. He has rectal bag in place and has very soft stool brn in bag. He has cabrera 14Fr. draining to gravity light becky colored urine. He has PICC line in MICHAEL and lines are flushed and recapped and are SL. He has ice coolers to bilater LE for tears in LE's.He has OG in place infusing Pivot 1.5 at 45ml/rh with 200ml water flushes q4. is at bedside encouraging paint.
--- NOTE | 2019-01-01 09:30 | NUR ---
Patient repositioned and started Propofol at 15mcg/kg/hr for agiataion and increased BP systolic 190's. IV and PO meds given for am. Oral care and am care done. and daughter continue to encourage patient to awake. Dr chung evaluated patient and wrote new orders and spoke with family.
--- NOTE | 2019-01-01 11:49 | NUR ---
Removeing rell from LE surgical sites, No changes in gtt's or vent settings. VSS systolic 130, HR 80.
--- NOTE | 2019-01-01 14:08 | NUR ---
Patient Propofol is off per wifes request, and he continues to open eyes when calls name. [place] removed and aquacell dressings changed after cleaning sites and reapplied braces. Repositened and emptied 2000 clear yellow urine. Systolic 138 when turning propofol off, HR 90's
--- NOTE | 2019-01-01 15:30 | NUR ---
Patient remains off Propofol and seems to be settled in and relaxed. He has lots of gross movement of RUE. Slightly hypertensive 150's. patient continues to open eyes to wifes voice. he was fighting oral care and open eye wide open.
--- NOTE | 2019-01-01 17:44 | NUR ---
Patient now resting on 15mcg/kg/hr of propofol and continues to pull at right restraint, systolic has been as low as 111. VSS, no vent setting all day.
[2019-01-01 17:51] LABS: Source, Urine Catheter
[2019-01-01 18:12] LABS: Appearance, Urine Clear (Clear); Bilirubin, Urine Neg (Neg); Blood, Urine Neg (Neg); Color, Urine Yellow (P-Yellow); Glucose Qualitative, Urine Neg (Neg); Ketones, Urine Neg (Neg); Leukocyte Esterase, Urine 1+ (Neg); Nitrite, Urine Neg (Neg); Protein, Urine 1+ (Neg); Urobilinogen, Urine NORM (Normal)
--- NOTE | 2019-01-01 18:29 | NUR ---
supportive visit to no discussion of care just supportive theraputic interaction for stress releif
--- NOTE | 2019-01-01 19:15 | NUR ---
ASSUMING CARE OF PT AT THIS TIE. PT REPORT RECEIVED AT BEDSIDE WITH OFFGOING NURSE, NOEMY SAUCEDO. PT LAYING IN BED, INTUBATED, AND SEDATE UPON ENTERING THE ROOM. VS STABLE - SEE VS FS. PT DOES NOT APPEAR TO BE IN DISTRESS AT THIS TIME. WILL REVIEW PLAN OF CARE. PT'S FAMILY AT BEDSIDE.
--- NOTE | 2019-01-01 19:30 | NUR ---
ASSESSMENT PT RESPONDS TO PAINFUL SITMULI, OPENING EYES TO PRESSURE, DOES NOT NOD HEAD Y/N TO QUESTIONS, DOES NOT FOLLOW COMMANDS, NO TRACKING WITH EYES, NORMAL FLEXION TO PAIN. BILAT PUPILS 2 MM, BRISK. PROPOFOL 15 MCG/KG/MIN - WILL TITRATE TO EFFECT. DILAN SENSATION. GROSS, WEAK MOVEMENT RUE AND RLE. NO MOVEMENT LLE AND LUE. NO S/SX OF PAIN/DISCOMFORT NOTED AT THIS TIME. PT IN RIGHT WRIST RESTRAINTS TO PROTECT VITAL LINES/CORDS/TUBES AND TO PROTECT FROM SELF-EXTUBATION. LUNGS CLEAR, MIDDLE AND LOWER LOBES DIMINISHED. VENT SETTIGNS: PS 7, PEEP 5, FIO2 35%. OXY SAT >90%. RR 18. SUCTION VIA ETT: SCANT AMOUNTS OF THIN CLEAR SECRETIOSN. GAGGING AND COUGHING WITH ORAL CARE. TEMP 99.4 - FAN ON, BLANKETS REMOVED, TURNED DOWN ROOM TEMP, ICE WRAPS TO BILAT LEGS. NSR. HR 70'S. BP STABLE- SEE VS FS. EDEMA NTOED. WARM, PALE SKIN. R RADIAL SITE - NO HEMATOMA, NO BRUISING, NO REDNESS, NO TENDERNESS, NO BLEEDING. ACTIVE BT X4 QUADRANTS. ABD SOFT, NONTENDER, MOD SIT. EXTERNAL RECTAL TUBE IN PLACE: BROWN LIQUID STOOL NOTED. OG IN PLACE. TF: PIVOT 1.5 AT GOAL RATE 45 ML/HR. AND 200 ML FLUSH Q4 HR. RESIDUAL 20 ML. F/C - CLEAR, YELLOW URINE NOTED. PICC MICHAEL. NS TKO AT 10 ML/HR X2. BILAT LEG BRACES, ERLINDA HOSE, AND LEG COOLING WRAPS IN PLACE.
[2019-01-01 19:37] LABS: Squamous Epithelial Cells Not Seen /hpf (Few)
[2019-01-01 19:38] LABS: Bacteria Not Seen /hpf; Red Blood Cells, Urine Not Seen /hpf (0-2)
--- NOTE | 2019-01-02 01:40 | NUR ---
SEDATION VACATION SEDATION VACATION COMPLETED WITH PROPOFOL ON STANDBY - SEE ICU FLOWSHEET. PT RESPONDS TO VERBAL AND PAINFUL STIMULI, OPENING EYES TO SOUND, NODDING HEAD Y/N TO SOME QUESTIONS, SLOW TO NOD HEAD Y/N TO QUESTIONS, FOLLOWING SOME COMMANDS (ABLE TO SUPERVISOR CHLORINE LIQUEFACTION WITH R HAND AND WIGGLE TOES ON COMMAND), TRACK VOICES WITH EYES, NORMAL FLEXION TO PAIN, PULLING ON RIGHT WRIST RESTRAINT TOWARDS ETT, RESTLESS. BILAT PUPIL 2 MM, BRISK. GROSS, WEAK MOVEMENT RUE AND RLE. NO MOVEMENT LLE AND LUE. PT DENIED PAIN/DISCOMFORT DURING SEDATION VACATION. PT REMAINED IN RIGHT WRIST RESTRAINT TO PROTECT VITAL LINES/CORDS/TUBES AND TO PROTECT FROM SELF-EXTUBATION. PROPOFOL TITRATED TO 10 MCG/KG/MIN POST SEDATION VACATION - WILL CONT TO TITRATE TO EFFECT.
[2019-01-02 03:09] LABS: BASOPHILS ABSOLUTE AUTO 0.06 K/mm3 (0.00-0.23); BASOPHILS PERCENT AUTO 1 % (0-2); EOSINOPHILS ABSOLUTE AUTO 0.26 K/mm3 (0.00-0.68); EOSINOPHILS PERCENT AUTO 2 % (0-6); Hematocrit 28.7 % (37.0-53.0); Hemoglobin 8.5 g/dL (13.5-17.5); IMMATURE GRAN ABSOLUTE AUTO 0.11 K/mm3 (0.00-0.10); IMMATURE GRAN PERCENT AUTO 1 % (0-1); LYMPHOCYTES ABSOLUTE AUTO 1.22 K/mm3 (0.84-5.20); LYMPHOCYTES PERCENT AUTO 11 % (21-46); MONOCYTES ABSOLUTE AUTO 0.57 K/mm3 (0.16-1.47); MONOCYTES PERCENT AUTO 5 % (4-13); Mean Corpuscular HGB 28.4 pg (26.0-34.0); Mean Corpuscular HGB Conc 29.6 g/dL (31.5-36.5); Mean Corpuscular Volume 96 fL (80-100); Mean Platelet Volume 9.9 fL (9.1-12.4); NEUTROPHILS ABSOLUTE AUTO 8.82 K/mm3 (1.96-9.15); NEUTROPHILS PERCENT AUTO 80 % (41-73); NRBC ABSOLUTE 0.02 K/mm3 (0.00-0.02); NRBC Auto 0.2 /100 WBC (0.0-0.2); Platelet Count 499 K/mm3 (150-400); RDW Coefficient Variation 15.3 % (11.7-14.2); RDW Standard Deviation 52.7 fL (35.1-46.3); Red Blood Cell Count 2.99 M/mm3 (4.30-5.90); White Blood Cell Count 11.04 K/mm3 (4.00-11.30)
[2019-01-02 03:25] LABS: Albumin, Blood 2.7 g/dL (3.4-5.0); Anion Gap 4 mmol/L (6-16); Blood Urea Nitrogen 52 mg/dL (8-24); Bun/Creatinine Ratio 33.1 (12.0-20.0); CO2, Blood 29 mmol/L (21-32); Calcium, Blood 8.5 mg/dL (8.5-10.1); Chloride, Blood 116 mmol/L (98-108); Creatinine, Blood 1.57 mg/dL (0.60-1.20); Glomerular Filtration Rate 47 (60-); Glucose, Blood 125 mg/dL (70-99); Phosphorus, Blood 3.5 mg/dL (2.5-4.9); Potassium, Blood 4.3 mmol/L (3.5-5.5); Sodium, Blood 149 mmol/L (136-145)
--- NOTE | 2019-01-02 04:15 | NUR ---
SHIFT ASSESSMENT NO ACUTE CHANGES NOTED T/O SHIFT. PT RESPONDS TO VERBAL STIMULI DURING SEDATION VACATION, RESPONDS TO PAINFUL STIMULI, OPENING EYES TO SOUND/VERBAL STIMULI DURING SEDATION VACATION, OTHERWISE OPENED EYES TO PRESSURE, NODDING HEAD Y/N TO SOME QUESTIONS DURING SEDATION VACATION, SLOW TO NOD HEAD Y/N TO QUESTIONS DURING SEDATION VACATION, FOLLOWED SOME COMMANDS (ABLE TO ATHLETIC COORDINATOR WITH R HAND AND WIGGLE RIGHT TOES ON COMMAND) DURING SEDATION VACATION, TRACKING VOICES WITH EYES DURING SEDATION VACATION, NORMAL FLEXION TO PAIN. PT PULLED ON RIGHT WRIST RESTRAINT TOWARDS ETT, INCREASED ANXIETY, INCREASED AGITATION, AND INCREASED RESTLESSNESS NOTED WITH DECREASED SEDATION AND DURING SEDATION VACATION. BILAT PUPIL 2 MM, BRISK. GROSS, WEAK MOVEMENT RUE AND RLE. NO MOVEMENT LLE AND LUE. PT DENIED PAIN/DISCOMFORT DURING SEDATION VACATION. NO S/SX OF PAIN/DISCOMFORT NTOED T/O SHIFT. PROPOFOL CURRENTLY AT 15 MCG/KG/MIN - CONT TO TITRATE TO EFFECT. LUNGS CLEAR, MIDDLE AND LOWER LOBES DIMINIHSEHD. VENT SETTINGS: PS 7, PEEP 5, FIO2 35%. OXY SAT REMAINED >90%. RR 17 TO 20'S. SUCTION VIA ETT: SCANT AMOUNTS OF THIN CLEAR SECRETIONS. GAGGING AND COUGHING WITH ORAL CARE AND WITH DECREASED SEDATION. TMAX 99.4 - FAN ON, BLANKETS OFF, ROOM TEMP TURNED DOWN, ICE WRAPS TO BILAT LEGS FOR 2HR T/O SHIFT. NSR WITH OCC PVC'S. HR 70'S TO 90'S. INCREASED RR, HR, TEMP, AND BP NOTED WITH DECREASED SEDATION AND DURING SEDATION VACATION. HYDRALAZINE 20 MG ADMINISTERED DURING SEDATION VACATION. OTHERWISE, BP STABLE (SEE VS FS). EDEMA NOTED. WARM, PALE SKIN. R RADIAL SITE - NO HEMATOMA, NO BRUISING, NO REDNESS, NO TENDERNESS, NO BLEEDING. ACTIVE BT X4 QUADRANTS. ABD SOFT, NONTENDER, MOD DIST. EXTERNAL RECTAL TUBE IN PLACE: MINIMAL AMOUNTS OF BROWN LIQUID STOOL NOTED. OG IN PLACE. TF: PIVOT 1.5 AT GOAL RATE 45 ML/HR AND 200 ML FLUSH Q4 HR. RESIDUAL WNL. F/C: CLEAR, YELLOW URINE NOTED. PICC MICHAEL. NS TKO AT 10 ML/HR X1. BILAT LEG BRACES AND ERLINDA HOSE REMAINED IN PLACE. ICE LEG WRAPS IN PLACE 2 HR T/O SHIFT. WILL CONT TO MONITOR PT AND WILL PROVIDE BEDSIDE REPORT TO ONCOMING NURSE THIS AM.
--- NOTE | 2019-01-02 08:00 | NUR ---
Recieved report Jerri SAUCEDO. Patient resting in bed intubated with 8.0 ET and 26cm at lips. He is on PS 7/5 and sats in the upper 90%'s, he is on 15mcg/kg/hr and still has gross movement. He has braces to bilateral LE's and dressings intact. He has PICC line to MICHAEL and dressing intact and site WNL's and lines were flushed and recapped. He OG in place and infusing Pivot 1.5 at goal 45ml/hr and 30ml/hr. Family at bedside.
--- NOTE | 2019-01-02 10:00 | NUR ---
Patient awake and family at bedside, per family request they wanted Propofol off so they talk with patient. While in room observed patient opens eyes to verbal stimuli, follows commands squeezes right hand, wiggles toes on right foot, and sticks tongue out per command. Dr Rogers reduced PS to 5/5, sats still upper 90%'s and still pulling good volumes. He still has strong gross movement to right arm. No changes in TF.
--- NOTE | 2019-01-02 11:04 | NUR ---
PROPOFOL PT AGITATED. PROPOFOL RE-STARTED AT REQUEST OF FAMILY, INFUSING AT 15MCG/KG.
--- NOTE | 2019-01-02 12:00 | NUR ---
Patient just placed on Propofol at 15mcg/kg/hr for him to rest. family has been in and out all days. Systolic has been up and down and gave Hydralazine and reduced to 130's. No movement to left side continues.
--- NOTE | 2019-01-02 14:00 | NUR ---
Family is back and asked for him to be out of restraints and they were told to assure he does not reach for tube and they are very careful. He moves right arm very strongly and to watched. Propofol down to 5mcg/kg/hr and have slowly been titrating down to systolic. Repositioned patient. No signifcant changes with patient.
--- NOTE | 2019-01-02 16:00 | NUR ---
Family sitting around bed encouraging patient. Propofol continues at 5mcg/kg/hr and systolic 160's HR 90's TF changed out for nex shift.
--- NOTE | 2019-01-02 18:59 | NUR ---
Gave report to ever RN, Patient at bedside and talked with her about increaseing sedationa nd allowing him to sleep and have family start in am not at night. VSS. TF infusin at 45ml/hr and 30ml water flushes q4 of Pivot 1.5. CPT Q6 and tolerates well, Propofol currently at 5 mcg. No changes in vent setting since this am.
--- NOTE | 2019-01-02 19:15 | NUR ---
ASSUMING CARE OF PT AT THIS TIME. PT REPORT RECEIVED AT BEDSIDE WITH OFFGOING LYNN MCGUIRE RN. PT LAYING IN BED, INTUBATED, AND SEDATED UPON ENTERING THE ROOM. VS STABLE - SEE VS FS. PT DOES NOT APPEAR TO BE IN DISTRESS AT THIS TIME. WILL REVIEW PLAN OF CARE. PT'S FAMILY AT BEDSIDE.
--- NOTE | 2019-01-02 19:30 | NUR ---
ASSESSMENT PT RESPONDS TO VERBAL STIMULI AND PAINFUL STIMULI, OPENING EYES TO SOUND/VERBAL STIMLUI, NODDING HEAD Y/N TO SOME QUESTIONS, SLOW TO NOD HEAD Y/N TO QUESTIONS, FOLLOW SOME COMMANDS (ABLE TO CASUALTY CLAIM ADJUSTER WITH R HAND AND WIGGLE RIGHT TOES ON COMMAND), TRACKING VPICES WITH EYES, NORMAL FLEXION TO PAIN. PT PULLING ON R WRIST RESTRAINTS TOWARDS ETT. INCREASED ANXIETY, AGITATION, AND RESSTLESSNESS NOTED WITH DECREASED SEDATION. PROPOFOL CURRENTLY ON STANDBY - WILL TITRATE PROPOFOL DRIP TO EFFECT. BILAT PUPIL 2 MM, BRISK. GROSS, WEAK MOVEMENT RUE AND RLE. NO MOVEMENT LLE AND LLE. DILAN SENSATION - PT NOD NODDING HEAD Y/N UPON ASKING PT ABOUT SENSATION AND N/T. PT NODDED HEAD YES TO PAIN/DISCOMFORT. PT RESTLESS, BRACING, AND FACIAL GRIMACING. MEDICATED WITH MORPHINE PER PHYSICIAN'S ORDER / UTILIZED NONPHARM METHODS. UPPER LOBES COARSE, MIDDLE AND LOWER LOBES CLEAR AND DIMINISHED. VENT SETTINGS: PS 5, PEEP 5, FIO2 35%. OXY SAT >90%. RR 20'S. SUCTION VIA ETT: SCANT AMOUNTS OF THIN CLEAR SECRETIONS. GAGGING AND COUGHING WITH ORAL CARE AND WITH DECREASED SEDATOIN. TEMP 101.1 - FAN ON, BLANKETS OFF, ROOM TEMP DOWN, ICE PACKS, TYLENOL PRN. WILL PLACE ICE WRAPS TO BILAT LEGS FOR 2HR T/O SHIFT. NSR WITH PVC'S. HR 80'S. BP STABLE - SEE VS FS. EDEMA NOTED. WARM, PALE SKIN. R RADIAL SITE - NO HEMATOMA, NO BRUISING, NO REDNESS, NO TENDERNESS, NO BLEEDING. HYPOACTIVE BT X4 QUADRANTS. ABD SOFT, NONTENDER, MOD DIST. EXTERNAL RECTAL TUBE IN PLACE: MINIMAL AMOUNTS OF BROWN LIQUID STOOL. OG IN PLACE. TF: PIVOT 1.5 AT GOAL RATE 45 ML/HR AND 200 ML FLUSH Q4 HR. RESIDUAL 10 ML. F/C: CLEAR, YELLOW URINE. PICC MICHAEL. NS TKO AT 10 ML/HR X2. BILAT LEG BRACES AND ERLINDA HOSE IN PLACE.
[2019-01-03 03:59] LABS: BASOPHILS ABSOLUTE AUTO 0.08 K/mm3 (0.00-0.23); BASOPHILS PERCENT AUTO 1 % (0-2); EOSINOPHILS PERCENT AUTO 3 % (0-6); Hematocrit 28.8 % (37.0-53.0); Hemoglobin 8.4 g/dL (13.5-17.5); IMMATURE GRAN ABSOLUTE AUTO 0.09 K/mm3 (0.00-0.10); IMMATURE GRAN PERCENT AUTO 1 % (0-1); LYMPHOCYTES ABSOLUTE AUTO 1.37 K/mm3 (0.84-5.20); LYMPHOCYTES PERCENT AUTO 12 % (21-46); MONOCYTES ABSOLUTE AUTO 0.74 K/mm3 (0.16-1.47); MONOCYTES PERCENT AUTO 6 % (4-13); Mean Corpuscular HGB 28.5 pg (26.0-34.0); Mean Corpuscular HGB Conc 29.2 g/dL (31.5-36.5); Mean Corpuscular Volume 98 fL (80-100); Mean Platelet Volume 10.1 fL (9.1-12.4); NEUTROPHILS ABSOLUTE AUTO 9.06 K/mm3 (1.96-9.15); NEUTROPHILS PERCENT AUTO 78 % (41-73); Platelet Count 461 K/mm3 (150-400); RDW Coefficient Variation 15.7 % (11.7-14.2); RDW Standard Deviation 54.2 fL (35.1-46.3); Red Blood Cell Count 2.95 M/mm3 (4.30-5.90); White Blood Cell Count 11.64 K/mm3 (4.00-11.30)
[2019-01-03 04:13] LABS: Bun/Creatinine Ratio 35.8 (12.0-20.0); Calcium, Blood 8.2 mg/dL (8.5-10.1); Creatinine, Blood 1.65 mg/dL (0.60-1.20); Potassium, Blood 4.6 mmol/L (3.5-5.5)
--- NOTE | 2019-01-03 04:48 | NUR ---
SHIFT ASSESSMENT NO ACUTE CHANGES NOTED T/O SHIFT. PT RESPONDS TO VERBAL STIMULI AND PAINFUL STIMULI, OPENING EYES TO SOUND/VERBAL STIMULI, NODDING HEAD Y/N TO SOME QUESTIONS, SLOW TO NOD HEAD Y/N TOQ UESTIONS, FOLLOWS SOME COMMANDS (ABLE TO CASH APPLICATION REPRESENTATIVE WITH R HAND AND WIGGLE RIGHT TOES ON COMMAND), TRACKING VOICES WITH EYES, NORMAL FLEXION TO PAIN. PT PULLING ON R WRIST RESTRAINT TOWARDS ETT. INCREASED ANXIETY, AGITATION, AND RESTLNESSNESS NOTED WITH DECREASED SEDATION. PROPOFOL CURRENTLY AT 20 MCG/KG/MIN - CONT TO TITRATE TO EFFECT. BILAT PUPIL 2 MM, BRISK. GROSS, WEAK MOVEMENT RUE AND RLE. NO MOVEMENT LLE AND LUE. DILAN SENSATION - PT NOT NODDING HEAD Y/N UPON ASKING PT ABOUT SENSATION AND N/T. PT NODDED HEAD YES TO PAIN/DISCOMFORT AT BEGINNING OF THE SHIFT THAT RESOLVED AFTER ADMINISTERING MORPHINE PRN. PT CONT TO DENY PAIN/DISCOMFORT T/O SHIFT. NONPHARM PAIN METHODS UTILIZED. UPPER LOBES COARSE, MIDDLE AND LOWER LOBES DIMINISHED. VENT SETTINGS: PS 5, PEEP 5, FIO2 35%. OXY SAT >90%. RR 13 TO 20'S. SUCTION VIA ETT: SCANT AMOUNTS OF THIN CLEAR SECRETIONS. GAGGING AND COUGHING WITH ORAL CARE AND WITH DECREASED SEDATION. TMAX 101.1 - FAN ON, BLANKETS OFF, ROOM TEMP DOWN, ICE PACKS TYLENOL PRN, ICE WRAPS ON BILAT LEGS. PT CURRENTLY AFEBRILE. NSR WITH PVC'S. HR 70'S TO 90'S. BP STABLE - SEE VS FS. EDEMA NOTED. WARM, PALE SKIN. R RADIAL SITE - NO HEMATOMA, NO BRUISING, NO REDNESS, NO TENDERNESS, NO BLEEDING. CPT PER RT. HYPOACTIVE BT X4 QUADRATNS. ABD SOFT, NONTENDER, MOD DIST. EXTERNAL RECTAL TUBE IN PLACE: MINIMAL AMOUNT OF BROWN LIQUID STOOL. OG IN PLACE. TF: PIVOT 1.5 AT GOAL RATE 45 ML/HR AND 200 ML FLUSH Q4 HR. RESIDUAL WNL. F/C: CLEAR, YELLOW URINE. PICC MICHAEL. NS TKO ON STANDBY. BILAT LEG RBACES AND ERLINDA HOSE IN PLACE. WILL CONT TO MONITOR PT AND WILL PROVIDE BEDSIDE REPORT TO ONCOMING NURSE THIS AM.
--- NOTE | 2019-01-03 08:09 | NUR ---
Received report from Jerri SAUCEDO. Patient laying on left side and HOB 30 degrees. He is intubated with 8.0 tube and 26 cm at teeth with vent setting on spon. mode PS 5/5 FiO2 35% with sats in the upper 90%'s. He has PICC line in MICHAEL dressing intact and site WNL's infusing Propofol at 15mcg/kg/hr for sedation during night and will wean when family is ready to participate in awakening and encougragement to follow directions and simple commands.. He has bilateral LE imbolilizers that are locked at knee for 2 more days and ortho doc will adjust. He has auquacell dressing to knees bilaterally. He has OG infusing Pivot 1.5 at 45ml/hr with 30ml water flushes q4 and <20ml residuals. He has [place] draining to gravity yellow urine and rectal bag with brown stool in line.
--- NOTE | 2019-01-03 09:27 | NUR ---
Patient's Propofol is off and patient is begining to wake up/ Family at bedside doing ROM and encouraging patient to track and follow dierctions and he has been increaseing focus. He follows simple commands, wiggleing toes right foot squeezing right hand minimallu, sticking toungue out and opening eyes and tracking 's voice as he was yesterday. VSS.
[2019-01-03 10:38] LABS: Base Excess Venous 2.4 mmol/L; Bicarbonate Venous 25.9 mmol/L (24.0-30.0); PCO2 Venous 43.3 mmHg (38-42); PO2 Venous 38.3 mmHg (38-42); pH Blood Venous 7.41 (7.34-7.37)
--- NOTE | 2019-01-03 11:30 | NUR ---
Family has been up at bedside encourageing patient to move extremities and follow directions. He continues with CPT and no changes in vent settings. Propofol remains off and patient tolerates well. Suctioned small amount thick secretions, systolic 150's.
--- NOTE | 2019-01-03 13:30 | NUR ---
Patient becoming more agitated and increased Propofl to 5mcg and had family do less stimulation. No changes to TF, vent settings, or VS. Patient resting better.
--- NOTE | 2019-01-03 15:30 | NUR ---
Patient started to increase moving upper extremity and increased Propofol to 10mcg and is again resting quietly, multiple family at bedside. No other significant changes.
--- NOTE | 2019-01-03 19:15 | NUR ---
ASSUMING CARE OF PT AT THIS TIME. PT REPORT RECEIVED AT BEDSIDE WITH OFFGOING NURSE, LYNN SAUCEDO. PT INTUBATED, SEDATED UPON ENTERING THE ROOM. VS STABLE - SEE VS FS. PT DOES NOT APPEAR TO BE IN DISTRESS AT THIS TIME. WILL REVIEW PLAN OF CARE. PT'S FAMILY AT BEDSIDE.
--- NOTE | 2019-01-03 19:30 | NUR ---
ASSESSMENT PT RESPONDS TO VERBAL STIMULI AND PAINFUL STIMULI, OPENING EYES TO SOUND/VERBAL STIMULI, NODDING HEAD Y/N TO SOME QUESTIONS, SLOW TO NOD HEAD Y/N TOQ UESTIONS, FOLLOWS SOME COMMANDS (ABLE TO GRIO WITH R HAND AND WIGGLE RIGHT TOES ON COMMAND), TRACKING VOICES WITH EYES, NORMAL FLEXION TO PAIN. PT PULLING ON R WRIST RESTRAINT TOWARDS ETT. INCREASED ANXIETY, AGITATION, AND RESTLESSNESS NOTED WITH DECREASED SEDATION. PROPOFOL CURRENTLY AT 10 MCG/KG/MIN - WILL TITRATE PROPOFOL DRIP TO EFFECT. BILAT PUPIL 2 MM, BRISK. GROSS, WEAK MOVEMENT RUE AND RLE. NO MOVEMENT LLE AND LUE. DILAN SENSATION - PT NOT NODDING HEAD Y/N UPON ASKING PT ABOUT SENSATION AND N/T. PT NODDED HEAD YES TO PAIN/DISCOMFORT. PT RESTLNESS, BRACING, AND FACIAL GRIMACING. MEDICATED WITH MORPHINE PER PHYSICIAN'S ORDER / UTILIZED NONPHARM METHODS. LUNGS COARSE, DIMINISHED MIDDLE AND LOWER LOBES. VENT SETTINGS: PS 5, PEEP 5, FIO2 35%. OXY SAT >90%. RR 20'S. SUCTION VIA ETT: SMALL AMOUTNS OF THICK WHITE/CLEAR SECRETIONS. GAGGING AND COUGHING WITH ORAL CARE AND WITH DECREASED SEDATION. AFEBRILE. WILL PLACE ICE WRAPS TO BILAT LEGS FOR 2HR T/O SHIFT. NSR. HR 80'S. BP STABLE - SEE VS FS. EDEMA NOTED. WARM, PALE SKIN. R RADIAL SITE - NO HEMATOMA, NO BRUISING, NO REDNESS, NO TENDERNESS, NO BLEEDING. YARITZA,R T IN ROOM TO COMPLETE VEST CPT. HYPERACTIVE BT X4 QUADRANTS. ABD SOFT, NONTENDER, MOD DIST. EXTERNAL RECTAL TUBE IN PLACE: MINIMAL AMOUNTS OF BROWN LIQUID STOOL. OG IN PLACE. TF: PIVOT 1.5 AT GOAL RATE 45 ML/HR AND 300 ML FLUSH Q6 HR. RESIDUAL 10 ML/HR. F/C: CLEAR DARK YELLOW URINE. PICC MICHAEL. NS TKO AT 10 ML/HR. BILAT LEG BRACES AND ERLINDA HOSE IN PLACE.
--- NOTE | 2019-01-03 19:36 | NUR ---
Changed TF out and patient is resting on 10mcg/kg/hr of Propofol. Family at bedside and are letting him rest. No changes on vent setting. No residuals with TF of Pivot 1.5 at 45ml/hr. Free water has been going at 300ml since noon and Dr chung was trying to stay away from D% if possible.
--- NOTE | 2019-01-04 00:44 | NUR ---
DR. MEYER TEMP 102.3. TYELNOL ADMINSITERED, ICE PACKS, LEG ICE WRAPS, FAN ON, ROOM TEMP DOWN. INFORMED DR. MEYER OF TEMP AND MEASURES TO DECREASED TEMP. DR. MEYER DOES NOT WANT REPEAT MICROBIOLOGY LABS AT THIS TIME. NO NEW ORDERS AT THIS TIME.
[2019-01-04 03:46] LABS: BASOPHILS ABSOLUTE AUTO 0.07 K/mm3 (0.00-0.23); BASOPHILS PERCENT AUTO 1 % (0-2); EOSINOPHILS ABSOLUTE AUTO 0.29 K/mm3 (0.00-0.68); EOSINOPHILS PERCENT AUTO 3 % (0-6); Hematocrit 29.6 % (37.0-53.0); Hemoglobin 8.4 g/dL (13.5-17.5); IMMATURE GRAN PERCENT AUTO 1 % (0-1); LYMPHOCYTES ABSOLUTE AUTO 1.16 K/mm3 (0.84-5.20); LYMPHOCYTES PERCENT AUTO 10 % (21-46); MONOCYTES ABSOLUTE AUTO 0.72 K/mm3 (0.16-1.47); MONOCYTES PERCENT AUTO 6 % (4-13); Mean Corpuscular HGB 27.9 pg (26.0-34.0); Mean Corpuscular HGB Conc 28.4 g/dL (31.5-36.5); Mean Corpuscular Volume 98 fL (80-100); Mean Platelet Volume 10.3 fL (9.1-12.4); NEUTROPHILS ABSOLUTE AUTO 9.16 K/mm3 (1.96-9.15); NEUTROPHILS PERCENT AUTO 80 % (41-73); NRBC ABSOLUTE 0.02 K/mm3 (0.00-0.02); NRBC Auto 0.2 /100 WBC (0.0-0.2); Platelet Count 442 K/mm3 (150-400); RDW Coefficient Variation 15.7 % (11.7-14.2); RDW Standard Deviation 54.8 fL (35.1-46.3); Red Blood Cell Count 3.01 M/mm3 (4.30-5.90)
[2019-01-04 04:15] LABS: Albumin, Blood 2.7 g/dL (3.4-5.0); Albumin/Globulin Ratio 0.6 (0.8-1.8); Bilirubin, Total 0.4 mg/dL (0.1-1.0); Bun/Creatinine Ratio 38.4 (12.0-20.0); Calcium, Blood 8.3 mg/dL (8.5-10.1); Creatinine, Blood 1.59 mg/dL (0.60-1.20); Globulin, Blood 4.2 g/dL (2.2-4.0); Magnesium, Blood 3.5 mg/dL (1.6-2.4); Phosphorus, Blood 4.3 mg/dL (2.5-4.9); Potassium, Blood 4.6 mmol/L (3.5-5.5); Total Protein, Blood 6.9 g/dL (6.4-8.2)
--- NOTE | 2019-01-04 04:27 | NUR ---
SHIFT ASSESSMENT NO ACUTE CHANGES NOTED T/O SHIFT. PT RESPONDS TO VERBAL STIMULI AND PAINFUL STIMULI, OPENING EYES TO SOUNDS/VERBAL STIMULI, NODDING HEAD Y/N TO QUESTIONS, SLOW TO NOD HEAD Y/N TO QUESTIONS, FOLLOWS SOME COMMANDS (ABLE TO AIRPLANE PILOT WITH R HAND AND WIGGLE RIGHT TOES ON COMMAND), TRACKING VOICES WITH EYES, NORMAL FLEXION TO PAIN. PT OCC PULLING ON R WRIST RESRAINT TOWARDS ETT. INCREASED ANXIETY, AGITATION, AND RESTLESSNESS NOTED WITH DECREASED SEDATION. PROPOFOL CURRENLTY AT 15 UNITS/KG/MIN - CONT TO TITRATE PROPOFOL DRIP TO EFFECT. BILAT PUPIL 2 MM, BRISK. GROSS, WEAK MOVEMENT RUE AND RLE. NO MOVEMENT OF LLE AND LUE. DILAN SENSATION - PT NOT NODDING HEAD Y/N UPON ASKING PT ABOUT SENSATION AND N/T. PT OCC NODDED HEAD YES TO PAIN/DISCOMFORT T/O SHIFT. OCC RESTLESSNESS, BRACING, AND FACIAL GRIMACING NOTED. CONT TO ASSESS FOR PAIN/DISCOMFORT AND MEDICATED WITH PAIN MEDS PER PHYSICIAN'S ORDER / UTILIZED NONPHARM METHODS. LUNGS COARSE, DIMINISHED MIDDLE AND LOWER LOBES. VENT SETTINGS: PS 5, PEEP 5, FIO2 35%. OXY SAT >90%. RR 14 TO 20'S. SUCTION VIA ETT: SMALL AMOUNTS OF THICK WHITE/CLEARS SECRETIONS TO THICK PINK SECRETIONS. GAGGING AND COUGHING WITH ORAL CARE AND WITH DECREASED SEDATION. TMAX 102.3 - TYLENOL PRN, FAN ON, ICE PACKS, ICE WRAPS, DECREASED ROOM TEMP. ICE WRAPS TO BILAT LEG FOR 2HR T/O SHIFT. NSR. HR 60'S TO 80'S. BP STABLE - SEE VS FS. INCREASED BP, RR, AND HR NOTED WITH DECREASED SEDATION. EDEMA NOTED. WARM, PALE SKIN. R RADIAL SITE - NO HEMATOMA, NO BRUISING, NO REDNESS, NO TENDERNESS, NO BLEEDING. CPT PER RT. HYPERACTIVE BT X4 QUADRANTS. ABD SOFT, NONTENDER, MOD DIST. EXTERNAL RECTAL TUBE IN PLACE: MINIMAL AMOUNTS OF BROWN LIQUID STOOL. FLATUS. OG IN PLACE. TF: PIVOT 1.5 AT GOAL RATE 45 ML/HR AND 300 ML FLUSH Q4 HR. RESIDUAL WNL. F/C: DARK YELLOW CLEAR URINE. PICC MICHAEL. BILAT LEG BRACES AND ERLINDA HOSE IN PLACE. WILL CONT TO MONITOR PT AND WILL PROVIDE BEDSIDE REPORT TO ONCOMING NURSE THIS AM.
--- NOTE | 2019-01-04 08:00 | NUR ---
ASSUMED CARE ASSUMED CARE OF PT AT 0700. REPORT RECEIVED FROM SHERYL AYALA. PT INTUBATED AND SEDATED WITH PROPOFOL. VENT SETTINGS PS 5/5 35% FIO2, RR 10-12, TV 600-700'S, SPO2 >90%. PROPOFOL LIGHTENED FROM 15 TO 10 MCG PER FAMILY REQUEST. PT ABLE TO OPEN EYES AND TRACK VOICES, NOD HEAD YES/NO TO SOME QUESTIONS. PT MOVING RIGHT SIDE EXTREMITIES SPONTANEOUSLY, NO MOVEMENTS NOTED TO LEFT SIDE EXTREMITIES. SOFT RESTRAINT IN PLACE TO R WRIST TO PROTECT LINES, TUBES. PT HAS JOE LOCKED LEG BRACES IN PLACE - ICE WRAPS ON PER ORDER. PICC TO MICHAEL WITH PROPOFOL AND NS TKO. PT HAS CALDERON CATH IN PLACE DRAINING TO GRAVITY, EXTERNAL RECTAL TUBE IN PLACE. PT'S FAMILY MEMBERS AT BEDSIDE. WILL CONTINUE TO MONITOR PT CLOSELY.
--- NOTE | 2019-01-04 14:19 | NUR ---
ASSUMED CARE AT 1300 REPORT FROM SHERYL GUERIN. PATIENT RESPONDED WHEN QUERIED ABOUT PAIN WITH NOD OF HEAD. 2MG MORPHINE GIVEN AND PATIENT SLEEPING NOW. EGG CRATES PLACED ON RIGHT FOOT. DAUGHTER WORKING ON PASSIVE ROM WITH PATIENT.
--- NOTE | 2019-01-04 19:03 | NUR ---
PATIENT INTERACTING WITH FAMILY. ASKED TO HAVE PROPOFOL TURNED OFF IN THE AFTERNOON. ASKED TO HAVE IT TURNED BACK ON NOW. WHEN I ASKED PATIENT IF HE WAS IN PAIN, HE SHOOK HIS HEAD NO. WHEN I ASKED IF HE WANTED PAIN MED HE SHOOK HIS HEAD NO. WHEN I ASKED IF HE WANTED TO BE MORE ASLEEP, HE SHOOK HIS HEAD NO. HE WAS MAKING GOOD EYE CONTACT WITH HIS DAUGHTERS. REPORT GIVEN TO SHERYL LIZARRAGA.
--- NOTE | 2019-01-04 19:45 | NUR ---
ASSUMED CARE BEDSIDE REPORT RECIEVED. PT LAYING IN BED, RESTLESS, PULLING AT RIGHT WRIST RESTRAINT ATTEMPTING TO REACH ETT. MULTIPLE FAMILY MEMBERS AT BEDSIDE. PT ON PRESSURE SUPPORT 5/5, FIO2 35%. PT NOT SEDATED UPON ENTERING ROOM. PROPOFOL STARTED AT THIS TIME 10 MCG/KG/MIN. PT WITH HEARING AIDE IN RIGHT EAR. PT ABLE TO NOD HEAD TO SIMPLE QUESTIONS AND APPEARS TO BE INTERACTIVE WITH FAMILY MEMBERS AT BEDSIDE. PT CONTINUES TO BE RESTLESS. PT WITH NO MOVEMENT TO LEFT EXTREMITIES AND STRONG GROSS MOVEMENT IN RUE. BILAT KNEE BRACES INPLACE WITH DRESSINGS TO SURGICAL SITES C/D/I. OGT IN PLACE WITH TF AT 45 ML/HR GOAL RATE. PICC TO MICHAEL C/D/I. CALDERON IN PLACE WITH YELLOW OUTPUT NOTED. RECTAL DRAINAGE BAG C/D/I WITH LOOSE BROWN STOOL NOTED. VITAL SIGNS STABLE. WILL CONTINUE TO MONITOR.
[2019-01-05 04:23] LABS: Hematocrit 29.2 % (37.0-53.0); Hemoglobin 8.7 g/dL (13.5-17.5); Mean Corpuscular HGB Conc 29.8 g/dL (31.5-36.5); Mean Corpuscular Volume 97 fL (80-100); Mean Platelet Volume 10.4 fL (9.1-12.4); Platelet Count 406 K/mm3 (150-400); RDW Coefficient Variation 15.6 % (11.7-14.2); White Blood Cell Count 11.89 K/mm3 (4.00-11.30)
[2019-01-05 04:55] LABS: Anion Gap 7 mmol/L (6-16); Blood Urea Nitrogen 54 mg/dL (8-24); Bun/Creatinine Ratio 39.7 (12.0-20.0); CO2, Blood 26 mmol/L (21-32); Chloride, Blood 116 mmol/L (98-108); Creatinine, Blood 1.36 mg/dL (0.60-1.20); Glomerular Filtration Rate 52 (60-); Glucose, Blood 129 mg/dL (70-99); Potassium, Blood 4.7 mmol/L (3.5-5.5); Sodium, Blood 149 mmol/L (136-145)
[2019-01-05 04:56] LABS: Albumin, Blood 2.7 g/dL (3.4-5.0); Calcium, Blood 8.4 mg/dL (8.5-10.1); Phosphorus, Blood 3.1 mg/dL (2.5-4.9)
--- NOTE | 2019-01-05 05:54 | NUR ---
SHIFT SUMMARY NO ACUTE CHANGES THIS SHIFT. PT HAS REMAINED ON PRESSURE SUPPORT 5/5, FIO2 35% THROUGHOUT THE NIGHT. PT SEDATED WITH PROPOFOL AT 10 MCG/KG/MIN. PT WITH LARGE AMOUNT OF THICK YELLOW SECRETIONS FROM ETT. PT HAS PERIODS OF RESTLESSNESS THROUGHOUT THE SHIFT. PT TRACKS AND FOLLOWS SOME BASIC COMMANDS. SOFT WRIST RESTRAINT TO RIGHT WRIST IN PLACE. PT WITH FREQUENT MOVEMENT TO RIGHT UPPER EXTREMITY. BILAT KNEE BRACES REMAIN INPLACE, DRESSINGS C/D/I. OGT IN PLACE WITH TF AT GOAL RATE. MINIMAL RESIDUALS. PICC C/D/I, NS TKO. CALDERON IN PLACE WITH GOOD URINE OUTPUT THIS SHIFT. RECTAL DRAINAGE BAG REMAINS C/D/I WITH LOOSE OUTPUT NOTED. PT REPOSITIONED SIDE TO SIDE THROUGHOUT THE SHIFT, BUT SHIFTS BACK TO SAME SIDEWAYS POSITION IN THE BED. FAMILY REMAINS AT BEDSIDE. VITAL SIGNS HAVE REMAINED STABLE. WILL CONTINUE TO MONITOR AND REPORT OFF TO ONCOMING RN.
--- NOTE | 2019-01-05 07:38 | NUR ---
START OF SHIFT NOTE: PATIENT CONTINUES TO BE MECHANICALLY VENTILATED ON PRESSURE SUPPORT WITH PEEP OF 5 AND AT FiO2 35 %, PATIENT APPEARS TO BE RESTING COMFORTABLY, NOT FOLLOWING COMMANDS AT THIS TIME, CALDERON CATHETER IN PLACE AND RECTAL BAG, PATIENT IN RESTRAINTS, PROPOFOL AT 10, NS AT TKO BILATERAL LOWER EXTREMITY LEG BRACES ARE ON WITH KNEE HIGH ERLINDA HOSE, KNEES SHOW C/D/I DRESSING ON BOTH LEGS, ICE TO BE APPLIED FOR TWO HOURS DURING THIS SHIFT, AT BEDSIDE, CALL LIGHT IN REACH, WILL CONTINUE TO MONITOR.
--- NOTE | 2019-01-05 13:40 | NUR ---
PATIENTS PROPOFOL WAS DIECREASED TO 5 MCH/HR, AND PATIENT IS EXTREMELY RESTLESS BUT ABLE TO FOLLOW SOME COMMANDS, SBP 192/87, PATIENT RECEIVED 20 MG HYDRALAZINE IV ORDERED PRN, ICE APPLIED TO KNEES, AT BEDSIDE, CALL LIGHT IN REACH, WILL CONTINUE TO MONITOR.
--- NOTE | 2019-01-05 15:10 | NUR ---
DR. JAMES IN TO SEE PATIENT, POSSIBLE EXTUBATION THIS AFTERNOON. RT NOTIFIED, YUNG RT, IN TO SEE PATIENT, SPOKE WITH , CPAP TO BE AT BEDSIDE FOR PATIENT TO USE AFTER EXTUBATION.
--- NOTE | 2019-01-05 15:45 | NUR ---
Pt remains on vent at this time. Sedation is turned off and pt is having some restlessness. Currently waiting for MD to return to extubate pt. Family given support, family voices no questions at this time. They are hoping pt will be able to support his own airway post extubation.
--- NOTE | 2019-01-05 17:50 | NUR ---
PATIENT WAS EXTUBATED AT 1745, DR. JAMES AT BEDSIDE, RT AT BEDSIDE, CPAP MACHINE AT BEDSIDE, PATIENT ON 4L NC AT THIS TIME, AND FAMILY AT BEDSIDE, PATIENT IS ABLE TO PROTECT AIRWAY, ATTEMPTING TO SPEAK SOME WORDS, VOICE SOUNDS HOARSE FROM EXTENDED EXTUBATION, VSS, CALL LIGHT IN REACH, WILL CONTINUE TO MONITOR.
--- NOTE | 2019-01-05 17:55 | NUR ---
SHIFT SUMMARY NOTE: PATIENT WAS EXTUBATED AT 1745 BY RT, DR. JAMES AT BEDSIDE, , SON AND DAUGHTER AT BEDSIDE, PATIENT TOLERATED EXTUBATION WELL, ABLE TO PROTECT AIRWAY AND BREATHE ON HIS OWN, ON 4 L NC AT THIS TIME, PATIENT IS TRYING TO UTTER A FEW WORDS, BUT VOICE IS EXTREMELY HOARSE FROM EXTENDED EXTUBATION, CPAP MACHINE AT BEDSIDE, PATIENT APPEARS LESS AGITATED AND RESTLESS, TUBE FEEDS ARE DISCONTINUED UNTIL TOMORROW, CALDERON CATHETER IN PLACE WITH GOOD URINE OUTPUT, RECTAL BAG HAD [address], PICC IN MICHAEL FLUSHES WELL AND GOOD BLOOD RETURN, RESTRAINTS IN PLACE RIGHT NOW, MAYBE DISCONTINUED LATER, BRACES IN PLACE ON BILATERAL LOWER EXTREMITIES, ICE WAS APPLIED FOR TWO HOURS DURING THIS SHIFT, KNEE HIGH TEDS HOSE IN PLACE, CALL LIGHT IN REACH, WILL CONTINUE TO MONITOR AND GIVE REPORT TO ONCOMING FACING BASTER.
--- NOTE | 2019-01-05 20:00 | NUR ---
ASSUMED CARE BEDSIDE REPORT RECIEVED. PT IS RESTING IN BED, OCCASIONALLY MOANING AND RESTLESS. PT JUST RECENTLY EXTUBATED THIS EVENING. PT ON 4L O2 NC AT THIS TIME WITH NO SIGNS OF RESPIRATORY DISTRESS NOTED, SPO2 94%. PT WITH STRONG PRODUCTIVE COUGH. PT WITH LEFT SIDED DEFICITS, NO MOVEMENT ON LEFT EXTREMITES. PT MOVING RIGHT ARM AND ABLE TO SQUEEZE UPON COMMANDS. PT ABLE TO BLINK EYES UPON COMMANDS. PT TURNS HEAD TOWARDS VOICE, PT UNABLE TO SEE OBJECTS. PT SHAKES HEAD YES OR NO TO QUESTIONS. PICC TO MICHAEL C/D/I, NS INFUSING TKO. CALDERON IN PLACE WITH YELLOW OUTPUT NOTED. BILAT KNEE BRACES REMAIN IN PLACE. MULTIPLE FAMILY MEMEBERS AT BEDSIDE AT THIS TIME. PO MEDS TO BE HELD TONIGHT PER DR JAMES. VITAL SIGNS STABLE. WILL CONTINUE TO MONITOR.
--- NOTE | 2019-01-05 20:55 | NUR ---
BIPAP PT PLACED ON BIPAP WITH EPAP AT 14, AND FIO2 40%. RT TO MANAGE SETTINGS NEEDED. PT CONTINUES TO BE MORE TALKATIVE AND WORDS ARE BECOMING CLEARER. PT RESTING QUIETLY AT THIS TIME. WILL CONTINUE TO MONITOR.
[2019-01-06 03:53] LABS: BASOPHILS ABSOLUTE AUTO 0.05 K/mm3 (0.00-0.23); BASOPHILS PERCENT AUTO 0 % (0-2); EOSINOPHILS ABSOLUTE AUTO 0.16 K/mm3 (0.00-0.68); EOSINOPHILS PERCENT AUTO 1 % (0-6); Hematocrit 29.9 % (37.0-53.0); IMMATURE GRAN ABSOLUTE AUTO 0.05 K/mm3 (0.00-0.10); IMMATURE GRAN PERCENT AUTO 0 % (0-1); LYMPHOCYTES ABSOLUTE AUTO 1.07 K/mm3 (0.84-5.20); LYMPHOCYTES PERCENT AUTO 9 % (21-46); MONOCYTES ABSOLUTE AUTO 0.56 K/mm3 (0.16-1.47); MONOCYTES PERCENT AUTO 5 % (4-13); Mean Corpuscular HGB 28.7 pg (26.0-34.0); Mean Corpuscular HGB Conc 30.1 g/dL (31.5-36.5); Mean Corpuscular Volume 95 fL (80-100); Mean Platelet Volume 10.5 fL (9.1-12.4); NEUTROPHILS ABSOLUTE AUTO 9.77 K/mm3 (1.96-9.15); NEUTROPHILS PERCENT AUTO 84 % (41-73); Platelet Count 385 K/mm3 (150-400); RDW Coefficient Variation 15.9 % (11.7-14.2); RDW Standard Deviation 53.9 fL (35.1-46.3); Red Blood Cell Count 3.14 M/mm3 (4.30-5.90); White Blood Cell Count 11.66 K/mm3 (4.00-11.30)
[2019-01-06 04:13] LABS: Bun/Creatinine Ratio 36.8 (12.0-20.0); Calcium, Blood 8.6 mg/dL (8.5-10.1); Creatinine, Blood 1.33 mg/dL (0.60-1.20); Magnesium, Blood 2.9 mg/dL (1.6-2.4); Phosphorus, Blood 3.6 mg/dL (2.5-4.9); Potassium, Blood 4.6 mmol/L (3.5-5.5)
--- NOTE | 2019-01-06 05:49 | NUR ---
SHIFT SUMMARY PT HAS DONE WELL THROUGHOUT THE SHIFT. PT IS MUCH MORE ALERT THIS AM AND IS ABLE TO TALK IN MULTI WORD SENTENCES. SPEECH REMAINS SLURRED. BUT COMMUNICATION IS IMPROVING SINCE START OF SHIFT. PT ON BIPAP THROUHGOUT THE NIGHT WHEN SLEEPING WITH EPAP SETTINGS AT 14, FIO2 25%. VITAL SIGNS HAVE REMAINED STABLE. PT CONTINUES TO MOVE RIGHT UPPER EXTREMITY WELL. NO MOVEMENT IN LEFT SIDE. BILAT KNEE BRACES REMAIN IN PLACE. PICC REMAINS IN PLACE WITH NS TKO. CALDERON REMAINS IN PLACE WITH GOOD URINE OUTPUT THIS SHIFT. RECTAL DRAINAGE BAG REMAINS C/D/I WITH LOOSE BROWN OUTPUT NOTED. SPOUSE HAS REMAINED AT BEDSIDE. WILL CONTINUE TO MONITOR AND REPORT OFF TO ONCOMING RN.
--- NOTE | 2019-01-06 07:20 | NUR ---
START OF SHIFT NOTE: PATIENT IS AWAKE, ABLE TO FOLLOW COMMANDS, SPEAKS IN FULL SENTENCES, ANSWERS APPROPRIATELY, C/O PAIN IN BUTTOCKS, REPOSITIONED TO BE OFF RECTAL BAG, CALDERON CATHETER IN PLACE, NASAL CANNULA IN PLACE AT 4L , PATIENT WAS ON BIPAP OVERNIGHT, WILL BRING IN HOME CPAP, LS CLEAR AND DIMINISHED IN LEFT AND SOME CRACKLES AND DIMINISHED IN BASES ON RIGHT, PICC IN MICHAEL, BRACES IN PLACE ON BILATERAL LOWER EXTREMITIES, DRESSING ON BOTH KNEES INTACT, KNEE HIGH ERLINDA HOSE IN PLACE, ICE APPLIED FOR TWO HOURS PER SHIFT, AT BEDSIDE, PATIENT ABLE TO SWALLOW SOME SMALL ICE CHIPS, AWAITING SWALLOW EVALUATION, NPO AT THIS TIME, CALL LIGHT IN REACH, WILL CONTINUE TO MONITOR.
--- NOTE | 2019-01-06 08:45 | NUR ---
DR. JAMES CALLED AND UPDATE PROVIDED ON PATIENT SITUATION, NEW ORDERS RECEIVED.
--- NOTE | 2019-01-06 09:38 | NUR ---
PT IN TO SEE PATIENT AND EVALUATE.
--- NOTE | 2019-01-06 10:50 | NUR ---
SPEECH THERAPY IN TO SEE PATIENT, SEE NOTE FOR RESULTS, PATIENT TO REMAIN STRICT NPO AT THIS TIME, NO ICE CHIPS, OR MOUTH SWABS, ORAL CARE FREQUENTLY.
--- NOTE | 2019-01-06 11:54 | NUR ---
AQUACEL DRESSING CHANGED ON BILATERAL LOWER EXTREMITIES, INCISIONS ARE C/D/I, NO S/S OF SWELLING, REDNESS, INFECTION, PATIENT TOLERATED WELL, PATIENT IS TRYING TO MAKE NEEDS KNOWN, MOVING RIGHT SIDE OF BODY WITHOUT PROBLEMS, LEFT SIDE CONTINUES TO BE FLACCID, CALL LIGHT IN REACH, WILL CONTINUE TO MONITOR.
--- NOTE | 2019-01-06 12:33 | NUR ---
DR. JAMES AWARE OF SPEECH EVALUATION'S NOTE TO KEEP PATIENT NPO, INCLUDING ICE CHIPS, BUT STATED "GIVE HIM MEDICATION WITH ICE CHIPS.
--- NOTE | 2019-01-06 15:00 | NUR ---
OT IN TO SEE PATIENT, SEE NOTE FOR RESULTS, PATIENT APPEARS TIRED AND SLIGHTLY EXHAUSTED, AND FAMILY MEMBER AT BEDSIDE, CALL LIGHT IN REACH, WILL CONTINUE TO MONITOR.
--- NOTE | 2019-01-06 16:37 | NUR ---
DR. LUKE IN TO SEE PATIENT, UPDATED ON PATIENT CONDITION IN TERMS OF PT/OT/SPEECH EVAL.
--- NOTE | 2019-01-06 17:50 | NUR ---
SHIFT SUMMARY NOTE: PATIENT CONTINUES TO MAKE PROGRESS, SPEAKS IN FULL SENTENCES, ABLE TO UNDERSTAND AND FOLLOW COMMANDS, SPEECH IS A LITTLE SLURRED AT TIMES, PATIENT WAS ABLE TO TAKE IN ICE CHIPS WITHOUT CHOKING, GOOD SWALLOW REFLEX, SPEECH IN TO EVALUATE, MADE PATIENT NPO UNTIL TOMORROW MORNING FOR REEVALUATION, HOWEVER, PO MEDICATION WAS GIVEN WITH ICE CREAM PER DR. JAMES, PATIENT SWALLOWED SUCCESSFULLY, PT/OT ALSO IN TO SEE PATIENT AND EVALUATE, PT WAS ABLE TO HAVE PATIENT SIT AT BEDSIDE AND DANGLE LEGS, WITH ASSISTANCE, PATIENT UNABLE TO HOLD GAIT WHEN NO BACK SUPPORT D/T LEFT SIDED FLACCIDNESS, DRESSING ON BILATERAL LOWER EXTREMITIES WAS CHANGED AND BRACES REAPPLIED, PATIENT TOLERATED WELL, INCISIONS ON BOTH KNEES C/D/I, NO S/S OF SWELLING, REDNESS, INFECTION, ICE WAS APPLIED FOR TWO HOURS DURING THIS SHIFT, PICC DRESSING ON MICHAEL WAS CHANGED WELL, PATIENT TOLERATED WELL, CAPS CHANGED, ALL LUMENS FLUSH WELL AND HAVE GOOD BLOOD RETURN, CALDERON CATHETER CONTINUES IN PLACE D/T PATIENT'S COGNITIVE STATUS AND INABILITY TO RECOGNIZE SENSATION, POSSIBILITY OF CHANGING OUT TO CONDOM CATHETER, FAMILY AT BEDSIDE, CALL LIGHT IN REACH, WILL CONTINUE TO MONITOR AND GIVE REPORT TO ONCOMING COLLECTION SYSTEMS MODELER.
--- NOTE | 2019-01-06 19:15 | NUR ---
ASSUMING CARE OF PT AT THIS TIME. PT REPORT RECEIVED AT BEDSIDE WITH OFFGOING NURSE, LUIS SAUCEDO. PT LAYING IN BED, SLEEPING UPON ENTERING THE ROOM. PT'S AND FAMILY MEMBERS AT BEDSIDE. VS STABLE - SEE VS FS. PT DOES NOT APPEAR TO BE IN DISTRESS AT THIS TIME. WILL REVIEW PLAN OF CARE.
--- NOTE | 2019-01-06 19:30 | NUR ---
ASSESSMENT PT SPONTANEOUSLY OPENS EYES, RESPONDS TO VERBAL STIMULI, A&O TO SELF AND FAMILY, FOLLOWS COMMANDS (ABLE TO WIGGLE R TOES AND SEAM SEWER WITH R HAND UPON COMMAND), OCC INCOMPREHENSIBLE SPEECH, SLOW TO RESPOND, CONFUSED, ABLE TO ANSWER SOME QUESTIONS, TRACKS WITH EYES, CALM, COOPERATIVE. SENSATION INTACT. DENIES N/T. GROSS, WEAK MOVEMENT R SIDE. ABLE TO WIGGLE R TOES AND SEAM SEWER WITH R HAND. NO MOVEMENT LUE AND LLE. NO S/SX OF PAIN/DISCOMFORT NOTED. PT DENIES PAIN/DISCOMFORT. UPPER LOBES COARSE, MIDDLE AND LOWER LOBES CLEAR, DIMINIHSED T/O. PT ON 3L NC. OXY SAT >90%. RR 18. HOME CPAP @ BEDSIDE. OCC NONPRODUCTIVE WEAK COUGH. AFEBRILE. NSR. HR 70'S. BP STABLE - SEE VS FS. STRONG PULSES. WARM, PALE SKIN. LESS EDEMA NOTED THIS PM. ACTIVE BT X4 QUADRANTS. ABD MOD DIST, SOFT, NONTENDER. NO N/V. EXTERNAL RECTAL BAG IN PLACE: MINIMAL AMOUNT OF BROWN LIQUID STOOL NOTED. NPO. F/C IN PLACE: DARK YELLOW URINE NOTED. PICC MICHAEL. NS TKO AT 10 ML/HR. BILAT LEG BRACES AND ERLINDA HOSE IN PLACE. BILAT ICE WRAPS IN PLACE. PER REPORT - BILAT LEG DRESSINGS CHANGED THIS AM, DRESSING C/D/I.
[2019-01-07 03:52] LABS: BASOPHILS ABSOLUTE AUTO 0.03 K/mm3 (0.00-0.23); BASOPHILS PERCENT AUTO 0 % (0-2); EOSINOPHILS ABSOLUTE AUTO 0.13 K/mm3 (0.00-0.68); EOSINOPHILS PERCENT AUTO 1 % (0-6); Hematocrit 31.4 % (37.0-53.0); IMMATURE GRAN ABSOLUTE AUTO 0.06 K/mm3 (0.00-0.10); IMMATURE GRAN PERCENT AUTO 1 % (0-1); LYMPHOCYTES ABSOLUTE AUTO 0.95 K/mm3 (0.84-5.20); LYMPHOCYTES PERCENT AUTO 9 % (21-46); MONOCYTES ABSOLUTE AUTO 0.53 K/mm3 (0.16-1.47); MONOCYTES PERCENT AUTO 5 % (4-13); Mean Corpuscular HGB Conc 28.7 g/dL (31.5-36.5); NEUTROPHILS ABSOLUTE AUTO 8.56 K/mm3 (1.96-9.15); NEUTROPHILS PERCENT AUTO 83 % (41-73); Platelet Count 366 K/mm3 (150-400); RDW Coefficient Variation 15.7 % (11.7-14.2); RDW Standard Deviation 55.8 fL (35.1-46.3); Red Blood Cell Count 3.21 M/mm3 (4.30-5.90); White Blood Cell Count 10.26 K/mm3 (4.00-11.30)
[2019-01-07 03:53] LABS: Mean Corpuscular Volume 98 fL (80-100)
[2019-01-07 04:22] LABS: Anion Gap 6 mmol/L (6-16); Blood Urea Nitrogen 47 mg/dL (8-24); CO2, Blood 27 mmol/L (21-32); Calcium, Blood 9.1 mg/dL (8.5-10.1); Chloride, Blood 119 mmol/L (98-108); Creatinine, Blood 1.27 mg/dL (0.60-1.20); Glomerular Filtration Rate 60 (60-); Glucose, Blood 121 mg/dL (70-99); Phosphorus, Blood 3.7 mg/dL (2.5-4.9); Potassium, Blood 4.5 mmol/L (3.5-5.5); Sodium, Blood 152 mmol/L (136-145)
--- NOTE | 2019-01-07 04:50 | NUR ---
DR. MEYER INFORMED DR. MEYER OF [facility]. DR. MEYER ORDERED D5W @ 75 ML/HR X1 LITER AND REPEAT CHEM8 AT 1200 AND 1800. WAITING FOR VERIFICATION OF MEDICATION FROM PHARMACY AT THIS TIME.
--- NOTE | 2019-01-07 05:01 | NUR ---
DR. JAMES INFORMED DR. JAMES OF [facility]. DR. JAMES INSTRUCTED TO ADMINISTER D5W @ 75 X1 LITER. WAITING FOR VERIFICATION OF MEDICATION FROM PHARMACY AT THIS TIME.
--- NOTE | 2019-01-07 06:12 | NUR ---
SHIFT ASSESSMENT NO ACUTE CHANGES NOTED T/O SHIFT. PT SLEPT APPROXIMATELY 1 HR T/O SHIFT. PT SPONTANEOUSLY OPENS EYES, RESPONDS TO VERBAL STIMULI, A&O TO SELF AND FAMILY, FOLLOWS COMMANDS (ABLE TO WIGGLE R TOES AND ENVIRONMENTAL GEOLOGIST WITH R HAND UPON COMMAND), OCC INCOMPREHENSIBLE SPEECH, SLOW TO RESPOND, INCREASED CONFUSION T/O SHIFT, ANSWERING LESS QUESTIONS T/O SHIFT, TRACK WITH EYES, RESTLESS IN BED, COOPERATIVE, TALKING TO SELF IN ROOM. SENSATION INTACT. PT C/O N/T BLE'S THIS AM. OTHERWISE, PT DENIED N/T. GROSS, WEAK MOVEMENT R SIDE. ABLE TO WIGGLE R TOES AND ENVIRONMENTAL GEOLOGIST WITH R HAND. PT CONT TO PULL AT LINES/CORDS/TUBES T/O SHIFT. CONT TO REINFORCE PT TO NOT PULL ON LINES/CORDS/TUBES. NO MOVEMENT LUE AND LLE. PT C/O OCC PAIN IN BLE'S AND BILAT FT. CONT TO ASSESS FOR PAIN/DISCOMFORT AND MEDICATED WITH PAIN MEDS PER PHYSICIAN'S ORDER / UTILIZED NONPHAR METHODS. UPPER LOBES COARSE, MIDDLE AND LOWER CLEAR, DIMINISHED T/O. PT ON 2L NC WHILE AWAKE. OXY SAT REMAINED 90% AND GREATER WHILE ON 2L NC. HOME CPAP AT BEDSIDE WITH CHIN STRAP. OXY SAT REMAINED 90% AND GREATER WHILE ON HOME CPAP. RR 13 TO 20'S. OCC NONPRODUCTIVE WEAK COUGH. AFEBRILE. NSR WITH OCC PVC'S. HR 60'S TO 80'S. HYDRALAZINE PRN ADMINISTERED FOR HTN (SEE VS STABLE). OTHERWISE BP STABLE - SEE VS FS. STRONG PULSES. WARM, PALE SKIN. LESS EDEMA THIS PM. ACTIVE BT X4 QUADRANTS. ABD SOFT, NONTENDER, MOD DIST. NO N/V. EXTERNAL RECTAL BAG IN PLACE: MINIMAL AMOUNT OF BROWN LIQUID STOOL NOTED. PT NPO. PT CONT TO ASK FOR PO LIQUIDS T/O SHIFT. FREQ ORAL CARE COMPLETED. F/C IN PLACE: DARK, YELOW URINE NOTED. PICC MICHAEL. NS TKO ON STANDBY. D5W AT 75 ML/HR. BILAT LEG BRACES AND ERLINDA HOSE IN PLACE. BILAT ICE WRAPS IN PLACE. BILAT LEG DRESSINGS C/D/I. WILL CONT TO MONIOTR PT AND WILL PROVIDE BEDSIDE REPORT TO ONCOMING NURSE THIS AM.
--- NOTE | 2019-01-07 08:00 | NUR ---
ASSUMED CARE ASSUMED CARE OF PT AT 0700. REPORT RECEIVED FROM SHERYL AYALA. PT AWAKE AND ALERT, ORIENTED TO SELF, FAMILY AND FOLLOWING DIRECTIONS. PT CONFUSED ABOUT WHEREABOUTS, EVENTS, DATE/TIME. PT'S EYE OPEN SPONTANEOUSLY, APPEARS TO BE TURNING HEAD TO TRACK VOICES BUT UNCLEAR WHETHER PT IS ACTUALLY SEEING HE IS UNABLE TO FOCUS EYES ON OBJECTS WHEN ASKED OR FOLLOW FINGERS WHEN ASKED. PT IS IN NO APPARENT DISTRESS - VITAL SIGNS STABLE, ON 2L/MIN NC WITH SPO2 >90%. PT NOTED TO BE MOVING RIGHT SIDE EXTREMITIES SPONTANEOUSLY, NO MOVEMENTS NOTED TO LEFT SIDE, HOWEVER SENSATION APPEARS TO BE SOMEWHAT INTACT TO LEFT SIDE PT STATES "STAY AWAY FROM THE FOOT" WHEN STROKING THE SOLE OF THE LEFT FOOT. PT HAS BILAT LOCKED LEG BRACES IN PLACE. PT DENIES PAIN AT THIS TIME, DENIES SHORTNESS OF BREATH. PT ABLE TO TAKE MOST PO MEDS WITH ICE CREAM THIS AM, THOUGH COULD NOT GET DOWN LAST 2 PILLS. PT HAS CALDERON CATH DRAINING TO GRAVITY AND EXTERNAL RECTAL TUBE DRAINING TO GRAVITY. PICC LINE TO MICHAEL WITH D5W AT 75ML/HR. PT'S AT BEDSIDE ASSISTING WITH CARE. PLAN TO GET PT UP TO RECLINER WITH LIFT THIS AM. WILL CONTINUE TO MONITOR PT CLOSELY.
--- NOTE | 2019-01-07 11:45 | NUR ---
DR. ERIKA JAMES TO BEDSIDE TO EVALUATE PT. HE WORKED WITH PT TO ASSESS SWALLOWING - STATES HE BELIEVES PT IS SAFE TO SWALLOW PO MEDICATIONS CRUSHED WITH APPLESAUCE DESPITE SPEECH EVAL FINDINGS THIS AM. DISCUSSED PT DIFFICULTY WITH SLEEP, ORDERS RECEIVED FOR BENADRYL PRN AT BEDTIME. ORDERS RECEIVED TO DC CALDERON CATHETER AND REPLACE WITH CONDOM CATH IF NEEDED. ORDERS RECEIVED TO CONTINUE D5W AT 75ML/HR. DISCUSSED PLAN OF CARE WITH PT'S LIGIA AT BEDSIDE.
[2019-01-07 13:22] LABS: Anion Gap 4 mmol/L (6-16); Blood Urea Nitrogen 49 mg/dL (8-24); CO2, Blood 27 mmol/L (21-32); Calcium, Blood 8.8 mg/dL (8.5-10.1); Chloride, Blood 119 mmol/L (98-108); Creatinine, Blood 1.14 mg/dL (0.60-1.20); Glomerular Filtration Rate >60 (60-); Glucose, Blood 128 mg/dL (70-99); Potassium, Blood 4.4 mmol/L (3.5-5.5); Sodium, Blood 150 mmol/L (136-145)
--- NOTE | 2019-01-07 18:13 | NUR ---
SHIFT SUMMARY VITAL SIGNS STABLE T/O SHIFT. PT BETWEEN ROOM AIR AND 1L/MIN NC WHEN NAPPING TODAY. PT WAS UP TO CHAIR WITH CEILING LIFT - TOLERATED WELL. PT WAS ABLE TO TAKE PO MEDS WITH APPLESAUCE THIS AFTERNOON AND EVENING WITH NO S/SX OF ASPIRATION. PT WITH SOME GARBLED AND INTERMITTENT NONSENSICAL SPEECH MIXED WITH SOME COMPREHENSIBLE SPEECH T/O SHIFT. PT INCREASINGLY CONFUSED AND SOMEWHAT AGITATED THIS EVENING - FAMILY AT BEDSIDE CALMING AND RE-ORIENTING PT FREQUENTLY. CALDERON CATHETER WAS DC'D AND REPLACED WITH CONDOM CATH. RECTAL TUBE WAS ALSO REMOVED. JOE LOWER EXT LEG BRACES REMAIN IN PLACE. SURGICAL DRESSINGS DRY AND INTACT. PICC LINE CONTINUES TO MICHAEL WITH D5W AT 75ML/HR. WILL CONTINUE TO MONITOR PT AND GIVE HANDOFF REPORT TO ONCOMING RN WHEN AVAILABLE.
[2019-01-07 18:35] LABS: Anion Gap 4 mmol/L (6-16); Blood Urea Nitrogen 46 mg/dL (8-24); Bun/Creatinine Ratio 41.8 (12.0-20.0); CO2, Blood 26 mmol/L (21-32); Calcium, Blood 8.9 mg/dL (8.5-10.1); Chloride, Blood 120 mmol/L (98-108); Glomerular Filtration Rate >60 (60-); Glucose, Blood 125 mg/dL (70-99); Potassium, Blood 4.3 mmol/L (3.5-5.5); Sodium, Blood 150 mmol/L (136-145)
--- NOTE | 2019-01-07 18:36 | NUR ---
Angélica admits to feeling emotionally exhausted. She tells me "they" had a rough night. Apparently, Guido was disoriented and actively trying to get OOB most of the night. Angélica admits to praying for his "to wake up" but "I wan't expecting this." I provided emotional affirmation and assurance of care and attention by excellent nursing and physicians. Encouraged going home to rest and self-care. Prayer for peace provided. [employer] services will remain available.
--- NOTE | 2019-01-07 18:46 | NUR ---
LEFT HAND FAMILY OUT TO NURSE'S STATION TO STATE PT WAS ABLE TO SQUEEZE HIS LEFT HAND 3 TIMES TO COMMAND. THIS RN IN TO ASSESS - PT AGAIN ABLE TO SQUEEZE WITH LEFT HAND TO COMMAND. NO ADDITIONAL LEFT SIDE EXTREMITY MOVEMENTS NOTED AT THIS TIME.
--- NOTE | 2019-01-07 19:15 | NUR ---
ASSUMING CARE OF PT AT THIS TIME. PT REPORT RECEIVED AT BEDSIDE WITH OFFGOING NURSE, APOORVA SAUCEDO. PT LAYING IN BED, TALKING WITH FAMILY (FAMILY AT BEDSIDE). VS STABLE - SEE VS FS. PT DOES NOT APPEAR TO BE IN DISTRESS AT THIS TIME. WILL REVIEW PLAN OF CARE.
--- NOTE | 2019-01-07 19:30 | NUR ---
ASSESSMENT PT SPONTANEOUSLY OPENS EYES, RESPONDS TO VERBAL STIMULI, A&O TO SELF AND FAMILY, FOLLOWS COMMANDS (ABLE TO WIGGLE R TOES, TAPE FASTENER MACHINE OPERATOR WITH R HAND, AND TAPE FASTENER MACHINE OPERATOR WITH L HAND UPON COMMAND), INCOMPREHENSIBLE SPEECH, GARBLED SPEECH, SLOW TO RESPOND, CONFUSED, ABLE TO ANSWER SOME QUESTIONS, TRACKS VOICE, RESTLESS IN BED, PULLING AT LINES/CORDS/TUBES, UNABLE TO CORRECTLY STATE NUMBER OF FINGERS HELD UP BY THIS RN. SENSATION INTACT. PT DENIES N/T. GROSS, WEAK MOVEMENT RLE. ABLE TO WIGGLE R TOES. NORMAL, STRENGH, FINE MOVEMENT RUE. ABLE TO TAPE FASTENER MACHINE OPERATOR WITH R HAND. NO MOVEMENT LLE. WEAK MOVEMENT LUE. ABLE TO WEAKLY TAPE FASTENER MACHINE OPERATOR WITH L HAND. PT DENIES PAIN/DISCOMFORT AT THIS TIME. NO S/SX OF PAIN/DISCOMFORT. LUNGS CLEAR AND DIMINISHED T/O. PT ON 1L NC. OXY SAT >90%. RR 14. HOME CPAP AT BEDSIDE. OCC NONPRODUCTIVE WEAK COUGH. AFEBRILE. NSR. HR 70'S. BP STABLE - SEE VS FS. STRONG PULSES. WARM, PALE SKIN. LESS EDEMA THIS PM. ACTIVE BT X4 QUADRATNS. ABD MOD DIST, SOFT, NONTENDER. NO N/V. NO BM. NPO EXCEPT MEDS IN APPLESAUCE. PT TOLERATES MEDS IN APPLESAUCE. CONDOM CATH IN PLACE. PT VOIDED DARK, YELLOW URINE AFTER COACHING PT TO VOID. PICC MICHAEL. NS TKO AT 10 ML/HR BILAT LEG BRACES AND ERLINDA HOSE IN PLACE. D5W @ 75 ML/HR. BILAT ICE WRAPS IN [place]. BILAT LEG DRESSING C/D/I.
--- NOTE | 2019-01-07 20:47 | NUR ---
DR. KEITA VERIFIED 1/[address] KEITA. CALLED DR. KEITA AT THIS TIME. DR. KEITA INSTRUCTED TO D/C 1/2 NS AND CONT D5W AT 75 ML/HR.
--- NOTE | 2019-01-07 21:45 | NUR ---
DR. JAMES PT RESTLESS, AWAKE, PULLING AT LINES/CORDS, HELEN OFF GOWN. BENADRYL ADMINSITERED PER PHYSICIAN'S ORDER. LIGHTS OFF IN ROOM. TV OFF. MUSIC OFF. INFORMED DR. JAMES OF PT'S STATUS. DR. JAMES ORDERED MELATONIN 10 MG PRN AT BEDTIME FOR INSOMINIA.
[2019-01-08 03:14] LABS: BASOPHILS ABSOLUTE AUTO 0.03 K/mm3 (0.00-0.23); BASOPHILS PERCENT AUTO 0 % (0-2); EOSINOPHILS ABSOLUTE AUTO 0.24 K/mm3 (0.00-0.68); EOSINOPHILS PERCENT AUTO 3 % (0-6); Hemoglobin 8.9 g/dL (13.5-17.5); IMMATURE GRAN ABSOLUTE AUTO 0.04 K/mm3 (0.00-0.10); IMMATURE GRAN PERCENT AUTO 0 % (0-1); LYMPHOCYTES ABSOLUTE AUTO 0.93 K/mm3 (0.84-5.20); LYMPHOCYTES PERCENT AUTO 10 % (21-46); MONOCYTES ABSOLUTE AUTO 0.47 K/mm3 (0.16-1.47); MONOCYTES PERCENT AUTO 5 % (4-13); Mean Corpuscular HGB 28.3 pg (26.0-34.0); Mean Corpuscular HGB Conc 29.7 g/dL (31.5-36.5); Mean Corpuscular Volume 96 fL (80-100); Mean Platelet Volume 10.6 fL (9.1-12.4); NEUTROPHILS ABSOLUTE AUTO 7.29 K/mm3 (1.96-9.15); NEUTROPHILS PERCENT AUTO 81 % (41-73); Platelet Count 334 K/mm3 (150-400); RDW Coefficient Variation 15.8 % (11.7-14.2); RDW Standard Deviation 54.5 fL (35.1-46.3); Red Blood Cell Count 3.14 M/mm3 (4.30-5.90)
[2019-01-08 03:31] LABS: Anion Gap 4 mmol/L (6-16); Blood Urea Nitrogen 48 mg/dL (8-24); Bun/Creatinine Ratio 40.3 (12.0-20.0); CO2, Blood 27 mmol/L (21-32); Calcium, Blood 8.9 mg/dL (8.5-10.1); Chloride, Blood 120 mmol/L (98-108); Creatinine, Blood 1.19 mg/dL (0.60-1.20); Glomerular Filtration Rate >60 (60-); Glucose, Blood 125 mg/dL (70-99); Magnesium, Blood 2.7 mg/dL (1.6-2.4); Phosphorus, Blood 3.6 mg/dL (2.5-4.9); Potassium, Blood 4.1 mmol/L (3.5-5.5); Sodium, Blood 151 mmol/L (136-145)
--- NOTE | 2019-01-08 04:12 | NUR ---
SHIFT ASSESSMENT NO ACUTE CHANGES NOTED T/O SHIFT. PT SPONTANEOUSLY OPENS EYES, RESPONDS TO VERBAL STIMULI, A&O TO SELF AND FAIMLY, FOLLOWS COMMANDS (ABLE TO WIGGLE R TOES, DOUGH PANNER WITH R HAND, AND DOUGH PANNER WITH L HAND UPON COMMANDS), INCOMPREHENSIBLE SPEECH, GARBLED SPEECH, SLOW TO RESPOND, INCREASED CONFUSION, ABLE TO ANSWER SOME QUESITONS, TRACK VOICE, INCREASED RESTLESSNESS IN BED, INCREASED PULLING AT LINES/CORDS/TUBES. R HAND MITT PLACED TO PROTECT VITAL LINES/CORDS/TUBES. INCREASED AGITATION T/O SHIFT. PT YELLING IN ROOM, WHICH STARTED AFTER FAMILY MEMBERS LEFT ROOM THIS PM. PT SLEPT APPROXIMATELY 1 HR T/O SHIFT AFTER ADMINISTERING BENADRYL AND MELATONIN. SENSATION INTACT. PT DENIES N/T. GROSS, WEAK MOVEMENT RLE. ABLE TO WIGGLE R TOES. NORMAL, STRENGTH, MOVEMENT RUE. ABLE TO DOUGH PANNER WITH R HAND. NO MOVEMENT LLE. WEAK MOVEMENT LUE. ABLE TO WEAKLY DOUGH PANNER WITH L HAND. PT OCC C/O PAIN/DISCOMFORT IN BILAT LEGS. OCC S/SX OF PAIN/DISCOMFORT NOTED. CONT TO ASSESS FOR PAIN/DISCOMFORT AND MEDICATED WITH PAIN MEDS PER PHYSICIAN'S ORDER / UTILIZED NONPHARM METHODS. LUNGS CLEAR AND DIMINISHED T/O. PT ON RA WHILE AWAKE. PT CONT TO TAKE OFF NC WHILE AWAKE. PT ON 1L NC WHILE ASLEEP. PT REFUSED CPAP T/O SHIFT. OXY SAT REMAINED >90% WHILE ON RA WHILE AWAKE AND 1L NC WHILE ASLEEP. OXY SAT <90% WHILE ON RA AND SLEEPING. RR 14 TO 20'S. HOME CPAP REMAINS AT BEDSIDE. OCC NONPRODUCTIVE WEAK COUGH. AFEBRILE. NSR WITH OCC PVC'S. HR 70'S TO 80'S. HYDRALAZINE PRN ADMINISTERED FOR HTN. OTHERWISE BP STABLE T/O SHIFT. STRONG PULSES. WARM, PALE SKIN. LESS EDEMA NOTED THIS PM. HYPOACTIVE BT X4 QUADRANTS. ABD MOD DIST, SOFT, NONTENDER. NO N/V. NO BM. PASSING GAS. NPO EXCEPT MEDS WITH APPLESAUCE. PT TOLERATED MEDS CRUSHED IN APPLESAUCE. CONDOM CATH IN PLACE. PT VOIDS DARK, YELLOW URINE AFTER COACHING PT TO VOID. PICC MICHAEL. D5W AT 75 ML/HR. BILAT LEG BRACES AND ERLINDA HOSE IN PLACE. BILAT LEG DRESSINGS C/D/I. WILL CONT TO MONITOR PT AND WILL PROVIDE BEDSIDE REPORT TO ONCOMING NURSE THIS AM.
--- NOTE | 2019-01-08 07:43 | NUR ---
ASSUMED CARE ASSUMED CARE OF PT AT 0700. REPORT RECEIVED FROM SHERYL AYALA. PT AWAKE AND ALERT, ORIENTED TO FAMILY AND FOLLOWING SOME COMMANDS TO OPEN EYES AND MOVE RIGHT UPPER EXTREMITY. NOT SQUEEZING LEFT HAND TO COMMAND THIS AM, NOT MOVING LEFT ARM OR LEG. PT SOMEWHAT AGITATED, REPEATEDLY STATING "TAKE THESE BOOTS OFF" IN REFERENCE TO LEG BRACES, PICKING AT LINES AND MONITOR WIRES. VITAL SIGNS STABLE, ON ROOM AIR. PT REPORTS "BURNING" PAIN TO LEGS AND FEET, DENIES OTHER PAIN, DENIES NUMBNESS OR TINGLING. PICC TO MICHAEL WITH D5W AT 75ML/HR. PT'S LIGIA AT BEDSIDE. WILL CONTINUE TO MONITOR PT CLOSELY.
--- NOTE | 2019-01-08 11:59 | NUR ---
PT HAS BEEN RESTING FOR APPROX. 2 HOURS. ROUNDED ON PT, DISCUSSED WITH AND SHE WOULD LIKE TO HAVE HIM REST FOR ANOTHER HOUR OR 2 BEFORE WAKING HIM AND GETTING HIM TO RECLINER SINCE HE "HAS NOT SLEPT IN 3 DAYS". POSITION SHIFTED. VITALS STABLE. WILL CONTINUE TO MONITOR.
--- NOTE | 2019-01-08 14:08 | NUR ---
PCU TRANSFER REPORT CALLED TO CHAN INVESTMENT BANKING ANALYST TO ASSUME CARE OF PT. PT TRANSFER TO PCU VIA BED WITH AND ALL BELONGINGS.
--- NOTE | 2019-01-08 15:05 | NUR ---
PT ARRIVED TO PCU FROM ICU. REPORT PRIOR TO ARRIVAL BY AMPARO SAUCEDO. ALL QUESTIONS ANSWERED AND ADDRESSED. PT MAKES NONSENNSICAL STATEMENTS. DOES KNOW MONTH AND DAY OF BUT NOT YEAR. LEFT ARM AND LEG ARE FLACID. RIGHT ARM MOVES ABOUT WITHOUT DIRECTION STRIKING OUT AT STAFF. MITT IS PLACED OVER RIGHT HAND TO KEEP PATIENT FROM PULLING AT PICC LINE. IV FLUIDS INFUSING ORDERED. CONDOM CATHETER IN PLACE. PT WORKING WITH PATEINT 30 MINUTES AFTER ARRIVAL. FAMILY AT BEDSIDE.
[2019-01-09 05:31] LABS: BASOPHILS ABSOLUTE AUTO 0.03 K/mm3 (0.00-0.23); BASOPHILS PERCENT AUTO 0 % (0-2); EOSINOPHILS ABSOLUTE AUTO 0.26 K/mm3 (0.00-0.68); EOSINOPHILS PERCENT AUTO 4 % (0-6); Hematocrit 31.7 % (37.0-53.0); Hemoglobin 9.4 g/dL (13.5-17.5); IMMATURE GRAN ABSOLUTE AUTO 0.03 K/mm3 (0.00-0.10); IMMATURE GRAN PERCENT AUTO 0 % (0-1); LYMPHOCYTES ABSOLUTE AUTO 0.71 K/mm3 (0.84-5.20); LYMPHOCYTES PERCENT AUTO 10 % (21-46); MONOCYTES ABSOLUTE AUTO 0.42 K/mm3 (0.16-1.47); MONOCYTES PERCENT AUTO 6 % (4-13); Mean Corpuscular HGB 28.6 pg (26.0-34.0); Mean Corpuscular HGB Conc 29.7 g/dL (31.5-36.5); Mean Corpuscular Volume 96 fL (80-100); Mean Platelet Volume 11.3 fL (9.1-12.4); NEUTROPHILS ABSOLUTE AUTO 5.75 K/mm3 (1.96-9.15); NEUTROPHILS PERCENT AUTO 80 % (41-73); Platelet Count 312 K/mm3 (150-400); RDW Coefficient Variation 15.3 % (11.7-14.2); RDW Standard Deviation 53.3 fL (35.1-46.3); Red Blood Cell Count 3.29 M/mm3 (4.30-5.90)
--- NOTE | 2019-01-09 05:40 | NUR ---
SHIFT SUMMARY: PATIENT NEURO CHECKS REMAIN SAME SHIFT ASSESSMENT, PICC LINE NO LONGER DRAWING BLOOD DESPIDE ALL CAPS CHANGED AND REPOSITIONING ARM, FLUSHES WELL. PATIENT VSS, SKIN AND ORAL CARE COMPLETED, TURN Q2, CONDOM CATH STILL PATENT AND DRAINING WELL. STAYED NIGHT, BED LOW AND LOCKED, CALL LIGHT WITHIN REACH, NO OTHER ISSUES.
[2019-01-09 06:35] LABS: Anion Gap 7 mmol/L (6-16); Blood Urea Nitrogen 39 mg/dL (8-24); Bun/Creatinine Ratio 38.6 (12.0-20.0); CO2, Blood 23 mmol/L (21-32); Calcium, Blood 8.8 mg/dL (8.5-10.1); Chloride, Blood 119 mmol/L (98-108); Creatinine, Blood 1.01 mg/dL (0.60-1.20); Glomerular Filtration Rate >60 (60-); Glucose, Blood 116 mg/dL (70-99); Potassium, Blood 3.9 mmol/L (3.5-5.5); Sodium, Blood 149 mmol/L (136-145)
--- NOTE | 2019-01-09 15:12 | NUR ---
REPORT TO CLIFF SAUCEDO WHO WILL ASSUME CARE AND COFORT OF THIS PATIENT
--- NOTE | 2019-01-09 15:34 | NUR ---
Supportive care visit with Angélica, pt's spouse. She is fatigued and admits that she isn't sleeping much. Encouraged self care and allowing family members to come and take turns sitting with Guido so that she can go home and get some rest. Angélica reports she feels guilty for wanting to go home to sleep & afraid to leave Guido in case something happens when she is not here. Explained importance of self care and she agrees that she needs to take breaks. She states Guido's brother is coming and she has other family who is willing to help out. Informed her that if there was a change in Guido's conditiion that nurses could call her if she were not here. Angélica requested a list of rehab facilities that may be options for Guido when he is discharged. LM for Macho, who is the RN CM this weekend, to provide Angélica with facility names so she can research them. PC will continue to follow to support pt and his family.
--- NOTE | 2019-01-09 16:10 | NUR ---
UPdate: Assumed care of pt at around 1500. Agree with AM shift assessment. Pt states that he needs to have a BM. 2 person max assist onto bed colvin. Pt was able to have small, soft, unformed BM. Pt is L side flacid. BLE with Leg braces on. at bedside. Pt sometimes says sintences that are comprehensable, but other times says things that are confused. Pt seems very drowsy. Pt states that he is very tired at this time. Will monitor and treat per orders.
--- NOTE | 2019-01-09 18:30 | NUR ---
SHIFT SUMMARY; Pt resting in bed with brother at bedside at this time. Pt had a Large BM this afternoon and was cleaned and repositioned at that time. Pt is still very weak with L side flaccidity. Pt is able to talk and make his needs known. Braces on BLE. VSS throughout shift. Will report to night RN>
--- NOTE | 2019-01-10 07:41 | NUR ---
SHIFT SUMMARY PATIENT ALERT AND ORIENTED X 3 THROUGHOUT SHIFT. HE SLEPT SOUNDLY BUT WOKE EASILY FOR VITALS AND ASSESSMENTS. PT TOLERATED CPAP ALL NIGHT AND HIS VITALS REMAINED STABLE. HE WAS NOT AWAKE ENOUGH AROUND MIDNIGHT TO TAKE MEDS ORALLY, BUT WAS ABLE TO TAKE ORAL MEDS AND APPRORPRIATELY SWALLOW APPLESAUCE AND NECTAR THICK LIQUIDS WITHOUT ISSUE. PT IS TALKATIVE AND IS ABLE TO COMMUNICATE EFFECTIVELY WITH STAFF AND FAMILY. HE HAS SOME PAIN IN HIS BACKSIDE RELATED TO BEING IN HOSPITAL BEDS AND NO GETTING UP. AN EGG CRATE IS GOING TO BE PLACED AND FAMILY IS IN APPROVAL OF THIS. PT CONTINUES TO HAVE FLACCID LEFT SIDE AND NO MOVEMENT HAS BEEN OBSERVED. HE IS GETTING STRONGER ON HIS RIGHT SIDE. PT CONTINUES TO BE INCONTINENT OF BOWEL AND BLAODER, BUT WAS ABLE TO INFORM STAFF OF NEED TO URINATE THIS AM. PT HAS BED IN THE LOWEST POSITION, 2X SIDE RAILS IN PLACE AND CONTINUES TO WEAR BILATERAL LEG BRACES. HE HAS CALL LIGHT IN REACH. PT WILL CONTINUE TO BE MONITORED UNTIL HANDOFF TO DAYSAZFT RN
--- NOTE | 2019-01-10 15:39 | NUR ---
Consent to care: Patient gives this student nurse consent to care on 01/11/19. at bedside.
--- NOTE | 2019-01-10 16:40 | NUR ---
brief supportive visit wtih
--- NOTE | 2019-01-10 19:42 | NUR ---
SHIFT SUMMARY PT RESTING IN BED THROUGHOUT THE DAY. VSS. ALERT AND ORIENTED X3. LEFT SIDE DEFICIT NOTED TO ARM AND LEG, NO MOVEMENT NOTED TO LEFT ARM AND LEFT LEG. PT NOTES NUMBNESS AND TINGLING TO LEFT ARM AND LEG. PT FOLLOWING COMMANDS APPROPRIATELY. C/O PAIN TO LEFT FOOT THIS AFTERNOON, MEDICATED WITH PRN PAIN MEDS. PT REPEATING HIMSELF, REQUESTING WATER AND FOOD, INFORMED OF DIET RESTRICTIONS, PT CONTINUES TO REQUEST WATER. DR. COBB GAVE OK FOR PT TO HAVE ICE CHIPS 1 AT A TIME, PT SEEMS TO TOLERATE WELL. NON-PITTING EDEMA NOTED TO BLE, BLE KNEE DRSG CDI. FAMILY AT BEDSIDE THROUGHOUT THE DAY. LEFT UPPER ARM PICC LINE CDI, CLINIMIX AND LIPIDS RUNNING PER ORDERS.
[2019-01-11 04:54] LABS: Alanine Aminotransfer (ALT/SGP 44 U/L (12-78); Albumin, Blood 2.8 g/dL (3.4-5.0); Albumin/Globulin Ratio 0.7 (0.8-1.8); Alk Phos 101 U/L (50-136); Anion Gap 7 mmol/L (6-16); Aspartate Aminotrans (AST/SGOT 25 U/L (12-37); Bilirubin, Total 0.6 mg/dL (0.1-1.0); Blood Urea Nitrogen 37 mg/dL (8-24); Bun/Creatinine Ratio 40.7 (12.0-20.0); CO2, Blood 22 mmol/L (21-32); Calcium, Blood 8.6 mg/dL (8.5-10.1); Chloride, Blood 113 mmol/L (98-108); Creatinine, Blood 0.91 mg/dL (0.60-1.20); Globulin, Blood 4.2 g/dL (2.2-4.0); Glomerular Filtration Rate >60 (60-); Glucose, Blood 110 mg/dL (70-99); Phosphorus, Blood 3.2 mg/dL (2.5-4.9); Potassium, Blood 4.3 mmol/L (3.5-5.5); Sodium, Blood 142 mmol/L (136-145); Triglycerides 115 mg/dL (30-160)
[2019-01-11 04:59] LABS: BASOPHILS ABSOLUTE AUTO 0.02 K/mm3 (0.00-0.23); BASOPHILS PERCENT AUTO 0 % (0-2); EOSINOPHILS ABSOLUTE AUTO 0.32 K/mm3 (0.00-0.68); EOSINOPHILS PERCENT AUTO 4 % (0-6); Hematocrit 29.7 % (37.0-53.0); Hemoglobin 8.9 g/dL (13.5-17.5); IMMATURE GRAN ABSOLUTE AUTO 0.05 K/mm3 (0.00-0.10); IMMATURE GRAN PERCENT AUTO 1 % (0-1); LYMPHOCYTES ABSOLUTE AUTO 0.67 K/mm3 (0.84-5.20); LYMPHOCYTES PERCENT AUTO 9 % (21-46); MONOCYTES ABSOLUTE AUTO 0.42 K/mm3 (0.16-1.47); MONOCYTES PERCENT AUTO 6 % (4-13); Mean Corpuscular HGB 28.2 pg (26.0-34.0); Mean Corpuscular Volume 94 fL (80-100); Mean Platelet Volume 10.8 fL (9.1-12.4); NEUTROPHILS ABSOLUTE AUTO 5.95 K/mm3 (1.96-9.15); NEUTROPHILS PERCENT AUTO 80 % (41-73); Platelet Count 236 K/mm3 (150-400); RDW Coefficient Variation 15.4 % (11.7-14.2); RDW Standard Deviation 52.6 fL (35.1-46.3); Red Blood Cell Count 3.16 M/mm3 (4.30-5.90); White Blood Cell Count 7.43 K/mm3 (4.00-11.30)
--- NOTE | 2019-01-11 06:42 | NUR ---
SHIFT SUMMARY- PT HAS REMAINED ORIENTED TO SELF AND FAMILY THROUGHOUT THE NIGHT, BUT IS FORGETFUL OF PLACE, EVENT AND TIME, REQUIRES FREQUENT RE-ORIENTATION TO SURROUNDINGS. PT HAS RESTED APPROXIMATELY ONE HOUR THROUGHOUT SHIFT AFTER MEDICATIONS ADMINISTERED FOR INSOMNIA. PT CALLS OUT INTO THE HALLWAY FOR STAFF MEMBERS AND REQUIRES FREQUENT REMINDERS TO USE CALL LIGHT. FAMILY HAS REMAINED AT THE BEDSIDE THROUGHOUT THE NIGHT. VSS. PT HAS BEEN MOSTLY COOPERATIVE WITH CARE. PT CONTINUES TO GAIN STRENGTH IN R SIDE, BUT L SIDE REMAINS VERY WEAK WITH GROSS MOVEMENT ONLY NOTED THROUGHOUT SHIFT. LEG BRACES REMAIN TO BLE WITH SURGICAL DRESSINGS AND ERLINDA HOSE IN PLACE. PT ABLE TO COMMUNICATE RESTROOM NEEDS WITH STAFF APPROPRIATELY. PT REPORTED PAIN ONCE IN BACKSIDE WHEN ASSISTED UP TO CHAIR THAT RELIEVED WITH REPOSITIONING AND BACK TO BED- DENIED WANT FOR PAIN MEDICATION. PT CONTINUES TO EXPRESS HIS WANT TO GO HOME AND IS FREQUENTLYU REMINIDED OF CURRENT STATUS AND NEED FOR REHABILITATION. REPORTS IMPROVEMENT FROM ORDERED COUGH SYRUP. NO OTHER CHANGES FROM INITIAL ASSESSMENT, WILL CONTINUE TO MONITOR AND REPORT TO ONCOMING SHIFT RN. BED IN LOW POSITION, CALL LIGHT IN REACH. BED ALARM SET FOR SAFETY.
--- NOTE | 2019-01-11 09:18 | NUR ---
pt laying in bed with at bedside, he is awake, continually asking to leave, wants to get up, and start the car, he is cooperative with care, follows some commands, but is confused, and not really redirectable, lungs are clear with a bit dim in bases, resp even and unlabored, no cough noted, he is on r/a, hrr, tele in place running sr per monitor, see strip, no edma noted, ppp+1, cap refill <3sec, vs stable, afebrile, iv site is clear and patent, btx4, abd round soft nontender, incont of urine, but does use urinal at times, skin c/w/d, except coccyx is slightly pink, and surgical incisions to b/l thighs, with dresssings intact, and leg braces in place, left side is flacid, seems unaware of left side, right side vice president education is strong, coleman but sluggish, turn q 2 hrs, call light in reach, at bedside, took po meds crushed in applesauce without diff, no coughing noted.
--- NOTE | 2019-01-11 13:30 | NUR ---
pt worked with pt/ot, sat on the side of the bed, did well. at bedside. call light in reach.
--- NOTE | 2019-01-11 14:00 | NUR ---
Spiritual care visit conducted. Patient was lying in bed and alert. I introduced myself to patient as I walked in the room. Patient reached out and shook my hand. Patient opnely shared about his health/life/family history. Patient expressed his concerns about his recovery. I listened empathically, explored sources of meaning and dignity, provided companionship and prayer. Patient responded well and stated that my visit really lifted his spirit and that he felt encouraged.
--- NOTE | 2019-01-11 19:28 | NUR ---
pt has not slept all day, did recieve an order for trazadone for sleep. happy to have something to help him, as he has not been sleeping. sister is staying with him tonight, call light in reach. no further changes.
[2019-01-12 05:07] LABS: BASOPHILS ABSOLUTE AUTO 0.04 K/mm3 (0.00-0.23); BASOPHILS PERCENT AUTO 1 % (0-2); EOSINOPHILS ABSOLUTE AUTO 0.28 K/mm3 (0.00-0.68); EOSINOPHILS PERCENT AUTO 4 % (0-6); Hematocrit 29.9 % (37.0-53.0); IMMATURE GRAN ABSOLUTE AUTO 0.04 K/mm3 (0.00-0.10); IMMATURE GRAN PERCENT AUTO 1 % (0-1); LYMPHOCYTES ABSOLUTE AUTO 0.66 K/mm3 (0.84-5.20); LYMPHOCYTES PERCENT AUTO 10 % (21-46); MONOCYTES ABSOLUTE AUTO 0.39 K/mm3 (0.16-1.47); MONOCYTES PERCENT AUTO 6 % (4-13); Mean Corpuscular HGB 28.1 pg (26.0-34.0); Mean Corpuscular HGB Conc 30.1 g/dL (31.5-36.5); Mean Corpuscular Volume 93 fL (80-100); Mean Platelet Volume 10.5 fL (9.1-12.4); NEUTROPHILS ABSOLUTE AUTO 5.11 K/mm3 (1.96-9.15); NEUTROPHILS PERCENT AUTO 78 % (41-73); Platelet Count 215 K/mm3 (150-400); RDW Coefficient Variation 15.6 % (11.7-14.2); RDW Standard Deviation 52.1 fL (35.1-46.3); White Blood Cell Count 6.52 K/mm3 (4.00-11.30)
[2019-01-12 05:32] LABS: Alanine Aminotransfer (ALT/SGP 42 U/L (12-78); Albumin, Blood 2.8 g/dL (3.4-5.0); Albumin/Globulin Ratio 0.7 (0.8-1.8); Anion Gap 8 mmol/L (6-16); Aspartate Aminotrans (AST/SGOT 26 U/L (12-37); Bilirubin, Total 0.6 mg/dL (0.1-1.0); Blood Urea Nitrogen 31 mg/dL (8-24); Bun/Creatinine Ratio 38.7 (12.0-20.0); CO2, Blood 23 mmol/L (21-32); Calcium, Blood 8.7 mg/dL (8.5-10.1); Chloride, Blood 111 mmol/L (98-108); Glomerular Filtration Rate >60 (60-); Glucose, Blood 110 mg/dL (70-99); Phosphorus, Blood 3.3 mg/dL (2.5-4.9); Potassium, Blood 4.4 mmol/L (3.5-5.5); Sodium, Blood 142 mmol/L (136-145); Total Protein, Blood 6.8 g/dL (6.4-8.2)
[2019-01-12 05:34] LABS: Alk Phos 97 U/L (50-136)
--- NOTE | 2019-01-12 05:59 | NUR ---
SHIFT SUMMARY- PT HAS REMAINED ORIENTED TO SELF AND FAMILY THROUGHOUT THE NIGHT, BUT DISORIENTED TO PLACE, AND EVENT- PT REMAINS FAIRLY INDIRECTABLE AND REQUIRES MUCH ENCOURAGEMENT WITH TASKS, SUCH TAKING MEDICATION OR USING RESTROOM. FOLLOWS DIRECTIONS WELL. L SIDED DEFICITS REMAIN, BUT PATIENT REPORTS SENSATION IN L EXTREMITIES AND EXIBITS GROSS MOTOR FUNCTION. PT ABLE TO SLEEP FOR SEVERAL HOURS THROUGHOUT THE NIGHT WITH AUTO CPAP IN PLACE WITH A 2L O2 BLEED IN AND HOME MASK ON MACHINE- PT TOLERATED WELL. O2 SATS REMAINED >90% THROUGHOUT THE NIGHT ON RA OR CPAP. PT HAS DENIED PAIN THROUGHOUT THE NIGHT AND TOLERATED REPOSITIONING WELL. NO OTHER CHANGES FROM INITIAL ASSESSMENT. WILL CONTINUE TO MONITOR AND REPORT TO ONCOMING SHIFT RN. BED IN LOW POSITION, CALL LIGHT IN REACH, FAMILY REMAINS AT BEDSIDE.
--- NOTE | 2019-01-12 08:35 | NUR ---
INITIAL ASSESSMENT: Pt resting in bed. Oriented to Self, family and following directions. Able to make some of his needs known. LS clear. Bt positive. Pulses palp. HR reg. Pt appears comfortable, just states that he us thirsty. PT is NPO except for meds cruched in applesauce. SIster at bedside. Pt cleaned and changed. BLE with braces on. Dressing on Bilat knees clean and intact. VSS. Call light in reach. Will monitor.
--- NOTE | 2019-01-12 16:31 | NUR ---
Shift summary: Pt dozing in bed with CPAP on. at bedside. Pt has done well this shift. Was able to participate with PT/OT today and sit at edge of bed with max assistance. Pt was then able to get up to recliner chair via lift. Tolerated well. Pt also had a barrium swallow study done today, he did not do well and may require a peg tube per speech. Pt will remain NPO except meds crushed in applesauce. VSS throughout shift. HR has remained in a NSR in the 60's. Polar packs to BLE were applied for 2 hours as ordered. Pt has been able to void in urinal, but is occasionally incontient. Pt will be transfered to room 311, report was given. Will transfer via bed. Stable at end of shift.
--- NOTE | 2019-01-12 22:28 | NUR ---
REPORT TAKEN FROM DINO INTERRELATED SPECIAL EDUCATION TEACHER FOR PATIENT TRANSFER.
--- NOTE | 2019-01-12 22:29 | NUR ---
PATIENT ARRIVED ON PCU BED AND CHANGED OUT BEDS. PATIENT AXO X4 AND SLOW TO RESPOND. BEDFAST IN LIFT ROOM. SPOUSE PRESENT ON TRANSFER. CLINIMIX ORDERED BY ATHLETIC SCOUT FOR MEDICAL FLOOR. PATIENT ON TELE AND RA. COOPERATIVE WITH TRANFER. CALL LIGHT IN REACH. WILL CONTINUE TO MONITOR.
--- NOTE | 2019-01-12 22:45 | NUR ---
CLINIMIX RESTARTED AT 100 mL/HR. PATIENT IS NPO WITH ICE CHIPS AND CRUSHED PO MEDS OKAY. CALL LIGHT IN REACH. SPOUSE PRESENT IN ROOM.
--- NOTE | 2019-01-13 | NUR ---
PATIENT'S SPOUSE REQUESTED TRAZADONE FOR HIS INSOMNIA. MORPHINE IV 2 MG GIVEN FOR LEFT LEG PAIN. PATIENT REPOSITION WITH KODY LIFT. CALL LIGHT IN REACH. WILL CONTINUE TO MONITOR.
--- NOTE | 2019-01-13 00:26 | NUR ---
RT PRESENT TO SET UP PATIENT CPAP AND CONTINUOUS PULSE OXIMETRY. PATIENT AND SPOUSE READY TO SLEEP. CLINIMIX INFUSING AT 100 mL/HR. CALL LIGHT IN REACH.
--- NOTE | 2019-01-13 02:00 | NUR ---
PATIENT HAS NOT SLEPT THIS SHIFT AND BECOMING INCREASINGLY AGITATED PULLING AT PICC LINE AND TRYING TO GRAB STAFF. SPOUSE PRESENT IN ROOM AND REORIENTS PATIENT. MORPHINE IV 2 MG GIVEN FOR LEFT LEG PAIN. MELATONIN 10 MG GIVEN FOR INSOMNIA. PATIENT BACK ON CPAP. CLINIMIX INFUSING AT 100 mL/HR. SPOUSE REFUSED 2ND VITALS PATIENT STARTING TO CLOSE EYES. WILL CONTINUE TO MONITOR.
--- NOTE | 2019-01-13 04:05 | NUR ---
SHIFT SUMMARY PATIENT IS A PCU TRANSFER AND BEDFAST IN A LIFT ROOM. PATIENT AXO X3 AND SLOW TO RESPOND. PICC REMAINS INTACT. CLINIMIX RESTARTED AT 100mL/HR. IV MORPHINE 2 MG GIVEN FOR LEFT LEG PAIN X3. NPO EXCEPT ICE CHIP AND PO MEDICATION CRUSHED IN APPLE SAUCE. KILN PLACER REPORTS NSR. TRAZADONE 25 MG GIVEN FOR INSOMNIA AND NOT EFFECTIVE. BENADRYL IV GIVEN FOR INSOMNIA FOLLOWED BY MELATONIN 10 MG PER SPOUSE. PATIENT NOTED INCREASING IN AGITATION AND PULLING AT PICC AND PLACING HANDS ON STAFF. SPOUSE INCREASING IN AGITATION SHE TRIES TO REORIENT SPOUSE AND REPORTS LACK OF SLEEP. PATIENT EVENTUALLY GETTING TIRED AND SLEEPS. CPAP AND CONTINUOUS PULSE OXIMETRY SET UP BY RT. VSS/AFEBRILE. DENIES SOB AND N/V. CALL LIGHT IN REACH. BED IN LOWEST POSITION. WILL CONTINUE TO MONITOR UNTIL DAY SHIFT NURSE ASSUMES CARE.
--- NOTE | 2019-01-13 05:30 | NUR ---
APPLICATIONS DEVELOPER ABLE TO GET SECOND SET OF VITALS. PATIENT CONTINUE TO PULL TELE LEADS OFF X 3 AND PULLED GOWN OFF. PULLING AT PICC LINE. PICC LINE WRAPPED AND PATIENT EDUCATED ON USE OF PICC LINE. CALL LIGHT IN REACH. SPOUSE PRESENT IN ROOM REPORTING SHE HASN'T SLEPT MUCH THIS SHIFT WITH PATIENT ACTIVE MOST OF THE NIGHT. WILL CONTINUE TO MONITOR.
--- NOTE | 2019-01-13 05:55 | NUR ---
PATIENT PULLING TELE LEADS OFF. UNABLE TO ORIENT TO PURPOSE OF LEADS. CALL LIGHT IN REACH.
--- NOTE | 2019-01-13 12:41 | NUR ---
PT SPOUSE LEFT THIS AM TO GO HOME FOR A FEW HOURS. PT GOT INCREASINGLY CONFUSED WHEN SHE WAS GONE AND PULLING AT ALL LINES INCLUDING PICC LINE. PT GOT AHOLD OF IV TUBING AND PULLED IT IN HALF. PT DOES NOT FOLLOW DIRECTION AND CONTINUOUSLY PULLS AT THINGS EVEN WHEN STAFF ARE AT BEDSIDE ASKING HIM NOT TO. IV LINE SECURED, TELE DC'D. ORDER RECEIVED FOR RESTRAINT TO RIGHT ARM SINCE LEFT ARM IS FLACCID. SPOUSE AND PT NOTIFIED OF REASON FOR RESTRAINTS.
--- NOTE | 2019-01-13 16:47 | NUR ---
PT IS CONFUSED. HE IS ALERT AND ORIENTED TO HIMSELF AND HIS . HIS LEFT THIS MORNING TO GO HOME, RESULTING IN THE PT BECOMING INCREASINGLY CONFUSED AND RESTLESS. HE PULLED AT HIS IV LINE AND BRACES RESULTING IN AN ORDER FOR A RUE SOFT WRIST RESTRAINT. ONCE HIS CAME BACK, SHE WAS ABLE TO CALM HIM. THE WRSIT RESTRAINTS WERE DC'D AT THIS TIME. THE PATIENT PARTICIPATED WITH PHYSICAL THERAPY TODAY. AFTER THERAPY HE WAS NOTICEABLY RESTLESS AND AGITATED. HE NEEDED CONSTANT ATTENTION AND SUPERVISION. THE AND GRANDDAUGHTER ARE AT THE BEDSIDE NOW. THE PT IS STRICT NPO. NO ICE CHIPS, NO PO MEDICATIONS. WILL CONTINUE TO MONITOR.
--- NOTE | 2019-01-13 18:22 | NUR ---
met with patients she was expressing severe stress, she has not left room to eat or go home and shower. advised I would visit pt and give her some respite to go eat in cafeteria. Pt aggitated and staff at bedside woring with pt on diversion.pt more verbal and aggitated. OT in to give exercise band and diversion. review of medications with physician and nursing. review of changing medication to rectal and wearing bipap more and sleep hygiene. Revie with strategies of care and asking family for help and respite. Gently reviewed the levels of care and phase of recovery and rehab and getting a break will retuen for follow up.
--- NOTE | 2019-01-13 19:05 | NUR ---
PT TRANSFERED TO ROOM 352, REPORT GIVEN TO SHERYL BORGES. FAMILY AT BEDSIDE.
[2019-01-14 06:02] LABS: BASOPHILS ABSOLUTE AUTO 0.02 K/mm3 (0.00-0.23); BASOPHILS PERCENT AUTO 0 % (0-2); EOSINOPHILS ABSOLUTE AUTO 0.27 K/mm3 (0.00-0.68); EOSINOPHILS PERCENT AUTO 4 % (0-6); Hematocrit 31.2 % (37.0-53.0); Hemoglobin 9.9 g/dL (13.5-17.5); IMMATURE GRAN ABSOLUTE AUTO 0.04 K/mm3 (0.00-0.10); IMMATURE GRAN PERCENT AUTO 1 % (0-1); LYMPHOCYTES ABSOLUTE AUTO 0.69 K/mm3 (0.84-5.20); LYMPHOCYTES PERCENT AUTO 10 % (21-46); MONOCYTES ABSOLUTE AUTO 0.49 K/mm3 (0.16-1.47); MONOCYTES PERCENT AUTO 7 % (4-13); Mean Corpuscular HGB 28.9 pg (26.0-34.0); Mean Corpuscular HGB Conc 31.7 g/dL (31.5-36.5); Mean Corpuscular Volume 91 fL (80-100); NEUTROPHILS ABSOLUTE AUTO 5.59 K/mm3 (1.96-9.15); NEUTROPHILS PERCENT AUTO 79 % (41-73); RDW Coefficient Variation 15.6 % (11.7-14.2); RDW Standard Deviation 51.3 fL (35.1-46.3); Red Blood Cell Count 3.42 M/mm3 (4.30-5.90)
[2019-01-14 06:21] LABS: Alanine Aminotransfer (ALT/SGP 57 U/L (12-78); Albumin, Blood 3.2 g/dL (3.4-5.0); Albumin/Globulin Ratio 0.8 (0.8-1.8); Alk Phos 111 U/L (50-136); Anion Gap 9 mmol/L (6-16); Aspartate Aminotrans (AST/SGOT 35 U/L (12-37); Bilirubin, Total 0.8 mg/dL (0.1-1.0); Blood Urea Nitrogen 25 mg/dL (8-24); CO2, Blood 22 mmol/L (21-32); Calcium, Blood 8.9 mg/dL (8.5-10.1); Chloride, Blood 108 mmol/L (98-108); Creatinine, Blood 0.74 mg/dL (0.60-1.20); Globulin, Blood 4.2 g/dL (2.2-4.0); Glomerular Filtration Rate >60 (60-); Glucose, Blood 105 mg/dL (70-99); Potassium, Blood 4.2 mmol/L (3.5-5.5); Sodium, Blood 139 mmol/L (136-145); Total Protein, Blood 7.4 g/dL (6.4-8.2)
[2019-01-14 06:37] LABS: Mean Platelet Volume 11.1 fL (9.1-12.4); Platelet Count 163 K/mm3 (150-400)
--- NOTE | 2019-01-14 07:07 | NUR ---
68 Y/O MALE HAD EPISODE OF LATE MORNING ELEVATED BP 190/105 WIT H HYDRALAZINE 20MG IVP GIVEN WITH BP RECHECKED IN 30 MINUTES WITH 120/80 NOTED. PT ALSO HAD NAUSEA EPISODE WITH ZOFRAN 4MG IVP GIVEN AT SAME TIME. PTS PICC LINE LFA PATIENT. PT ALERT AND ORIENTED X3, REQUIRES OCCASIONAL REORIENTATION. PT TURNED SELF FREQUENTLY BACK AND FORTH IN BED DURING NIGHT. PT DENIES PAIN. PT WEARING BILATERAL LOWER LEG KNEE BRACES. PT WAS MAINTAINED ON STRICT NPO STATUS. PTS DAUGHTER SPENT NIGHT AT SIDE ALL NIGHT AND WAS VERY SUPPORTIVE. PTS BED IN LOW POSITION WITH CALL LIGHT AT SIDE.
--- NOTE | 2019-01-14 15:07 | NUR ---
"DAY SURGERY | SURGERY CANCELLED. DOBHOFF TUBE PLACED. Patient family, Dr. Mcguire, and Dr. Zamora decided to cancel surgery d/t risks to patient. Dr. Mcguire placed dobhoff tube at bedside. No issues. Xray order in and xray on their way."
--- NOTE | 2019-01-14 15:26 | NUR ---
"DAY SURGERY RN | XRAY HERE"
--- NOTE | 2019-01-14 15:30 | NUR ---
"DAY SURGERY RN | XRAY CONFIRMED BY DR. QUAN IN RADIOLOGY, DOBHOFF TUBE IS AT 75. REPORT TO KATERINA SAUCEDO."
--- NOTE | 2019-01-14 18:14 | NUR ---
SUMMARY PT RESTING IN BED, FAMILY AT THE BEDSIDE, PT REMAINS RESTLESS, PEG TUBE CANCELLED AND DOBHOFF PLACED, XRAY CONFIRMED PLACEMENT, TUBE FEEDING STARTED AT 1800, PT HAS BEEN UP TO THE CHAIR TODAY WITH THE LIFT, PT ANSWERS MOST QUESTIONS APPROPRIATELY, L SIDE NEGLECT AND DEFECIT, LEG BRACES REMAIN IN PLACE, VSS, NO ACUTE CHANGES, WILL CONT TO MONITOR
--- NOTE | 2019-01-14 19:18 | NUR ---
pt returned from OR supportive visit with and updates to staff
--- NOTE | 2019-01-15 03:38 | NUR ---
68 Y/O MALE RESTED COMFORTABLY FOR LAST 1/2 SHIFT AFTER RECEIVING ATIVAN. PT HAD PULLED DOBHOFF FEEDING TUBE OUT (CHARGE NURSE--APOORVA BRYAN) AROUND 2330 AND WOULD NOT ALLOW STAFF TO REPLACE. PTS TELEMETRY REVEALS NSR WITH HEART RATE 80'S. PT WEARING BILATERAL LOWER EXTREMITY BRACES WHICH WERE READJUSTED AFTER PATIENT MOVED FROM LEFT TO RIGHT IN BED NUMBEROUS TIMES. PTS BROTHER IN LAW SHRUTHI SPENT THE EVENING TONIGHT. PT INCONTINENT URINE AND WORE ATTENDS DIAPERS. PT ALERT AND ORIENTED X 3, REQUIRES REDIRECTION AT TIMES. PT DENIES PAIN OR NAUSEA. PTS LEFT UPPER ARM PICC LINE INTACT. PT BED IN LOW POSITION WITH ALL LIGHT AT SIDE.
--- NOTE | 2019-01-15 05:48 | NUR ---
This nurse was unable to get a blood flash on PICC line for am blood draw, lab notified and will attempt peripheral draw. Pts desired to have feeding tube held this am instead of attempting to replace.
[2019-01-15 06:45] LABS: Magnesium, Blood 2.2 mg/dL (1.6-2.4); Phosphorus, Blood 3.8 mg/dL (2.5-4.9)
--- NOTE | 2019-01-15 18:18 | NUR ---
SUMMARY PT AWAKE IN BED VISITING WITH FAMILY, PT IS VERY RESTLESS AND HAS BEEN T/O THE DAY, PT REQUIRES FREQUENT REMINDERS ABOUT SAFETY AND HIS OWN LIMITATIONS, PT HAS BEEN UP TO THE RECLINER AND WAS ABLE TO GO WORK WITH PT/OT, PT REMAINS WITH L SIDE NEGLECT AND WEAKNESS, BILAT LEG BRACES REMAIN IN PLACE, TAKEN OFF AND REPOSITIONED SEVERAL TIMES TODAY, PT DID NOT ALLOW FOR ANOTHER PLACEMENT OF A DOBHOFF TUBE TODAY, PT AGITATED MORE THIS EVENING ABOUT GOING HOME, PT REMAINS NPO AND IS ON TPN, VSS, NO ACUTE CHANGES, WILL CONT TO MONITOR
--- NOTE | 2019-01-16 05:27 | NUR ---
SHIFT SUMMARY PT ONLY ORIENTED TO SELF AND FAMILY. CONTINUOUSLY CALLING OUT YELLING NON STOP T/O NIGHT. CANNOT COMPREHEND VERY FORGETFUL AND DOESN'T FOLLOW COMMANDS EASILY. VERY DISRUPTIVE THE WHOLE NIGHT DESPITE GETTING AMBIEN, BENADRYL AND ATIVAN. REQUIRES WRIST RESTRAINTS FOR R ARM TO PROTECT PICC LINE AND TELE LEADS. CAN MOVE HIS R LEG AND THROWS IT OVER RAIL AND OVER HIS L LEG. NO SLEEP THROUGH NIGHT CONTINUOUSLY YELLING OUT THROUGH THE WHOLE NIGHT. NOT REDIRECTABLE. INCONT OF URINE.
[2019-01-16 06:32] LABS: Alanine Aminotransfer (ALT/SGP 58 U/L (12-78); Albumin, Blood 3.2 g/dL (3.4-5.0); Albumin/Globulin Ratio 0.8 (0.8-1.8); Alk Phos 108 U/L (50-136); Anion Gap 9 mmol/L (6-16); Aspartate Aminotrans (AST/SGOT 35 U/L (12-37); Bilirubin, Total 0.8 mg/dL (0.1-1.0); Blood Urea Nitrogen 20 mg/dL (8-24); Bun/Creatinine Ratio 29.7 (12.0-20.0); CO2, Blood 22 mmol/L (21-32); Calcium, Blood 8.9 mg/dL (8.5-10.1); Chloride, Blood 108 mmol/L (98-108); Creatinine, Blood 0.67 mg/dL (0.60-1.20); Globulin, Blood 3.9 g/dL (2.2-4.0); Glomerular Filtration Rate >60 (60-); Glucose, Blood 135 mg/dL (70-99); Phosphorus, Blood 2.7 mg/dL (2.5-4.9); Potassium, Blood 4.3 mmol/L (3.5-5.5); Sodium, Blood 139 mmol/L (136-145); Total Protein, Blood 7.1 g/dL (6.4-8.2); Triglycerides 109 mg/dL (30-160)
[2019-01-16 06:52] LABS: BASOPHILS ABSOLUTE AUTO 0.03 K/mm3 (0.00-0.23); BASOPHILS PERCENT AUTO 0 % (0-2); EOSINOPHILS ABSOLUTE AUTO 0.16 K/mm3 (0.00-0.68); EOSINOPHILS PERCENT AUTO 2 % (0-6); Hematocrit 32.9 % (37.0-53.0); Hemoglobin 10.4 g/dL (13.5-17.5); IMMATURE GRAN ABSOLUTE AUTO 0.05 K/mm3 (0.00-0.10); IMMATURE GRAN PERCENT AUTO 1 % (0-1); LYMPHOCYTES ABSOLUTE AUTO 0.78 K/mm3 (0.84-5.20); LYMPHOCYTES PERCENT AUTO 10 % (21-46); MONOCYTES PERCENT AUTO 9 % (4-13); Mean Corpuscular HGB 29.1 pg (26.0-34.0); Mean Corpuscular HGB Conc 31.6 g/dL (31.5-36.5); Mean Corpuscular Volume 92 fL (80-100); Mean Platelet Volume 10.3 fL (9.1-12.4); NEUTROPHILS PERCENT AUTO 78 % (41-73); Platelet Count 228 K/mm3 (150-400); RDW Coefficient Variation 15.8 % (11.7-14.2); RDW Standard Deviation 52.9 fL (35.1-46.3); Red Blood Cell Count 3.58 M/mm3 (4.30-5.90); White Blood Cell Count 7.92 K/mm3 (4.00-11.30)
--- NOTE | 2019-01-16 20:05 | NUR ---
01/16/19 193 AND FAMILY MEMBER AT BEDSIDE. REMOVED RESTRAINT FROM RT WRIST AND STATES SHE WILL TAKE RESPONSIBILTY FOR ANY ACTIONS PT MAY DO BECAUSE RESTRAINT IS OFF.
--- NOTE | 2019-01-17 01:33 | NUR ---
01/17/19 0110 ATIVAN 1 MG IV GIVEN PT CONTINUING TO YELL AND TRYING TO SIT UP WITH LEGS OVER SIDERAILS. CPAP MACHINE APPLIED AND CONTINUOS O2 SAT MONITOR APPLIED. PT HAD REFUSED BOTH CPAP AND PULSE OX. EARLIER. PT VERY CONFUSED AND YELLING AT PT ACROSS [place].
[2019-01-17 05:42] LABS: BASOPHILS ABSOLUTE AUTO 0.03 K/mm3 (0.00-0.23); BASOPHILS PERCENT AUTO 0 % (0-2); EOSINOPHILS ABSOLUTE AUTO 0.23 K/mm3 (0.00-0.68); EOSINOPHILS PERCENT AUTO 3 % (0-6); Hematocrit 32.7 % (37.0-53.0); IMMATURE GRAN ABSOLUTE AUTO 0.06 K/mm3 (0.00-0.10); IMMATURE GRAN PERCENT AUTO 1 % (0-1); LYMPHOCYTES ABSOLUTE AUTO 0.84 K/mm3 (0.84-5.20); LYMPHOCYTES PERCENT AUTO 12 % (21-46); MONOCYTES ABSOLUTE AUTO 0.57 K/mm3 (0.16-1.47); MONOCYTES PERCENT AUTO 8 % (4-13); Mean Corpuscular HGB 28.9 pg (26.0-34.0); Mean Corpuscular HGB Conc 30.6 g/dL (31.5-36.5); Mean Platelet Volume 10.2 fL (9.1-12.4); NEUTROPHILS PERCENT AUTO 76 % (41-73); Platelet Count 214 K/mm3 (150-400); RDW Coefficient Variation 16.1 % (11.7-14.2); RDW Standard Deviation 55.9 fL (35.1-46.3); Red Blood Cell Count 3.46 M/mm3 (4.30-5.90); White Blood Cell Count 7.33 K/mm3 (4.00-11.30)
[2019-01-17 05:43] LABS: Mean Corpuscular Volume 95 fL (80-100)
[2019-01-17 06:04] LABS: Magnesium, Blood 2.2 mg/dL (1.6-2.4); Phosphorus, Blood 3.5 mg/dL (2.5-4.9)
--- NOTE | 2019-01-17 07:32 | NUR ---
01/17/19 0600 SLEPT WELL AFTER ATIVAN GIVEN. PT KEPT CPAP AND PULSE OXIMETER IN PLACE. VITALS BETTER WHEN SLEEPING. TURNED Q 2-3 HOURS. FREQUENT ORAL CARE WITH LEMON SWABS.
--- NOTE | 2019-01-17 17:59 | NUR ---
PT AOX3 AND HAS SOME MINOR CONFUSION. PT WAS ABLE TO SLEEP A BIT AT THE START OF SHIFT AND HAS BEEN COOPERATIVE OF ALL CARE. PT STILL GRABS AT LINES IF NOT MONITORED. LEG BRACES HAVE BEEN ADJUSTED X3 TODAY THE R ONE SLIDES DOWN WITH ALL OF THE PT'S EXTRA LEG MOTION. PT IS ROLLING AROUND IN BED MORE AND TRYS TO HELP TURN HIMSELF MUCH HE CAN BEING CHANGED.PHYSICAL THERAPY WORKED WITH PT TODAY AND WITH ASSISTANCE FROM THIS PRIVATE INVESTIGATOR AND AID PT WAS LIFTED INTO HIS WHEELCHAIR. PT DID WELL, BUT STATES THE WHEELCHAIR GET UNCOMFORTABLE AND WAS SOON BACK IN BED. WILL CONTINUE TO MONITOR.
--- NOTE | 2019-01-17 19:36 | NUR ---
01/17/191919 Pt very restless and trying to calm him. He states he wants to go home and is hanging leg over siderail. requesting a sleeper or relaxant for him. RN paged application support technician for order. Awaiting call back.
[2019-01-18 05:46] LABS: Anion Gap 5 mmol/L (6-16); Blood Urea Nitrogen 25 mg/dL (8-24); Bun/Creatinine Ratio 36.5 (12.0-20.0); CO2, Blood 27 mmol/L (21-32); Calcium, Blood 8.7 mg/dL (8.5-10.1); Chloride, Blood 107 mmol/L (98-108); Creatinine, Blood 0.68 mg/dL (0.60-1.20); Glomerular Filtration Rate >60 (60-); Glucose, Blood 107 mg/dL (70-99); Potassium, Blood 4.1 mmol/L (3.5-5.5); Sodium, Blood 139 mmol/L (136-145)
--- NOTE | 2019-01-18 06:15 | NUR ---
01/18/19 0610 VITALS TAKEN AND CONTINUES TO MOVE AND RESIST BP BEING TAKEN. HE WOULD NOT KEEP HIS RT ARM STRAIGHT AND THUS BP MEASURED HIGH. WILL RE-EVALUATE VITALS LATER. SLEPT WELL AFTER ATIVAN WAS GIVEN. ZYPREXA APPEARED TO BE INEFFECTIVE IN RELAXING PT LAST NIGHT. CPAP APPLIED AFTER ATIVAN AND PULSE OXIMETER REMAINS ON ALL SHIFT. FREQUENT ORAL CARE WITH WATER SOAKED SWABS. INCONTINENT OF URINE SEVERAL TIMES.
--- NOTE | 2019-01-18 15:14 | NUR ---
Spoke with spouse, Angélica, outside of room. She was tearful and emotionally fragile. She is still holding on to hope Noel will mentally improve. she is hoping, with "a couple more weeks" he will be able to swallow safely." That said, she does admit "he would never want to live like this." Angélica visibly relaxed with theraputic listening and gentle spiritual direction. We prayed together for a clear path. Angélica is waiting for definative answers from physicians to the question; will Noel improve? I will remain available.
--- NOTE | 2019-01-18 19:34 | NUR ---
SHIFT SUMMARY PT CONFUSED AND DIFFICULT REDIRECT. NO COMPLAINTS OF PAIN THIS SHIFT. CPN INFUSING VIA PICC LINE WITHOUT DIFFICULTY. SPOUSE AT BEDSIDE THROUGH OUT THE SHIFT. PT WORKED WITH PT AND WAS UP IN WHEELCHAIR THIS AFTERNOON. PT CONTINUES TO BE FLACCID ON LEFT SIDE. NO ACUTE CHANGES THIS SHIFT. CALL LIGHT IN REACH. REPORT GIVEN TO DEWAYNE SAUCEDO.
--- NOTE | 2019-01-19 07:52 | NUR ---
01/19/19 0630 PT CONTINUES TO BE RESTLESS AND NEEDS RT WRIST RESTRAINT HE PICKS AT TUBES,LINEN AND MONITOR WIRES. SLEEPS WELL AFTER HE RECEIVES ATIVAN IV. CPAP AND PULSE OX. APPLIED AFTER RELAXED. BED BATH WAS GIVEN BY NIGHT AIDE. INCONTINENT OF URINE BUT OCC. WILL USE A URINAL WITH ASSISTENCE. BP HAS REMAINED HIGH BUT DID DROP AFTER HYDRALAZINE DOSE GIVEN.
--- NOTE | 2019-01-19 19:18 | NUR ---
PT. LAYING ON LEFT SIDE IN BED AT THIS TIME. SEVERAL FAMILY MEMBERS IN AND BROTHER TO SPEND THE NIGHT. MAYI LR FROM [facility] AND READJUSTED PT'S BLE BRACES PER DR. ANDREW ORDERS. PT. SLEPT UNTIL AROUND NOON THEN WOKE UP AND STARTED INTERACTING WITH FAMILY. DR. RUSS REQUESTED ST TO REEVALUATE PT. IN THE MORNING WHEN HE WAKES TO SEE IF HE CAN EAT, IF PT. STILL UNABLE TO EAT PEG TUBE WILL BE PLACED TOMORROW AFTERNOON OR EVENING.
--- NOTE | 2019-01-20 05:06 | NUR ---
VSS, AFEBRILE, ALERT/CONFUSED, SEVERELY CRAIG, ALMOST BLIND, FAMILY AT THE BEDSIDE UNTIL 2300, THEN PT WAS LEFT IN THE ROOM ALONE. PT SCREAMED, YELLED, PULLED AT TUBES/LINES, WIGGLED OUT OF THE R HAND SOFT WRIST RESTRAINT, INCONT, TELE; STACH ALMOST ALL NOC, PT DID NOT TOLERATE HIS CPAP AND REMOVED IT. HOWEVER, HE HAS NOT SLEPT ALL NOC, EITHER. ATIVAN AND MS GIVEN EARLY IN THE SHIFT WERE INEFFECTIVE. DOWN ON THE LEFT SIDE BUT STILL VERY ACTIVE IN THE BARIATRIC BED. PT REMAINS NPO PER ORDER.
[2019-01-20 05:14] LABS: BASOPHILS ABSOLUTE AUTO 0.03 K/mm3 (0.00-0.23); BASOPHILS PERCENT AUTO 0 % (0-2); EOSINOPHILS PERCENT AUTO 1 % (0-6); Hemoglobin 9.4 g/dL (13.5-17.5); IMMATURE GRAN ABSOLUTE AUTO 0.04 K/mm3 (0.00-0.10); IMMATURE GRAN PERCENT AUTO 0 % (0-1); LYMPHOCYTES ABSOLUTE AUTO 0.86 K/mm3 (0.84-5.20); LYMPHOCYTES PERCENT AUTO 9 % (21-46); MONOCYTES ABSOLUTE AUTO 0.83 K/mm3 (0.16-1.47); MONOCYTES PERCENT AUTO 9 % (4-13); Mean Corpuscular HGB 28.3 pg (26.0-34.0); Mean Corpuscular HGB Conc 30.3 g/dL (31.5-36.5); Mean Corpuscular Volume 93 fL (80-100); Mean Platelet Volume 11.2 fL (9.1-12.4); NEUTROPHILS ABSOLUTE AUTO 7.62 K/mm3 (1.96-9.15); NEUTROPHILS PERCENT AUTO 80 % (41-73); Platelet Count 199 K/mm3 (150-400); RDW Coefficient Variation 15.8 % (11.7-14.2); RDW Standard Deviation 54.4 fL (35.1-46.3); Red Blood Cell Count 3.32 M/mm3 (4.30-5.90); White Blood Cell Count 9.48 K/mm3 (4.00-11.30)
[2019-01-20 05:34] LABS: Alanine Aminotransfer (ALT/SGP 55 U/L (12-78); Albumin, Blood 2.8 g/dL (3.4-5.0); Albumin/Globulin Ratio 0.7 (0.8-1.8); Alk Phos 119 U/L (50-136); Anion Gap 7 mmol/L (6-16); Aspartate Aminotrans (AST/SGOT 32 U/L (12-37); Bilirubin, Total 1.2 mg/dL (0.1-1.0); Blood Urea Nitrogen 30 mg/dL (8-24); Bun/Creatinine Ratio 38.2 (12.0-20.0); CO2, Blood 25 mmol/L (21-32); Calcium, Blood 8.9 mg/dL (8.5-10.1); Chloride, Blood 109 mmol/L (98-108); Creatinine, Blood 0.79 mg/dL (0.60-1.20); Globulin, Blood 4.3 g/dL (2.2-4.0); Glomerular Filtration Rate >60 (60-); Glucose, Blood 116 mg/dL (70-99); Potassium, Blood 4.3 mmol/L (3.5-5.5); Sodium, Blood 141 mmol/L (136-145); Total Protein, Blood 7.1 g/dL (6.4-8.2)
--- NOTE | 2019-01-20 17:31 | NUR ---
BROUGHT TO [facility] VSS ADMISSION TO UNIT STARTED. ANNESTHESIOLOGIST AND DR AT BED SIDE TO TALK TO PATIENT AND FAMILY MEMBER.
--- NOTE | 2019-01-20 17:49 | NUR ---
01/20/19 1745 Anh Hernandez History, Chart, Medications and Allergies reviewed before start of procedure. GENRAL ANETHESIA AND INTIBATION. SEE ANETHESIA RECORD FOR CARE.
--- NOTE | 2019-01-20 18:50 | NUR ---
PT. RETURNED TO ROOM VIA [facility] PACU. ABDOMINAL BINDER IN PLACE, PLACED RESTRAINT BACK ON RIGHT WRIST. PT. PLACED ON CPAP HE SATS WERE DROPPING, TELEMETRY PLACED HR SR WITH PVC'S AT 96. PT. GIVEN ZOFRAN IV FOR NAUSEA AND SUCTION TURNED ON IN CASE OF EMESIS AND BLUE CHUCKS PLACED ON CHEST.
--- NOTE | 2019-01-21 04:04 | NUR ---
SHIFT SUMMARY THE PT IS NEW TO THIS NURSE THIS NIGHT. UPON ARRIVAL ON SHIFT THE PT WAS RETURNING FROM HAVING A PEG TUBE PLACED. AT THE BEDSIDE. THE PT PRESENTED VERY CONFUSED AND UNSURE WHAT WAS GOING ON. THE PT BECOMES VERY FRUSTRATED USING VULGAR LANGUAGE DUE TO WRIST RESTRAINT TO R ARM TO PREVENT PT FROM PULLING OUT PICC LINE AND NEWLY PLACE PEG TUBE. PT WAS PLACED IN BED AND REPOSITIONED MULTIPLE TIMES. THIS NURSE NOTIFIED THAT PT WAS ANXIOUS SO THIS NURSE GAVE SCHEDULED ATIVAN AND ALSO PAIN MEDS PER EMAR. THE PT DID NOT APPEAR TO CALM DOWN. THIS NURSE THEN GAVE PAIN MEDICATION OF 3MG INSTEAD OF 2MG FOR BACK PAIN AND THE PT WENT TO SLEEP AND HAS APPEARED TO SLEEP COMFORTABLY SINCE. NO APPARENT SIGNS OF ACUTE DISTRESS. CPAP IN PLACE AND O2 SATS GREATER THEN 90. ALSO ADMINISTERED BP MEDS PER EMAR DUE TO ELEVATED BP. UNABLE TO RECHECK RESULTS AT THIS TIME THE PT HAS BEEN SLEEPING AND A MAIN GOAL FOR PT AND FAMILY WAS SLEEP PER . THIS IS THE FIRST NIGHT THE PT HAS SLEPT IN 3 NIGHTS. WILL CONTINUE TO MONITOR.
[2019-01-21 05:50] LABS: BASOPHILS ABSOLUTE AUTO 0.02 K/mm3 (0.00-0.23); BASOPHILS PERCENT AUTO 0 % (0-2); EOSINOPHILS ABSOLUTE AUTO 0.19 K/mm3 (0.00-0.68); EOSINOPHILS PERCENT AUTO 3 % (0-6); Hematocrit 31.3 % (37.0-53.0); IMMATURE GRAN ABSOLUTE AUTO 0.02 K/mm3 (0.00-0.10); IMMATURE GRAN PERCENT AUTO 0 % (0-1); LYMPHOCYTES ABSOLUTE AUTO 0.74 K/mm3 (0.84-5.20); LYMPHOCYTES PERCENT AUTO 10 % (21-46); MONOCYTES ABSOLUTE AUTO 0.58 K/mm3 (0.16-1.47); MONOCYTES PERCENT AUTO 8 % (4-13); Mean Corpuscular HGB 28.2 pg (26.0-34.0); Mean Corpuscular HGB Conc 28.8 g/dL (31.5-36.5); Mean Platelet Volume 11.1 fL (9.1-12.4); NEUTROPHILS ABSOLUTE AUTO 5.76 K/mm3 (1.96-9.15); NEUTROPHILS PERCENT AUTO 79 % (41-73); Platelet Count 232 K/mm3 (150-400); RDW Coefficient Variation 15.7 % (11.7-14.2); RDW Standard Deviation 57.3 fL (35.1-46.3); Red Blood Cell Count 3.19 M/mm3 (4.30-5.90); White Blood Cell Count 7.31 K/mm3 (4.00-11.30)
[2019-01-21 05:52] LABS: Mean Corpuscular Volume 98 fL (80-100)
[2019-01-21 06:06] LABS: Alanine Aminotransfer (ALT/SGP 55 U/L (12-78); Albumin, Blood 2.7 g/dL (3.4-5.0); Albumin/Globulin Ratio 0.6 (0.8-1.8); Alk Phos 122 U/L (50-136); Anion Gap 7 mmol/L (6-16); Aspartate Aminotrans (AST/SGOT 30 U/L (12-37); Bilirubin, Total 0.8 mg/dL (0.1-1.0); Blood Urea Nitrogen 30 mg/dL (8-24); Bun/Creatinine Ratio 41.6 (12.0-20.0); CO2, Blood 28 mmol/L (21-32); Calcium, Blood 8.7 mg/dL (8.5-10.1); Chloride, Blood 108 mmol/L (98-108); Creatinine, Blood 0.72 mg/dL (0.60-1.20); Globulin, Blood 4.2 g/dL (2.2-4.0); Glomerular Filtration Rate >60 (60-); Glucose, Blood 121 mg/dL (70-99); Potassium, Blood 4.2 mmol/L (3.5-5.5); Sodium, Blood 143 mmol/L (136-145); Total Protein, Blood 6.9 g/dL (6.4-8.2)
--- NOTE | 2019-01-21 07:05 | NUR ---
PT. AWAKE AND THRASHING ALL OVER BED, REPOSITIONED RLE LEG BRACE AND REPOSITIONED PT. PT. IN RIGHT SOFT WRIST RESTRAINT BUT MOVING AROUND IN BED TO WHERE HE CAN REACH HIS LINES. HAVING TO STAY IN ROOM TO KEEP PT. FROM TEARING HIS LINES OUT. RIPPED HIS CPAP MASK APART. PLACED NASAL CANNULA UNTIL I CAN GET CPAP MASK FIXED. SATS STAYING UP ON 4 L/NC. UNABLE TO LEAVE ROOM AT THIS TIME TO PREVENT LINES BEING PULLED, TRYING TO TAKE ABDOMINAL BINDER OFF. CALLED PT'S TO SEE IF SHE WOULD COME SIT WITH HIM HE WAS HOLLERING OUT, "LIGIA STRONG" GOT ELBERT TO STAY WITH PT. UNTIL THE SPOUSE ARRIVED SO I COULD TAKE CAREE OF MY OTHER PATIENTS.
--- NOTE | 2019-01-21 13:00 | NUR ---
PT. TUBE FEEDING STARTED PER ORDERS, FEEDING AT 20ML AN HOUR WITH H2O FLUSH OF 30 ML EVEERY 4 HOURS. CPN STILL INFUSING. WILL CHECK RESIDUALS IN 4 HOURS.
--- NOTE | 2019-01-21 17:13 | NUR ---
CHECKED PT. RESIDUAL ON HIS FEEDING TUBE, 99 CC TOTAL. CONTINUED FEEDINGS AT CURRENT RATE AND INCREASED HIS FLUSH TO 150 CC Q4H.. PT. TOLERATING FEEDINGS WELL.
--- NOTE | 2019-01-21 18:45 | NUR ---
PT. LYING QUIETLY AT THIS TIME, TUBE FEEDING INFUSING, FAMIL IN ROOM TO KEEP PT. FROM REMOVING HIS FEEDING TUBE AND IV LINES. TOLERATING FEEDING WELL, MEDS BEING GIVEN BY FEEDING TUBE. NO OTHER CHANGES THIS SHIFT
[2019-01-21 21:15] LABS: BASOPHILS ABSOLUTE AUTO 0.02 K/mm3 (0.00-0.23); BASOPHILS PERCENT AUTO 0 % (0-2); EOSINOPHILS ABSOLUTE AUTO 0.16 K/mm3 (0.00-0.68); EOSINOPHILS PERCENT AUTO 3 % (0-6); Hematocrit 27.9 % (37.0-53.0); Hemoglobin 8.2 g/dL (13.5-17.5); IMMATURE GRAN ABSOLUTE AUTO 0.02 K/mm3 (0.00-0.10); IMMATURE GRAN PERCENT AUTO 0 % (0-1); LYMPHOCYTES ABSOLUTE AUTO 0.61 K/mm3 (0.84-5.20); LYMPHOCYTES PERCENT AUTO 9 % (21-46); MONOCYTES ABSOLUTE AUTO 0.51 K/mm3 (0.16-1.47); MONOCYTES PERCENT AUTO 8 % (4-13); Mean Corpuscular HGB 28.3 pg (26.0-34.0); Mean Corpuscular HGB Conc 29.4 g/dL (31.5-36.5); Mean Corpuscular Volume 96 fL (80-100); Mean Platelet Volume 10.7 fL (9.1-12.4); NEUTROPHILS PERCENT AUTO 80 % (41-73); Platelet Count 227 K/mm3 (150-400); RDW Coefficient Variation 15.8 % (11.7-14.2); RDW Standard Deviation 55.3 fL (35.1-46.3); White Blood Cell Count 6.52 K/mm3 (4.00-11.30)
--- NOTE | 2019-01-21 21:56 | NUR ---
HYPOTENSIVE PT IS HYPOTENSIVE THIS EVENING, LAST READING OF 96/50. PULSE 84. AFEBRILE. CALLED SUBHASH WHO ORDERED 1L FLUID BOLUS. UPON COMPLETION OF BOLUS, BP HAS NOT IMPROVED. STAT LACTIC ACID 0.8. DR CULLEN TO ASSESS PT AT BEDSIDE.
[2019-01-21 23:11] LABS: Source, Urine Clean Catch
[2019-01-21 23:14] LABS: Blood, Urine Neg (Neg); Glucose Qualitative, Urine Neg (Neg); Ketones, Urine Neg (Neg); Leukocyte Esterase, Urine 1+ (Neg); Nitrite, Urine Neg (Neg); Protein, Urine 2+ (Neg); Urobilinogen, Urine 3+ (Normal)
[2019-01-21 23:25] LABS: Appearance, Urine Hazy (Clear); Bilirubin, Urine 1+ (Neg); Color, Urine Amber (P-Yellow)
[2019-01-21 23:26] LABS: Amorphous Light (0-Heavy); Bacteria Few /hpf; Mucus Light (0-Heavy); Red Blood Cells, Urine Not Seen /hpf (0-2); Squamous Epithelial Cells Not Seen /hpf (Few); White Blood Cells, Urine 0-2 /hpf (0-5)
--- NOTE | 2019-01-22 00:38 | NUR ---
SUBHASH ASSESSING PT AT BEDSIDE. BP 114/63.
[2019-01-22 06:00] LABS: Magnesium, Blood 2.3 mg/dL (1.6-2.4); Phosphorus, Blood 3.6 mg/dL (2.5-4.9)
--- NOTE | 2019-01-22 06:36 | NUR ---
SHIFT SUMMARY: PT HYPOTENSIVE AT START OF SHIFT. ADMINISTERED 1L FLUID BOLUS PER HOSPITALIST ORDERS, BP THIS AM IS TRENDING BACK TO PT NORMAL. SEE PRIOR NOTES. PT IS IMPULSIVE AND AGITATED T/O SHIFT, L HAND IN WRIST RESTRAINT TO PROTECT PEG TUBE. ABD BINDER IN PLACE. PT ATTEMPTS TO REMOVE ABD BINDER AND ACCESS PEG TUBE SEVERAL TIMES. CONT FEEDING RUNNING @ 30 ML/HR. INCREASED FEEDING BY 10 ML/HR @ 2100. RESIDUAL HAS BEEN WNL: 90 ML @ 2100, 30 ML @ 0100, 30 ML @ 0500. 150 ML WATER FLUSH Q4H. PT DOES NOT SLEEP TONIGHT, AND IS CALLING OUT NAMES SUCH "RUDDY", "SHARONA", AND "LIGIA". ADMINISTERED 2MG ATIVAN 1X, PROVIDED MINIMAL RELIEF. 3L VIA NC, PT UNCOMFORTABLE WITH CPAP TONIGHT AND REQUESTED NOT TO WEAR IT. TELE IN PLACE; NSR c PVCs @ 91. ONE EPISODE OF V TACH @ 138 bpm THIS AM, PT ASYMPTOMATIC. PT DENIES PAIN. ALERT TO SELF AND FAMILY ONLY, SPEECH IS NONSENSIBLE AT TIMES, AND A&O AT OTHER TIMES. ABLE TO ANSWER YES/NO Q'S. NO OTHER CHANGES TO REPORT. WILL CONT TO MONITOR AND PROVIDE CARE UNTIL PRESUMED BY ONCOMING RN.
--- NOTE | 2019-01-22 18:13 | NUR ---
SHIFT SUMMARY THE PATIENT PRESENTED THIS SHIFT WITH LUNGS THAT WERE DIMINISHED THROUGHOUT, VITALS THAT WERE WNL AND A&O TO SELF AND SOME SURROUNDINGS THE PATIENT'S SPOUSE WAS WITH THE PATIENT MOST OF THE SHIFT. THE PATIENT SLEPT OFF AND ON ALL SHIFT. THE PATIENT HAS AWAKEN AND IS YELLING AT THIS TIME, WILL CONTINUE TO MONITOR.
[2019-01-23 05:20] LABS: BASOPHILS ABSOLUTE AUTO 0.02 K/mm3 (0.00-0.23); BASOPHILS PERCENT AUTO 0 % (0-2); EOSINOPHILS ABSOLUTE AUTO 0.21 K/mm3 (0.00-0.68); EOSINOPHILS PERCENT AUTO 3 % (0-6); Hematocrit 29.7 % (37.0-53.0); Hemoglobin 8.6 g/dL (13.5-17.5); IMMATURE GRAN ABSOLUTE AUTO 0.02 K/mm3 (0.00-0.10); IMMATURE GRAN PERCENT AUTO 0 % (0-1); LYMPHOCYTES ABSOLUTE AUTO 0.52 K/mm3 (0.84-5.20); LYMPHOCYTES PERCENT AUTO 8 % (21-46); MONOCYTES PERCENT AUTO 8 % (4-13); Mean Corpuscular HGB 27.6 pg (26.0-34.0); Mean Corpuscular Volume 95 fL (80-100); Mean Platelet Volume 10.8 fL (9.1-12.4); NEUTROPHILS ABSOLUTE AUTO 5.19 K/mm3 (1.96-9.15); NEUTROPHILS PERCENT AUTO 80 % (41-73); Platelet Count 265 K/mm3 (150-400); RDW Coefficient Variation 15.5 % (11.7-14.2); RDW Standard Deviation 54.8 fL (35.1-46.3); Red Blood Cell Count 3.12 M/mm3 (4.30-5.90); White Blood Cell Count 6.46 K/mm3 (4.00-11.30)
[2019-01-23 05:45] LABS: Magnesium, Blood 2.1 mg/dL (1.6-2.4)
[2019-01-23 05:48] LABS: Alanine Aminotransfer (ALT/SGP 107 U/L (12-78); Albumin, Blood 2.5 g/dL (3.4-5.0); Albumin/Globulin Ratio 0.6 (0.8-1.8); Alk Phos 160 U/L (50-136); Anion Gap 7 mmol/L (6-16); Aspartate Aminotrans (AST/SGOT 54 U/L (12-37); Bilirubin, Total 0.5 mg/dL (0.1-1.0); Blood Urea Nitrogen 29 mg/dL (8-24); CO2, Blood 27 mmol/L (21-32); Calcium, Blood 8.9 mg/dL (8.5-10.1); Chloride, Blood 109 mmol/L (98-108); Creatinine, Blood 0.74 mg/dL (0.60-1.20); Globulin, Blood 4.4 g/dL (2.2-4.0); Glomerular Filtration Rate >60 (60-); Glucose, Blood 117 mg/dL (70-99); Potassium, Blood 4.5 mmol/L (3.5-5.5); Sodium, Blood 143 mmol/L (136-145); Total Protein, Blood 6.9 g/dL (6.4-8.2)
--- NOTE | 2019-01-23 06:43 | NUR ---
HOLDING TUBE FEEDING X2 HRS. PT RESIDUAL CHECK @ 0600 REVLEALED RESIDUAL OF 260 ML. FEEDING WILL BE HELD FOR 2 HRS UNTIL RECHECK AT 0800. WILL PASS ON TO DAYSHIFT RN
--- NOTE | 2019-01-23 06:46 | NUR ---
SHIFT SUMMARY: PT AGITATED AND YELLING OUT TONIGHT. ADMINISERTED 2MG ATIVAN TWICE FOR RELIEF. ABD BINDER IN PLACE AND WRIST RESTRAINT TO R WRIST ONLY. L SIDE FLACCID. O2 @ 3L VIA NC. PT DENIES PAIN. VSS. 3 UNMEASURED, INCONTINENT VOIDS. FEEDING TUBE RESIDUALS FOLLOWS: 160 ML @ 2200, 150 ML @ 0200, AND 260 ML @ 0600. FEEDING WILL BE HELD UNTIL RECHECK @ 0800. WILL PASS OFF TO ROSEANN SAUCEDO. PICC LINE TO MICHAEL C/D/I, DRAWING, PATENT. BILAT KNEE BRACES IN PLACE. NO OTHER CHANGES TO REPORT. WILL CONT TO MONITOR AND PROVIDE CARE UNTIL PRESUMED BY ONCOMING RN.
[2019-01-23 12:47] LABS: Percent Saturation 9.7 % (20.0-50.0)
--- NOTE | 2019-01-23 14:53 | NUR ---
RECEIVED REPORT FROM MOHINDER SAUCEDO, NO ACUTE ISSUES NOTED. PATIENT IS CURRENTLY OUT OF WRIST RESTRAINT ON RIGHT HAND BECAUSE IS IN THE ROOM. oRDERS RECEIVED TO RESUME WRIST RESTRAINT WHEN LEAVES FOR THE DAY. NO CURRENT COMPLAINTS OF PAIN OR DISCOMFORT NOTED. WILL CONTINUE TO MONITOR FOR CHANGES.
--- NOTE | 2019-01-23 18:38 | NUR ---
NO ACUTE CHANGES NOTED. NO CURRENT COMPLAINTS OF PAIN OR DISCOMFORT NOTED. PATIENT TAKEN OUT OF WRIST RESTRAINS AND A MITTEN PLACED AT THE REQUEST OF . PATIENT IS DOING WELL WITH THIS, HE HAS NOT TRIED TO PULL ON ANY OF HIS TUBES. PATIENT HAS BEEN ASLEEP MOST OF THE DAY BUT IS STARTING TO WAKE UP AND INTERACT MORE WITH STAFF. NO CURRENT COMPLAINTS OF PAIN OR DISCOMFORT NOTED AT THIS TIME. RESIDUAL FROM FEEDING AT 1600 WAS 110MLS, PATIENT APPEARS TO BE TOLERATING FEEDINGS WELL. WILL CONTINUE TO MONITOR FOR CHANGES.
--- NOTE | 2019-01-24 04:18 | NUR ---
PT CONTINUES TO BE LETHARGIC AND NOT ASNWERING QUESTIONS REGARDLESS OF ATIVAN BEING DC'D. PT IS MUCH MORE AGITATED, CALLING OUT T/O THE NIGHT, RESTLESS. PT HAS NOT SLEPT YET AT THIS TIME.
[2019-01-24 05:22] LABS: BASOPHILS ABSOLUTE AUTO 0.01 K/mm3 (0.00-0.23); BASOPHILS PERCENT AUTO 0 % (0-2); EOSINOPHILS ABSOLUTE AUTO 0.21 K/mm3 (0.00-0.68); EOSINOPHILS PERCENT AUTO 3 % (0-6); Hematocrit 30.1 % (37.0-53.0); Hemoglobin 8.7 g/dL (13.5-17.5); IMMATURE GRAN ABSOLUTE AUTO 0.01 K/mm3 (0.00-0.10); IMMATURE GRAN PERCENT AUTO 0 % (0-1); LYMPHOCYTES ABSOLUTE AUTO 0.81 K/mm3 (0.84-5.20); LYMPHOCYTES PERCENT AUTO 13 % (21-46); MONOCYTES ABSOLUTE AUTO 0.59 K/mm3 (0.16-1.47); MONOCYTES PERCENT AUTO 9 % (4-13); Mean Corpuscular HGB 28.1 pg (26.0-34.0); Mean Corpuscular HGB Conc 28.9 g/dL (31.5-36.5); Mean Corpuscular Volume 97 fL (80-100); Mean Platelet Volume 10.9 fL (9.1-12.4); NEUTROPHILS ABSOLUTE AUTO 4.74 K/mm3 (1.96-9.15); NEUTROPHILS PERCENT AUTO 74 % (41-73); Platelet Count 297 K/mm3 (150-400); RDW Coefficient Variation 15.5 % (11.7-14.2); White Blood Cell Count 6.37 K/mm3 (4.00-11.30)
[2019-01-24 05:41] LABS: Alanine Aminotransfer (ALT/SGP 110 U/L (12-78); Albumin, Blood 2.6 g/dL (3.4-5.0); Albumin/Globulin Ratio 0.6 (0.8-1.8); Alk Phos 162 U/L (50-136); Anion Gap 6 mmol/L (6-16); Aspartate Aminotrans (AST/SGOT 51 U/L (12-37); Bilirubin, Total 0.6 mg/dL (0.1-1.0); Blood Urea Nitrogen 32 mg/dL (8-24); Bun/Creatinine Ratio 38.6 (12.0-20.0); CO2, Blood 29 mmol/L (21-32); Calcium, Blood 8.8 mg/dL (8.5-10.1); Chloride, Blood 109 mmol/L (98-108); Creatinine, Blood 0.83 mg/dL (0.60-1.20); Globulin, Blood 4.3 g/dL (2.2-4.0); Glomerular Filtration Rate >60 (60-); Glucose, Blood 108 mg/dL (70-99); Potassium, Blood 4.4 mmol/L (3.5-5.5); Sodium, Blood 144 mmol/L (136-145); Total Protein, Blood 6.9 g/dL (6.4-8.2)
--- NOTE | 2019-01-24 06:43 | NUR ---
SHIFT SUMMARY: PT HAS BEEN OUT OF WRIST RESTRAINTS AND IN PROTECTIVE HAND GINI ALL NIGHT. THIS HAS BEEN SUCCESSFUL; TO R HAND ONLY. PT IS RESTLESS, CALLING OUT ALL NIGHT, DID NOT GET ANY SLEEP. CALLS OUT FOR HELP, NAMES, SHOUTING. TUBE FEEDING RESIDUALS MONITORED Q4H AND ARE FOLLOWS: 80 ML @ 2200, 20 ML @ 0200, AND 80 ML @ 0600. TELE IN PLACE; NSR c PVCs @ 83 bpm. 3L VIA NC; CONT PULSE OXIMETRY IN PLACE. TUBE FEED RUNNING JEVITY @ 60 ML/HR. BRACES TO BILATERAL KNEES. PICC LINE TO MICHAEL IS C/D/I, PATENT AND DRAWING. NO OTHER CHANGES TO REPORT WILL CONT TO MONITOR AND PROVIDE CARE,
--- NOTE | 2019-01-24 18:30 | NUR ---
SHIFT SUMMARY PT AXO TO SELF, FAMILY AND FOLLOWING DIRECTIONS. VSS THIS SHIFT. PT UP TO CHAIR THIS MORNING AND THEN UP TO WHEELCHAIR WITH PHYSICAL THERAPY. DEVEN UTILIZED DURING PHYSICAL THERAPY TO PREVENT PT FROM SINKING OUT OF CHAIR THEN DISCONTINUED AT COMPLETION OF THERAPY. TUBE FEEDINGS THIS SHIFT PER ORDERS WITH RESIDUAL CHECKS OF 20ML, 60ML THEN 20ML, SEE I&O'S. PT CHANGED AND REPOSITIONED FREQUENTLY. ORAL CARE PRN. BED IN LOW POSITION, CALL LIGHT WITHIN REACH. FAMILY PRESENT FOR MOST OF THE DAY. PT CALLING OUT AND DISTURBING MANY OTHER PATIENTS THIS MORNING. ONE TIME DOSE OF ZYPREXA PER SL, PER DR LUNDY. PT'S SPOUSE REQUESTED AT THE END OF THE SHIFT THAT PATIENT NOT BE GIVEN ANY ZYPREXA DURING THE DAY. DR LUNDY NOTIFIED AND ORDER DC'D. PT'S SPOUSE REQUESTED THAT THE NURSE CALL FAMILY MEMBERS DURING THE DAY WHEN PT CALLS OUT, RATHER THAN MEDICATIONS THAT WILL MAKE HIM DROWSY. NURSE NOTIFY ORDER IN PLACE.
[2019-01-25 05:49] LABS: Alanine Aminotransfer (ALT/SGP 99 U/L (12-78); Albumin, Blood 2.2 g/dL (3.4-5.0); Albumin/Globulin Ratio 0.6 (0.8-1.8); Alk Phos 138 U/L (50-136); Anion Gap 8 mmol/L (6-16); Aspartate Aminotrans (AST/SGOT 42 U/L (12-37); Bilirubin, Total 0.3 mg/dL (0.1-1.0); Blood Urea Nitrogen 26 mg/dL (8-24); Bun/Creatinine Ratio 34.6 (12.0-20.0); CO2, Blood 29 mmol/L (21-32); Calcium, Blood 8.4 mg/dL (8.5-10.1); Chloride, Blood 108 mmol/L (98-108); Creatinine, Blood 0.75 mg/dL (0.60-1.20); Glomerular Filtration Rate >60 (60-); Glucose, Blood 117 mg/dL (70-99); Potassium, Blood 3.7 mmol/L (3.5-5.5); Sodium, Blood 145 mmol/L (136-145); Total Protein, Blood 6.2 g/dL (6.4-8.2)
--- NOTE | 2019-01-25 07:43 | NUR ---
19-BEAT OF VTACH REPORTED BY PAPERHANGER. NO CHANGE IT PT CONDITION. PT HAS BEEN HAVING BEATS OF V TACH DURING THE DAY OFTEN. IS AWARE.
--- NOTE | 2019-01-25 07:58 | NUR ---
SHIFT SUMMARY: PT SLEPT THROUGH THE NIGHT. NO EPISODES OF YELLING OUT OR AGITATION. PT SLEPT SOUNDLY FROM 2130 - 0630. PT WOKE UP WITH CLEAR SPEECH, AND BASELINE MENTATION, ABILITY TO ANSWER Q'S/FOLLOW COMMANDS/CARRY ON CONVERSATION. PT REPORTS HE "FEELS GOOD" AND "SLEPT VERY WELL". CPAP IN PLACE FOR THE NIGHT; ROOM AIR DURING THE DAY. PT IS A&O, TELE IN PLACE; NSR c PVC'S @ 83 BPM. PT HAS 19-BEAT RUN OF VTACH THIS AM; SEE PRIOR NOTE. R HAND GINI IN PLACE TO PREVENT PULLING AT PEG TUBE. RESIDUAL CHECKS PERFORMED Q4H ALL WNL AND >250 ML. CONT FEEDINGS RUNNING @ 60 ML/HR, c 150 ML WATER FLUSHES Q4H. MEDS CRUSHED AND ADMINISTERED VIA PEG TUBE WELL. BILATERAL KNEE BRACES IN PLACE; ERLINDA BOB REMOVED YESTERDAY, TO BE PUT BACK ON THIS AM; NOTIFIED DAYSHIFT RN. VSS. NO OTHER CHANGES TO REPORT. WILL CONT TO MONITOR AND PROVIDE CARE UNTIL PRESUMED BY ONCOMING RN.
--- NOTE | 2019-01-25 18:02 | NUR ---
MAYI FROM [employer] WAS HERE AND RESHAPED AND ADJUSTED PT'S KNEE BRACE AROUND THE THIGH.
--- NOTE | 2019-01-25 18:29 | NUR ---
BOWEL MOVEMENT PER PT'S PT HAD A BM 2 DAYS AGO. LAST BM CHARTED WAS 1 DAYS AGO. WILL PROVIDE BOWEL CARE PER EMAR.
--- NOTE | 2019-01-25 20:09 | NUR ---
SHIFT SUMMARY: PT WAS COOPERATIVE WITH CARES T/O DAY. MITT RESTRAINT REMOVED THIS MORNING. HE IS ABLE TO FOLLOW DIRECTIONS WITH FREQ REMINDERS AND REORIENTATION. RESTRAINTS WILL NEED TO BE PLACED WHEN FAMILY IS NOT PRESENT TO PROTECT PEG TUB. PEG GOAL RATE OF 60ML/HR TOLERATED WELL. RESIDUALS CHECKED PER ORDERS, NO RESIDUALS TO NOTE. TOLERATED PT/OT WELL. OVERHEAD LIFT TO W/C. FAMILY TOOK HIM OUTSIDE FOR 20 MINUTES, TOLERATED WELL. TELE WAS D/C'D. PT REFUSED ERLINDA HOSE PLACEMENT T/O DAY AND STILL NEED TO BE PLACED. NEXT RN NOTIFIED THAT ERLINDA HOSE STILL NEED PLACED. BILAT KNEE BRACES IN PLACE WITH 40 DEGREE POSITIONING.
--- NOTE | 2019-01-26 07:59 | NUR ---
SHIFT SUMMARY A/O TO SELF AND FAMILY. CONTINUOUS RE-DIRECTION; FOLLOWS SOME COMMANDS, BUT VERY IMPUSIVE AND FORGETFUL. GINI IN PLACE D/T PULLING AT BINDER AND TUBES/CORDS. BILATERAL BRACES IN PLACE WITH ERLINDA HOSE WHICH WERE REPLACED LAST NIGHT. APPEARED TO REST FOR ABOUT 4 HOURS LAST NIGHT WITH CPAP. REMAINS ON CONTINUOUS BIOX. STATED DRY MOUTH; GIVEN WET SPONGES; CONTINUED TO REQUEST WATER, EXPLAINED WHY HE WAS UNABLE TO DO SO, STATED UNDERSTANDING. CONTINUOUS FEEDINGS REMAIN IN PLACE WITH AUTOMATIC FLUSHES. RECHECKED TEMPERATURE THIS AM ORALLY YEILDING 98.5. BED IN LOWEST POSITION. CALL LIGHT WITHIN REACH. CONTINUED TO MONITOR THROUGHOUT SHIFT. REPORT GIVEN TO ONCOMING RN.
--- NOTE | 2019-01-26 18:34 | NUR ---
Noel was alone in room. He smiles easily, but appeared a bit confused. He wanted to know "Who is running the nelson?" Mood is clearly better. He denied pain or needs and allowed me to pray for him at bedside. I will remain available to pt and family.
--- NOTE | 2019-01-26 20:40 | NUR ---
SHIFT SUMMARY PATIENT A&O TO SELF, PLACE, AND FAMILY. DENIES ANY PAIN OR SOB THIS SHIFT. ON RA. PEG TUBE WNL. BOLUS TUBE FEEDINGS PER ORDERS. PATIETN TOLERATING WELL. NO BRACES TO BILAT LEGS. NO ACUTE CHANGES THIS SHIFT.
[2019-01-27 06:46] LABS: Hematocrit 29.3 % (37.0-53.0); Hemoglobin 8.8 g/dL (13.5-17.5); Mean Corpuscular HGB 27.6 pg (26.0-34.0); Mean Platelet Volume 10.8 fL (9.1-12.4); Platelet Count 367 K/mm3 (150-400); RDW Standard Deviation 50.8 fL (35.1-46.3); Red Blood Cell Count 3.19 M/mm3 (4.30-5.90); White Blood Cell Count 5.99 K/mm3 (4.00-11.30)
[2019-01-27 06:55] LABS: Mean Corpuscular Volume 92 fL (80-100)
[2019-01-27 07:05] LABS: Anion Gap 7 mmol/L (6-16); Blood Urea Nitrogen 20 mg/dL (8-24); Bun/Creatinine Ratio 28.3 (12.0-20.0); CO2, Blood 31 mmol/L (21-32); Calcium, Blood 8.6 mg/dL (8.5-10.1); Chloride, Blood 105 mmol/L (98-108); Creatinine, Blood 0.71 mg/dL (0.60-1.20); Glomerular Filtration Rate >60 (60-); Glucose, Blood 115 mg/dL (70-99); Potassium, Blood 4.2 mmol/L (3.5-5.5); Sodium, Blood 143 mmol/L (136-145)
--- NOTE | 2019-01-28 03:46 | NUR ---
68 Y/O MALE SLEPT QUIETLY ALL EVENING. PT DENIES PAIN OR NAUSEA. PTS HAD NO RESIDUAL VIA G-TUBE FEEDING TONIGHT, PASSING FLATUS. PT LEFT ARM FLACCID, ALERT AND ORIENTED X 2, ABLE FOLLOW VERY SIMPLE VERBAL COMMANDS, NPO. PTS BED IN LOW POSITION, CALL LIGHT AT SIDE, BED ALARM ON.
--- NOTE | 2019-01-28 06:04 | NUR ---
THIS NURSE CHANGED DRESSING AROUND GTUBE INSERTION SITE (SITE UNDER DISC RED AND IRRITATED, CLEANSED WITH SALINE SOAKED Q TIP, SITE COVERED OVER TOP OF DISC WITH DRAIN SPONGES X4 AND TEGADERM OPSITE WITH SKIN PREP. THIS NURSE ALSO NOTED LEFT ARM PICC LINE WAS LAYING IN BED WITH ENTIRE CATHETER INTACT, LEFT FOREARM HAD NO BLEEDING OR EDEMA NOTED.
--- NOTE | 2019-01-29 03:45 | NUR ---
68 y/o MALE SLEPT QUIETLY ALL NIGHT AFTER WEARING C-PAP. G-TUBE FLUSHED WELL WITH NO RESIDUAL NOTED. PT DENIES PAIN OR NAUSEA. PTS BED LOW POSITION WITH CALL LIGHT AT SIDE. PTS WEARING BILATERAL LOWER LEG BRACES.
--- NOTE | 2019-01-29 19:45 | NUR ---
PATIENT A/O TO SELF AND FAMILY. TOLERATING TUBE FEEDS AND WATER BOLUSES. DENIES ANY PAIN. BRACES TO BLE AT ALL TIMES. CPAP AT NOC, LUNGS CLEAR/DIM. MAINTAINING SATS TODAY ON RA. AT BEDSIDE FOR MOST OF SHIFT ASSISTING WITH CARE. PATIENT IS STRICT NPO AND NEEDS ASSISTANCE WITH ORAL CARE AND SUCTIONING. NO IV SITE. PATIENT CALM AND COOPERATIVE WITH CARE THIS SHIFT. NO ACUTE CHANGES THIS SHIFT.
--- NOTE | 2019-01-30 07:27 | NUR ---
NOC SHIFT SUMMARY PT IS PLEASANT AND COOPERATIVE WITH CARE. CONFUSED BUT EASILY ORIENTED. NO ACUTE CHANGES THIS SHIFT. APPEARS IN NO ACUTE DISTRESS. REPORT TO ONCOMING NURSE.
--- NOTE | 2019-01-30 18:34 | NUR ---
PATIENT CONTINUES TO SHIFT AROUND IN HIS BED,REGARDLESS OF CONTINUALLY BEING REPOSITIONED MULTIPLE TIMES. HE IS TOLERATING HIS FEEDINGS. PATIENT CONTINUES TO HAVE LEFT SIDED WEAKNESS, WITH STRONGER WEAKNESS WITH UPPER EXTREMITY . HE CONTINUES TO WANT TO LAY ON HIS LEFT SIDE. FAMILY BEEN AT BEDSIDE MOST OF THE DAY.
--- NOTE | 2019-01-31 04:58 | NUR ---
NOC SHIFT SUMMARY PT WAS PLEASANTLY CONFUSED AND COOPERATIVE WITH CARE THIS EVENING. HE WENT TO SLEEP SHORTLY AFTER EVENING FEEDING AND HAS SLEPT WELL THROUGHOUT THE NIGHT. NO ACUTE CHANGES NOTED THIS SHIFT. APPEARS IN NO ACUTE DISTRESS. WILL CONTINUE TO MONITOR.
--- NOTE | 2019-01-31 12:25 | NUR ---
LATE ENTRY.DOCTOR GAVE VERBAL ORDER TO DC OXIMETRY MONITOR DURING THE DAY . NURSE THOUGHT DOCTOR WOULD DC ORDER. HE DID NOT SO IT WAS DONE TODAY. COULD NOT BACKDATE IT.
--- NOTE | 2019-01-31 16:29 | NUR ---
PATIENT CONTINUES TO HAVE LEFT SIDED WEAKNESS TO LOWER EXTREMITY. HE WAS ABLE WITH ASSISTANCE FROM LIFT, TO GET IN CHAIR THIS SHIFT. HE HAS NO COMPLAINTS OF PAIN. HE CONTINUES TO FORGET HIS LIMITATIONS AND OFTEN TRYS TO EITHER SIT UP AT THE SIDE OF THE BED OR GET OUT OF BED, NEITHER OF WHICH HE IS ABLE TO DO DUE TO LEFT SIDED WEAKNESS AND THE INABILITY TO MOVE HIS LEFT ARM. HE CONTINUES TO RECIEVE NUTRITION THROUGH HIS PEG. FAMILY IS PRESENT THROUGH OUT THE DAY.
--- NOTE | 2019-02-01 07:30 | NUR ---
NOC SHIFT SUMMARY PT WAS PLACED BACK INTO BED FROM CHAIR IN THE EVENING. ONCE SITUATED WITH PILLOWS PROPPING UP LEFT SIDE HE DID SLEEP MOST OF NIGHT ON CPAP. VSS. HAS BEEN PLEASANTLY CONFUSED THROUGHT THE NIGHT BUT IS EASILY REDIRECTABLE. NO ACUTE CHANGES NOTED THIS NIGHT FROM LAST NIGHT. APPEARS IN NO ACUTE DISTRESS. REPORT TO ONCOMING RN.
--- NOTE | 2019-02-01 17:14 | NUR ---
SUMMARY L ARM, L LEG WEAKNESS/DISCOORDINATION CONTINUES R/T CVA, HE IS ABLE TO COMMAND SOME WEAK MOVEMENT. L VISION POOR STATE BLURRY. BILAT LE'S CONTINUE IN BRACES, RECENT BILAT SURGERY, PHYTHER & PT ADJUST TODAY. PT IS NON WT BRG. LIFT TO CHAIR. PEG TUBE FEEDINGS CONTINUE, REVIEWED WITH CHEESE CUTTER. HAVE HELD SOME FEEDINGS D/T RESIDUALS OUT OF PARAMETERS. PT HAS NO BM CHARTED X MULT DAYS, HAVE GIVEN MOM & SUPPOSITORY. PT MENTATION CONTINUES TO IMPROVE, ST IN FOR EVAL THIS AFTERNOON. VSSW.
--- NOTE | 2019-02-02 05:50 | NUR ---
SUMMARY: PT ORIENTED TO SELF/FAMILY BUT REMAINS CONFUSED TO SITUATION AND DESIRES TO GO HOME. HE IS FORGETFULL WHICH MAKES IT DIFFICULT FOR HIM TO FOLLOW INSTRUCTION AT TIMES. PT PREFERS LYING ON L.SIDE AND DISLIKES BEING ON HIS BACK W/HOB ELEVATED FOR BOLUS TF, FREQUENT REMINDERS REQUIRED RE: POSITIONING W/FEEDINGS. PT HAD 20 MLS RESIDUAL AT 2000 PEG TUBE FEEDING W/1 CARTON JEVITY 1.5 FED AND HS MEDS RECIEVED. 2300 RESIDUAL WAS 0 AND MN MED WAS PROVIDED W/ANOTHER CARTON OF JEVITY 1.5 THEN 300 ML WATER FLUSH WAS RECIEVED SINCE DAY STAFF WAS UNABLE TO GIVE ALL OF THEIRS. TURN SCHEDULE MAINTAINED AND BRACES REMAIN IN PLACE TO BILAT LEGS. L.ARM CONT'S FLACCID W/L.LEG WEAKNESS AND VISUAL DEFICITS NOTED. HE DOESN'T USE HIS CALL LIGHT APPROPRIATELY AND YELLS OUT FOR ASSIST PRN. PT USED BEDPAN UNSUCCESSFULLY AND WAS INCONTINENT OF VOID/SMEAR BM. LIFT WAS USED FOR MOVING PT UP IN BED AND ORAL SWABS PROVIDED AD JACINTO. NO ACUTE CHANGES, VSS/AFEBRILE. WILL MONITOR AND REPORT TO DAY RN.
--- NOTE | 2019-02-02 19:12 | NUR ---
Met with spouse, Angélica, outside of room. She is very happy with Noel's progress. Her plan is for Noel to go to local SNF for rehab until he can be placed in SNF of her chosing in [place]. Angélica is appreciaitive of emotional and spiritual support and encouragement. I will remain available.
--- NOTE | 2019-02-02 19:27 | NUR ---
summary PT IS GENERALLY PLEASANT T/O DAY HOWEVER HAS DIFFICULT TIME WITH COMFORTABLE POSITION. HE FAVORS LYING TO LEFT, CONSTANTLY MOVING & SCOOTING DOWN IN BED, REQUIRES FREQUENT REPOSITIONING. HE HAS BEEN UP IN RECLINER VIA LIFT. HE AHS BEEN UP IN W/C & FAMILY HAS TAKEN HIM OUTSIDE 30-60 MIN TWICE TODAY. PT/OT & SPEECH THERAPY TX TODAY. CONTINUE NPO FOR NOW/ST. PEG TUBE FEEDING SCHEDULED HOWEVER HAVE HELD 1 FEEDING & 1 WATER FLUSH D/T RESIDUAL >150ML. HE HAD COMPLETE BEDBATH TODAY, LOTION TO DRY SKIN. LEG BRACES REALIGNED BY SARAH. PLAN CONTINUES FOR HIM TO TRANSFER TO SNF WHEN CARE MANAGEMENT ABLE TO RESOLVE INSURANCE ISSUES. VSS.
[2019-02-03 06:09] LABS: BASOPHILS ABSOLUTE AUTO 0.03 K/mm3 (0.00-0.23); BASOPHILS PERCENT AUTO 0 % (0-2); EOSINOPHILS ABSOLUTE AUTO 0.19 K/mm3 (0.00-0.68); EOSINOPHILS PERCENT AUTO 3 % (0-6); Hematocrit 31.4 % (37.0-53.0); Hemoglobin 9.4 g/dL (13.5-17.5); IMMATURE GRAN ABSOLUTE AUTO 0.05 K/mm3 (0.00-0.10); IMMATURE GRAN PERCENT AUTO 1 % (0-1); LYMPHOCYTES ABSOLUTE AUTO 1.03 K/mm3 (0.84-5.20); LYMPHOCYTES PERCENT AUTO 15 % (21-46); MONOCYTES PERCENT AUTO 9 % (4-13); Mean Corpuscular HGB 27.4 pg (26.0-34.0); Mean Corpuscular HGB Conc 29.9 g/dL (31.5-36.5); Mean Corpuscular Volume 92 fL (80-100); Mean Platelet Volume 10.1 fL (9.1-12.4); NEUTROPHILS ABSOLUTE AUTO 5.08 K/mm3 (1.96-9.15); NEUTROPHILS PERCENT AUTO 73 % (41-73); Platelet Count 427 K/mm3 (150-400); RDW Coefficient Variation 16.1 % (11.7-14.2); RDW Standard Deviation 53.3 fL (35.1-46.3); Red Blood Cell Count 3.43 M/mm3 (4.30-5.90); White Blood Cell Count 6.98 K/mm3 (4.00-11.30)
--- NOTE | 2019-02-03 06:19 | NUR ---
SUMMARY: ORIENTED TO SELF, FAMILY AND SURROUNDINGS BUT REQ'S FREQ REMINERS AND CAN BECOME FRUSTRATED DURING CARE D/T FORGETFULLNESS. HE DOESN'T USE CALL LIGHT APPROPRIATELY AND INSTEAD YELLS INTO HALLS FOR ASSIST. HE IS A LIFT OOB AND REQUIRES FREQ REPOSITIONING D/T PT BEING FIGITY/RESTLESS AND SLIDING DOWN IN BED OFTEN. BRACES ARE INTACT TO BLE'S W/ERLINDA STOCKINGS IN PLACE. HE PREFERS TO BE ON L.SIDE AND CONT'S TO HAVE L.SIDE DEFICITS POST CVA. L.LEG IS WEAK AND L.ARM HAS GROSS MOVEMENTS ONLY. HIS VISUAL DEFICITS WERE MORE PROMINENT TONIGHT AND HE SEEMED TO HALLUCINATE MORE. HS MEDS WERE EFFECTIVE AT PROVIDING RESTFULL SLEEP AND HE TOLERATED HIS CPAP ON CONT BIOX MOST OF NOCTE. MEDS CRUSHED AND ADMINISTERED VIA PEG TUBE. RESIDUAL AT 2000 FEED WAS 130MLS SO WAS REINSTILLED PER PARAMETERS THEN 1 CARTON JEVITY 1.5 WAS RECIEVED. RESIDUAL AT 2300 FEED WAS DOWN TO 60MLS AND WAS AGAIN REINSTALLED W/JEVITY PROVIDED. ORAL CARE COMPLETED PRN AND STAFF HELPED W/URINAL. NO ACUTE CHANGES, VSS/AFEBRILE. HE CONT'S HYPERTENSIVE BUT RECIEVED Q6H SCHEDULED CATAPRESS. PT IS POSSIBLE D/C TO SNF TODAY. WILL MONITOR AND RERPORT TO DAY RN.
[2019-02-03 06:31] LABS: Alanine Aminotransfer (ALT/SGP 85 U/L (12-78); Albumin, Blood 2.7 g/dL (3.4-5.0); Albumin/Globulin Ratio 0.7 (0.8-1.8); Alk Phos 115 U/L (50-136); Anion Gap 6 mmol/L (6-16); Aspartate Aminotrans (AST/SGOT 34 U/L (12-37); Bilirubin, Total 0.3 mg/dL (0.1-1.0); Blood Urea Nitrogen 16 mg/dL (8-24); Bun/Creatinine Ratio 21.9 (12.0-20.0); CO2, Blood 30 mmol/L (21-32); Calcium, Blood 8.6 mg/dL (8.5-10.1); Chloride, Blood 106 mmol/L (98-108); Creatinine, Blood 0.73 mg/dL (0.60-1.20); Globulin, Blood 3.9 g/dL (2.2-4.0); Glomerular Filtration Rate >60 (60-); Glucose, Blood 114 mg/dL (70-99); Potassium, Blood 4.2 mmol/L (3.5-5.5); Sodium, Blood 142 mmol/L (136-145); Total Protein, Blood 6.6 g/dL (6.4-8.2)
--- NOTE | 2019-02-03 17:56 | NUR ---
SHIFT SUMMARY NO ACUTE CHANGES. WORKED WITH PT/PT TODAY. UP IN CHAIR AND IN WHEELCHAIR FOR WALKS. TUBE FEEDS TOLERATED WELL. FAMILY AT BEDSIDE. DENIES NAUSEA, PAIN, AND SHORTNESS OF BREATH. CALL LIGHT IN REACH, WILL CONTINUE TO MONITOR. CARE MANAGEMENT CONTINUES TO LOOK FOR SNF PLACEMENT.
--- NOTE | 2019-02-03 23:20 | NUR ---
nursing note: Tube feeding bolus completed. Tolerated well. pt had minimal residual before feeding. Meds given.
--- NOTE | 2019-02-04 05:30 | NUR ---
Shift summary. Pt tolerating tube feeding well with minimal residual. No c/o pain. H20 flushes given. Pt strict npo. Family at bedside helping with cares. Pt slept well most of shift after seroquel given. Pt requires lift to do anything with him. Pt unable to help. Morning tube feeding given. Bilateral braces in place which pt does not like. Kelton alfredo back on this am.
--- NOTE | 2019-02-04 19:36 | NUR ---
SHIFT SUMMARY NO ACUTE CHANGES. PATIENT DENIES PAIN, NAUSEA, AND SHORTNESS OF BREATH. PATIENT WORKED WITH PT AND OT TODAY. THEY ASSISTED PATIENT INTO SHOWER. TUBE FEEDING TOLERATED WELL. PATIENT ABLE TO SIT ON BEDSIDE SEVERAL TIMES THIS SHIFT. REPORT GIVEN TO DEWAYNE SAUCEDO.
--- NOTE | 2019-02-04 22:06 | NUR ---
HOLDING PT'S 2000 FEEDING DOSE DUE TO PT REPORTS SOME BLOATING AND GAS. RESIDUALS >40 ML.
--- NOTE | 2019-02-05 06:38 | NUR ---
SMASHER HAND SUMMARY PT AAOX2-3, BECOMES A BIT MORE DISORIENTED AND FORGETFUL WHEN FAMILY GOES HOME. AT START OF SHIFT PT REPORTED FEELING BLOATED AND GASSY. PT AND FAMILY AGREED TO HOLD 2000 CARTON OF JEVITY FEEDING. CHECKED PT RESIDUAL THIS AM AND WAS <20 MLS. FLUSHED PT WITH 300 ML WATER WELL MORNING MEDS. PT STATES THIS AM THAT BLOATING IS IMPROVED. PT COMPLAINING OF NOT HAVING A BM RECENTLY. PT RECIEVED MILK OF MAGNESIA JUST BEFORE START OF SHIFT. NO BM THIS SHIFT. WILL PASS ON TO DAY RN TO USE ANOTHER MILK OF MAG AND A POSSIBLE SUPPOSITORY. PT HAS BEEN PASSING GAS QUITE OFTEN. PT WAS ABLE TO SLEEP COMFORTABLY MOST OF SHIFT WITH CPAP ON, CONTINUOUS BIOX SHOWED O2 SATS STABLE IN MID 90'S ON CPAP. VSS, WILL CONTINUE TO MONITOR.
--- NOTE | 2019-02-05 19:32 | NUR ---
SHIFT SUMMARY ALAN ORIENTED TO SELF, FAMILY, FOLLOWING DIRECTIONS, BUT HE IS UNSURE OF DATE AND PERSEVERATES ON THINGS AND IS FORGETFUL. ALL SCHEDULED TUBE FEEDS AND FLUSHES GIVEN THROUGH PEG (0800, 1100, 1400, 1700 TUBE FEEDS WITH 1500 FLUSH). VERY LOW RESIDUALS (20CC). WHEN FULLY AWAKE, HE DOES WELL ON ROOM AIR. WHEN SLEEPY, HE NEEDED THE 2L OXYGEN. HAD LARGE HARD BM, CONTINUE BOWEL PROTOCOL. ORTHO KRNACIK CAME AND CHANGED ORDER TO OK TO BEND TO 70 DEGREES, AND NEW KNEE BRACES BROUGHT AND APPLIED BY JAGUAR OP. LIFT TX TO WC AND CHAIR. NWB BLE. USES URINAL WITH ASSISTANCE. RASH IN GROIN AND UNDER L ARM. NPO. TO VIBRA FRIDAY. HANDED OVER TO SCRAP COLLECTOR
--- NOTE | 2019-02-06 00:01 | NUR ---
193: patient bp low but patient alert and awake and asymptomatic; patient hx of low bps; pushed fluids 480 mls and recheck in 1 hour 2144; bp improved 89/48; push fluids orally and recehcking 2349: patient found lethargic and with bad pallor;patient o2 sats low 80s applied o2 and patient immediately aroused; called RT to evaluate; patient drifting off intermittently and doesnt look good unable to get a good bp on him; 60's/30s then 105/64 then 70s/over 40s; notified charge and requested rapid response. patient recieved 1 liter bolus and meds per emar. 0009: patient weaned off o2 and maintianing 92% satuaration
--- NOTE | 2019-02-06 19:53 | NUR ---
PT IS A/OX3 SOMEWHAT FORGETFULL AT TIMES, THE PT HAS IMPAIRED VISION AND HEARING, TODAY THE PT WAS UP X3 INTO THE WHEELCHAIR AND WENT OUT SIDE WITH HIS FAMILY X2, THE PT DENIED ANY PAIN THE PT APPEARED TO BE BREATHING EASILY ON RA, THE PT TOLERATED HIS BOLUS TUBE FEEDING WELL, THE PTS BRACES REMAINED ON HIS LEGS AND THE PT REMAINED NON WEIGHT BEARING ON HIS LEGS, THE PT WAS UP TO THE SIDE SUNITA THE BED, AND THE PHYSICAL THERAPIST WORKED WITH THE PT WHILE HE WAS SITTING UP ON THE SIDE OF THE BED, FAMILY IN TO SEE THE PT T/O THE DAY, CALL LIGHT IN REACH, THE LIFT WAS USED TO GET THE PT UP TODAY
--- NOTE | 2019-02-07 19:19 | NUR ---
PT IS A/OX3, PLEASANT AND COOPERATIVE, THE PT IS FORGETFULL AT TIMES, THE PT WAS GIVEN A BED BATH TODAY, THE PT WAS REPOSITIONED T/O THE DAY, THE PT WAS ASSISTED ONTO THE BSC, AND INTO THE WHEEL CHAIR SEVERAL TIMES TODAY, THE PT WAS GIVEN A SUPPOSITORY AND HAD A LARGE BM, THE PT WAS GIVEN TUBE FEEDING WITH EXTRA WATER T/O THE DAY AND TOLERATED IT WELL, THE PTS FAMILY WAS AT THE BEDSIDE T/O THE DAY, ERLINDA HOSE WERE TAKEN OFF AND THE LEG BRACES REAPPLIED, THE PT REMAINED NPO T/O THE DAY, CALL LIGHT IN REACH
--- NOTE | 2019-02-08 18:02 | NUR ---
SHIFT SUMMARY. A&OX2-3, ALTERNATING LEVELS OF ORIENTATION, MORE ORIENTATED WHEN FAMILY IS IN ROOM. PT WORKED WITH PT/OT/ST, EACH DISCIPLINE REPORTS THAT PT HAS MADE IMPROVEMENT FROM INITIAL EVALUATIONS. PT CONTINUES WITH BOLUS TF AND IS TOLERATING WELL WITH NO MORE THAN 20ML RESIDUAL. NO PAIN, SOB, N/V. MILD ANXIETY AT TIMES THAT RESOLVES WITH REORIENTATION AND REASSURANCE. KNEE BRACES IN PLACE ENTIRE SHIFT. AT BEDSIDE SINCE LATE MORNING. NO OTHER CHANGES.
--- NOTE | 2019-02-09 17:43 | NUR ---
SHIFT SUMMARY. A&OX2-3, PLEASANT, FOLLOWS COMMANDS, PLEASANT AND COOPERATIVE. CONTINUES WITH BOLUS TF, PT TOLERATING WELL. DENIES SOB, N/V. PT REPORTED PAIN TO 1ST L TOE THIS AM THAT HAD RESOLVED A FEW HOURS LATER WITHOUT INTERVENTION. CONTINUES WITH CEILING LIFT FOR TRANSFERS TO W/C. UP TO W/C THREE TIMES THIS SHIFT. IN ROOM WITH PT MOST OF THE SHIFT. PT TOLERATING SITTING AT EDGE OF BED WELL WHEN SUPERVISED BY . NO NEW CHANGES.
--- NOTE | 2019-02-10 04:58 | NUR ---
NOC SHIFT SUMMARY PT IS PLEASANT AND COOPERATIVE WITH CARE THIS NIGHT. FAMILY LEFT SHORTLY AFTER 1999 AND PT WAS MADE READY FOR BED. SLEPT MOST OF NIGHT, AT 0140 PT HAD AN EPISODE DESCRIBED "HEARTBURN" THIS LASTED APPROX 20 SECONDS AND THEN RESOLVED ENTIRELY. VS WERE CHECK AND NO CHANGE NOTED. PT DENIED ANY N/V, SOB, OR ANY OTHER S/S. STATES FEELS NORMAL. INFORMED CHARGE [facility] RODRÍGUEZ OF THIS. PT WAS AGAIN ASSESSED AT 0358, VS NORMAL AND NO RETURN OF ANY S/S. PT CURRENTLY APPEARS IN NO ACUTE DISTRESS. WILL CONTINUE TO MONITOR AND REPORT TO ONCOMING RN.
--- NOTE | 2019-02-10 08:02 | NUR ---
Patient gave me verbal permission 02/10/19 to perform patient care for him today.
--- NOTE | 2019-02-10 11:57 | NUR ---
Medication where administered past window of administration due to tube feeding taking longer than expected.
--- NOTE | 2019-02-10 18:31 | NUR ---
SHIFT SUMMARY PT HAS HAD NO ACUTE CHANGES THIS SHIFT, NO COMPLAINTS OF ANY KIND, PT UP TO SIDE OF BED 2X DURING SHIFT, UP TO W/C 1X AND UP TO RECLINER- ALL VIA LIFT. PT UP IN RECLINER AT THIS TIME W/FAMILY AT BEDSIDE, WILL CONT TO MONITOR UNTIL REPORT GIVEN TO NOC RN.
--- NOTE | 2019-02-11 06:36 | NUR ---
Rn summary: Patient is alert but is forgetful. He is very restless in bed, he likes to lie on his leftside. Pt with peg tube and receives bolus feedings and water. Pt did have 140cc of residual with first feeding but had 30 with 2nd check and 10cc the other 2 checks. Pt does assist with repositioning. He was in the chair at the beginning of shift, ceiling lift used to transfer him to the bed. Pt has had no c/o pain. Plan is for pt to be discharged to [facility] today. Pt uses the call light appropriately. Calls to use the urinal and has been continent. Stable this shift.
[2019-02-11] MEDS ORDERED: Coreg25 MG PT (14:33)
[2019-02-11] MEDS ORDERED: EDARBI40 MG PT (14:35)
[2019-02-11] MEDS ORDERED: ALBU2.5V5 INH (14:36)
[2019-02-11] MEDS ORDERED: ATOR40TA PT (14:37)
[2019-02-11] MEDS ORDERED: CLON.2 PT (14:39)
[2019-02-11] MEDS ORDERED: Prinivil10 MG PO (14:40)
[2019-02-11] MEDS ORDERED: OMEPRAZOLE MAGN20 MG PO (14:41)
[2019-02-11] MEDS ORDERED: QUET200 PO (14:41)
[2019-02-11] MEDS ORDERED: DEEP SEA44 ML (14:43)
--- NOTE | 2019-02-11 16:08 | NUR ---
SHIFT SUMMARY PT HAS HAD NO ACUTE CHANGES THIS SHIFT, NO COMPLAINTS OF ANY KIND. REPORT CALLED TO KD @ [facility] @ 1274. PT SCHED TO TRANSPORT VIA [facility] @ 1600, PACKED ROOM AND TOOK BELONGINGS IN PRIVATE VEHICLE. PT UP IN W/C WAITING FOR TRANSPORT AT THIS TIME, WILL CONT TO MONITOR UNTIL DISCHARGED.
--- NOTE | 2019-02-11 16:28 | NUR ---
PT TRANSPORTED VIA [facility] AT 1625
== END 2019-02-11 16:24 | DRG 500 ==
LOC: ER 18:09 → SURS 20:53 → ICUE 20:53 → MEDS 20:53 → SURS 23:18 → ICUE 12-18 16:41 → PCU 01-08 14:33 → MEDS 01-12 22:01
PROVIDERS: Family Medicine; Internal Medicine; Internal Medicine Critical Care Medicine; Internal Medicine Pulmonary Disease; Nurse Practitioner Acute Care; Orthopaedic Surgery; Surgery; ADMIT Hospitalist
PROC: 0KQR0ZZ Repair Left Upper Leg Muscle, Open Approach (ICD-10-PCS; 2018-12-18)
PROC: 2W3MX1Z Immobilization of Left Lower Extremity using Splint (ICD-10-PCS; 2018-12-18)
PROC: 5A12012 Performance of Cardiac Output, Single, Manual (ICD-10-PCS; 2018-12-18)
PROC: 0BH17EZ Insertion of Endotracheal Airway into Trachea, Via Natural or Artificial Opening (ICD-10-PCS; 2018-12-18)
PROC: 5A1955Z Respiratory Ventilation, Greater than 96 Consecutive Hours (ICD-10-PCS; 2018-12-18)
PROC: 0KQQ0ZZ Repair Right Upper Leg Muscle, Open Approach (ICD-10-PCS; principal; 2018-12-18 12:30)
PROC: 02703ZZ Dilation of Coronary Artery, One Artery, Percutaneous Approach (ICD-10-PCS; 2018-12-20)
PROC: 4A023N7 Measurement of Cardiac Sampling and Pressure, Left Heart, Percutaneous Approach (ICD-10-PCS; 2018-12-20)
PROC: B210YZZ Fluoroscopy of Single Coronary Artery using Other Contrast (ICD-10-PCS; 2018-12-20)
PROC: 0DH63UZ Insertion of Feeding Device into Stomach, Percutaneous Approach (ICD-10-PCS; 2019-01-20)
DX: S76.111A Strain of right quadriceps muscle, fascia and tendon, initial encounter (principal); J96.00 Acute respiratory failure, unspecified whether with hypoxia or hypercapnia; I21.4 Non-ST elevation (NSTEMI) myocardial infarction; G92 Toxic encephalopathy; I97.121 Postprocedural cardiac arrest following other surgery; G97.82 Other postprocedural complications and disorders of nervous system; G93.1 Anoxic brain damage, not elsewhere classified; N17.9 Acute kidney failure, unspecified; E87.0 Hyperosmolality and hypernatremia; Z68.41 Body mass index [BMI] 40.0-44.9, adult; W19.XXXA Unspecified fall, initial encounter; Y93.89 Activity, other specified; Y92.89 Other specified places as the place of occurrence of the external cause; Y99.0 Civilian activity done for income or pay; E66.9 Obesity, unspecified; I25.10 Atherosclerotic heart disease of native coronary artery without angina pectoris; I10 Essential (primary) hypertension; G47.33 Obstructive sleep apnea (adult) (pediatric); Z95.5 Presence of coronary angioplasty implant and graft; D63.1 Anemia in chronic kidney disease; E11.22 Type 2 diabetes mellitus with diabetic chronic kidney disease; E11.59 Type 2 diabetes mellitus with other circulatory complications; I12.9 Hypertensive chronic kidney disease with stage 1 through stage 4 chronic kidney disease, or unspecified chronic kidney disease; N18.9 Chronic kidney disease, unspecified; Z87.891 Personal history of nicotine dependence; S83.281A Other tear of lateral meniscus, current injury, right knee, initial encounter; N18.3 Chronic kidney disease, stage 3 (moderate)
CPT/HCPCS: 31720; 36415; 36569; 36600; 70450; 71045; 73564; 73721; 74230; 80048; 80053; 80069; 80202; 81001; 82140; 82330; 82550; 82553; 82607; 82728; 82746; 82803; 82947; 83540; 83550; 83605; 83735; 83880; 84100; 84145; 84443; 84478; 84484; 85014; 85018; 85025; 85027; 87040; 87070; 87205; 90686; 92507; 92526; 92610; 92611; 92920; 92978; 93005; 93010; 93454; 93880; 93970; 93971; 94002; 94003; 94640; 94660; 94667; 94668; 94760; 94762; 95819; 96374; 96375; 97110; 97112; 97163; 97164; 97167; 97168; 97530; 97535; 99285-25; A9270-GY; C1725; C1751; C1753; C1769; C1887; C1894; C8929; C9113; G0515; J0295; J0360; J0690; J1100; J1170; J1200; J1644; J1650; J1953; J1956; J2060; J2250; J2270; J2310; J2370; J2405; J2543; J2710; J3010; J3370; J3480; J7030; J7040; J7050; J7060; J7070; J7120; Q9957; Q9967

== ENCOUNTER 2019-02-11 22:05 | Inpatient (IN) | payer BC, OTHER ==
[~2019-02-11] VITALS: Ht 177.8 cm; Wt 120.1 kg
[~2019-02-11 22:05] MED LIST changes: +ALBU2.5V5 INH; +AMLO5 PO; +ATOR40TA PT; +CARV25 PO; +CLON.2 PT; +Coreg25 MG PT; +DEEP SEA44 ML; +EDARBI40 MG PT; +K-Dur10 MEQ PO; +LOSA50 PO; +Nystatin15 GM TOP; +OMEPRAZOLE MAGN20 MG PO; +POTA10T PO; +Prinivil10 MG PO; +QUET200 PO
[2019-02-11 22:58] LABS: Source, Urine Catheter
[2019-02-11 23:02] LABS: Bilirubin, Urine Neg (Neg); Blood, Urine Neg (Neg); Glucose Qualitative, Urine Neg (Neg); Ketones, Urine Neg (Neg); Leukocyte Esterase, Urine 1+ (Neg); Nitrite, Urine Neg (Neg); Protein, Urine 1+ (Neg); Urobilinogen, Urine 1+ (Normal)
[2019-02-11 23:02] LABS: BASOPHILS ABSOLUTE AUTO 0.02 K/mm3 (0.00-0.23); BASOPHILS PERCENT AUTO 0 % (0-2); EOSINOPHILS ABSOLUTE AUTO 0.06 K/mm3 (0.00-0.68); EOSINOPHILS PERCENT AUTO 1 % (0-6); Hematocrit 34.5 % (37.0-53.0); Hemoglobin 10.5 g/dL (13.5-17.5); IMMATURE GRAN ABSOLUTE AUTO 0.04 K/mm3 (0.00-0.10); IMMATURE GRAN PERCENT AUTO 0 % (0-1); LYMPHOCYTES ABSOLUTE AUTO 0.41 K/mm3 (0.84-5.20); LYMPHOCYTES PERCENT AUTO 4 % (21-46); MONOCYTES ABSOLUTE AUTO 0.69 K/mm3 (0.16-1.47); MONOCYTES PERCENT AUTO 6 % (4-13); Mean Corpuscular HGB 27.5 pg (26.0-34.0); Mean Corpuscular HGB Conc 30.4 g/dL (31.5-36.5); Mean Corpuscular Volume 90 fL (80-100); Mean Platelet Volume 10.5 fL (9.1-12.4); NEUTROPHILS PERCENT AUTO 89 % (41-73); Platelet Count 294 K/mm3 (150-400); RDW Coefficient Variation 16.2 % (11.7-14.2); RDW Standard Deviation 52.7 fL (35.1-46.3); Red Blood Cell Count 3.82 M/mm3 (4.30-5.90); White Blood Cell Count 11.22 K/mm3 (4.00-11.30)
[2019-02-11 23:08] LABS: Amorphous Light ({null, 0-Heavy}); Appearance, Urine Clear (Clear); Bacteria Rare /hpf; Color, Urine Yellow (P-Yellow); Red Blood Cells, Urine Not Seen /hpf (0-2); Squamous Epithelial Cells Rare /hpf (Few); White Blood Cells, Urine 0-2 /hpf (0-5)
[2019-02-11 23:17] LABS: International Normalized Ratio 1.04
[2019-02-11 23:20] LABS: Alanine Aminotransfer (ALT/SGP 64 U/L (12-78); Albumin, Blood 3.2 g/dL (3.4-5.0); Albumin/Globulin Ratio 0.8 (0.8-1.8); Alk Phos 119 U/L (50-136); Anion Gap 5 mmol/L (6-16); Aspartate Aminotrans (AST/SGOT 26 U/L (12-37); Bilirubin, Total 0.6 mg/dL (0.1-1.0); Blood Urea Nitrogen 17 mg/dL (8-24); Bun/Creatinine Ratio 21.5 (12.0-20.0); CO2, Blood 31 mmol/L (21-32); Calcium, Blood 8.8 mg/dL (8.5-10.1); Chloride, Blood 103 mmol/L (98-108); Creatinine, Blood 0.79 mg/dL (0.60-1.20); Glomerular Filtration Rate >60 (60-); Glucose, Blood 117 mg/dL (70-99); Potassium, Blood 4.2 mmol/L (3.5-5.5); Sodium, Blood 139 mmol/L (136-145); Total Protein, Blood 7.2 g/dL (6.4-8.2)
[2019-02-12 00:17] LABS: Influenza A Negative (NEGATIVE); Influenza B Negative (NEGATIVE)
[2019-02-12 02:39] LABS: PCO2 Arterial 37.8 mmHg (35-45); pH Blood Arterial 7.47 (7.35-7.45)
[2019-02-12 04:17] LABS: BASOPHILS ABSOLUTE AUTO 0.03 K/mm3 (0.00-0.23); BASOPHILS PERCENT AUTO 0 % (0-2); EOSINOPHILS ABSOLUTE AUTO 0.01 K/mm3 (0.00-0.68); EOSINOPHILS PERCENT AUTO 0 % (0-6); Hematocrit 31.5 % (37.0-53.0); Hemoglobin 9.6 g/dL (13.5-17.5); IMMATURE GRAN ABSOLUTE AUTO 0.08 K/mm3 (0.00-0.10); IMMATURE GRAN PERCENT AUTO 1 % (0-1); LYMPHOCYTES PERCENT AUTO 3 % (21-46); MONOCYTES ABSOLUTE AUTO 1.16 K/mm3 (0.16-1.47); MONOCYTES PERCENT AUTO 7 % (4-13); Mean Corpuscular HGB 27.5 pg (26.0-34.0); Mean Corpuscular HGB Conc 30.5 g/dL (31.5-36.5); Mean Corpuscular Volume 90 fL (80-100); Mean Platelet Volume 10.3 fL (9.1-12.4); NEUTROPHILS PERCENT AUTO 89 % (41-73); Platelet Count 286 K/mm3 (150-400); RDW Coefficient Variation 16.3 % (11.7-14.2); RDW Standard Deviation 53.2 fL (35.1-46.3); Red Blood Cell Count 3.49 M/mm3 (4.30-5.90); White Blood Cell Count 16.08 K/mm3 (4.00-11.30)
[2019-02-12 04:34] LABS: Anion Gap 6 mmol/L (6-16); Blood Urea Nitrogen 17 mg/dL (8-24); CO2, Blood 28 mmol/L (21-32); Calcium, Blood 8.3 mg/dL (8.5-10.1); Chloride, Blood 107 mmol/L (98-108); Creatinine, Blood 0.85 mg/dL (0.60-1.20); Glomerular Filtration Rate >60 (60-); Glucose, Blood 119 mg/dL (70-99); Sodium, Blood 141 mmol/L (136-145)
--- NOTE | 2019-02-12 05:08 | NUR ---
ASSUMED PT CARE AT 0110 PT ARRIVED ON UNIT VIA STRETCHER. VERY RESTLESS AND AGITATED. TEMPERATURE 102.6 VIA TEMPORAL ARTERY. PULLING AT LINES AND CORDS; ATTEMPTING TO TEAR EVERYTHING OFF. CALLED DR. CROCKER AT 0153 FOR ORDERS FOR PRECEDEX GTT PT RECEIVED ATIVAN AND HALIDOL IN ER AND BOTH WERE UNEFFECTIVE. AT 0155 PT STARTED C/O DULL CHEST PAIN. CALLED DR. CROCKER BACK WITH ORDERS FOR STAT EKG, TROPONINS, AND NITRO PATCH. PRECEDEX GTT STARTED AT 0210 WITH ADDITIONAL DOSE OF 2MG ATIVAN D/T PT BEING SO RESTLESS WE COULDN'T GET AN EKG. PT SETTLED SOMEWHAT, BUT WAS STILL RESTLESS AND AGITATED; SOFT WRIST RESTRAINT APPLIED TO STRONG ARM ON RIGHT WRIST D/T PT TRYING TO GRAB AT STAFF. PT C/O BEING SOB; VERY SHALLOW, RAPID BREATHING NOTED. CPAP APPLIED AND ABG DRAWN. ABG RESULTS WNL; CPAP CONTINUES WITH 5L BLEED IN OF OXYGEN. CALDERON CATH PLACED ONCE PT WAS ABLE TO COMPLETELY RELAX WITHOUT PULLING AT LINES/TUBES, AND EKG WAS OBTAINED. TEMP PROBE CALDERON READING 104.4 TEMP. APPLIED ICE PACKS UNDER ARM PITS AND BEHIND NECK, FAN PLACED AT BEDSIDE, AND COOLING BLANKET APPLIED A TOP SHEET, AND APAP 650MG ADMINISTERED PER TUBE; EFFECTIVE. TEMP IS SLOWLY DECREASING; CURRENTLY IT IS 102.0. PRECEDEX GTT TURNED OFF AT 0430 D/T DECREASE IN PT'S BP. SOFT RESTRAINT REMOVED FROM RIGHT WRIST AT 0440 D/T PT SLEEPING AND BEING QUIET; NO LONGER ATTEMTPING TO GRAB AT STAFF OR TEAR EQUIPMENT OFF. AT BEDSIDE AND UPDATED ALONG THE WAY. DID CONFIRM THAT PT IS DNR STATUS, BUT INTUBATION OKAY.
--- NOTE | 2019-02-12 06:10 | NUR ---
PT TO CT SCAN
--- NOTE | 2019-02-12 06:19 | NUR ---
END OF SHIFT SUMMARY PT HAS REMAINED CALM AND COOPERATIVE SINCE PRECEDEX GTT WAS TURNED OFF; ONLY RESTARTED TO GET PT THROUGH CT THIS MORNING. TEMPERATURE SLOWLY DECREASING; DOWN TO 101.4 FROM 104.5 AFTER CALDERON TEMP PROBE WAS PLACED AT 0300. PT IS VERY EXHAUSTED. WILL FOLLOW COMMANDS, BUT THEN STARTS TO BECOME AGITATED AND RESTLESS AGAIN; LEFT PT TO REST. CALDERON CATH IS PATENT AND DRAINING CLEAR, AMBERED COLORED URINE.
[2019-02-12 08:14] LABS: Adenovirus Not Detected (NOT DETECT); Coronavirus 229E Not Detected (NOT DETECT); Coronavirus HKU1 Not Detected (NOT DETECT); Coronavirus NL63 Not Detected (NOT DETECT); Coronavirus OC43 Not Detected (NOT DETECT); Human Metapneumovirus Not Detected (NOT DETECT); Human Rhinovirus/Enterovirus Not Detected (NOT DETECT); Influenza A Not Detected (NOT DETECT); Influenza A/2009-H1 Not Detected (NOT DETECT); Influenza A/H1 Not Detected (NOT DETECT); Influenza A/H3 Not Detected (NOT DETECT); Influenza B Not Detected (NOT DETECT); Parainfluenza Virus 1 Not Detected (NOT DETECT); Parainfluenza Virus 2 Not Detected (NOT DETECT); Parainfluenza Virus 3 Not Detected (NOT DETECT); Parainfluenza Virus 4 Not Detected (NOT DETECT)
[2019-02-12 08:15] LABS: Bordetella pertussis Not Detected (NOT DETECT); Chlamydophila pneumoniae Not Detected (NOT DETECT); Mycoplasma pneumoniae Not Detected (NOT DETECT); Respiratory Syncytial Virus Not Detected (NOT DETECT)
--- NOTE | 2019-02-12 08:53 | NUR ---
PT WAS GRABBING AT IVS AND FLAILING RA AROUND UPONE ENTERING THE ROOM THIS MORNING. PRECEDEX GTT RESTARTED, BUT PT'S BP QUICKLY DROPPED SO PRECEDEX STOPPED. RA PUT IN RESTRAINT AND ORDER RECEIVED FROM DR. HERNÁNDEZ. SINCE THEN PT HAS BEEN RESTING QUIETLY.
[2019-02-12 13:22] LABS: PCO2 Arterial 51.2 mmHg (35-45); PO2 Arterial 59.3 mmHg (80-100); pH Blood Arterial 7.36 (7.35-7.45)
--- NOTE | 2019-02-12 14:20 | NUR ---
REASSESSMENT: PT WAS LETHARGIC THROUGHOUT THE MORNING BUT STARTED TO WAKE UP A LITTLE MORE IN THE LATE MORNING. PT WOULD NOT STAY AWAKE LONGER THAN TO ANSWER YES OR NO TO A QUESTIONS AND THEN PT'S OXYGEN DROPPED TO 85%. INCREASED HIS NASAL CANNULA, TRIED PUTTING HIS CPAP ON WITH BLEED IN HIGH 15L AND SPO2 WAS STILL IN THE 80S. LUNGS ARE CLEAR BUT DIM. DR. HERNÁNDEZ NOTIFIED AND RECEIVED ORDERS FOR ABG AND BIPAP. RT NOTIFIED. PT RESTING NOW WITH THE BIPAP ON. HE IS SR, BP ON THE LOW END WITH SBP IN THE 80-90S DDEPENDING ON WHICH WAY HE IS TURNED. SPEECH THERAPY CAME BY BUT WAS UNABLE TO WORK WITH HIM DUE TO LETHARGY. PT'S IS AT THE BEDSIDE AND IS BEING UPDATED THROUGHOUT THE SHIFT.
--- NOTE | 2019-02-12 15:30 | NUR ---
ASSUMED CARE REPORT RECEIVED FROM SHERYL ALVARADO. PATIENT RESTING WITH EYES CLOSED, BIPAP ON. NO S/SX DISTRESS NOTED. FAMILY AT BEDSIDE. CALL LIGHT IN REACH. WILL CONT TO MONITOR PT.
--- NOTE | 2019-02-12 16:36 | NUR ---
PATIENT WAKING PATIENT AROUSABLE TO VERBAL STIMULI, OPENING EYES. PATIENT ORIENTED TO SELF, FAMILY, PLACE, SURROUNDINGS, AND YEAR. PATIENT REMAINS VERY DROWSY, FALLING TO SLEEP WHEN UNDISTURBED. BED IN LOWEST POSITION, SIDE RAILS RAISED, CALL LIGHT IN REACH. WILL CONT TO MONITOR PT.
--- NOTE | 2019-02-12 17:51 | NUR ---
SHIFT SUMMARY PT RESTING IN BED WITH EYES CLOSED, BIPAP ON. BIPAP SETTINGS: 10/15, FIO2 45%. BREATHING E/U. VSS, SEE FLOWSHEET. NO S/SX DISTRESS NOTED. PT'S AT BEDSIDE. IVF RUNNING ORDERED. CALDERON CATHETER PATENT AND DRAINING TO GRAVITY. BRACES TO BILAT LOWER EXTREMITIES REMAIN ON, PER REPORT NOT TO BE REMOVED FOR TWO WEEKS. BED IN LOWEST POSITION, SIDE RAILS RAISED. CALL LIGHT IN REACH. WILL CONT TO MONITOR PT.
--- NOTE | 2019-02-12 19:41 | NUR ---
ASSUMED CARE OF PT AT 1915. REPORT RECEIVED AT BEDSIDE. PT PRESENTS IN BED. ALERT AND SOMEWHAT ORIENTED TO FAMILY AND SELF. PT REACHES FOR HIS GOWN WITH RIGHT ARM EVEN THOUGH RESTRAINT IS IN PLACE. PT'S DAUGHTER IS IN ROOM. EXPLAINED TO PT RATIONALE FOR RESTRAINT SECONDARY TO PT PULLING AT LINES AND BIPAP MASK. PT DOES STATE THAT HE FEELS "COLD" IS RUNNING A LOW GRADE FEVER AT THIS TIME WHICH HAS GONE FROM 100.0 TO 100.4 SINCE RECEIVING REPORT. WILL ADMINISTER TYLENOL PER PRN EMAR. LUNG SOUNDS VERY DIMINISHED THROUGHOUT. WILL REVIEW CHART AN PLAN OF CARE FOR THIS PT.
--- NOTE | 2019-02-12 23:26 | NUR ---
RESTARTED PRECEDEX DRIP FOR PT SECONDARY TO HIS CONFUSION, AND TRYING TO PULL AT HIS LINES AND TUBES. 0.3 MCG PRECEDEX AFFECTIVE, AND HAVE NOT NOTED ANY CONSISTANT LOWERING OF BLOOD PRESSURE. PT'S ARRIVES TO ROOM AND IS TO ROOM IN THIS NIGHT. WILL CONTINUE TO MONITOR PT.
[2019-02-13 03:26] LABS: BASOPHILS ABSOLUTE AUTO 0.02 K/mm3 (0.00-0.23); BASOPHILS PERCENT AUTO 0 % (0-2); EOSINOPHILS ABSOLUTE AUTO 0.05 K/mm3 (0.00-0.68); EOSINOPHILS PERCENT AUTO 0 % (0-6); Hematocrit 28.1 % (37.0-53.0); Hemoglobin 8.3 g/dL (13.5-17.5); IMMATURE GRAN ABSOLUTE AUTO 0.07 K/mm3 (0.00-0.10); IMMATURE GRAN PERCENT AUTO 1 % (0-1); LYMPHOCYTES ABSOLUTE AUTO 0.65 K/mm3 (0.84-5.20); LYMPHOCYTES PERCENT AUTO 5 % (21-46); MONOCYTES ABSOLUTE AUTO 0.75 K/mm3 (0.16-1.47); MONOCYTES PERCENT AUTO 6 % (4-13); Mean Corpuscular HGB 27.1 pg (26.0-34.0); Mean Corpuscular HGB Conc 29.5 g/dL (31.5-36.5); Mean Corpuscular Volume 92 fL (80-100); Mean Platelet Volume 10.3 fL (9.1-12.4); NEUTROPHILS ABSOLUTE AUTO 10.69 K/mm3 (1.96-9.15); NEUTROPHILS PERCENT AUTO 87 % (41-73); Platelet Count 219 K/mm3 (150-400); RDW Coefficient Variation 16.4 % (11.7-14.2); RDW Standard Deviation 55.1 fL (35.1-46.3); Red Blood Cell Count 3.06 M/mm3 (4.30-5.90); White Blood Cell Count 12.23 K/mm3 (4.00-11.30)
[2019-02-13 03:45] LABS: Vancomycin, Trough 6.8 ug/mL (5.0-10.0)
[2019-02-13 04:03] LABS: Anion Gap 6 mmol/L (6-16); Blood Urea Nitrogen 19 mg/dL (8-24); Bun/Creatinine Ratio 23.1 (12.0-20.0); CO2, Blood 28 mmol/L (21-32); Calcium, Blood 8.3 mg/dL (8.5-10.1); Chloride, Blood 107 mmol/L (98-108); Creatinine, Blood 0.82 mg/dL (0.60-1.20); Glomerular Filtration Rate >60 (60-); Glucose, Blood 108 mg/dL (70-99); Sodium, Blood 141 mmol/L (136-145)
--- NOTE | 2019-02-13 06:30 | NUR ---
PT HAS WORN BIPAP MASK THROUGH THE NIGHT. CONTIUES WITH SOFT WRIST RESTRAINT TO RIGHT HAND SECONDARY TO PT'S CONTINUED DESIRE TO PULL AT LINES AND BIPAP MASK. PT'S ROOMS IN THROUGH THE NIGHT. UPDATE GIVEN TO . WILL CONTINUE TO MONITOR PT, AND WILL REPORT OFF TO ONCOMING RN.
--- NOTE | 2019-02-13 07:30 | NUR ---
ASSUMED CARE REPORT RECEIVED FROM SHERYL REA. BEDSIDE ROUNDING DONE. PT RESTING IN BED WITH EYES CLOSED, HOB ELEVATED 30 DEGREES. BIPAP MASK ON. VSS, SEE FLOWSHEET. NO S/SX DISTRESS NOTED. BEDSIDE. PRECEDEX GTT RUNNING AT 0.3MCG. LR RUNNING AT 75ML/HR PER ORDERS. CALDERON CATHETER PATENT AND DRAINING TO GRAVITY. PEG TUBE CLAMPED. BED IN LOWEST POSITION, SIDE RAILS RAISED. CALL LIGHT IN REACH. WILL CONT TO MONITOR PT.
--- NOTE | 2019-02-13 08:38 | NUR ---
DR HERNÁNDEZ ROUNDS DR HERNÁNDEZ UPDATED ON PT STATUS THROUGH THE NIGHT. NO CHANGES TO PLAN OF CARE AT THIS TIME. WILL CONT TO MONITOR PT.
--- NOTE | 2019-02-13 09:02 | NUR ---
SPEECH THERAPY EVAL PER SPEECH THERAPY PT NOT APPROPRIATE FOR ORAL INTAKE D/T HIGH RISK FOR ASPIRATION, ENCOURAGE Q4H ORAL CARE. NO FURTHER CHANGES TO PLAN OF CARE AT THIS TIME. WILL CONT TO MONITOR PT.
--- NOTE | 2019-02-13 17:16 | NUR ---
SHIFT SUMMARY PT RESTING IN BED, HOB ELEVATED 30 DEGREES. BIPAP ON, SETTINGS: 16/10, FIO2 30%. BREATHING E/U. PT AWAKENS EASILY TO VERBAL STIMULI, ORIENTED TO SELF, , PLACE, SURROUNDINGS, MONTH AND YEAR, AND FAMILY. PT UNABLE TO RECALL EVENTS THAT LED HIM TO ADMISSION BOTH INITIALLY AND AFTER D/C TO [facility] [place]. PT FORGETFUL, REQUIRING REEXPLANATION AND REINFORCEMENT FREQUENTLY. THIS MORNING BIPAP BREAK GIVEN AND PT PLACED ON O2 AT 2LPM VIA NC FOR ORAL CARE AND AM CARE, PT TOLERATED BREAK FOR 2 HOURS BEFORE BECOMING INCREASINGLY AGITATED AND RESTLESS. BIPAP PLACED BACK ON PT AND PT CALMED. BP STABLE MOST OF SHIFT, SBP TRENDED UP REQUIRING HYDRALAZINE 10MG WITH RESULT, SEE FLOWSHEET. PEG TUBE REMAINS PATENT. CALDERON CATHETER REMAINS PATENT AND DRAINING TO GRAVITY. LR REMAINS RUNNING AT 75ML/HR PER ORDERS. PRECEDEX GTT REMAINS RUNNING AT 0.3MCG, TITRATED TO EFFECT. BEDBATH GIVEN THIS SHIFT AND REPOSITIONING TOLERATED BY PT. BILATERAL LEG BRACES REMAIN ON. BED IN LOWEST POSITION, SIDE RAILS RAISED. AT BEDSIDE. WILL CONT TO MONITOR PT THROUGH TO REPORT OFF TO ONCOMING RN.
--- NOTE | 2019-02-13 20:00 | NUR ---
ASSUMED CARE OF PT AT 1915. REPORT RECEIVED AT BEDSIDE. PT WEARING BIPAP MASK. AND GUESTS AT BEDSIDE. PRECEDEX AT 0.3MCG'S/KG PT CONTINUES TO BE SOMEWHAT ANXIOUS. IS ABLE TO HAVE CONVERSATION WITH . DOES ASK THE SAME QUESTIONS MULTIPLE TIMES. IS EASILY FORGETFUL. REASSURED PT. WILL REVIEW CHART AND PLAN OF CARE FOR THIS PT.
--- NOTE | 2019-02-13 23:21 | NUR ---
PT'S FRIENDS AND HIS HAS GONE HOME FOR THE NIGHT. HAVE NOTED, PT HAS BECOME INCREASINGLY ANXIOUS AND CONFUSED. DID INCREASE PRECEDEX TO 0.4 MCG'S. PT FREQUENTLY ASKING FOR SWALLOWS OF WATER. EXPLAINED TO PT THAT HE IS NPO (FULLY EXPLAINED) AND HE HAS PEG TUBE THAT HE GETS WATER AND MEDS THROUGH. FREQUENT REORIENTAION. PT CONTINUES TO YELL OUT. SOON STAFF LEAVES ROOM, HE BEGINS TO YELL FOR HELP AGAIN. REASSURED PT FREQUENTLY. WILL TITRATE PRECEDEX TO AFFECT. =
--- NOTE | 2019-02-14 03:26 | NUR ---
PT HAS BECOME MUCH MORE AGITATED AND YELLING OUT THE NIGHT PROGRESSES. HAS BEEN ABLE TO GET OUT OF RIGHT SOFT WRIST RESTRAINT AND BEGIN PULLING AT CALDERON CATHETER AND THEN WAS WORKING ON TRYING TO GET HIS BIPAP MASK OFF. HAD MEDICATED PT WITH 2.5 MG HALDOL EARLIER WITH LITTLE AFFECT. PT'S PRECEDEX AT 0.7MCG'S. HAVE MEDICATED PT WITH 10 MG HYDRALAZINE FOR ELEVATING BLOOD PRESSURES. USING CAUTION TO HYPERTENSION VS AGITATION. PT HAS NOW BEEN MEDICATED WITH 2 MG ATIVAN FOR HIS SAFETY AND COMFORT. PT HAD MANAGED TO GET HIS LEGS OVER RAILINGS AND GET HIMSELF TURNED COMPLETELY SIDEWAYS IN THE BED. HAVE REPOSITIONED PT AND HE CURRENTLY IS NOT TRYING TO PULL AT LINES, TUBES, OR BIPAP. WILL CONTINUE TO MONITOR BP AND AGITATION LEVEL.
[2019-02-14 03:38] LABS: Vancomycin, Trough 8.1 ug/mL (5.0-10.0)
--- NOTE | 2019-02-14 06:08 | NUR ---
THIS PT HAS HAD A VERY ACTIVE NIGHT WITH YELLING AND PULLING AT RESTRAINT. PT CONTINUES ON 0.5MCG/KG PRECEDEX DRIP WHICH WAS LOWERED FROM 0.7 MCG'S. PT HAD BEEN MEDICATED WITH HALDOL 2.5 MG WITH NO IMPROVEMENTS IN AGITATION ON ANXIOUSNESS. PT WAS MEDICATED ONCE WITH 2 MG ATIVAN SECONDARY TO PT BECOMING UNSAFE TO SELF BY ATTEMPTING TO GET AHOLD OF LINES AND TUBES. PT ALSO TURNING HIMSELF IN BED TO HAVE HIS LEGS, WHICH REMAIN IN BRACES, OVER RAILING AND HIS HEAD AGAINST OPPOSITE RAILING. HAD TO FREQUENTLY REPOSITION PT. FREQUENTLY THROUGHOUT THE SHIFT, PT ASKED FOR DRINKS OF WATER. ORAL CARE DONE AND PROVIDED MOISTENED SWABS. WELL USING MOUTH MOISTURIZERS. PT TEACHING DONE WHY HE IS TO HAVE NOTHING BY MOUTH SECONDARY TO HIGH ASPIRATION RISK. PT THEN WOULD ASK AGAIN FOR WATER. PT'S AND FAMILY LEFT DURING EVENING AND IT WAS NOTED THAT THIS IS WHEN ANXIOUSNESS AND AGITATION BEGAN. PT CURRENTLY SLEEPING IN BED. BLOOD PRESSURES HAVE BEEN HYPERTENSIVE THIS SHIFT. WILL CONTINUE TO MONITOR PT, AND WILL REPORT OFF TO ONCOMING RN.
--- NOTE | 2019-02-14 07:25 | NUR ---
ASSUMED CARE REPORT FROM SHERYL GROVES. PRECEDEX GTT AT 0.3 MCG/KG/HR. TITRATED TO 0.7 MCG/KG/HR FOR AGITATION.
--- NOTE | 2019-02-14 08:30 | NUR ---
MD VISIT DR. HERNÁNDEZ IN. IVF DC'D
[2019-02-14 08:37] LABS: BASOPHILS ABSOLUTE AUTO 0.01 K/mm3 (0.00-0.23); BASOPHILS PERCENT AUTO 0 % (0-2); EOSINOPHILS ABSOLUTE AUTO 0.09 K/mm3 (0.00-0.68); EOSINOPHILS PERCENT AUTO 1 % (0-6); Hematocrit 29.2 % (37.0-53.0); Hemoglobin 8.5 g/dL (13.5-17.5); IMMATURE GRAN ABSOLUTE AUTO 0.02 K/mm3 (0.00-0.10); IMMATURE GRAN PERCENT AUTO 0 % (0-1); LYMPHOCYTES ABSOLUTE AUTO 0.65 K/mm3 (0.84-5.20); LYMPHOCYTES PERCENT AUTO 8 % (21-46); MONOCYTES ABSOLUTE AUTO 0.57 K/mm3 (0.16-1.47); MONOCYTES PERCENT AUTO 7 % (4-13); Mean Corpuscular HGB 26.3 pg (26.0-34.0); Mean Corpuscular HGB Conc 29.1 g/dL (31.5-36.5); Mean Corpuscular Volume 90 fL (80-100); Mean Platelet Volume 11.1 fL (9.1-12.4); NEUTROPHILS ABSOLUTE AUTO 7.21 K/mm3 (1.96-9.15); NEUTROPHILS PERCENT AUTO 84 % (41-73); Platelet Count 232 K/mm3 (150-400); RDW Coefficient Variation 15.9 % (11.7-14.2); RDW Standard Deviation 53.4 fL (35.1-46.3); Red Blood Cell Count 3.23 M/mm3 (4.30-5.90); White Blood Cell Count 8.55 K/mm3 (4.00-11.30)
[2019-02-14 08:51] LABS: Anion Gap 7 mmol/L (6-16); Blood Urea Nitrogen 14 mg/dL (8-24); Bun/Creatinine Ratio 20.1 (12.0-20.0); CO2, Blood 26 mmol/L (21-32); Calcium, Blood 8.4 mg/dL (8.5-10.1); Chloride, Blood 108 mmol/L (98-108); Glomerular Filtration Rate >60 (60-); Glucose, Blood 121 mg/dL (70-99); Potassium, Blood 3.7 mmol/L (3.5-5.5); Sodium, Blood 141 mmol/L (136-145)
--- NOTE | 2019-02-14 08:55 | NUR ---
PHYSICAL THERAPY HERE TO EVALUATE
--- NOTE | 2019-02-14 09:29 | NUR ---
TO RECLINER AFTER PLACING LIFT SHEET AND WITH ASSISTANCE FROM JUAN ALBERTO, PHYSICAL THERAPY. PATIENT IS SOMNOLENT NOW. PRECEDEX PLACED ON HOLD FOR PT TO WORK WITH PATIENT. WAS IN, LEFT FOR SABIANISM. RESTRAINT IS OFF RIGHT ARM SINCE 729.
--- NOTE | 2019-02-14 10:31 | NUR ---
PATIENT CONTINUES IN RECLINER. RIGHT LEG FALLS OFF CHAIR. MULTIPLE ASSISTS TO PUT IT BACK UP, BUT WHEN INSTRUCTED, HE PUT IT BACK UP HIMSELF. CALLS OUT "HELP" FREQUENTLY. WANTS WATER. MOISTURIZER AND SWABS GIVEN. PRECEDEX IS AT 0.7 MCG/KG/HR. H20 ADDED TO NC AT 4L
--- NOTE | 2019-02-14 11:26 | NUR ---
PRECEDEX TITRATED TO 5 MCG/KG/HOUR
--- NOTE | 2019-02-14 12:54 | NUR ---
PATIENT KEPT SCOOTING DOWN IN CHAIR. PLACED BACK IN BED, USING LIFT SHEET AND ASSISTANCE FROM SANCHEZ MANZANO AND SHERYL ROBERSON
--- NOTE | 2019-02-14 13:56 | NUR ---
BACK AT BEDSIDE. PATIENT DOZING
--- NOTE | 2019-02-14 14:07 | NUR ---
TITRATED PRECEDEX DOWN TO 0.3 MCG/KG/HR WHILE IS AT BEDSIDE.
--- NOTE | 2019-02-14 18:24 | NUR ---
FAMILY AND VISITORS AT BEDSIDE. PRECEDEX OFF. FREQUENT ORAL CARE. WAS OOB TO RECLINER FOR SEVERAL HOURS, BUT KEPT SLIDING DOWN IN RECLINER AND WAS PUT BACK TO BED WITH LIFT. O2 IS 4L NC. 2800 URINE OUT.
--- NOTE | 2019-02-14 19:01 | NUR ---
REPORT TO SHERYL AYALA. PATIENT SLEEPING. AND DAUGHTER AT BEDSIDE
--- NOTE | 2019-02-14 19:15 | NUR ---
ASSUMING CARE OF PT AT THIS TIME. PT REPORT RECEIEVED AT BEDSIDE WITH OFFGOING NURSE, ANGEL SAUCEDO. PT LAYING IN BED, SLEEPING UPON ENTERING THE ROOM. VS STABLE - SEE VS FS. PT DOES NOT APPEAR TO BE IN DISTRESS AT THIS TIME. WILL REVIEW PLAN OF CARE.
--- NOTE | 2019-02-14 19:15 | NUR ---
ASSESSMENT PT CALM, QUIET, COOPERATIVE, SLEEPING IN BED, RESPONDS TO VERBAL STIMULI, SPONT OPENS EYES, SLOW TO RESPOND, OCC INCOMPREHENSIBLE/GARBLED SPEECH, A&O EXCEPT TO EXACT DATE/TIME/EVENT, ABLE TO STATE CORRECT YEAR, STATED MONTH WAS "JANUARY", FORGETFUL, SLIGHTLY CONFUSED, FREQUENTLY ASKS SAME QUESTIONS. CALL LIGHT IN REACH. BED ALARM ON. SIDE RAILS UP. FAMILY AT BEDSIDE. SENSATION INTACT. PT DENIES N/T. NORMAL STRENGH RUE. WEAK MOVEMENT RLE, LLE, AND LUE. PT ABLE TO WIGGLE TOES AND MINT WAFER DEPOSITOR WITH HANDS. STRONGER MINT WAFER DEPOSITOR ON R SIDE. PT MOVES R SIDE MORE THAN L SIDE. PT RESTLESS IN BED WHEN AWAKE. PT DENIES PAIN/DISCOMFORT. NO S/SX OF PAIN/DISCOMFORT. LUNGS CLEAR, LOWER LOBES DIMINISHED. PT ON 4L NC WITH HUMIDIFIED AIR. CPAP WHILE SLEEPING - PRESSURES 10-20 WITH 4L OXYGEN. RR 12. OXY SAT >95%. DENIES SOB. SHALLOW BREATHING. OCC DRY COUGH. PT USES SUCTION IF INDICATED. AFEBRILE. NSR. HR 80'S. BP STABLE - SEE VS FS. STRONG RADIAL PULSES. FAINT TIBIAL AND PEDAL PULSES. WARM, PINK, DRY SKIN. LOTION APPLIED. EDEMA NOTED. HYPOACTIVE BT X4 QUADRANTS. ABD MOD DIST, SOFT, NONTENDER. NO N/V. NPO D/T ASPIRATION PRECAUTIONS. NO BM. WILL ADMINISTER DOCUSATE. PEG TUBE - CLAMPED. 10 ML YELLOW LIQUID RESIDUAL REINSTILLED IN PEG TUBE. PEG TUBE - GAUZE IN PLACE, C/D/I. F/C - CLEAR, YELLOW URINE. PER REPORT - BUMEX ADMINSITERED THIS AM. PIV X3. NS TKO AT 10 ML/HR. PRECEDEX ON STANDBY. WILL START LR AT 50 ML/HR.
--- NOTE | 2019-02-14 23:00 | NUR ---
PT UPDATE INC ANXIETY, AGITATION, RESTLESSNESS, AND PULLING AT LINES/CORDS/TUBES. PT YELLING IN ROOM. PT REQUIRING CONSTANT REINFORCEMENT TO STAY IN BED AND REDIRECTION. ATIVAN ADMINISTERED. PT CONT TO SPONT OPEN EYES, SLOW TO RESPOND, OCC INCOMPREHENSIBLE/GARBLED SPEECH, A&O EXCEPT TO EXACT DATE/TIME/EVENT, FORGETFUL, INC CONFUSION. BED ALARM ON. SIDE RAILS UP. PT CONT TO GET OOB. NO FAMILY AT BEDSIDE. SENSATION ITNACT. PT DENIES N/T. NORMAL STRENGTH RUE. WEAK MOVEMENT RLE, LLE, AND LUE. PT ABLE TO WIGGLE TOES AND FACER OPERATOR WITH HANDS. STRONG FACER OPERATOR ON R SIDE. MOVES R SIDE MORE THAN L SIDE. CONT TO DENY PAIN/DISCOMFORT. NO S/SX OF PAIN/DISCOMFORT NOTED. LUNGS CLEAR, LOWER LOBES DIMINISHED. PT ON 4L NC WITH HUMIDIFIED AIR. CPAP WHILE SLEEPING, BUT PT HAS NOT SLEPT T/O SHIFT. PT REOMVED CPAP UPON APPLY CPAP. CPAP WHILE SLEEPING - PRESSURES 10-20 WITH 4L OXYGEN. RR 16. OXY SAT >90%. DENIES SOB. SHALLOW BREATHING. OCC DRY COUGH. PT USES SUCTION IF INDICATED. TEMP 99.3 - REMOVED BLANKETS EARLIER IN SHIFT, DECREASED BLANKETSE EARLIER IN SHIFT, TYELNOL ADMINISTERED. NSR WITH OCC PAC'S AND PVC'S. HR 90'S. SLIGHTLY HYPERTENSIVE - SCHEDULED CLONIDINE ADMINISTERED. PRN HYDRALAZINE AND SCHEDULED COZAAR ADMINISTERED EARLIER IN SHIFT. NITRO PATCH REMAINS IN PLACE. STRONG RADIAL PULSES. FAINT TIBIAL AND PEDAL PULSES. WARM, PINK, DRY SKIN. EDEMA NOTED. HYPOACTIVE BT X4 QUADRATNS. ABD MOD DIST, SOFT, NONTENDER. NO N/V. NPO D/T ASPIRATION PRECAUTIONS. NO BM. PEG TUBE - CLAMPED. F/C - CLEAR, YELLOW. PIV X3. LR @ 50 ML/HR. NS TKO AT 10 ML/HR. PRECEDEX ON STANDBY. BILAT LEG BRACES IN PLACE.
--- NOTE | 2019-02-15 00:20 | NUR ---
DR. NG / PT CARE PT CONT TO EXPERIENCE ANXIETY, AGITATION, RESTLESSNESS, AND PULLING ON SOFT R WRIST RESTRAINT. PT CONT TO YELLIN ROOM. HALDOL ADMINISTERED. PT CONT TO REQUIRE CONSTANT REINFORCEMENT TO STAY IN BED AND REDIRECTION. VS STABLE EXCEPT SBP 160'S. UPDATED DR. NG OF PT'S STATUS. DR. NG INCREASED FREQ AND DOSAGE OF HYDRALAZINE. WAITING FOR VERIFICATION OF MEDICATION FROM PHARMACY AT THIS TIME.
[2019-02-15 03:31] LABS: BASOPHILS ABSOLUTE AUTO 0.03 K/mm3 (0.00-0.23); BASOPHILS PERCENT AUTO 1 % (0-2); EOSINOPHILS ABSOLUTE AUTO 0.17 K/mm3 (0.00-0.68); EOSINOPHILS PERCENT AUTO 3 % (0-6); Hematocrit 29.4 % (37.0-53.0); Hemoglobin 8.6 g/dL (13.5-17.5); IMMATURE GRAN ABSOLUTE AUTO 0.02 K/mm3 (0.00-0.10); IMMATURE GRAN PERCENT AUTO 0 % (0-1); LYMPHOCYTES ABSOLUTE AUTO 0.52 K/mm3 (0.84-5.20); LYMPHOCYTES PERCENT AUTO 8 % (21-46); MONOCYTES ABSOLUTE AUTO 0.47 K/mm3 (0.16-1.47); MONOCYTES PERCENT AUTO 7 % (4-13); Mean Corpuscular HGB Conc 29.3 g/dL (31.5-36.5); Mean Platelet Volume 10.5 fL (9.1-12.4); NEUTROPHILS ABSOLUTE AUTO 5.24 K/mm3 (1.96-9.15); NEUTROPHILS PERCENT AUTO 81 % (41-73); Platelet Count 239 K/mm3 (150-400); RDW Coefficient Variation 16.1 % (11.7-14.2); RDW Standard Deviation 55.2 fL (35.1-46.3); Red Blood Cell Count 3.18 M/mm3 (4.30-5.90); White Blood Cell Count 6.45 K/mm3 (4.00-11.30)
[2019-02-15 03:32] LABS: Mean Corpuscular Volume 93 fL (80-100)
[2019-02-15 03:47] LABS: Anion Gap 6 mmol/L (6-16); Blood Urea Nitrogen 10 mg/dL (8-24); Bun/Creatinine Ratio 15.8 (12.0-20.0); CO2, Blood 29 mmol/L (21-32); Calcium, Blood 8.3 mg/dL (8.5-10.1); Chloride, Blood 111 mmol/L (98-108); Creatinine, Blood 0.63 mg/dL (0.60-1.20); Glomerular Filtration Rate >60 (60-); Glucose, Blood 112 mg/dL (70-99); Potassium, Blood 3.1 mmol/L (3.5-5.5); Sodium, Blood 146 mmol/L (136-145)
--- NOTE | 2019-02-15 04:25 | NUR ---
DR. NG CALL DR. NG AT THIS TIME. INFORMED DR. NG OF AM LABS. DR. NG ORDERED KCL 40 PER TUBE AT THIS TIME. DR. NG IS AWARE THAT KLOR-CON 10 MEQ PO DAILY IS SCHEDULED FOR 0900 THIS AM. WAITING FOR VERIFICATION OF MEDICATION FROM PHARMACY AT THIS TIME.
--- NOTE | 2019-02-15 04:34 | NUR ---
SHIFT ASSSESMENT FAMILY LEFT BEDSIDE AT 2200 THIS SHIFT. PT FELL ASLEEP AT 0300. LESS ANXIETY, AGTATION, RESTLESSNESS, PULLING AT LINES/CORDS/TUBES AND RIGHT SOFT WRIST RESTRAINT, AND YELLING THIS AM. T/O SHIFT, PT REQUIRED CONSTANT REINFORCEMENT TO STAY IN BED AND REDIRECTION. ATIVAN, HALDOL, AND PRECEDEX ADMINSITERED. PRECEDEX DRIP TITRATED TO 0.7 MCG/KG/HR. PT CONT TO SPONT OPEN EYES, SLOW TO RESPOND, OCC INCOMPREHENSIBLE/GARBLED SPEECH, A&O EXCEPT TO DATE/TIME/EVENT, FORGETFUL, CONFUSED. BED ALARM REMAINED ON. SIDE RAILS REMAINED UP. CALL LIGHT REMAINED IN REACH. PT CONT TO ATTEMPT TO GET OOB. SENSATION INTACT. PT DENIED N/T. NORMAL STRENGTH RUE. WEAK MOVEMENT RLE, LLE, AND LUE. PT ABLE TO WIGGLE TOES AND NEURO UROLOGIST WITH HANDS. STRONGER NEURO UROLOGIST ON R SIDE. PT MOVES R SIDE MORE THAN L SIDE. PT CONT TO DENY PAIN/DISCOMFORT. NO S/SX OF PAIN/DISCOMFORT NOTED. LUNGS CLEAR, LOWER LOBES DIMINISHED. PT ON 4L NC WITH HUMIDIFIED AIR WHILE AWAKE. OXY SAT REMAINED >90% WHILE ON 4L NC AND AWAKE. CPAP PLACED AT 0300 WHEN PT FELL ASLEEP. CPAP PRESSURES 10-20 WITH 4L OXYGEN. OXY SAT REMAINED >90% WHILE ON CPAP. DENIED SOB. SHALLOW BREATHING. OCC DRY COUGH. PT USED SUCTION AT BEDSIDE. TMAX 99.3 - TYLENOL ADMINISTERED, BLANKETS REMOVED, AND DEC ROOM TEMP. CURRENTLY AFEBRILE. NSR TO ST WITH OCC PAC'S AND PVC'S. HR 70'S TO 100'S. BP STABLE - SEE VS FS. STRONG RADIAL PULSES. FAINT TIBIAL AND PEDAL PULSES. WARM, PINK, DRY SKIN. EDEMA NOTED. BILAT LEG BRACES REMAINED IN PLACE. HYPOACTIVE BT X4 QUADRANTS. ABD MOD DIST, SOFT, NONTENDER. NO N/V. NPO D/T ASPIRATION PRECAUTIONS. NO BM. PEG TUBE - CLAMPED. F/C - CLEAR, YELLOW URINE NOTED. PIV X3. NS TKO AT 10 ML/HR. LR AT 50 ML/HR. WILL CONT TO MONITOR PT AND WILL PROVIDE BEDSIDE REPORT TO ONCOMING NURSE THIS AM.
--- NOTE | 2019-02-15 07:05 | NUR ---
ASSUMED CARE REPORT FROM SHERYL AYALA. PATIENT ASLEEP WITH CPAP MASK ON. PRECEDEX AT 0.3 MCG/KG/HR.
--- NOTE | 2019-02-15 07:31 | NUR ---
RIGHT WRIST RESTRAINED
--- NOTE | 2019-02-15 08:22 | NUR ---
MD VISIT DR. HERNÁNDEZ IN. PRECEDEX OFF. PATIENT DID NOT WAKE WITH MD EXAM. CPAP IN PLACE.
--- NOTE | 2019-02-15 17:38 | NUR ---
PATIENT HAS HAD 2 BM'S TODAY, THE FIRST WAS ALL LIQUID AND THE 2ND HAD LARGE FORMED STOOL WELL LIQUID. TUBE FEED BY GRAVITY ONLY WAS ORDERED BUT NOT YET STARTED. PATIENT HAS BEEN MOVING IN BED CONSTANTLY AND MEDS HAVE BEEN SLOW TO ABSORB IN PEG TUBE. CALLS OUT FOR WATER FREQUENTLY. 1250 OUT IN URINE FOR SHIFT. REPORT WAS GIVEN TO SHERYL HOOD. PATIENT IS BEING MOVED TO [facility].
--- NOTE | 2019-02-16 00:05 | NUR ---
NO ORDER FOR CALDERON CATHETER. FAMILY OF PT STATES IT WAS PLACED IN THE ICU. DOCUMENTATION SHOWS PLACEMENT ON THE 5TH. NO ORDER OR INDICATION FOR CALDERON. FAMILY STATES HE DOES NOT HAVE A URINARY PROBLEM AND CAN USE A URINAL. NOTIFIED HOSPITALIST, ORDER TO DISCONTINUE CALDERON CATHETER. REMOVED CALDERON CATHETER. NO COMPLICATIONS.
[2019-02-16 05:15] LABS: Anion Gap 6 mmol/L (6-16); Blood Urea Nitrogen 7 mg/dL (8-24); Bun/Creatinine Ratio 10.2 (12.0-20.0); CO2, Blood 31 mmol/L (21-32); Calcium, Blood 8.8 mg/dL (8.5-10.1); Chloride, Blood 107 mmol/L (98-108); Creatinine, Blood 0.69 mg/dL (0.60-1.20); Glomerular Filtration Rate >60 (60-); Glucose, Blood 94 mg/dL (70-99); Potassium, Blood 3.5 mmol/L (3.5-5.5); Sodium, Blood 144 mmol/L (136-145)
--- NOTE | 2019-02-16 05:33 | NUR ---
*SHIFT SUMMARY* PATIENT IS ALERT AND ORIENTED TO SELF AND FAMILY. PT IS CONFUSED AT TIMES ABOUT WHERE HE IS OR WHY HE IS HERE. FAMILY HAS BEEN AT BEDSIDE SINCE BEGINING OF SHIFT. DAUGHTER TOOK OFF BOTH OF PATIENT'S BRACES FOR ABOUT AN HOUR, STATING HE WAS REQUESTING TO HAVE THEM TAKEN OFF. DAUGHTER PUT BRACES BACK ON. IT WAS NOTED THAT THERE WAS NOT AN ORDER FOR THE CALDERON CATHETER THAT THE PATIENT HAD. DAUGHTER STATES THAT ICU PLACED IT, AND FEELS HE NO LONGER NEEDS IT AND COULD USE THE URINAL. THIS RN CALLED HOSPITALIST AND NOTIFIED OF SITUATION. NEW ORDER TO DISCONTINUE THE CALDERON CATHETER. PT HAS SINCE VOIDED SINCE REMOVAL OF CATHETER. PT CONTINUES TO ASK TO GET UP AND OUT OF BED, COMPLAINS THAT THE BED IS UNCOMFORTABLE. PATIENT REPOSITIONED WITH MINIMAL SATISFACTION. VITALS STABLE.
--- NOTE | 2019-02-16 14:44 | NUR ---
NO CALDERON NOTED, DOCUMENTED A D/C OF CALDERON.
--- NOTE | 2019-02-16 18:56 | NUR ---
SHIFT SUMMARY PATIENT HAS HAD COMPLAINTS OF FEELING LIKE HE NEEDS TO HAVE A BM. FARTING FREQUENTLY, UNABLE TO VOID. GIVEN 3:4 TUBE FEEDINGS TODAY. SKIPPED AFTERNOON TUBE FEED DUE TO FEELING FULL. NO ACUTE ISSUES NOTED.
[2019-02-17 05:18] LABS: BASOPHILS ABSOLUTE AUTO 0.03 K/mm3 (0.00-0.23); BASOPHILS PERCENT AUTO 1 % (0-2); EOSINOPHILS ABSOLUTE AUTO 0.16 K/mm3 (0.00-0.68); EOSINOPHILS PERCENT AUTO 3 % (0-6); Hematocrit 33.4 % (37.0-53.0); Hemoglobin 9.8 g/dL (13.5-17.5); IMMATURE GRAN ABSOLUTE AUTO 0.02 K/mm3 (0.00-0.10); IMMATURE GRAN PERCENT AUTO 0 % (0-1); LYMPHOCYTES ABSOLUTE AUTO 0.79 K/mm3 (0.84-5.20); LYMPHOCYTES PERCENT AUTO 13 % (21-46); MONOCYTES PERCENT AUTO 8 % (4-13); Mean Corpuscular HGB 26.7 pg (26.0-34.0); Mean Corpuscular HGB Conc 29.3 g/dL (31.5-36.5); Mean Corpuscular Volume 91 fL (80-100); Mean Platelet Volume 10.5 fL (9.1-12.4); NEUTROPHILS PERCENT AUTO 76 % (41-73); Platelet Count 297 K/mm3 (150-400); RDW Standard Deviation 53.6 fL (35.1-46.3); Red Blood Cell Count 3.67 M/mm3 (4.30-5.90)
[2019-02-17 05:46] LABS: Vancomycin, Trough 11.3 ug/mL (5.0-10.0)
[2019-02-17 05:47] LABS: Anion Gap 8 mmol/L (6-16); Blood Urea Nitrogen 8 mg/dL (8-24); Bun/Creatinine Ratio 9.9 (12.0-20.0); CO2, Blood 31 mmol/L (21-32); Calcium, Blood 8.6 mg/dL (8.5-10.1); Chloride, Blood 105 mmol/L (98-108); Creatinine, Blood 0.81 mg/dL (0.60-1.20); Glomerular Filtration Rate >60 (60-); Glucose, Blood 110 mg/dL (70-99); Phosphorus, Blood 2.7 mg/dL (2.5-4.9); Potassium, Blood 2.9 mmol/L (3.5-5.5); Sodium, Blood 144 mmol/L (136-145)
--- NOTE | 2019-02-17 06:20 | NUR ---
SHIFT SUMMARY PT IS A 68 Y/O MALE, ADMITTED FOR PNEUMONIA. HE IS ALSO POST CVA, WITH BILATERAL TENDON RUPTURES. HE IS CURRENTLY HAS BOTH LEGS IN BRACES. THE PT IS A&O X 1-2, VERY CONFUSED AND FORGETFUL. HE REPORTED SHOULDER AND LEG PAIN, BUT REFUSED ANY PAIN MEDICATIONS. NO COMPLAINTS OF NAUSEA OR SOB. THE PT'S O2 SATS WERE LOW DURING THE NIGHT, IN THE MID 80S, BUT THE PT IS REFUSING TO KEEP HIS OXYGEN ON. HIS BP WAS ALSO INTERMITTENTLY ELEVATED UP TO THE 180S SYSTOLICALLY, FOR WHICH HE WAS MEDICATED WITH SCHEDULED Q6H CLONIDINE. ALL OTHER VITALS STABLE. NO OTHER ACUTE CHANGES IN PT CONDITION NOTED. WILL CONTINUE TO MONITOR AND TREAT PER EMAR UNTIL HAND OFF TO DAY SHIFT.
--- NOTE | 2019-02-17 15:24 | NUR ---
PATIENT HAS FREQUENTLY REQUESTED THE BEDPAN TODAY. WE HAVE PLACED HIM ON THE BEDPAN HE TURNS WITH MODERATE ASSIST. UNABLE TO HAVE A BM AT THIS TIME. WILL CONTINUE TO PROVIDE BEDPAN. HAVE STARTED BOWEL CARE. COLACE PER ORDER.
--- NOTE | 2019-02-17 15:27 | NUR ---
SHIFT SUMMARY PATIENT HAS WORKED [employer] PT/OT/ST TODAY. HE TOLERATED THESE ACTIVITIES WELL. PATIENT SAT UP IN W/C TODAY FOR 1 HR. REQUIRED A LIFT. PATIENT HAS REQUESTED BEDPAN FREQUENTLY, NO BM NOTED. TOLERATING TUBE FEEDINGS WELL. NO ACUTE ISSUES. MEDICATIONS ADJUSTED VIA DR. SWANSON.
--- NOTE | 2019-02-17 18:35 | NUR ---
SHIFT SUMMARY PT HAS COMPLAINED OF NEEDING TO HAVE A BM FREQUENTLY THROUGHOUT THE DAY AND BEGIN BOWEL PROTOCOL THIS AM. PHYSICAL THERAPY HAD PT UP IN WHEELCHAIR FOR ONE HOUR. PT HAS NOT HAD ANY APPARENT HALUCINATIONS THIS SHIFT AND HAS BEEN CONVERSING WITH FAMILY AND STAFF COHERENTLY. HAD SOME AGITATION IN THE AM BUT HAS BEEN CALM AND COOPERATIVE THE MAJORITY OF SHIFT. SUPPOSITORY GIVEN THIS PM.
--- NOTE | 2019-02-18 04:40 | NUR ---
68 Y/O MALE HAD RESTLESS NIGHT THIS EVENING WITH PATIENT UNABLE TO KEEP C-PAP APPLIED. THIS NURSE REAPPLIED O2 VIA NASAL CANNULA NUMEROUS TIMES (SATS 90%). PTS THOUGHT PROCESS IS DISORGANIZED AND REQUIRED REORIENTATION BY THIS NURSE. PTS G-TUBE FLUSHED WELL, NO RESIDUAL NOTED. PT DENIES PAIN OR NAUSEA. PT REPOSITIONED MULTIPLE TIMES BY STAFF HE TENDS TO ROLL ONTO LEFT SIDE ONLY. PTS BED IN LOW POSITION, CALL LIGHT AT SIDE.
[2019-02-18 05:59] LABS: BASOPHILS ABSOLUTE AUTO 0.03 K/mm3 (0.00-0.23); BASOPHILS PERCENT AUTO 0 % (0-2); EOSINOPHILS ABSOLUTE AUTO 0.15 K/mm3 (0.00-0.68); EOSINOPHILS PERCENT AUTO 2 % (0-6); Hematocrit 32.9 % (37.0-53.0); Hemoglobin 9.7 g/dL (13.5-17.5); IMMATURE GRAN ABSOLUTE AUTO 0.05 K/mm3 (0.00-0.10); IMMATURE GRAN PERCENT AUTO 1 % (0-1); LYMPHOCYTES ABSOLUTE AUTO 0.63 K/mm3 (0.84-5.20); LYMPHOCYTES PERCENT AUTO 8 % (21-46); MONOCYTES ABSOLUTE AUTO 0.65 K/mm3 (0.16-1.47); MONOCYTES PERCENT AUTO 9 % (4-13); Mean Corpuscular HGB 26.2 pg (26.0-34.0); Mean Corpuscular HGB Conc 29.5 g/dL (31.5-36.5); Mean Corpuscular Volume 89 fL (80-100); Mean Platelet Volume 10.3 fL (9.1-12.4); NEUTROPHILS ABSOLUTE AUTO 6.15 K/mm3 (1.96-9.15); NEUTROPHILS PERCENT AUTO 80 % (41-73); Platelet Count 296 K/mm3 (150-400); RDW Coefficient Variation 16.1 % (11.7-14.2); White Blood Cell Count 7.66 K/mm3 (4.00-11.30)
[2019-02-18 06:15] LABS: Albumin, Blood 2.5 g/dL (3.4-5.0); Albumin/Globulin Ratio 0.6 (0.8-1.8); Bilirubin, Total 0.4 mg/dL (0.1-1.0); Bun/Creatinine Ratio 5.3 (12.0-20.0); Calcium, Blood 8.5 mg/dL (8.5-10.1); Creatinine, Blood 2.43 mg/dL (0.60-1.20); Globulin, Blood 4.2 g/dL (2.2-4.0); Magnesium, Blood 2.3 mg/dL (1.6-2.4); Phosphorus, Blood 3.4 mg/dL (2.5-4.9); Potassium, Blood 3.1 mmol/L (3.5-5.5); Total Protein, Blood 6.7 g/dL (6.4-8.2)
--- NOTE | 2019-02-18 06:26 | NUR ---
0450 PT YELLING FOR HELP LOUDLY AND WAS FOUND ON FLOOR BY THIS NURSE LAYING ON STOMACH. PT APPEARED TO NOT HAVE ANY INJURIES OR WOUNDS DURING ASSESSMENT. PT VOICED HIS LEFT SHOULDER CONTINUES TO ACHE (UNABLE TO RATE PAIN ON 1/10 SCALE) VITAL SIGNS STABLE. BLOOD GLUCOSE 123. PT ALERT AND ORIENTED X2, ABLE FOLLOW VERY SIMPLE VERBAL COMMANDS. PTS BED ALARM WAS NOT ACTIVATED PRIOR FALL. PT ASSISTED BACK TO BED VIA OVERHEAD LIFT X 4 ASSIST. PT REPOSITIONED AND BED ALARM WAS RESET. 9639 DR LOMELI HOME CARE ASSOCIATE NOTIFIED OF FALL. PTS --LIGIA LANG NOTIFIED OF FALL AND WILL BE IN THIS AM TO VISIT SPOUSE.
--- NOTE | 2019-02-18 08:54 | NUR ---
PATIENT VOMITTED SMALL AMOUNT THIS MORNING.C/O N/V. 0800 TUBE FEDDING HELD. MEDICATED PER E MAR
--- NOTE | 2019-02-18 19:25 | NUR ---
SHIFT SUMMARY PATIENT A&O X3, CONFUSED AT TIMES. C/O OF NAUSEA AND LEFT SHOULDER DISCOMFORT THIS SHIFT. DENIES SOB. O2 SATS REMAINING >90%. PATIENT DENIED ANY PAIN MEDS THIS SHIFT. MEDICATED X1 FOR N/V. PATIENT VOMITTED SMALL AMOUNT OF YELLOW VOMIT THIS AM. 0800 TUBE FEEDING HELD. SCHEDLED 1100 AND 1400 TUBE FEEDINGS ADMINISTERED ALONG WITH 1530 200 ML FLUSH. 1700 TUBE FEEDING HELD DUE TO RESIDUAL OF 160 ML. MEDICATED PER Jan. PATIENT HAS LEG BRACES IN PLACE. REPOSITIONED THROUGHOUT THE SHIFT. IS AT THE BEDSIDE. NO ACUTE CHANGES THIS SHIFT.
--- NOTE | 2019-02-19 03:58 | NUR ---
68 Y/O MALE RESTED QUIETLY ALL EVENING IN BED WITH NO ATTEMPTS TO CLIMB OOB NOTED. PT WEARING BILATERAL KNEE BRACES. PT DENIES PAIN OR NAUSEA. PTS BED ALARM ACTIVATED (NURSING STAFF CHECKED ROOM FREQUENTLY), BED LOW POSITION, CALL LIGHT AT SIDE.
[2019-02-19 05:17] LABS: Hematocrit 32.5 % (37.0-53.0); Hemoglobin 9.2 g/dL (13.5-17.5); Mean Corpuscular HGB 25.9 pg (26.0-34.0); Mean Corpuscular HGB Conc 28.3 g/dL (31.5-36.5); Mean Corpuscular Volume 92 fL (80-100); Mean Platelet Volume 10.3 fL (9.1-12.4); Platelet Count 307 K/mm3 (150-400); RDW Coefficient Variation 15.9 % (11.7-14.2); RDW Standard Deviation 54.5 fL (35.1-46.3); Red Blood Cell Count 3.55 M/mm3 (4.30-5.90); White Blood Cell Count 7.68 K/mm3 (4.00-11.30)
[2019-02-19 05:33] LABS: Calcium, Blood 8.3 mg/dL (8.5-10.1); Creatinine, Blood 3.59 mg/dL (0.60-1.20); Potassium, Blood 3.5 mmol/L (3.5-5.5)
--- NOTE | 2019-02-19 19:41 | NUR ---
SHIFT SUMMARY PATIENT A&O X3, CAN BE CONFUSED/FORGETFUL AT TIMES. DENIES PAIN OR SOB THIS SHIFT. MEDICATED FOR NAUSEA X1 AFTER 0800 TUBE FEEDING. PATIENT TOLERATED 1 CAN OF 237 ML BEFORE REPORTING NAUSEA. G TUBE PATENT AND DRAINING. BRACES TO BILAT LOWER EXTREMETIES IN PLACE. MEDICATED PER E JAN. NO ACUTE CHANGES. AT THE BEDSIDE. BED ALARM IN PLACE.
--- NOTE | 2019-02-20 06:15 | NUR ---
SHIFT SUMMARY: PT IS ALERT AND ORIENTED WITH MODERATE CONFUSION. FAMILY IN THE ROOM VISITING AT START OF SHIFT. PT REQUIRES A LIFT FOR TRANSFERS. PT URINATED OFF THE SIDE OF THE BED ON ONE OCCASION. PT DENIES PAIN, NAUSEA, VOMITING, AND SOB. O2 SATS > 90% ON 4 L. PT SLEPT MUCH OF THE NIGHT WITHOUT COMPLICATION. PEG TUBE PATENT WITHOUT RESIDUAL. NO ACUTE CHANGES THIS SHIFT. BED IN LOW POSITION, CALL LIGHT WITHIN REACH. WILL REPORT TO DAY NURSE.
[2019-02-20 09:23] LABS: Bun/Creatinine Ratio 5.7 (12.0-20.0); Calcium, Blood 8.2 mg/dL (8.5-10.1); Creatinine, Blood 4.05 mg/dL (0.60-1.20); Potassium, Blood 3.6 mmol/L (3.5-5.5)
--- NOTE | 2019-02-20 18:21 | NUR ---
SHIFT SUMMARY THE PATIENT PRESENTED THIS SHIFTVITALS WNL, A&O X3 AND WITH LUNGS THAT WERE CLEAR, BUT DIMINISHED. THE PATIENT'S SPOUSE WAS WITH THE PATIENT MOST OF THE SHIFT. THE PATIENT WENT FOR A CT SCAN THIS SHIFT, ON HIS LEFT SHOULDER. THE PATIENT HAS HAD HIS TUBE FEEDINGS AND FLUSHES DIRECTED. THE PATIENT SEEMS A LITTLE CONFUSED THIS EVENING, THINKING THAT HE WAS AT [facility]. THE PATIENT HAD A B/M AT THE END OF THE SHIFT AND IS BEING CLEANED UP. WILL CONTINUE TO MONITOR.
--- NOTE | 2019-02-21 04:59 | NUR ---
SHIFT SUMMARY: PT IS ALERT AND ORIENTED WITH RELATIVELY SEVERE CONFUSION AND HALLUCINATIONS. PT REQUIRES A LIFT FOR TRANSFERS. PT PULLED HIS IV OUT, NEW IV STARTED. RESIDUAL IN PEG TUBE, HELD EVENING FEED, FLUSHED WITH WARM WATER ORDERED. PT KEPT NPO ORDERED. PT IS MOSTLY CONTINENT BUT DOESN'T ALWAYS KNOW TO ASK FOR ASSISTANCE, CHANGED AND CLEANED NEEDED. PT DENIES PAIN, NAUSEA, AND VOMITING. PT CONTINUALLY TAKING OFF HIS OXIMETER, O2 TURNED UP TO 7 L TO KEEP SATS > 90%. PT DENIES PAIN, NAUSEA, VOMITING, AND SOB. BED IN LOW POSITION, CALL LIGHT WITHIN REACH. WILL REPORT TO DAY NURSE.
[2019-02-21 06:00] LABS: Hematocrit 29.7 % (37.0-53.0); Hemoglobin 8.8 g/dL (13.5-17.5); Mean Corpuscular HGB 26.3 pg (26.0-34.0); Mean Corpuscular HGB Conc 29.6 g/dL (31.5-36.5); Mean Platelet Volume 10.2 fL (9.1-12.4); Platelet Count 314 K/mm3 (150-400); RDW Coefficient Variation 15.9 % (11.7-14.2); RDW Standard Deviation 51.7 fL (35.1-46.3); Red Blood Cell Count 3.35 M/mm3 (4.30-5.90); White Blood Cell Count 8.68 K/mm3 (4.00-11.30)
[2019-02-21 06:02] LABS: Mean Corpuscular Volume 89 fL (80-100)
[2019-02-21 06:26] LABS: Bun/Creatinine Ratio 6.7 (12.0-20.0); Calcium, Blood 8.2 mg/dL (8.5-10.1); Creatinine, Blood 3.87 mg/dL (0.60-1.20); Potassium, Blood 3.7 mmol/L (3.5-5.5)
--- NOTE | 2019-02-22 03:54 | NUR ---
02/22/19 2885 PT NON-COMPLIANT WITH FLUID RESTRICTION. CONTINUES TO DRINK WATER IN ROOM AND ASKS FOR SODA OFTEN. THREATENS TO "START A FIGHT" IF HE DOESN'T GET WHAT HE WANTS.HULL BUILDER SPOKE WITH HIM AND STATED HE CANNOT BE IN HALLS NAKED OR SECURITY WILL BE CALLED. PT ALLOWED HOSPITAL GOWN APPLIED.
[2019-02-22 05:31] LABS: Bun/Creatinine Ratio 8.6 (12.0-20.0); Calcium, Blood 8.2 mg/dL (8.5-10.1); Creatinine, Blood 3.26 mg/dL (0.60-1.20); Potassium, Blood 4.7 mmol/L (3.5-5.5)
--- NOTE | 2019-02-22 05:34 | NUR ---
02/22/19 0530 Sleeping well now. Repositioned q 2 hours but refused oral care twice with roundings. Pushed away oral swabs and ointment for lips. Vitals stable and continuos pulse oximeter in place. Incontinent of urine x 4.
--- NOTE | 2019-02-22 17:28 | NUR ---
PT REPORTING AN UPSET STOMACH, FEELS LIKE HE "MIGHT THROW UP". 4 MG IV ZOFRAN GIVEN, WILL MONITOR FOR EFFECTIVENESS. 1700 BOLUS FEED HELD AT THIS TIME.
--- NOTE | 2019-02-22 19:22 | NUR ---
NO ACUTE CHANGES NOTED THIS SHIFT, PT IS A [facility]. WILL CONTINUE TO MONITOR AND REPORT TO ONCOMING RN
--- NOTE | 2019-02-23 05:36 | NUR ---
SHIFT SUMMARY PT HAD NO ACUTE ISSUES NOTED. PT HAD SOME SLEEP T/O SHIFT. PT IS ANXIOUS ABOUT GOING TO REHAB. PT IS FIXATED ON BEING PREPARED ON THE TRANSFER TO REHAB. PT HAD NO NOTED DIARRHEA BUT A SMALL FORMED BM. PT CURRENTLY AWAKE AND IN NO DISTRESS. CALL LIGHT IN REACH BED IN LOW POSITION.
[2019-02-23 05:58] LABS: Albumin, Blood 2.4 g/dL (3.4-5.0); Anion Gap 6 mmol/L (6-16); Blood Urea Nitrogen 26 mg/dL (8-24); Bun/Creatinine Ratio 10.1 (12.0-20.0); CO2, Blood 34 mmol/L (21-32); Calcium, Blood 8.7 mg/dL (8.5-10.1); Chloride, Blood 106 mmol/L (98-108); Creatinine, Blood 2.57 mg/dL (0.60-1.20); Glomerular Filtration Rate 26 (60-); Glucose, Blood 107 mg/dL (70-99); Phosphorus, Blood 4.7 mg/dL (2.5-4.9); Potassium, Blood 3.7 mmol/L (3.5-5.5); Sodium, Blood 146 mmol/L (136-145)
--- NOTE | 2019-02-23 12:22 | NUR ---
RESIDUAL OF 100ML, TUBE FEED STARTED, PT REPORTS BEING FULL APPROX HALF WAY THRU. FEEDING STOPPED, PT TOOK 140ML TUBE FEED AND 100ML H2O FLUSH, WILL MONITOR
--- NOTE | 2019-02-23 18:28 | NUR ---
PT DISCHARGE HELD D/T TEMP OF 99.9, PER [facility] PT MUST BE FEVER FREE FOR 24 HOURS. UVR TO REEVALUATE PT IN THE AM. NO ACUTE CHANGES NOTED THIS SHIFT. WILL CONTINUE TO MONITOR AND REPORT TO JOHAN SAUCEDO
--- NOTE | 2019-02-24 05:32 | NUR ---
SUMMARY: PT A/OX3 AND SPECIFIES NEEDS BUT HAS OCCASIONAL CONFUSION TO PLACE AND EVENT AND REQUIRES FREQ REMINDERS. HE CAN BECOME IRRITATED DURING CARE BUT CALMS W/REORIENTATION AND EXPLANATION. PT DESATS TO 80'S% W/O O2 AND REMOVED NC OFTEN CAUSING CONT BIOX TO ALARM. HE REMAINS ON 4L 02 AND RECOVERS QUICKLY WHEN REPLACED, NO RESP DISTRESS EVER NOTED. PT RECIEVED HS TF AND 250ML FLUSHES X3 PER RX'D SCHEDULE. MEDS CRUSHED AND ADMINISTERED VIA PEG TUBE. RESIDUALS WERE LESS THEN 40MLS T/O NOCTE. ABDO APPEARS OBESE AND DISTENDED BUT PT DENIED PAIN/NAUSEA. LEG BRACES ARE INTACT TO BLE'S AND SWELLING NOTED TO FEET/ANKLES. URINAL ASSIST PROVIDED AND ATTENDS CHANGED PRN. PT REPOSITIONED OFTEN. NO ACUTE CHANGES, VSS/AFEBRILE. WILL MONITOR AND REPORT TO DAY RN. LIKELY D/C TODAY.
[2019-02-24 05:33] LABS: BASOPHILS ABSOLUTE AUTO 0.02 K/mm3 (0.00-0.23); BASOPHILS PERCENT AUTO 0 % (0-2); EOSINOPHILS ABSOLUTE AUTO 0.19 K/mm3 (0.00-0.68); EOSINOPHILS PERCENT AUTO 2 % (0-6); Hematocrit 29.8 % (37.0-53.0); Hemoglobin 8.6 g/dL (13.5-17.5); IMMATURE GRAN ABSOLUTE AUTO 0.03 K/mm3 (0.00-0.10); IMMATURE GRAN PERCENT AUTO 0 % (0-1); LYMPHOCYTES ABSOLUTE AUTO 0.81 K/mm3 (0.84-5.20); LYMPHOCYTES PERCENT AUTO 9 % (21-46); MONOCYTES ABSOLUTE AUTO 0.56 K/mm3 (0.16-1.47); MONOCYTES PERCENT AUTO 6 % (4-13); Mean Corpuscular HGB 25.4 pg (26.0-34.0); Mean Corpuscular HGB Conc 28.9 g/dL (31.5-36.5); Mean Corpuscular Volume 88 fL (80-100); Mean Platelet Volume 10.7 fL (9.1-12.4); NEUTROPHILS ABSOLUTE AUTO 7.41 K/mm3 (1.96-9.15); NEUTROPHILS PERCENT AUTO 82 % (41-73); Platelet Count 389 K/mm3 (150-400); RDW Standard Deviation 51.6 fL (35.1-46.3); Red Blood Cell Count 3.38 M/mm3 (4.30-5.90); White Blood Cell Count 9.02 K/mm3 (4.00-11.30)
[2019-02-24 05:53] LABS: Creatinine, Blood 2.1 mg/dL (0.60-1.20); Potassium, Blood 3.6 mmol/L (3.5-5.5)
--- NOTE | 2019-02-24 13:48 | NUR ---
DISCHARGE PT ASSISTED TO RECLINER THIS AM FOR COMFORT & FOR PEG TUBE FEEDINGS. ST IN FOR TX/EVAL STATE STRICT NPO, ONLY ORAL CARE W SPONGES. TF ONLY GAVITY NO PLUNGE. DR ARCHULETA IN TO SEE PT/ EXPLAIN THAT PT IS READY TO RETURN TO [facility] IF BED AVAIL. [employer] MAKE ARRANGEMENTS FOR TRANSFER. W/C VAN P/U @ 3003. REPORT CALLED TO KD BENNETT RN. PT LIGIA STATE APPRECIATION FOR CARE, PT STATE READY TO RESUME REHAB, STATE MOTIVATED.
== END 2019-02-24 13:48 | DRG 871 ==
LOC: ER 22:05 → ICUW 02-12 00:03 → MEDS 02-12 00:03 → ICUW 02-12 01:05 → MEDS 02-15 17:52 → ENPENDDIS 02-23 10:15 → MEDS 02-24 13:48
PROVIDERS: Emergency Medicine; Hospitalist; Internal Medicine; ADMIT Family Medicine
PROC: 5A09357 Assistance with Respiratory Ventilation, Less than 24 Consecutive Hours, Continuous Positive Airway Pressure (ICD-10-PCS; principal; 2019-02-13)
DX: A41.9 Sepsis, unspecified organism (principal); J69.0 Pneumonitis due to inhalation of food and vomit; G92 Toxic encephalopathy; E66.2 Morbid (severe) obesity with alveolar hypoventilation; Z68.41 Body mass index [BMI] 40.0-44.9, adult; G93.1 Anoxic brain damage, not elsewhere classified; I69.354 Hemiplegia and hemiparesis following cerebral infarction affecting left non-dominant side; Z87.891 Personal history of nicotine dependence; E11.9 Type 2 diabetes mellitus without complications; Z98.52 Vasectomy status; Z79.82 Long term (current) use of aspirin; I25.2 Old myocardial infarction; K21.9 Gastro-esophageal reflux disease without esophagitis; E78.5 Hyperlipidemia, unspecified; E87.6 Hypokalemia; W19.XXXA Unspecified fall, initial encounter; Y92.239 Unspecified place in hospital as the place of occurrence of the external cause; R26.89 Other abnormalities of gait and mobility; N18.2 Chronic kidney disease, stage 2 (mild); I12.9 Hypertensive chronic kidney disease with stage 1 through stage 4 chronic kidney disease, or unspecified chronic kidney disease; R13.12 Dysphagia, oropharyngeal phase; Z79.02 Long term (current) use of antithrombotics/antiplatelets
CPT/HCPCS: 20610; 23350; 36415; 36600; 51702; 70450; 71045; 73030; 73040; 73200; 73201; 76770; 77002; 80048; 80053; 80069; 80202; 81001; 82803; 82947; 83605; 83735; 84100; 84145; 84484; 85025; 85027; 85610; 85730; 87040; 87070; 87077; 87086; 87147; 87186; 87205; 87486; 87581; 87633; 87798; 87804; 92507; 92523; 92526; 92610; 93005; 93010; 94660; 94667; 94760; 94762; 96365; 96366; 96375; 97110; 97112; 97162; 97166; 97530; 97535; 99285-25; A9270-GY; J0295; J0360; J1630; J1650; J2060; J2405; J2543; J3370; J3480; J7030; J7040; J7050; J7120; Q9967

== ENCOUNTER → 2021-08-26 | Outpatient (CLI) | payer OTHER ==
[2021-08-30 13:38] LABS: Stool Occult Bld Immuno 1 Negative (NEGATIVE)
== END | disposition home or self-care (01) ==
LOC: LAB 12:00 → LAB SHORT 12:00
PROVIDERS: Physician Assistant
DX: Z12.11 Encounter for screening for malignant neoplasm of colon (principal)
CPT/HCPCS: G0328

== ENCOUNTER → 2022-01-08 | Outpatient (CLI) | payer OTHER | END | disposition home or self-care (01) | LOC: LAB SHORT 15:00 | DX: C44.619 Basal cell carcinoma of skin of left upper limb, including shoulder (principal); C44.519 Basal cell carcinoma of skin of other part of trunk | CPT/HCPCS: 88305 ==

== ENCOUNTER → 2022-01-17 | Outpatient (CLI) | payer OTHER | END | disposition home or self-care (01) | LOC: LAB SHORT 15:08 → PLD 15:08 | DX: C44.619 Basal cell carcinoma of skin of left upper limb, including shoulder (principal) | CPT/HCPCS: 88305 ==

== ENCOUNTER → 2022-09-26 | Outpatient (CLI) | payer OTHER | LOC: LAB 15:06 → LAB SHORT 15:06 | DX: C44.41 Basal cell carcinoma of skin of scalp and neck (principal); D04.61 Carcinoma in situ of skin of right upper limb, including shoulder | CPT/HCPCS: 88305 ==

== ENCOUNTER → 2022-10-08 | Outpatient (CLI) | payer OTHER | END | disposition home or self-care (01) | LOC: LAB SHORT 14:52 | DX: L57.8 Other skin changes due to chronic exposure to nonionizing radiation (principal) | CPT/HCPCS: 88305 ==

== ENCOUNTER → 2023-10-30 | Outpatient (CLI) | payer OTHER | LOC: LAB SHORT 11:27 → LAB 11:27 | PROVIDERS: Physician Assistant | DX: R80.9 Proteinuria, unspecified (principal) | CPT/HCPCS: 82043; 82570 ==